=== PATIENT | female | born 1960 | race Caucasian/White ===

== ENCOUNTER 2019-01-13 02:54 | Inpatient (IN) ==
[2019-01-13] MEDS ORDERED: 0.9 % SODIUM CHLORIDE 1,000 ML IV SCH ×2 (03:00→14:23)
[2019-01-13] MEDS ORDERED: METOPROLOL TARTRATE 5 MG/5 ML VIAL IV PRN (03:05)
[2019-01-13] MEDS ORDERED: DEXTROSE 50% 50 ML VIAL IV PRN (03:05)
[2019-01-13] MEDS ORDERED: DEXTROSE 31 GM ORAL.SUSP PO PRN (03:05)
[2019-01-13] MEDS ORDERED: HYDROmorphone 2 MG/ML VIAL ONE ×2 (04:20→04:29)
[2019-01-13] MEDS ORDERED: ONDANSETRON 4 MG/2 ML VIAL ONE (04:21)
[2019-01-13] MEDS ORDERED: INSULIN LISPRO 1 UNIT/0.01 ML UNIT SQ ONE (04:22)
[2019-01-13] MEDS: INSULIN LISPRO 1 UNIT/0.01 ML UNIT SQ SCH ×7 (04:32→21:55)
[2019-01-13] MEDS: PIPERACILLIN SODIUM/TAZOBACTAM 3.375 GM in DEXTROSE 5% IN WATER 50 ML IV SCH ×4 (04:36→17:26)
[2019-01-13 06:26] LABS: Basophils # (Auto) 0 K/mcL (0.0-0.3); Basophils % (Auto) 0.2 % (0.0-2.0); Eosinophils # (Auto) 0 K/mcL (0.0-0.7); Eosinophils % (Auto) 0 % (0.0-7.0); Granulocytes % (Auto) 78.2 % (38.0-78.0); Lymphocytes # (Auto) 2.4 K/mcL (1.5-4.8); Lymphocytes % (Auto) 15.7 % (15.5-49.0); Mean Cell Volume 85.5 fL (80.0-100.0); Mean Corpuscular HGB Conc 32.3 g/dL (31.0-36.0); Monocytes # (Auto) 0.9 K/mcL (0.1-0.9); Monocytes % (Auto) 5.9 % (1.0-12.0); Platelet Count 482 K/mcL (140-440); RBC 4.61 M/mcL (4.00-5.20)
[2019-01-13 06:56] LABS: ALT/SGPT 6 U/l (0-40); Albumin 3.5 gm/dL (3.2-5.2); Albumin/Globulin Ratio 0.9 (1.0-2.3); Alkaline Phosphatase 99 U/L (39-117); Bilirubin,Direct < 0.2 mg/dL (0.0-0.3); Blood Urea Nitrogen 16 mg/dl (6-20); Gamma Glutamyl Transpeptidase 26 U/L (5-36); Uric Acid 4.5 mg/dL (2.5-8.0)
--- NOTE | 2019-01-13 07:01 | Internal Med History&Physical ---
Medical - H&P: [facility] Patient information: Note initiated : 01/13/19 at 6:59 am Service Date, if different from initiated Date: [] Patient: Abbi Sprague a 58 y/o F admitted on 01/13/19 for Acute Cholecystitis, Hyperglycemia. Chief Complaint: [] History of present illness: Ms. Sprague is a 58 year old F presents to [facility] with abdominal pain. Found to have acute cholecystitis and was transferred to [facility] because of lack of beds. Patient reports about 3 days ago she developed a short right upper abdominal pain nonradiating with associated nausea vomiting. Movement made it worse she only has had water for the past 3 days. Nothing is made it feel better. The pain is been waxing and waning but last night was so severe that she went into the ED. Heart rate 170 she was given some Lopressor with good results but her heart rate back down and her blood sugar was noted to be 500 which improved with fluids and insulin. She has had some diarrhea as well. And fevers. Case was discussed with Dr. Powell and patient was transferred to [facility]. Review of Systems: Pertinent positives as above. Denies headache/chills/nausea/vomiting/cough/dyspnea. Remaining 10 point review systems reviewed negative Medical - H&P: H Medical history: Medical History (Last Updated 09/16/18 @ 16:12 by Emma Rouse) Colitis (Chronic) CAD (coronary artery disease) (Chronic) Mixed anxiety and depressive disorder (Chronic) Posttraumatic stress disorder (Chronic) Diabetic peripheral neuropathy (Chronic) Migraine (Chronic) Congestive heart failure (Chronic) Coronary arteriosclerosis (Chronic) Malignant neoplasm of ovary (Chronic) Cerebrovascular accident (Chronic) Vitamin D deficiency (Chronic) Microalbuminuria (Chronic) Osteopenia (Chronic) Type 1 diabetes mellitus (Chronic) Hemoptysis (Chronic) Closed right hip fracture (Chronic) Physical deconditioning (Chronic) Paroxysmal atrial fibrillation (Chronic) Opiate dependence (Chronic) Diabetes mellitus with polyneuropathy (Chronic) Diabetic ketoacidosis (Chronic) Diabetes (Acute) Abdominal pain (Acute) Diverticulitis (Acute) Vaginal candidiasis (Acute) Migraine (Acute) Gingivitis with diabetes mellitus (Acute) Volume depletion (Acute) Headache (Acute) Bronchitis (Acute) Chronic back pain (Acute) Concussion without loss of consciousness (Acute) Mixed bipolar I disorder (Chronic) Chronic pain (Chronic) Toxic shock syndrome (Resolved) Pyelonephritis, chronic (Resolved) Pulmonary embolism (Resolved) Panic attack (Chronic) Neuropathy (Chronic) Myocardial infarction, old (Chronic) Lichen sclerosus (Chronic) Hypertension, essential (Chronic) Gastroparesis (Chronic) Diabetes mellitus, type II (Chronic) COPD (chronic obstructive pulmonary disease) (Chronic) Atrial fibrillation (Chronic) Asthma (Chronic) Acid reflux (Chronic) Malignant neoplasm of ovary (Resolved) Past Surgical History (Last Updated 09/16/18 @ 16:10 by Emma Rouse) History of surgery (Chronic) Status post panniculectomy (Chronic 11/17/01) Hx of colonoscopy (Resolved) Family History Father Acute myocardial infarction Mother Acute myocardial infarction Social History (Last Updated 08/18/17 @ 16:08 by Hayes Dimas PA-C) -Never smoker but was exposed to secondhand smoke Denies alcohol Lives with a walker in her house Lives at home with Medical - H&P: Meds Home Medications Medication Instructions Recorded Confirmed Type glucagon (human recombinant) 1 mg 1 mg IM ONCE #1 each 09/25/15 08/18/17 Rx injection kit omeprazole 20 mg capsule,delayed 20 mg PO BID #60 cap 02/02/16 08/18/17 Rx release apixaban 5 mg tablet 5 mg PO BID #120 tab 11/04/16 08/18/17 Rx clobetasol 0.05 % topical ointment 1 applic TOPICAL QD-BID PRN #30 g 12/31/16 08/18/17 Rx blood-glucose See Dose Instructions .ROUTE 03/25/17 08/18/17 Rx meter,continuous-transmitter .MEDSUPPLY #1 each blood sugar diagnostic strips See Dose Instructions .ROUTE 05/29/17 08/18/17 Rx .MEDSUPPLY #100 each lisinopril 5 mg tablet 5 mg PO QDAY #90 tab 06/25/17 08/18/17 Rx promethazine 25 mg tablet 25 mg PO Q4-6HP PRN #20 tab 06/25/17 08/18/17 Rx albuterol sulfate HFA 90 1 puff INHALATION QDAY #18 g 07/02/17 08/18/17 Rx mcg/actuation aerosol inhaler insulin glargine (U-300) conc. 300 30 unit SUB-Q QDAY #1.5 ml 07/09/17 08/18/17 Rx unit/mL (1.5 mL) subcutaneous pen amitriptyline 75 mg tablet 75 mg PO QDAY #90 tab 07/17/17 08/18/17 Rx exenatide ER 2 mg subcutaneous 2 mg SUB-Q Q7D #4 ml 07/17/17 08/18/17 Rx extended release suspension insulin aspart U- 100 100 unit/mL See Rx Instructions SUB-Q ONCE #3 07/17/17 08/18/17 Rx subcutaneous pen ml insulin detemir (U- 100) 100 See Rx Instructions SUB-Q .COMPLEX 08/28/17 Rx unit/mL subcutaneous solution #10 ml duloxetine 30 mg capsule,delayed 30 mg PO QDAY #90 cap 08/29/17 Rx release gabapentin 300 mg capsule 300 mg PO TID #90 cap 08/29/17 Rx oxycodone 20 mg tablet 20 mg PO Q4H #168 tab 11/06/17 Rx Allergies Allergy/AdvReac Type Severity Reaction Status Date / Time buprenorphine [From Suboxone] Allergy Intermediate Swelling Verified 08/18/17 15:44 duloxetine [From Cymbalta] Allergy Intermediate Swelling Verified 01/13/19 07:34 Iodinated Contrast- Oral and Allergy Intermediate Hives Verified 01/13/19 06:15 IV Dye [Iodinated Contrast Media - IV Dye] ketorolac [From Toradol] Allergy Intermediate Difficulty Verified 01/13/19 06:15 Breathing Naloxone [From Suboxone] Allergy Intermediate Swelling Verified 08/18/17 15:44 Sulfa (Sulfonamide Allergy Intermediate Difficulty Verified 01/13/19 06:15 Antibiotics) Breathing pregabalin [From Lyrica] AdvReac Intermediate Palpitation Verified 01/13/19 07:35 s sulfamethoxazole AdvReac Intermediate Palpitation Verified 01/13/19 07:34 [From Septra] s trimethoprim [From Septra] AdvReac Intermediate Palpitation Verified 01/13/19 07:34 s acetaminophen AdvReac Mild Itching Verified 01/13/19 07:34 fentanyl AdvReac Mild Anxiety Verified 01/13/19 06:15 lorazepam [From Ativan] AdvReac Mild Hives Verified 01/13/19 07:35 Medical - H&P: Exam - Constitutional Vitals: Temp Pulse Resp BP Pulse Ox 100.4 F H 111 H 18 175/97 97 01/13/19 03:55 01/13/19 03:55 01/13/19 03:55 01/13/19 03:55 01/13/19 03:55 Exam: General: Alert, Awake, No acute Distress Eyes/N/T: EOMI, PEERL, DMM Head/Neck: neck supple, normocephalic atraumatic CV: Regular currently, No murmurs, Pulm: Clear b/l, no wheezing/rhonchi/rales Abd: soft, tenderness to palpation throughout especially right upper quadrant, +BS x4 Ext: no clubbing/cyanosis/edema Neuro: Alert, no focal deficits, moves all extremities, CN 2-12 grossly intact, symmetrical strength b/l upper/lower, sensations intact b/l upper/lower Skin: warm/dry Medical - H&P: Reslt - Labs CBC & Chem 7: 01/13/19 04:43 01/13/19 04:43 Labs: Short CBC 01/13/19 Range/Units 04:43 WBC 15.2 H (4.5-11.0) K/mcL Hgb 12.7 (12.0-15.0) g/dL Hct 39.4 (36.0-48.0) % Plt Count 482 H (140-440) K/mcL BMP 01/13/19 04:43 Sodium 133 Potassium 3.6 Chloride 93 L Carbon Dioxide 28 BUN 16 Creatinine 0.7 Glucose 407 H Calcium 8.8 Liver Function 01/13/19 Range/Units 04:43 Total Bilirubin 0.5 (0.0-1.0) mg/dL Direct Bilirubin < 0.2 (0.0-0.3) mg/dL GGT 26 (5-36) U/L AST 9 (0-37) U/l ALT 6 (0-40) U/l Alkaline Phosphatase 99 (39-117) U/L Albumin 3.5 (3.2-5.2) gm/dL - Impressions Imaging per ER physician note showed CT abdomen with acute cholecystitis Medical - H&P: A/P - Narrative A/P Narrative: A: *Acute cholecystitis: *Sepsis: -Leukocytosis improving, febrile, lacate 2.0 *Diabetes with hyperglycemia and polyneuropathy: *Hyponatremia: Improved *PAF (Afib RVR @ [facility], better after lopressor x1): on ccb/bb/eliquis *HTN: on verapamil/coreg/lisinopril *CAD, no stents: *h/o CVA: With residual balance problems *Chronic pain from polyneuropathy from diabetes *Depression/anxiety: *GERD * P: -IVF's -NPO -Zosyn -Dr. Powell Gen Surg -SSI and basal insulin, monitor BG closely -A1c -restart BP meds and prn, prn lopressor - -clarify home meds - -ppx: SCD (Eliquis held for surgery)/pepcid Medical - H&P: Qual - VTE Deep Vein Thrombosis/Pulmonary Embolism Present on Admission: No
[2019-01-13] MEDS ORDERED: MAGNESIUM SULFATE 8.12 MEQ in DEXTROSE 5% IN WATER 50 ML IV ONE (07:30)
[2019-01-13 07:50] LABS: Anisocytosis 1+ (NONE SEEN); Band Neutrophils % 4 % (0-10); Lymphocytes % 16 % (15-49); Monocytes % (Manual) 6 % (1-12); Platelet Estimate INCREASED (NORMAL); RBC Morphology ABNORM (NORMAL); Segmented Neutrophils % 74 % (38-78)
[2019-01-13] MEDS: HYDROmorphone 2 MG/ML VIAL IV PRN ×4 (07:54→16:30)
[2019-01-13] MEDS: 0.9 % SODIUM CHLORIDE 1,000 ML IV SCH ×2 (08:01→13:28)
[2019-01-13] MEDS ORDERED: LABETALOL 5 MG/ML ML IV PRN (08:57)
[2019-01-13] MEDS ORDERED: MAGNESIUM SULFATE 2 GM/50 ML BAG IV PRN (08:59)
[2019-01-13] MEDS ORDERED: POTASSIUM CHLORIDE 20 MEQ TABLET PO PRN ×2 (08:59)
[2019-01-13] MEDS ORDERED: POLYETHYLENE GLYCOL 3350 17 GM PACKET PO PRN (08:59)
[2019-01-13] MEDS ORDERED: IPRATROPIUM/ALBUTEROL 3 ML AMPUL.NEB NEB PRN (08:59)
[2019-01-13] MEDS ORDERED: PROMETHAZINE 12.5 MG SUPP.RECT PR PRN (08:59)
[2019-01-13] MEDS ORDERED: SENNOSIDES 1 TABLET PO PRN (08:59)
[2019-01-13] MEDS ORDERED: POTASSIUM CHLORIDE 40 MEQ in DEXTROSE 5% IN WATER 500 ML IV PRN (08:59)
[2019-01-13] MEDS: 0.9 % SODIUM CHLORIDE 10 ML SYRINGE IV SCH ×2 (09:02→21:55)
[2019-01-13] MEDS: ONDANSETRON 4 MG/2 ML VIAL IV PRN ×2 (09:05→19:43)
[2019-01-13] MEDS: FAMOTIDINE/PF 20 MG/2 ML VIAL IV SCH ×2 (09:13→21:54)
[2019-01-13 10:21] LABS: Hemoglobin A1C 10.4 % HGB (4.0-6.0)
[2019-01-13] MEDS ORDERED: HYDROmorphone 2 MG TABLET PO PRN (13:22)
[2019-01-13] MEDS ORDERED: ALBUTEROL SULFATE 1 PUFF INHALER INH PRN (13:53)
--- NOTE | 2019-01-13 16:34 | General Surgery Consult Note ---
History of Present Illness Patient information: Note initiated : 01/13/19 at 4:24 pm Service Date, if different from initiated Date: [] Patient: Abbi Sprague 58 y/o F admitted on 01/13/19 for Acute Cholecystitis, Hyperglycemia. Chief Complaint: [] Reason for consult: gallstones History of present illness: 58-year-old female with three-day history of general fatigue and lethargy. She has a 2 day history of nausea with vomiting with multiple episodes of vomiting this. She was seen by EMS at home and was noted to be in atrial flutter with fast ventricular response. She was taken to [facility] for evaluation revealed her to have leukocytosis with white count of 18,500. She also had gallstones with thickened gallbladder wall compatible with acute cholecystitis. She was scheduled for admission but was transferred to our facility because of lack of space. She remains symptomatic and has tender epigastrium and right upper quadrant. She also has significant hyperglycemia which is being treated by the hospitalist. Patient has been on eliquis so another days delay will allow her coagulopathy to correct. . Review of Systems - Constitutional fatigue, lethargy, malaise, weakness - EENT Nose, mouth and throat: disequilibrium, dizziness, headache(s) - Cardiovascular palpatations, rapid heart rate, no dyspnea on exertion - Respiratory no cough, no dyspnea on exertion, no wheezing, no chest congestion - Gastrointestinal abdominal pain, bloating, diarrhea, heartburn, nausea, vomiting - Genitourinary Genitourinary: no urinary hesitancy, no urinary incontinence - Musculoskeletal arthralgias, myalgias, neck pain, stiffness - Integumentary dry skin - Neurological disequilibrium, frequent falls, headache(s), restless legs, tingling, tremor(s), weakness, no confusion - Psychiatric anxiety, depression, irritability, panic attacks - Endocrine fatigue, polydipsia, polyphagia, polyuria, no cold intolerance - Hematologic/Lymphatic no easy bleeding, no easy bruising, no lymphadenopathy - Allergic/Immunologic no tongue swelling, no throat swelling, no uticaria, no wheezing, no lip swelling Past History Past medical history: Chronic atrial fibrillation History of pulmonary embolus History of coronary artery disease History of stroke Chronic obstructive lung disease Uncontrolled diabetes with polyneuropathy Gastroparesis Hypertension History of ovarian neoplasm History of bipolar disorder Chronic pain syndrome Posttraumatic stress disorder Past surgical history: Total abdominal hysterectomy and bilateral salpingo-oophorectomy Appendectomy Panniculectomy Partial small bowel resection Partial colon resection by history Past family history: Mother age 73 due to coronary artery disease Father age 76 due to coronary artery disease Sister age 50 due to chronic obstructive lung disease Past social history: Never smoker Denies alcohol use Occasional marijuana use Medications and Allergies Home Medications Medication Instructions Recorded Confirmed Type glucagon (human recombinant) 1 mg 1 mg IM ONCE #1 each 09/25/15 08/18/17 Rx injection kit omeprazole 20 mg capsule,delayed 20 mg PO BID #60 cap 02/02/16 08/18/17 Rx release apixaban 5 mg tablet 5 mg PO BID #120 tab 11/04/16 01/13/19 Rx blood-glucose See Dose Instructions .ROUTE 03/25/17 08/18/17 Rx meter,continuous-transmitter .MEDSUPPLY #1 each blood sugar diagnostic strips See Dose Instructions .ROUTE 05/29/17 08/18/17 Rx .MEDSUPPLY #100 each albuterol sulfate HFA 90 1 puff INHALATION QDAY #18 g 07/02/17 01/13/19 Rx mcg/actuation aerosol inhaler ALPRAZolam [Xanax] 1 mg PO BIDP PRN 01/13/19 01/13/19 History Carvedilol [Coreg] 25 mg PO BIDCC 01/13/19 01/13/19 History HYDROmorphone HCL [Hydromorphone 8 mg PO Q6HP PRN 01/13/19 01/13/19 History HCl] Metoclopramide [Reglan] 10 mg PO ACHS 01/13/19 01/13/19 History RX: Insulin Detemir [Levemir] 30 unit SUBCUT BID 01/13/19 01/13/19 History RX: morphine 30 mg PO BIDAC 01/13/19 01/13/19 History Verapamil HCl [Verapamil ER] 240 mg PO DAILY 01/13/19 01/13/19 History Allergies Allergy/AdvReac Type Severity Reaction Status Date / Time buprenorphine [From Suboxone] Allergy Intermediate Swelling Verified 08/18/17 15:44 duloxetine [From Cymbalta] Allergy Intermediate Swelling Verified 01/13/19 07:34 Iodinated Contrast- Oral and Allergy Intermediate Hives Verified 01/13/19 06:15 IV Dye [Iodinated Contrast Media - IV Dye] ketorolac [From Toradol] Allergy Intermediate Difficulty Verified 01/13/19 06:15 Breathing Naloxone [From Suboxone] Allergy Intermediate Swelling Verified 08/18/17 15:44 Sulfa (Sulfonamide Allergy Intermediate Difficulty Verified 01/13/19 06:15 Antibiotics) Breathing pregabalin [From Lyrica] AdvReac Intermediate Palpitation Verified 01/13/19 07:35 s sulfamethoxazole AdvReac Intermediate Palpitation Verified 01/13/19 07:34 [From Septra] s trimethoprim [From Septra] AdvReac Intermediate Palpitation Verified 01/13/19 07:34 s acetaminophen AdvReac Mild Itching Verified 01/13/19 07:34 fentanyl AdvReac Mild Anxiety Verified 01/13/19 06:15 lorazepam [From Ativan] AdvReac Mild Hives Verified 01/13/19 07:35 Exam Temp Pulse Resp BP Pulse Ox 99.5 F H 106 H 18 158/91 97 01/13/19 12:00 01/13/19 08:00 01/13/19 12:00 01/13/19 12:00 01/13/19 12:00 - General physical appearance well developed, well nourished, moderate distress, moderate pain - Eyes PERRL, normal ocular movement. negative: icteric - ENT normal pinna, normal nares, normal mucosa, no hearing loss, no congestion - Head Head exam IM: Present: atraumatic, normal inspection, normocephalic - Neck no masses, no bruits, trachea midline, no lymphadenopathy, no venous distension - Cardiovascular Cardiovascular exam IM: Present: normal rate and rhythm, irregular rhythm, +S1, +S2. Absent: JVD, tachycardia - Respiratory normal expansion, normal respiratory effort, clear to auscultation - Abdomen Abdomen: Present: soft, tender (tender right subcostal region and epigastrium; no palpable mass; mild distention; chronic scarring from panniculectomy), bowel sounds Hernia: Present: none - Genitourinary Present: normal external genitalia - Integumentary Present: no rash, no growths, no abnormal pigmentation, other (healing abrasion left knee) - Neurologic Present: normal coordination, normal sensation - Musculoskeletal Present: normal gait, normal posture - Psychiatric Present: oriented to time, oriented to person, oriented to place, speech is normal, memory intact Results - Labs 01/13/19 04:43 01/13/19 04:43 Abnormal lab results 01/13/19 01/13/19 01/13/19 Range/Units 04:42 04:43 04:43 WBC 15.2 H (4.5-11.0) K/mcL RDW 16.0 H (11.5-14.5) % Plt Count 482 H (140-440) K/mcL MPV 7.3 L (7.4-10.4) fL Gran % 78.2 H (38.0-78.0) % Gran # 11.9 H (1.8-8.0) K/mcL RBC Morphology (NORMAL) Anisocytosis (NONE SEEN) PT 15.2 H (11.9-14.5) sec INR 1.2 H (0.9-1.1) Chloride 93 L (96-108) mmol/L Glucose 407 H (70-105) mg/dL Hemoglobin A1c (4.0-6.0) % HGB Magnesium 1.5 L (1.6-2.5) mg/dL Globulin 3.8 H (2.2-3.7) gm/dL Albumin/Globulin Ratio 0.9 L (1.0-2.3) 01/13/19 01/13/19 Range/Units 04:43 04:43 WBC (4.5-11.0) K/mcL RDW (11.5-14.5) % Plt Count (140-440) K/mcL MPV (7.4-10.4) fL Gran % (38.0-78.0) % Gran # (1.8-8.0) K/mcL RBC Morphology Abnorm A (NORMAL) Anisocytosis 1+ A (NONE SEEN) PT (11.9-14.5) sec INR (0.9-1.1) Chloride (96-108) mmol/L Glucose (70-105) mg/dL Hemoglobin A1c 10.4 H (4.0-6.0) % HGB Magnesium (1.6-2.5) mg/dL Globulin (2.2-3.7) gm/dL Albumin/Globulin Ratio (1.0-2.3) Diabetes panel 01/13/19 01/13/19 Range/Units 04:43 04:43 Sodium 133 (133-145) mmol/L Potassium 3.6 (3.3-5.1) mmol/L Chloride 93 L (96-108) mmol/L Carbon Dioxide 28 (22-30) mmol/L BUN 16 (6-20) mg/dl Creatinine 0.7 (0.6-1.1) mg/dl Glucose 407 H (70-105) mg/dL Hemoglobin A1c 10.4 H (4.0-6.0) % HGB Calcium 8.8 (8.6-10.4) mg/dl AST 9 (0-37) U/l ALT 6 (0-40) U/l Alkaline Phosphatase 99 (39-117) U/L Total Protein 7.3 (5.9-8.4) gm/dL Albumin 3.5 (3.2-5.2) gm/dL Triglycerides 119 (<150) mg/dl Calcium panel 01/13/19 Range/Units 04:43 Calcium 8.8 (8.6-10.4) mg/dl Phosphorus 3.0 (2.7-4.5) mg/dL Albumin 3.5 (3.2-5.2) gm/dL Pituitary panel 01/13/19 Range/Units 04:43 Sodium 133 (133-145) mmol/L Potassium 3.6 (3.3-5.1) mmol/L Chloride 93 L (96-108) mmol/L Carbon Dioxide 28 (22-30) mmol/L BUN 16 (6-20) mg/dl Creatinine 0.7 (0.6-1.1) mg/dl Glucose 407 H (70-105) mg/dL Calcium 8.8 (8.6-10.4) mg/dl Adrenal panel 01/13/19 Range/Units 04:43 Sodium 133 (133-145) mmol/L Potassium 3.6 (3.3-5.1) mmol/L Chloride 93 L (96-108) mmol/L Carbon Dioxide 28 (22-30) mmol/L BUN 16 (6-20) mg/dl Creatinine 0.7 (0.6-1.1) mg/dl Glucose 407 H (70-105) mg/dL Calcium 8.8 (8.6-10.4) mg/dl Total Bilirubin 0.5 (0.0-1.0) mg/dL AST 9 (0-37) U/l ALT 6 (0-40) U/l Alkaline Phosphatase 99 (39-117) U/L Total Protein 7.3 (5.9-8.4) gm/dL Albumin 3.5 (3.2-5.2) gm/dL All other labs normal. Assessment and Plan (1) Cholecystitis, acute Continue antibiotic treatment Schedule for laparoscopic cholecystectomy tomorrow; may need to do open procedure because of history of multiple operative procedures Status: Acute (2) Mixed anxiety and depressive disorder Continue home medications postoperatively Status: Chronic (3) Diabetic peripheral neuropathy Status: Chronic (4) Paroxysmal atrial fibrillation Status: Chronic (5) Diabetes mellitus with polyneuropathy Status: Chronic Qualifiers: Diabetes mellitus type: type 2 Qualified Code(s): E11.42 - Type 2 diabetes mellitus with diabetic polyneuropathy (6) Mixed bipolar I disorder Status: Chronic (7) Pulmonary embolism Status: Resolved Comment: 1996 (8) Hypertension, essential Status: Chronic (9) Diabetes mellitus, type II Status: Chronic Qualifiers: Diabetes mellitus exterminator insulin use: with exterminator use Diabetes mellitus complication status: with neurologic complications Diabetes mellitus complication detail: with polyneuropathy Qualified Code(s): E11.42 - Type 2 diabetes mellitus with diabetic polyneuropathy; Z79.4 - longterm (current) use of insulin (10) COPD (chronic obstructive pulmonary disease) Status: Chronic Comment: 04/2014 (11) Atrial fibrillation Status: Chronic Comment: 2013 Qualifiers: Atrial fibrillation type: chronic Qualified Code(s): I48.2 - Chronic atrial fibrillation
[2019-01-13] MEDS: morphine 15 MG TABLET PO SCH (17:26)
[2019-01-13] MEDS: CARVEDILOL 12.5 MG TABLET PO SCH (17:26)
--- NOTE | 2019-01-13 18:30 | Ultrasound Report ---
History: Cholecystitis FINDINGS: The posterior wall of the gallbladder is thickened and there is some layering sludge. The anterior wall is normal in thickness. No stones are seen within the lumen and there is no para cholecystic fluid. The posterior gallbladder wall measures up to 5.6 mm. The common bile duct is dilated measures up to 7.5 mm. Liver is normal in size and homogeneous. Doppler shows normal blood flow in the hepatic and portal veins. Pancreas is largely obscured by overlying bowel gas but is grossly normal. Right kidney is normal. IMPRESSION: Thickened gallbladder wall due to cholecystitis. Dilated common bile duct. There may be a nonvisualized stone in the distal duct. Interpreted and Authenticated by: Bill Stone 01/13/19
[2019-01-13] MEDS: ALPRAZolam 0.5 MG TABLET PO PRN (21:54)
[2019-01-13] MEDS: INSULIN GLARGINE, HUMAN 1 UNIT/0.01 ML SQ SCH (21:55)
[2019-01-14] MEDS: PIPERACILLIN SODIUM/TAZOBACTAM 3.375 GM in DEXTROSE 5% IN WATER 50 ML IV SCH ×4 (00:35→21:04)
[2019-01-14] MEDS: INSULIN LISPRO 1 UNIT/0.01 ML UNIT SQ SCH ×8 (00:39→21:25)
[2019-01-14 05:53] LABS: Basophils # (Auto) 0 K/mcL (0.0-0.3); Basophils % (Auto) 0.4 % (0.0-2.0); Eosinophils # (Auto) 0.2 K/mcL (0.0-0.7); Eosinophils % (Auto) 1.9 % (0.0-7.0); Granulocytes % (Auto) 46.9 % (38.0-78.0); Lymphocytes % (Auto) 42.4 % (15.5-49.0); Mean Cell Volume 85.3 fL (80.0-100.0); Mean Corpuscular HGB Conc 32.7 g/dL (31.0-36.0); Monocytes % (Auto) 8.4 % (1.0-12.0); Platelet Count 369 K/mcL (140-440); RBC 3.83 M/mcL (4.00-5.20); Red Cell Distribution Width 15.6 % (11.5-14.5)
[2019-01-14] MEDS: HYDROmorphone 2 MG/ML VIAL IV PRN ×7 (06:02→23:15)
[2019-01-14 06:16] LABS: ALT/SGPT < 5 U/l (0-40); Alkaline Phosphatase 74 U/L (39-117); Bilirubin,Direct < 0.2 mg/dL (0.0-0.3); Blood Urea Nitrogen 18 mg/dl (6-20); Gamma Glutamyl Transpeptidase 20 U/L (5-36); Uric Acid 3.2 mg/dL (2.5-8.0)
[2019-01-14] MEDS ORDERED: POTASSIUM CHLORIDE 40 MEQ in DEXTROSE 5% IN WATER 250 ML IV ONE (06:49)
[2019-01-14] MEDS ORDERED: 0.9 % SODIUM CHLORIDE 1,000 ML IV SCH ×3 (06:49→19:31)
--- NOTE | 2019-01-14 06:50 | Internal Med Progress Note ---
Medical - PN: Subj Patient information: Note initiated : 01/14/19 at 6:46 am Service Date, if different from initiated Date: [] Patient: Abbi Sprague a 58 y/o F admitted on 01/13/19 for Acute Cholecystitis, Hyperglycemia. Chief Complaint: [] Interval history: Ms. Sprague is a 58 year old F presents to [facility] with abdominal pain. Found to have acute cholecystitis and was transferred to [facility] because of lack of beds. Patient reports about 3 days ago she developed a short right upper abdominal pain nonradiating with associated nausea vomiting. Movement made it worse she only has had water for the past 3 days. Nothing is made it feel better. The pain is been waxing and waning but last night was so severe that she went into the ED. Heart rate 170 she was given some Lopressor with good results but her heart rate back down and her blood sugar was noted to be 500 which improved with fluids and insulin. She has had some diarrhea as well. And fevers. Case was discussed with Dr. Powell and patient was transferred to [facility]. 01/14 Patient slept better last night. Pain better controlled with medications. She has some nausea no vomiting. Review of Systems: denies headache/fever/chills/chest pain/cough/dyspnea/diarrhea. Otherwise see above. - Constitutional Vitals: Vital Signs Temp Pulse Resp BP Pulse Ox 98.2 F 83 20 143/93 94 01/14/19 04:00 01/14/19 04:00 01/14/19 04:00 01/14/19 04:00 01/14/19 04:00 Period Temp Pulse Resp BP Sys/Wiggins Pulse Ox Last 24 Hr 97.9 F-99.6 F 83-106 16-20 105-167/65-93 93-100 Intake and Output 01/13/19 01/14/19 01/14/19 21:59 05:59 13:59 Intake Total 530 350 Output Total 450 400 Balance 80 -50 Weight 74.843 kg Intake & Output: Intake & Output 01/13/19 01/14/19 01/14/19 21:59 05:59 13:59 Intake Total 530 350 Output Total 450 400 Balance 80 -50 Weight 74.843 kg Intake: IV 50 50 Zosyn 3.375 gm In Dextrose 5% 50 50 in Water 50 ml @ 100 mls/hr IV Q6H [facility] Rx#:[id number] Oral 480 300 Output: Urine Catheter Amount 450 400 Other: Urine Appearance Uretheral (Fall) Clear Urine Color Dark Yellow Dark Yellow Uretheral (Fall) Dark Yellow Urine Odor Strong Normal Uretheral (Fall) Normal Exam: General: Alert, Awake, No acute Distress Eyes/N/T: EOMI, Head/Neck: neck supple, CV: Regular currently, No murmurs, Pulm: Clear b/l, no wheezing/rhonchi/rales Abd: soft, tenderness to palpation throughout especially right upper quadrant, + BS x4 Ext: no clubbing/cyanosis/edema Neuro: Alert, no focal deficits, moves all extremities, Skin: warm/dry Medical - PN: Obj Da - Labs CBC & Chem 7: 01/14/19 04:08 01/14/19 04:08 Labs: Abnormal Lab Results 01/14/19 01/14/19 01/13/19 04:08 04:08 04:43 WBC 11.8 H RBC 3.83 L Hgb 10.7 L Hct 32.7 L RDW 15.6 H Plt Count MPV 7.1 L Gran % Gran # Lymph # (Auto) 5.0 H Gila # (Auto) 1.0 H RBC Morphology Anisocytosis PT INR Potassium 3.2 L Chloride Carbon Dioxide 31 H Anion Gap 7.0 L Glucose 207 H Hemoglobin A1c 10.4 H Calcium 8.4 L Magnesium Albumin 3.0 L Globulin Albumin/Globulin Ratio 01/13/19 01/13/19 01/13/19 04:43 04:43 04:43 WBC 15.2 H RBC Hgb Hct RDW 16.0 H Plt Count 482 H MPV 7.3 L Gran % 78.2 H Gran # 11.9 H Lymph # (Auto) Gila # (Auto) RBC Morphology Abnorm A Anisocytosis 1+ A PT INR Potassium Chloride 93 L Carbon Dioxide Anion Gap Glucose 407 H Hemoglobin A1c Calcium Magnesium 1.5 L Albumin Globulin 3.8 H Albumin/Globulin Ratio 0.9 L 01/13/19 04:42 WBC RBC Hgb Hct RDW Plt Count MPV Gran % Gran # Lymph # (Auto) Gila # (Auto) RBC Morphology Anisocytosis PT 15.2 H INR 1.2 H Potassium Chloride Carbon Dioxide Anion Gap Glucose Hemoglobin A1c Calcium Magnesium Albumin Globulin Albumin/Globulin Ratio Meds: Medications Albuterol Sulfate (Ventolin) 1 puff INH Q4HP PRN PRN Reason: Shortness Of Breath Albuterol/Ipratropium (Duoneb) 3 ml NEB Q4HP PRN PRN Reason: Shortness Of Breath Alprazolam (Xanax) 1 mg PO BIDP PRN PRN Reason: Anxiety Last Admin: 01/13/19 21:54 Dose: 1 mg Documented by: Carvedilol (Coreg) 25 mg PO BIDCC [facility] Last Admin: 01/13/19 17:26 Dose: 25 mg Documented by: Dextrose (Dextrose 50%) 0 ml IV UD PRN PRN Reason: Hypoglycemia Diagnostic Test (Pha) (Accu-Chek) 1 each FS Q3H [facility] Last Admin: 01/14/19 04:17 Dose: 1 each Documented by: Famotidine (Pepcid) 20 mg IV Q12 [facility] Last Admin: 01/13/19 21:54 Dose: 20 mg Documented by: Glucose (Insta-Glucose) 15 gm PO PRN PRN PRN Reason: Hypoglycemia Heparin Sodium (Porcine) (Heparin Flush) 2 ml IV Q12 [facility] Last Admin: 01/13/19 21:54 Dose: 2 ml Documented by: Hydromorphone HCl (Dilaudid) 1 mg IV Q2HP PRN PRN Reason: PAIN LEVEL > 6 Last Admin: 01/14/19 06:02 Dose: 1 mg Documented by: Hydromorphone HCl (Dilaudid) 8 mg PO Q6HP PRN PRN Reason: Pain Last Admin: 01/13/19 20:00 Dose: 8 mg Documented by: Piperacillin Sod/Tazobactam (Sod 3.375 gm/ Dextrose) 50 mls @ 100 mls/hr IV Q6H [facility] Last Admin: 01/14/19 06:02 Dose: 100 mls/hr Documented by: Potassium Chloride 40 meq/ (Dextrose) 520 mls @ 130 mls/hr IV ONCE PRN PRN Reason: Potassium < 3 Magnesium Sulfate (Magnesium Sulfate) 2 gm in 50 mls @ 50 mls/hr IV ONCE PRN PRN Reason: Magnesium </= 1.6 Sodium Chloride (Sodium Chloride 0.9%) 1,000 mls @ 60 mls/hr IV .[id number] [facility] Last Admin: 01/13/19 15:06 Dose: 60 mls/hr Documented by: Insulin Glargine (Lantus) 30 unit SQ BID [facility] Last Admin: 01/13/19 21:55 Dose: 30 unit Documented by: Insulin Human Lispro (Humalog) 0 unit SQ Q3H [facility]; Protocol Last Admin: 01/14/19 04:18 Dose: Not Given Documented by: Labetalol HCl (Trandate) 10 - 20 mg IV Q2HP PRN PRN Reason: Hypertension Metoprolol Tartrate (Lopressor) 5 mg IV Q2HP PRN PRN Reason: Tachyarrhythmias Morphine Sulfate (Morphine) 30 mg PO BIDAC [facility] Last Admin: 01/13/19 17:26 Dose: 30 mg Documented by: Ondansetron HCl (Zofran) 4 mg IV Q4HP PRN PRN Reason: Nausea And Vomiting Last Admin: 01/13/19 19:43 Dose: 4 mg Documented by: Polyethylene Glycol (Miralax) 17 gm PO DAILYP PRN PRN Reason: Constipation Potassium Chloride (Kdur) 40 meq PO ONCE PRN PRN Reason: Potssium is 3-3.5 Potassium Chloride (Kdur) 40 meq PO ONCE PRN PRN Reason: Potassium < 3 Prochlorperazine (Compazine) 10 mg IV Q6HP PRN PRN Reason: Nausea And Vomiting Promethazine HCl (Phenergan) 12.[address] Q6HP PRN PRN Reason: Pain Senna (Senokot) 2 tab PO HSP PRN PRN Reason: Constipation Sodium Chloride (Saline Flush) 10 ml IV Q12 [facility] Last Admin: 01/13/19 21:55 Dose: Not Given Documented by: Verapamil HCl (Calan Sr) 240 mg PO DAILY [facility] Medical - PN: A/P - Time Spent With Patient Total time spent is greater than 50% in coordination of care (as documented) at patient's floor/unit and/or counseling patient: - Narrative A/P Narrative: A: *Acute cholecystitis: *Sepsis: resolving -Leukocytosis improving, febrile, lacate 2.0 *Diabetes with hyperglycemia and polyneuropathy: *Hyponatremia: Improved *PAF (Afib RVR @ [facility], better after lopressor x1): on ccb/bb/eliquis *HTN: on verapamil/coreg/lisinopril *CAD, no stents: *h/o CVA: With residual balance problems *Chronic pain from polyneuropathy from diabetes *Depression/anxiety: *GERD *hypokalemia/mag: P: -IVF's -NPO for surgery -Alicja -Dr. Powell Gen Surg -SSI and basal insulin, monitor BG closely -A1c -restart BP meds and prn, prn lopressor -replete electrolytes -clarify home meds - -ppx: SCD (Eliquis held for surgery)/pepcid Medical - PN: Qual - VTE Deep Vein Thrombosis/Pulmonary Embolism Present on Admission: No
[2019-01-14] MEDS: CARVEDILOL 12.5 MG TABLET PO SCH (07:22)
[2019-01-14] MEDS: FAMOTIDINE/PF 20 MG/2 ML VIAL IV SCH ×2 (07:22→20:48)
[2019-01-14] MEDS: PROCHLORPERAZINE 10 MG/2 ML VIAL IV PRN ×2 (07:22→14:49)
[2019-01-14] MEDS: morphine 15 MG TABLET PO SCH (07:23)
[2019-01-14] MEDS: 0.9 % SODIUM CHLORIDE 10 ML SYRINGE IV SCH ×2 (07:23→21:06)
[2019-01-14] MEDS: VERAPAMIL 120 MG TAB.XL.24H PO SCH ×2 (07:28→14:48)
[2019-01-14] MEDS: INSULIN GLARGINE, HUMAN 1 UNIT/0.01 ML SQ SCH ×2 (07:38→20:49)
[2019-01-14] MEDS ORDERED: ROCURONIUM 10 MG/ML ML IV ONE (12:15)
[2019-01-14] MEDS ORDERED: LIDOCAINE HCL/PF 100 MG/5 ML SYRINGE IV ONE (12:15)
[2019-01-14] MEDS ORDERED: PROPOFOL 200 MG/20 ML VIAL IV ONE (12:15)
[2019-01-14] MEDS ORDERED: SUGAMMADEX SODIUM 200 MG/2 ML VIAL IV ONE (12:15)
[2019-01-14] MEDS ORDERED: ONDANSETRON 4 MG/2 ML VIAL ONE (12:15)
[2019-01-14] MEDS ORDERED: ESMOLOL 100 MG/10 ML VIAL IV ONE (12:15)
[2019-01-14] MEDS ORDERED: ePHEDrine 50 MG/ML AMPUL IV ONE (12:15)
[2019-01-14] MEDS ORDERED: GLYCOPYRROLATE 0.2 MG/ML VIAL IV ONE (12:15)
[2019-01-14] MEDS ORDERED: MIDAZOLAM 5 MG/5 ML VIAL ONE (12:15)
[2019-01-14] MEDS ORDERED: HYDROmorphone 2 MG/ML VIAL ONE (12:15)
[2019-01-14] MEDS ORDERED: VASOPRESSIN 20 UNIT/ML VIAL ONE (12:15)
[2019-01-14] MEDS ORDERED: IPRATROPIUM/ALBUTEROL 3 ML AMPUL.NEB NEB PRN ×3 (13:16→19:31)
[2019-01-14] MEDS ORDERED: METOPROLOL TARTRATE 5 MG/5 ML VIAL IV PRN ×3 (13:16→19:31)
[2019-01-14] MEDS ORDERED: FLUMAZENIL 0.1 MG/ML ML IV PRN (13:16)
[2019-01-14] MEDS ORDERED: MEPERIDINE 50 MG/ML INJECTION IM PRN (13:16)
[2019-01-14] MEDS ORDERED: PROMETHAZINE 25 MG/ML VIAL IM PRN (13:16)
[2019-01-14] MEDS ORDERED: ONDANSETRON 4 MG/2 ML VIAL IV PRN ×2 (13:16→14:50)
[2019-01-14] MEDS ORDERED: ATROPINE SULFATE 0.4 MG/ML VIAL IV PRN (13:16)
[2019-01-14] MEDS ORDERED: METHOCARBAMOL 1,000 MG/10 ML VIAL IV PRN (13:16)
[2019-01-14] MEDS ORDERED: ePHEDrine 50 MG/ML AMPUL IV PRN (13:16)
[2019-01-14] MEDS ORDERED: diphenhydrAMINE 50 MG/ML VIAL IV PRN (13:16)
[2019-01-14] MEDS ORDERED: LACTATED RINGERS 1,000 ML IV SCH (13:30)
--- NOTE | 2019-01-14 13:37 | Brief Operative Note ---
Date of procedure: 01/14/19 Pre-op diagnosis: acute cholecystitis Post-op diagnosis: other (acute cholecystitis) Procedure: laparoscopic cholecystectomy Grafts/Implants: No Anesthesia: GETA Findings: acutely dilated edematous gallbladder Complications: none Surgeon: Omero Powell Estimated blood loss (cc): 12 Specimens Removed/Pathology: other (gallbladder) Condition: stable Disposition: PACU
[2019-01-14] MEDS: ALPRAZolam 0.5 MG TABLET PO PRN (14:48)
[2019-01-14] MEDS ORDERED: ALPRAZolam 0.5 MG TABLET PO PRN ×2 (14:50→19:31)
[2019-01-14] MEDS ORDERED: HYDROmorphone 2 MG TABLET PO PRN (14:50)
[2019-01-14] MEDS ORDERED: LABETALOL 5 MG/ML ML IV PRN ×2 (14:50→19:31)
[2019-01-14] MEDS ORDERED: POLYETHYLENE GLYCOL 3350 17 GM PACKET PO PRN ×2 (14:50→19:31)
[2019-01-14] MEDS ORDERED: PROCHLORPERAZINE 10 MG/2 ML VIAL IV PRN ×2 (14:50→19:31)
[2019-01-14] MEDS ORDERED: PROMETHAZINE 12.5 MG SUPP.RECT PR PRN ×2 (14:50→19:31)
[2019-01-14] MEDS ORDERED: POTASSIUM CHLORIDE 20 MEQ TABLET PO PRN ×4 (14:50→19:31)
[2019-01-14] MEDS ORDERED: DEXTROSE 50% 50 ML VIAL IV PRN ×2 (14:50→19:31)
[2019-01-14] MEDS ORDERED: POTASSIUM CHLORIDE 40 MEQ in DEXTROSE 5% IN WATER 500 ML IV PRN ×2 (14:50→19:31)
[2019-01-14] MEDS ORDERED: ALBUTEROL SULFATE 1 PUFF INHALER INH PRN ×2 (14:50→19:31)
[2019-01-14] MEDS ORDERED: MAGNESIUM SULFATE 2 GM/50 ML BAG IV PRN ×2 (14:50→19:31)
[2019-01-14] MEDS ORDERED: HYDROmorphone 2 MG/ML VIAL IV PRN (14:50)
[2019-01-14] MEDS ORDERED: DEXTROSE 31 GM ORAL.SUSP PO PRN ×2 (14:50→19:31)
[2019-01-14] MEDS ORDERED: PIPERACILLIN SODIUM/TAZOBACTAM 3.375 GM in DEXTROSE 5% IN WATER 50 ML IV SCH ×2 (15:00→19:00)
[2019-01-14] MEDS ORDERED: morphine 15 MG TABLET PO SCH (17:00)
[2019-01-14] MEDS ORDERED: CARVEDILOL 12.5 MG TABLET PO SCH (17:30)
[2019-01-14] MEDS ORDERED: 0.9 % SODIUM CHLORIDE 10 ML SYRINGE IV SCH (21:00)
[2019-01-14] MEDS ORDERED: SENNOSIDES 1 TABLET PO PRN ×2 (21:00)
[2019-01-14] MEDS ORDERED: INSULIN GLARGINE, HUMAN 1 UNIT/0.01 ML SQ SCH (21:00)
[2019-01-14] MEDS ORDERED: FAMOTIDINE/PF 20 MG/2 ML VIAL IV SCH (21:00)
[2019-01-15] MEDS: ONDANSETRON 4 MG/2 ML VIAL IV PRN ×3 (00:13→08:06)
[2019-01-15] MEDS: INSULIN LISPRO 1 UNIT/0.01 ML UNIT SQ SCH ×8 (01:09→22:22)
[2019-01-15] MEDS: PIPERACILLIN SODIUM/TAZOBACTAM 3.375 GM in DEXTROSE 5% IN WATER 50 ML IV SCH ×4 (01:25→18:00)
[2019-01-15] MEDS: HYDROmorphone 2 MG TABLET PO PRN ×2 (02:39→10:42)
[2019-01-15] MEDS: HYDROmorphone 2 MG/ML VIAL IV PRN ×4 (05:39→14:27)
[2019-01-15 05:46] LABS: Basophils # (Auto) 0 K/mcL (0.0-0.3); Basophils % (Auto) 0.3 % (0.0-2.0); Eosinophils # (Auto) 0.5 K/mcL (0.0-0.7); Eosinophils % (Auto) 4.3 % (0.0-7.0); Granulocytes % (Auto) 50.2 % (38.0-78.0); Lymphocytes # (Auto) 4.1 K/mcL (1.5-4.8); Lymphocytes % (Auto) 38.5 % (15.5-49.0); Mean Corpuscular HGB Conc 32.2 g/dL (31.0-36.0); Monocytes # (Auto) 0.7 K/mcL (0.1-0.9); Monocytes % (Auto) 6.7 % (1.0-12.0); Platelet Count 311 K/mcL (140-440); RBC 3.56 M/mcL (4.00-5.20); Red Cell Distribution Width 15.5 % (11.5-14.5)
[2019-01-15 06:09] LABS: Blood Urea Nitrogen 12 mg/dl (6-20)
--- NOTE | 2019-01-15 07:03 | Internal Med Progress Note ---
Medical - PN: Subj Patient information: Note initiated : 01/15/19 at 6:59 am Service Date, if different from initiated Date: [] Patient: Abbi Sprague a 58 y/o F admitted on 01/13/19 for Acute Cholecystitis, Hyperglycemia. Chief Complaint: [] Interval history: Ms. Sprague is a 58 year old F presents to [facility] with abdominal pain. Found to have acute cholecystitis and was transferred to [facility] because of lack of beds. Patient reports about 3 days ago she developed a short right upper abdominal pain nonradiating with associated nausea vomiting. Movement made it worse she only has had water for the past 3 days. Nothing is made it feel better. The pain is been waxing and waning but last night was so severe that she went into the ED. Heart rate 170 she was given some Lopressor with good results but her heart rate back down and her blood sugar was noted to be 500 which improved with fluids and insulin. She has had some diarrhea as well. And fevers. Case was discussed with Dr. Powell and patient was transferred to [facility]. 01/14 Patient slept better last night. Pain better controlled with medications. She has some nausea no vomiting. 01/15 Had a little nausea with breakfast this morning no vomiting and tolerating most of her breakfast. Occasional cough. No other complaints and uneventful night. Slept well. Review of Systems: denies headache/fever/chills/chest pain/cough/dyspnea/diarrhea. Otherwise see above. - Constitutional Vitals: Vital Signs Temp Pulse Resp BP Pulse Ox 97.8 F 67 16 94/63 94 01/15/19 03:36 01/15/19 03:36 01/15/19 03:36 01/15/19 03:36 01/15/19 03:36 Period Temp Pulse Resp BP Sys/Wiggins Pulse Ox Last 24 Hr 97.0 F-98.9 F 67-91 10-18 94-178/52-102 86-98 Intake and Output 01/14/19 01/15/19 01/15/19 21:59 05:59 13:59 Intake Total 250 100 Output Total 1575 250 Balance -1325 -150 Weight 74.843 kg Intake & Output: Intake & Output 02/28/19 03/01/19 03/01/19 21:59 05:59 13:59 Intake Total 250 100 Output Total 1575 250 Balance -1325 -150 Weight 74.843 kg Intake: IV 50 100 Zosyn 3.375 gm In Dextrose 5% 100 in Water 50 ml @ 100 mls/hr IV Q6H [facility] Rx#:[id number] Oral 200 Output: Urine Catheter Amount 1575 250 Other: Meal Dinner Jello Percent of Meal Consumed 25% 100% Urine Appearance Clear Urine Color Pale Dark Yellow Urine Odor Normal Exam: General: Alert, Awake, No acute Distress Eyes/N/T: EOMI, Head/Neck: neck supple, CV: Regular currently, No murmurs, Pulm: Clear b/l, no wheezing/rhonchi/rales Abd: soft, +BS x4 Ext: no clubbing/cyanosis/edema Neuro: Alert, no focal deficits, moves all extremities, Skin: warm/dry Medical - PN: Obj Da - Labs CBC & Chem 7: 01/15/19 03:46 01/15/19 03:46 Labs: Abnormal Lab Results 01/15/19 01/15/19 01/14/19 03:46 03:46 04:08 WBC RBC 3.56 L Hgb 10.0 L Hct 30.9 L RDW 15.5 H Plt Count MPV 7.1 L Gran % Gran # Lymph # (Auto) Dawes # (Auto) RBC Morphology Anisocytosis PT INR Potassium 3.2 L Chloride Carbon Dioxide 31 H 31 H Anion Gap 5.0 L 7.0 L Glucose 141 H 207 H Hemoglobin A1c Calcium 8.4 L 8.4 L Magnesium Albumin 3.0 L Globulin Albumin/Globulin Ratio 01/14/19 01/13/19 01/13/19 04:08 04:43 04:43 WBC 11.8 H RBC 3.83 L Hgb 10.7 L Hct 32.7 L RDW 15.6 H Plt Count MPV 7.1 L Gran % Gran # Lymph # (Auto) 5.0 H Dawes # (Auto) 1.0 H RBC Morphology Abnorm A Anisocytosis 1+ A PT INR Potassium Chloride Carbon Dioxide Anion Gap Glucose Hemoglobin A1c 10.4 H Calcium Magnesium Albumin Globulin Albumin/Globulin Ratio 01/13/19 01/13/19 01/13/19 04:43 04:43 04:42 WBC 15.2 H RBC Hgb Hct RDW 16.0 H Plt Count 482 H MPV 7.3 L Gran % 78.2 H Gran # 11.9 H Lymph # (Auto) Dawes # (Auto) RBC Morphology Anisocytosis PT 15.2 H INR 1.2 H Potassium Chloride 93 L Carbon Dioxide Anion Gap Glucose 407 H Hemoglobin A1c Calcium Magnesium 1.5 L Albumin Globulin 3.8 H Albumin/Globulin Ratio 0.9 L Meds: Medications Albuterol Sulfate (Ventolin) 1 puff INH Q4HP PRN PRN Reason: Shortness Of Breath Albuterol/Ipratropium (Duoneb) 3 ml NEB Q4HP PRN PRN Reason: Shortness Of Breath Alprazolam (Xanax) 1 mg PO BIDP PRN PRN Reason: Anxiety Carvedilol (Coreg) 25 mg PO BIDCC [facility] Dextrose (Dextrose 50%) 0 ml IV UD PRN PRN Reason: Hypoglycemia Diagnostic Test (Pha) (Accu-Chek) 1 each FS Q3H [facility] Last Admin: 01/15/19 04:10 Dose: 1 each Documented by: Famotidine (Pepcid) 20 mg IV Q12 [facility] Last Admin: 01/14/19 20:48 Dose: 20 mg Documented by: Glucose (Insta-Glucose) 15 gm PO PRN PRN PRN Reason: Hypoglycemia Heparin Sodium (Porcine) (Heparin Flush) 2 ml IV Q12 [facility] Last Admin: 01/14/19 20:47 Dose: 2 ml Documented by: Hydromorphone HCl (Dilaudid) 1 mg IV Q2HP PRN PRN Reason: PAIN LEVEL > 6 Last Admin: 01/15/19 05:39 Dose: 1 mg Documented by: Hydromorphone HCl (Dilaudid) 8 mg PO Q6HP PRN PRN Reason: Pain Last Admin: 01/15/19 02:39 Dose: 8 mg Documented by: Potassium Chloride 40 meq/ (Dextrose) 520 mls @ 130 mls/hr IV ONCE PRN PRN Reason: Potassium < 3 Magnesium Sulfate (Magnesium Sulfate) 2 gm in 50 mls @ 50 mls/hr IV ONCE PRN PRN Reason: Magnesium </= 1.6 Sodium Chloride (Sodium Chloride 0.9%) 1,000 mls @ 70 mls/hr IV .[id number] [facility] Last Admin: 01/14/19 20:48 Dose: Not Given Documented by: Piperacillin Sod/Tazobactam (Sod 3.375 gm/ Dextrose) 50 mls @ 100 mls/hr IV Q6H [facility] Last Infusion: 01/15/19 02:00 Dose: Infused Documented by: Insulin Glargine (Lantus) 30 unit SQ BID [facility] Last Admin: 01/14/19 20:49 Dose: 30 unit Documented by: Insulin Human Lispro (Humalog) 0 unit SQ Q3H [facility]; Protocol Last Admin: 01/15/19 04:10 Dose: Not Given Documented by: Labetalol HCl (Trandate) 10 - 20 mg IV Q2HP PRN PRN Reason: Hypertension Metoprolol Tartrate (Lopressor) 5 mg IV Q2HP PRN PRN Reason: Tachyarrhythmias Morphine Sulfate (Morphine) 30 mg PO BIDAC [facility] Ondansetron HCl (Zofran) 4 mg IV Q4HP PRN PRN Reason: Nausea And Vomiting Last Admin: 01/15/19 02:39 Dose: 4 mg Documented by: Polyethylene Glycol (Miralax) 17 gm PO DAILYP PRN PRN Reason: Constipation Potassium Chloride (Kdur) 40 meq PO ONCE PRN PRN Reason: Potassium is 3-3.5 Potassium Chloride (Kdur) 40 meq PO ONCE PRN PRN Reason: Potassium < 3 Prochlorperazine (Compazine) 10 mg IV Q6HP PRN PRN Reason: Nausea And Vomiting Promethazine HCl (Phenergan) 12.5 mg [place] Q6HP PRN PRN Reason: Pain Senna (Senokot) 2 tab PO HSP PRN PRN Reason: Constipation Sodium Chloride (Saline Flush) 10 ml IV Q12 [facility] Last Admin: 01/14/19 21:06 Dose: Not Given Documented by: Verapamil HCl (Calan Sr) 240 mg PO DAILY [facility] Medical - PN: A/P - Time Spent With Patient Total time spent is greater than 50% in coordination of care (as documented) at patient's floor/unit and/or counseling patient: - Narrative A/P Narrative: A: *Acute cholecystitis: s/p lap atshi (01/14) *Sepsis: resolved *Diabetes with hyperglycemia and polyneuropathy: BG better controlled *Hyponatremia: Improved *PAF (Afib RVR @ [facility], better after lopressor x1): on ccb/bb/eliquis *HTN: on verapamil/coreg *CAD, no stents: *h/o CVA: With residual balance problems *Chronic pain from polyneuropathy from diabetes *Depression/anxiety: *GERD *hypokalemia/mag: improved P: -Diet advance per surgery -Allisonsyfredy -Dr. Powell Gen Surg -SSI and basal insulin, -A1c -restart BP meds and prn, prn lopressor -replete electrolytes -clarify home meds - -ppx: SCD (Eliquis held for surgery, restart if ok with surgery)/pepcid Medical - PN: Qual - VTE Deep Vein Thrombosis/Pulmonary Embolism Present on Admission: No
[2019-01-15] MEDS ORDERED: morphine 15 MG TABLET PO SCH ×2 (07:30→17:00)
[2019-01-15] MEDS ORDERED: CARVEDILOL 12.5 MG TABLET PO SCH (08:00)
[2019-01-15] MEDS: FAMOTIDINE/PF 20 MG/2 ML VIAL IV SCH ×2 (08:10→22:16)
[2019-01-15] MEDS: 0.9 % SODIUM CHLORIDE 10 ML SYRINGE IV SCH ×2 (08:32→22:23)
[2019-01-15] MEDS: INSULIN GLARGINE, HUMAN 1 UNIT/0.01 ML SQ SCH ×2 (08:37→22:21)
[2019-01-15] MEDS ORDERED: VERAPAMIL 120 MG TAB.XL.24H PO SCH ×2 (09:00)
[2019-01-15] MEDS ORDERED: ALPRAZolam 0.5 MG TABLET PO PRN (10:47)
[2019-01-15] MEDS ORDERED: ALBUTEROL SULFATE 1 PUFF INHALER INH PRN (10:47)
[2019-01-15] MEDS ORDERED: METOPROLOL TARTRATE 5 MG/5 ML VIAL IV PRN (10:47)
[2019-01-15] MEDS ORDERED: IPRATROPIUM/ALBUTEROL 3 ML AMPUL.NEB NEB PRN (10:47)
[2019-01-15] MEDS ORDERED: DEXTROSE 31 GM ORAL.SUSP PO PRN (10:47)
[2019-01-15] MEDS ORDERED: MAGNESIUM SULFATE 2 GM/50 ML BAG IV PRN (10:47)
[2019-01-15] MEDS ORDERED: ONDANSETRON 4 MG/2 ML VIAL IV PRN (10:47)
[2019-01-15] MEDS ORDERED: LABETALOL 5 MG/ML ML IV PRN (10:47)
[2019-01-15] MEDS ORDERED: HYDROmorphone 2 MG TABLET PO PRN ×2 (10:47→20:49)
[2019-01-15] MEDS ORDERED: POTASSIUM CHLORIDE 40 MEQ in DEXTROSE 5% IN WATER 500 ML IV PRN (10:47)
[2019-01-15] MEDS ORDERED: POLYETHYLENE GLYCOL 3350 17 GM PACKET PO PRN (10:47)
[2019-01-15] MEDS ORDERED: DEXTROSE 50% 50 ML VIAL IV PRN (10:47)
[2019-01-15] MEDS ORDERED: PROMETHAZINE 12.5 MG SUPP.RECT PR PRN (10:47)
[2019-01-15] MEDS ORDERED: PROCHLORPERAZINE 10 MG/2 ML VIAL IV PRN (10:47)
[2019-01-15] MEDS ORDERED: POTASSIUM CHLORIDE 20 MEQ TABLET PO PRN ×2 (10:47)
--- NOTE | 2019-01-15 14:16 | Surgical Pathology Report ---
HISTOLOGY SPECIMEN MICROSCOPIC DIAGNOSIS GALLBLADDER, CHOLECYSTECTOMY: -- EOSINOPHILIC CHOLECYSTITIS, SEE COMMENT. (EBD:sln) COMMENT: Focally the inflammatory infiltrative is composed primarily of eosinophils with microabscess formation involving the mucosa. The findings may be associated with a reaction to biliary contents. The differential also includes drug effect, atopy, eosinophilic cholangitis, eosinophilic enterocolitis or appendicitis. Less commonly it may be associated with hypereosinophilic syndrome, parasitic infection, or peripheral eosinophilia. Clinical correlation is required. PROCEDURAL IMPRESSION Cholecystitis. GROSS DESCRIPTION Received in formalin labeled with the patient information and designated as gallbladder is an 11.1 x 4.2 x 2.5 cm purple-pink gallbladder. The majority of the serosa is smooth and glistening with approximately 20% roughened brown-marie. Two metal clamps are present, one on the cystic duct. The mucosa is velvety pink-marie. There are multiple raised areas on the mucosa ranging in size from 0.1 to 0.6 cm. The wall is up to 0.3 cm thick. There are no stones found within the specimen or container. Surgical Instruments Inspector sections, including surgical sales representative section of raised area are submitted in one cassette. (KGW:sln) Electronically Signed by: Bailey Moreno M.D.
--- NOTE | 2019-01-15 16:26 | General Surgery Progress Note ---
Subjective Patient reports: still having pain, tolerating liquids well, flatus, nausea, afebrile Narrative: Note initiated : 01/15/19 at 4:24 pm Service Date, if different from initiated Date: [] Patient: Abbi Sprague 58 y/o F admitted on 01/13/19 for Acute Cholecystitis, Hyperglycemia. Chief Complaint: [patient is improved. She has continued nausea and her by mouth intake has been marginal. Her preoperative discomfort in her right upper quadrant has resolved.] Objective Temp Pulse Resp BP Pulse Ox 98.2 F 78 16 128/99 97 01/15/19 16:00 01/15/19 08:00 01/15/19 16:00 01/15/19 16:00 01/15/19 16:00 - Additional Data Intake & Output - Last 24 hours: Intake & Output 01/13/19 01/14/19 01/15/19 01/16/19 05:59 05:59 05:59 05:59 Intake Total 1798 5197 640 Output Total 1175 2450 925 Balance 623 2747 -285 Weight 140 lb 165 lb 165 lb 165 lb - General physical appearance well developed, well nourished, no distress - Eyes PERRL, normal ocular movement - ENT normal pinna, normal nares, normal mucosa, no hearing loss, no congestion - Neck no masses, no bruits, trachea midline, no lymphadenopathy, no venous distension - Respiratory normal expansion, normal respiratory effort, clear to auscultation, other (no complaint of chest discomfort) - Cardiovascular Cardiovascular exam: Present: RRR, +S1, +S2. Absent: JVD, tachycardia - Abdomen tender ( mild incision around port sites otherwise benign abdominal exam), bowel sounds (present), surgical scars (none), masses (none) - Integumentary no rash, no growths, no abnormal pigmentation - Neurologic normal coordination, normal sensation - Musculoskeletal normal gait, normal posture - Psychiatric oriented to time, oriented to person, oriented to place, speech is normal, memory intact - Labs 01/15/19 03:46 01/15/19 03:46 Diabetes panel 01/15/19 Range/Units 03:46 Sodium 135 (133-145) mmol/L Potassium 4.0 (3.3-5.1) mmol/L Chloride 99 (96-108) mmol/L Carbon Dioxide 31 H (22-30) mmol/L BUN 12 (6-20) mg/dl Creatinine 0.6 (0.6-1.1) mg/dl Glucose 141 H (70-105) mg/dL Calcium 8.4 L (8.6-10.4) mg/dl Calcium panel 01/15/19 Range/Units 03:46 Calcium 8.4 L (8.6-10.4) mg/dl Pituitary panel 01/15/19 Range/Units 03:46 Sodium 135 (133-145) mmol/L Potassium 4.0 (3.3-5.1) mmol/L Chloride 99 (96-108) mmol/L Carbon Dioxide 31 H (22-30) mmol/L BUN 12 (6-20) mg/dl Creatinine 0.6 (0.6-1.1) mg/dl Glucose 141 H (70-105) mg/dL Calcium 8.4 L (8.6-10.4) mg/dl Adrenal panel 01/15/19 Range/Units 03:46 Sodium 135 (133-145) mmol/L Potassium 4.0 (3.3-5.1) mmol/L Chloride 99 (96-108) mmol/L Carbon Dioxide 31 H (22-30) mmol/L BUN 12 (6-20) mg/dl Creatinine 0.6 (0.6-1.1) mg/dl Glucose 141 H (70-105) mg/dL Calcium 8.4 L (8.6-10.4) mg/dl Assessment and Plan (1) Cholecystitis, acute Status: Acute Assessment and plan: Continue on present regimen Advanced low-fat diet Current Visit: Yes (2) Mixed anxiety and depressive disorder Status: Chronic Assessment and plan: Start on medications Current Visit: No (3) Diabetic peripheral neuropathy Status: Chronic Current Visit: No (4) Paroxysmal atrial fibrillation Status: Chronic Assessment and plan: Hold eliquis was until tomorrow Current Visit: No (5) Diabetes mellitus with polyneuropathy Status: Chronic Current Visit: No (6) Mixed bipolar I disorder Status: Chronic Current Visit: No (7) Hypertension, essential Status: Chronic Current Visit: No (8) Diabetes mellitus, type II Status: Chronic Current Visit: No (9) COPD (chronic obstructive pulmonary disease) Problem details: 04/2014 Status: Chronic Current Visit: No (10) Atrial fibrillation Problem details: 2013 Status: Chronic Current Visit: No - Time Spent With Patient Total time spent is greater than 50% in coordination of care (as documented) at patient's floor/unit and/or counseling patient:
[2019-01-15] MEDS: CARVEDILOL 12.5 MG TABLET PO SCH (16:50)
[2019-01-15] MEDS: morphine 15 MG TABLET PO SCH (16:50)
[2019-01-15] MEDS ORDERED: 0.9 % SODIUM CHLORIDE 500 ML IV ONE (20:33)
[2019-01-15] MEDS ORDERED: SENNOSIDES 1 TABLET PO PRN (21:00)
[2019-01-15] MEDS ORDERED: HYDROmorphone 2 MG TABLET ONE (22:10)
[2019-01-16] MEDS: INSULIN LISPRO 1 UNIT/0.01 ML UNIT SQ SCH ×3 (00:50→06:06)
[2019-01-16 05:37] LABS: Basophils # (Auto) 0 K/mcL (0.0-0.3); Basophils % (Auto) 0.4 % (0.0-2.0); Eosinophils # (Auto) 0.5 K/mcL (0.0-0.7); Granulocytes % (Auto) 46.2 % (38.0-78.0); Lymphocytes # (Auto) 3.6 K/mcL (1.5-4.8); Lymphocytes % (Auto) 39.5 % (15.5-49.0); Mean Cell Volume 85.3 fL (80.0-100.0); Mean Corpuscular HGB Conc 33.2 g/dL (31.0-36.0); Monocytes # (Auto) 0.8 K/mcL (0.1-0.9); Monocytes % (Auto) 8.9 % (1.0-12.0); Platelet Count 286 K/mcL (140-440); RBC 3.28 M/mcL (4.00-5.20); Red Cell Distribution Width 15.2 % (11.5-14.5)
[2019-01-16] MEDS ORDERED: HYDROmorphone 2 MG TABLET ONE (05:52)
[2019-01-16] MEDS: PIPERACILLIN SODIUM/TAZOBACTAM 3.375 GM in DEXTROSE 5% IN WATER 50 ML IV SCH ×3 (06:02→11:14)
[2019-01-16 06:03] LABS: Blood Urea Nitrogen 10 mg/dl (6-20)
[2019-01-16] MEDS: morphine 15 MG TABLET PO SCH (07:14)
[2019-01-16] MEDS: FAMOTIDINE/PF 20 MG/2 ML VIAL IV SCH (07:15)
[2019-01-16] MEDS: CARVEDILOL 12.5 MG TABLET PO SCH (07:15)
[2019-01-16] MEDS: INSULIN GLARGINE, HUMAN 1 UNIT/0.01 ML SQ SCH (07:19)
[2019-01-16] MEDS: 0.9 % SODIUM CHLORIDE 10 ML SYRINGE IV SCH (07:20)
[2019-01-16] MEDS ORDERED: VERAPAMIL 120 MG TAB.XL.24H PO SCH (09:00)
[2019-01-16] MEDS ORDERED: INSULIN LISPRO 1 UNIT/0.01 ML UNIT SQ SCH (11:30)
[2019-01-16] MEDS ORDERED: morphine 15 MG TABLET PO ONE (12:03)
--- NOTE | 2019-01-16 12:37 | Internal Med Progress Note ---
Medical - PN: Subj Patient information: Note initiated : 01/16/19 at 12:37 pm Service Date, if different from initiated Date: [] Patient: Abbi Sprague a 58 y/o F admitted on 01/13/19 for Acute Cholecystitis, Hyperglycemia. Chief Complaint: [] Interval history: Ms. Sprague is a 58 year old F presents to [facility] with abdominal pain. Found to have acute cholecystitis and was transferred to [facility] because of lack of beds. Patient reports about 3 days ago she developed a short right upper abdominal pain nonradiating with associated nausea vomiting. Movement made it worse she only has had water for the past 3 days. Nothing is made it feel better. The pain is been waxing and waning but last night was so severe that she went into the ED. Heart rate 170 she was given some Lopressor with good results but her heart rate back down and her blood sugar was noted to be 500 which improved with fluids and insulin. She has had some diarrhea as well. And fevers. Case was discussed with Dr. Powell and patient was transferred to [facility]. 01/14 Patient slept better last night. Pain better controlled with medications. She has some nausea no vomiting. 01/15 Had a little nausea with breakfast this morning no vomiting and tolerating most of her breakfast. Occasional cough. No other complaints and uneventful night. Slept well. 01/16- patient complaining of persistent pain despite opioids however appears out of proportion, no abdominal distention, surgery on board. Tolerating diet. Surgery recommendations . No overnight fever or chills. Brief episode of hypotension because of excessive pain medication last night. Much improved this morning. Would recommend lowering doses of opioids - Constitutional Vitals: Vital Signs Temp Pulse Resp BP Pulse Ox 98.6 F 76 16 111/72 94 01/16/19 12:00 01/16/19 04:00 01/16/19 12:00 01/16/19 12:00 01/16/19 12:00 Period Temp Pulse Resp BP Sys/Wiggins Pulse Ox Last 24 Hr 98 F-98.6 F 60-76 12-18 79-128/50-99 93-97 Intake and Output 01/15/19 01/16/19 01/16/19 21:59 05:59 13:59 Intake Total 230 850 50 Output Total 925 550 Balance -695 300 50 Weight 164 lb Intake & Output: Intake & Output 01/15/19 01/16/19 01/16/19 21:59 05:59 13:59 Intake Total 230 850 50 Output Total 925 550 Balance -695 300 50 Weight 164 lb Intake: IV 50 550 50 Sodium Chloride 0.9% 500 ml @ 500 Wide Open IV BOLUS ONE Rx#: [id number] Zosyn 3.375 gm In Dextrose 5% 50 50 50 in Water 50 ml @ 100 mls/hr IV Q6H [facility] Rx#:[id number] Oral 180 300 Output: Urine Catheter Amount 925 Void Amount 550 Other: Meal Breakfast Percent of Meal Consumed Refused Urine Appearance Clear Clear Urine Color Bright Yellow Pale Urine Odor Normal Normal # Voids 1 General appearance: no acute distress Exam: Postop day 2, doing well Nondistended abdomen Minimal anxiety, Nonlabored breathing Medical - PN: Obj Da - Labs CBC & Chem 7: 01/16/19 03:56 01/16/19 03:56 Labs: Abnormal Lab Results 01/16/19 01/16/19 01/15/19 03:56 03:56 03:46 WBC RBC 3.28 L Hgb 9.3 L Hct 28.0 L RDW 15.2 H MPV 7.2 L Lymph # (Auto) Weston # (Auto) Potassium Carbon Dioxide 31 H Anion Gap 6.0 L 5.0 L Glucose 141 H Calcium 8.4 L Albumin 01/15/19 01/14/19 01/14/19 03:46 04:08 04:08 WBC 11.8 H RBC 3.56 L 3.83 L Hgb 10.0 L 10.7 L Hct 30.9 L 32.7 L RDW 15.5 H 15.6 H MPV 7.1 L 7.1 L Lymph # (Auto) 5.0 H Weston # (Auto) 1.0 H Potassium 3.2 L Carbon Dioxide 31 H Anion Gap 7.0 L Glucose 207 H Calcium 8.4 L Albumin 3.0 L Meds: Medications Albuterol Sulfate (Ventolin) 1 puff INH Q4HP PRN PRN Reason: Shortness Of Breath Albuterol/Ipratropium (Duoneb) 3 ml NEB Q4HP PRN PRN Reason: Shortness Of Breath Alprazolam (Xanax) 1 mg PO BIDP PRN PRN Reason: Anxiety Last Admin: 01/15/19 23:59 Dose: 1 mg Documented by: Carvedilol (Coreg) 25 mg PO BIDCC [facility] Last Admin: 01/16/19 07:15 Dose: Not Given Documented by: Dextrose (Dextrose 50%) 0 ml IV UD PRN PRN Reason: Hypoglycemia Diagnostic Test (Pha) (Accu-Chek) 1 each FS [facility] Last Admin: 01/16/19 11:10 Dose: 1 each Documented by: Famotidine (Pepcid) 20 mg IV Q12 [facility] Last Admin: 01/16/19 07:15 Dose: 20 mg Documented by: Glucose (Insta-Glucose) 15 gm PO PRN PRN PRN Reason: Hypoglycemia Heparin Sodium (Porcine) (Heparin Flush) 2 ml IV Q12 [facility] Last Admin: 01/16/19 07:20 Dose: 2 ml Documented by: Hydromorphone HCl (Dilaudid) 1 mg IV Q2HP PRN PRN Reason: PAIN LEVEL > 6 Last Admin: 01/15/19 14:27 Dose: 1 mg Documented by: Hydromorphone HCl (Dilaudid) 2 mg PO Q6HP PRN PRN Reason: PAIN LEVEL 3-6 Last Admin: 01/16/19 09:50 Dose: 2 mg Documented by: Potassium Chloride 40 meq/ (Dextrose) 520 mls @ 130 mls/hr IV ONCE PRN PRN Reason: Potassium < 3 Magnesium Sulfate (Magnesium Sulfate) 2 gm in 50 mls @ 50 mls/hr IV ONCE PRN PRN Reason: Magnesium </= 1.6 Piperacillin Sod/Tazobactam (Sod 3.375 gm/ Dextrose) 50 mls @ 100 mls/hr IV Q6H [facility] Last Admin: 01/16/19 11:14 Dose: 100 mls/hr Documented by: Insulin Glargine (Lantus) 30 unit SQ BID [facility] Last Admin: 01/16/19 07:19 Dose: 30 units Documented by: Insulin Human Lispro (Humalog) 0 unit SQ [facility]; Protocol Last Admin: 01/16/19 11:10 Dose: Not Given Documented by: Labetalol HCl (Trandate) 10 - 20 mg IV Q2HP PRN PRN Reason: Hypertension Metoprolol Tartrate (Lopressor) 5 mg IV Q2HP PRN PRN Reason: Tachyarrhythmias Morphine Sulfate (Morphine) 15 mg PO BIDAC [facility] Last Admin: 01/16/19 07:14 Dose: 15 mg Documented by: Ondansetron HCl (Zofran) 4 mg IV Q4HP PRN PRN Reason: Nausea And Vomiting Last Admin: 01/16/19 07:15 Dose: 4 mg Documented by: Polyethylene Glycol (Miralax) 17 gm PO DAILYP PRN PRN Reason: Constipation Potassium Chloride (Kdur) 40 meq PO ONCE PRN PRN Reason: Potassium is 3-3.5 Potassium Chloride (Kdur) 40 meq PO ONCE PRN PRN Reason: Potassium < 3 Prochlorperazine (Compazine) 10 mg IV Q6HP PRN PRN Reason: Nausea And Vomiting Promethazine HCl (Phenergan) 12.5 mg MI Q6HP PRN PRN Reason: Pain Senna (Senokot) 2 tab PO HSP PRN PRN Reason: Constipation Sodium Chloride (Saline Flush) 10 ml IV Q12 [facility] Last Admin: 01/16/19 07:20 Dose: 10 ml Documented by: Verapamil HCl (Calan Sr) 240 mg PO DAILY [facility] Last Admin: 01/16/19 07:15 Dose: 240 mg Documented by: Medical - PN: A/P - Time Spent With Patient Total time spent is greater than 50% in coordination of care (as documented) at patient's floor/unit and/or counseling patient: 15 - 24 minutes - Narrative A/P Narrative: A: * Acute cholecystitis: s/p lap tashi (01/14) postop day 2. Managed by surgery * Sepsis: resolved. White count normalized * Diabetes with hyperglycemia and polyneuropathy: Stable on basal prandial insulin * Hyponatremia: Resolved * PAF continue ccb/bb/eliquis * HTN: on verapamil/coreg * CAD on Coreg * h/o CVA: Continue PT OT * Chronic pain from polyneuropathy from diabetes, on opioids * Depression/anxiety: Stable * GERD Plan * continue pre-existing medical management as above * Pain management per surgery , I will recommend lowering pain medications due to hypotension and risk of respiratory depression * Electrolyte replacement as indicated * Nutritional support/physical therapy Medical - PN: Qual - VTE Deep Vein Thrombosis/Pulmonary Embolism Present on Admission: No
--- NOTE | 2019-01-16 12:54 | Discharge Summary ---
Providers - Providers Patient information: Note initiated : 01/16/19 at 12:54 pm Service Date, if different from initiated Date: [] Patient: Abbi Sprague 58 y/o F admitted on 01/13/19 for Acute Cholecystitis, Hyperglycemia. Chief Complaint: [] Date of admission: 01/13/19 Discharge date: 01/16/19 Attending physician: [facility] course: 58-year-old female admitted on 13 January with acute cholecystitis with leukocytosis. She underwent laparoscopic cholecystectomy 14 January. Her discharge was delayed because of pain control. She has difficulty with chronic pain syndrome and by history has been on multiple narcotics. Today she is stable and her pain is relatively well controlled. She is afebrile and tolerating diet well. She is discharged home. She is advised to restart her ELIQUIS today. She is to follow-up in the office in 2 weeks. Discharge diagnosis: eosinophilic cholecystitis Secondary discharge diagnosis: Chronic pain syndrome Reason for admission: abdominal pain nausea, vomiting and leukocytosis Procedures: Laparoscopic cholecystectomy Pertinent studies/significant findings: None Complications: None Exam Temp Pulse Resp BP Pulse Ox 98.6 F 76 16 111/72 94 01/16/19 12:00 01/16/19 04:00 01/16/19 12:00 01/16/19 12:00 01/16/19 12:00 - General physical appearance well developed, well nourished, moderate distress, moderate pain - Eyes PERRL, normal ocular movement - ENT normal pinna, normal nares, normal mucosa, no hearing loss, no congestion - Head Head exam IM: Present: atraumatic, normocephalic - Neck no masses, no bruits, trachea midline, no lymphadenopathy, no venous distension - Cardiovascular Cardiovascular exam IM: Present: normal rate and rhythm - Respiratory normal expansion, normal respiratory effort, clear to percussion, clear to auscultation - Abdomen Abdomen: Present: soft, tender (mild incisional tenderness with normal active bowel sounds; no distention noted), bowel sounds Hernia: Present: none - Genitourinary Present: normal external genitalia - Integumentary Present: no rash, no growths, no abnormal pigmentation - Neurologic Present: normal coordination, normal sensation - Musculoskeletal Present: normal gait, normal posture - Psychiatric Present: oriented to time, oriented to person, oriented to place, speech is normal, memory intact Discharge Plan - Patient/Caregiver Discharge Instructions Activity: increase activity as tolerated Diet: Low Fat Prescriptions: morphine 30 mg PO Q8H #42 tab - Follow up Plan Follow up with: Omero Powell MD [Physician] - Disposition: Home, Self-Care Prognosis: Good Rehab Potential: Good I certify that the patient requires SNF services.: No Overall status at discharge: patient is progressing back to baseline Pending Studies Resuscitation Status Full Code Diet Consistent Carbohydrate Diet Start FriJan 15 0851 Alprazolam (Xanax) 1 mg PO BIDP PRN PRN Reason: Anxiety Last Admin: 01/15/19 23:59 Dose: 1 mg Documented by: ADILSON Carvedilol (Coreg) 25 mg PO BIDCC [facility] Last Admin: 01/16/19 07:15 Dose: Not Given Documented by: Admin: 01/15/19 16:50 Dose: 25 mg Documented by: [email or web address] Diagnostic Test (Pha) (Accu-Chek) 1 each FS ACHS [facility] Last Admin: 01/16/19 11:10 Dose: 1 each Documented by: PETER Famotidine (Pepcid) 20 mg IV Q12 [facility] Last Admin: 01/16/19 07:15 Dose: 20 mg Documented by: Admin: 01/15/19 22:16 Dose: 20 mg Documented by: ADILSON Heparin Sodium (Porcine) (Heparin Flush) 2 ml IV Q12 [facility] Last Admin: 01/16/19 07:20 Dose: 2 ml Documented by: Admin: 01/15/19 22:14 Dose: 2 ml Documented by: ADILSON Hydromorphone HCl (Dilaudid) 1 mg IV Q2HP PRN PRN Reason: PAIN LEVEL > 6 Last Admin: 01/15/19 14:27 Dose: 1 mg Documented by: Admin: 01/15/19 12:00 Dose: 1 mg Documented by: [email or web address] Hydromorphone HCl (Dilaudid) 2 mg PO Q6HP PRN PRN Reason: PAIN LEVEL 3-6 Last Admin: 01/16/19 09:50 Dose: 2 mg Documented by: MGARRED Piperacillin Sod/Tazobactam (Sod 3.375 gm/ Dextrose) 50 mls @ 100 mls/hr IV Q6H [facility] Last Admin: 01/16/19 11:14 Dose: 100 mls/hr Documented by: Infusion: 01/16/19 07:01 Dose: 0 mls/hr Documented by: Admin: 01/16/19 06:02 Dose: 100 mls/hr Documented by: Infusion: 01/16/19 00:50 Dose: 0 mls/hr Documented by: Admin: 01/16/19 00:00 Dose: 100 mls/hr Documented by: Infusion: 01/15/19 18:35 Dose: 0 mls/hr Documented by: [email or web address] Admin: 01/15/19 18:00 Dose: 100 mls/hr Documented by: [facility] Infusion: 01/15/19 12:30 Dose: 0 mls/hr Documented by: [email or web address] Admin: 01/15/19 12:00 Dose: 100 mls/hr Documented by: [id number] Insulin Glargine (Lantus) 30 unit SQ BID [facility] Last Admin: 01/16/19 07:19 Dose: 30 units Documented by: Admin: 01/15/19 22:21 Dose: 30 units Documented by: ADILSON Insulin Human Lispro (Humalog) 0 unit SQ ACHS [facility]; Protocol Last Admin: 01/16/19 11:10 Dose: Not Given Documented by: PETER Morphine Sulfate (Morphine) 15 mg PO BIDAC [facility] Last Admin: 01/16/19 07:14 Dose: 15 mg Documented by: Admin: 01/15/19 16:50 Dose: 15 mg Documented by: [facility] Ondansetron HCl (Zofran) 4 mg IV Q4HP PRN PRN Reason: Nausea And Vomiting Last Admin: 01/16/19 07:15 Dose: 4 mg Documented by: MGARRLELIA Sodium Chloride (Saline Flush) 10 ml IV Q12 [facility] Last Admin: 01/16/19 07:20 Dose: 10 ml Documented by: Admin: 01/15/19 22:23 Dose: 10 ml Documented by: ADILSON Verapamil HCl (Calan Sr) 240 mg PO DAILY [facility] Last Admin: 01/16/19 07:15 Dose: 240 mg Documented by: MGARRED Shift Summary 01/16/19 05:06 Shift Summary by Javid Power AA&O x4; at 20:00 last evening, BP 79/50; HR 60; Physician notified and 500 mL NS bolus ordered/administered; post bolus BP 103/60; HR 66; per Dr. Powell, not starting Eliquis yesterday which was the day of cholecystectomy; x5 lap sites with tegaderm dressing, total of 22 pham; CC diet with q 3 hour Accu checks; no sliding scale needed this shift; Lantus given hs and 04:00 BS 87; protein snack given; no anti-emetics given this shift; christianson D/C'd yesterday at 16:00, pt did not void until 03:00 having refused to attempt earlier; voided 550mL, PVR 597mL; pt requesting to attempt to void in morning and see if PVR reduced to avoid straight cath. Pain rated at 10/10 at start of shift; scheduled and prn meds reduced as pt has become accustomed to very high amount of opiods; with reduced medication and frequency available, pt still able to walk approximately 250 feet in hare with SBA with FWW without distress; D/C to home with today if remaining stable. Will update at beside. Initialized on 01/16/19 05:06 - END OF NOTE
--- NOTE | 2019-01-19 15:08 | Operative Note ---
DATE OF OPERATION: 01/14/2019 PREOPERATIVE DIAGNOSIS: Acute cholecystitis. POSTOPERATIVE DIAGNOSIS: Acute cholecystitis. PROCEDURE: Laparoscopic cholecystectomy. SURGEON: Omero Powell M.D. FINDINGS: Acutely edematous, dilated gallbladder. DESCRIPTION OF PROCEDURE: Under general anesthesia, the patient's abdomen was prepped and draped in a sterile field. A midline incision was made and extended down to the fascia. Because of many previous operations, the fascia was opened and each edge of the fascia was sutured with 0 Vicryl. The peritoneum was opened and a Leeann port was placed and was tied in place using the aforementioned suture. The peritoneum was then insufflated. The laparoscope was placed and an acutely inflamed, dilated, edematous gallbladder was noted. Under videoscopic guidance, a 12 mm port and two 5 mm ports were placed. The scope was moved from the supraumbilical port to the right subcostal port, and the lower abdomen was inspected. There were extensive adhesions, but there was no evidence of visceral injury. The scope was then placed back in the supraumbilical port. The gallbladder was grasped and positioned. Cystic duct was dissected and followed back to the gallbladder wall. Cystic artery was dissected and followed onto the wall of the gallbladder. Cystic duct was clipped with five clips close to the gallbladder and divided. Cystic artery was clipped with four clips on the wall of the gallbladder and divided. The gallbladder was then dissected from the infrahepatic bed using electrocautery. It was quite edematous and essentially shelled out mostly with blunt dissection. The gallbladder was placed in an Endopouch and retrieved. Hemostasis was achieved with electrocautery. CO2 was allowed to escape from the abdomen and the ports were removed. The supraumbilical port site was closed with multiple sutures of interrupted 0 Vicryl. Skin incisions were closed with pham. The patient tolerated the procedure well. She was awakened, transferred to a bed, and taken to the postanesthetic care unit in stable, satisfactory condition. LCS:fermin Job ID: [id number] Doc ID: [id number] Omero Powell M.D.
== END 2019-01-16 14:10 | disposition home or self-care (01) | DRG 417 ==
LOC: ICU 03:49 → MEDSUR 01-15 15:22
PROVIDERS: ADMIT Internal Medicine; ATTEND Family Medicine Adult Medicine

== ENCOUNTER 2020-05-29 03:35 | Inpatient (IN) ==
[2020-05-29] MEDS ORDERED: ONDANSETRON 4 MG/2 ML VIAL IV ONE (03:56)
[2020-05-29 04:12] LABS: POC Blood Urea Nitrogen 41 mg/dl (8-23); POC CO2 24 mmol/L (22-30); POC Chloride 95 mmol/L (96-108); POC Creatinine 2.2 mg/dl (0.6-1.1); POC Glucose, Random 291 mg/dL (70-105); POC Potassium 4.7 mmol/L (3.3-5.1); POC Sodium 133 mmol/L (133-145)
[2020-05-29] MEDS ORDERED: 0.9 % SODIUM CHLORIDE 1,000 ML IV ONE (04:19)
[2020-05-29] MEDS ORDERED: INSULIN REGULAR, HUMAN 1 UNIT/0.01 ML UNIT IV ONE (04:22)
--- NOTE | 2020-05-29 04:25 | Emergency Department Note ---
Trauma HPI General Chief Complaint: Trauma Stated Complaint: fall / weakess / head injury / nausea Time Seen by Provider: 05/29/20 03:40 Source: patient Mode of arrival: ambulatory Limitations: no limitations History of Present Illness HPI Narrative: Narrative: 59-year-old female comes in for nausea and vomiting for the last 24 hours or so. She slipped and fell backwards hitting the back of her head and neck on at at home about 4 AM yesterday. she is on Eliquis. she does not have any open wounds or bleeding. She is a type II diabetic on insulin. I tried to do a comprehensive review of systems several times but she has multiple medical problems and so all of her answers were yes. that is to say she has shortness of breath from chronic COPD and heart failure, ,difficulty urinating, chronic pain etc. She has not had a fever though or recent illness besides those listed above and below- in fact she has been quarantined since November and is only going to the grocery store once Related Data Home Medications Medication Instructions Recorded Confirmed alprazolam 1 mg PO BIDP PRN 01/13/19 02/01/19 carvedilol 25 mg PO BIDCC 01/13/19 02/01/19 hydromorphone 8 mg PO Q6HP PRN 01/13/19 02/01/19 insulin detemir U-100 30 unit SUBCUT BID 01/13/19 02/01/19 metoclopramide HCl 10 mg PO ACHS 01/13/19 02/01/19 alprazolam 0.25 mg tablet 0.25 mg PO TID 05/24/20 05/24/20 amiodarone 200 mg tablet 200 mg PO QDAY 05/24/20 05/24/20 apixaban 5 mg tablet 5 mg PO BID 05/24/20 05/24/20 carvedilol 12.5 mg tablet 12.5 mg PO BID 05/24/20 05/24/20 chlorpromazine 25 mg tablet 25 mg PO TID tab 05/24/20 05/24/20 exenatide microspheres 2 mg/0.65 2 mg SUB-Q QWEEK 05/24/20 05/24/20 mL subcutaneous pen injector furosemide 20 mg tablet 20 mg PO QDAY 05/24/20 05/24/20 insulin detemir U-100 100 unit/mL 35 unit SUB-Q BID ml 05/24/20 05/24/20 (3 mL) subcutaneous pen insulin lispro 100 unit/mL See Rx Instructions SUB-Q ONCE ml 05/24/20 05/24/20 subcutaneous pen lisinopril 5 mg tablet 5 mg PO QDAY 05/24/20 05/24/20 metformin 1,000 mg tablet 1,000 mg PO BID 05/24/20 05/24/20 morphine 30 mg tablet,extended 30 mg PO Q12H 05/24/20 05/24/20 release omeprazole 40 mg capsule,delayed 40 mg PO QDAY 05/24/20 05/24/20 release promethazine 25 mg rectal 25 mg [place] Q4H PRN each 05/24/20 05/24/20 suppository promethazine 25 mg tablet 25 mg PO Q4H PRN tab 05/24/20 05/24/20 rosuvastatin 20 mg tablet 20 mg PO QDAY 05/24/20 05/24/20 spironolactone 25 mg tablet 25 mg PO QDAY 05/24/20 05/24/20 Previous Rx's Medication Instructions Recorded omeprazole 20 mg capsule,delayed 20 mg PO BID #60 cap 02/02/16 release apixaban 5 mg tablet 5 mg PO BID #120 tab 11/04/16 albuterol sulfate 90 mcg/actuation 1 puff INHALATION QDAY #18 g 07/02/17 aerosol inhaler morphine 15 mg immediate release 30 mg PO Q8H #60 tab 02/01/19 tablet verapamil 120 mg tablet,extended 240 mg PO DAILY #60 tab MDD 240mg 02/01/19 release Allergies Allergy/AdvReac Type Severity Reaction Status Date / Time Beet Allergy Severe Anaphylaxis Verified 05/24/20 08:38 bacitracin Allergy Intermediate Itching Verified 05/24/20 08:38 buprenorphine [From Suboxone] Allergy Intermediate Swelling, Verified 05/24/20 08:38 rash duloxetine [From Cymbalta] Allergy Intermediate Swelling, Verified 05/24/20 08:38 rash fentanyl Allergy Intermediate Dizziness Verified 05/24/20 08:38 and vomiting hydrocodone [From [place]] Allergy Intermediate Itching Verified 05/29/20 03:42 Iodinated Contrast Media Allergy Intermediate Hives Verified 01/10/20 14:48 [Iodinated Contrast Media - IV Dye] ketorolac [From Toradol] Allergy Intermediate Difficulty Verified 05/24/20 08:38 Breathing, rash Naloxone [From Suboxone] Allergy Intermediate Swelling Verified 01/10/20 14:48 pregabalin [From Lyrica] Allergy Intermediate Palpitations, Verified 05/24/20 08:38 edema propoxyphene Allergy Intermediate Edema Verified 05/24/20 08:38 Sulfa (Sulfonamide Allergy Intermediate Difficulty Verified 01/10/20 14:48 Antibiotics) Breathing tramadol Allergy Intermediate Rash Verified 05/24/20 08:38 gabapentin Allergy Unknown Falls Verified 05/24/20 08:38 asleep rivaroxaban [From Xarelto] Allergy Unknown Dizziness, Verified 05/24/20 08:38 falls lorazepam [From Ativan] AdvReac Intermediate Hives, Verified 05/24/20 08:38 itching sulfamethoxazole AdvReac Intermediate Palpitation Verified 01/10/20 14:48 [From Septra] s trimethoprim [From Septra] AdvReac Intermediate Palpitation Verified 01/10/20 14:48 s acetaminophen AdvReac Mild Itching Verified 01/10/20 14:48 Review of Systems ROS ROS Narrative: Narrative:multiple positives Constitutional: Reports as per HPI and weakness Eyes: Reports vision change ENT ED: Reports hearing loss Cardiovascular: Reports dyspnea on exertion Respiratory: Reports shortness of breath Gastrointestinal: Reports vomiting Genitourinary: Reports dysuria, urgency and frequency Musculoskeletal: Reports back pain and joint pain Integumentary: Reports rash Neurological: Reports headache, weakness, paresthesias and dizziness Psychiatric: Reports depression Endocrine: Reports fatigue, heat or cold intolerance and polyuria Hematological/Lymphatic: Reports easy bleeding PFSH Narrative Patient History Narrative: Narrative: Medical/Surgical/Family History All Active Problems Nausea & vomiting (Acute) Fall (Acute) Chronic anticoagulation (Acute) Concussion (Acute) Acute cervical sprain (Acute) Vertigo (Chronic) Acute on chronic heart failure with normal ejection fraction (Chronic) Diabetic gastroparesis associated with type 2 diabetes mellitus (Chronic) Hyperglycemia (Chronic) Intractable hiccups (Chronic) Compression fracture of T10 vertebra (Chronic) Acute kidney injury (Chronic) History of total abdominal hysterectomy (Chronic) History of surgery (Chronic) History of intestinal surgery (Chronic) History of appendectomy (Chronic) Polyneuropathy (Chronic) History of hepatitis B (Chronic) Sciatica (Chronic) Sleep terror disorder (Chronic) Nausea and vomiting (Chronic) Chest pain (Acute) Cholecystitis, acute (Acute) Colitis (Chronic) CAD (coronary artery disease) (Chronic) Mixed anxiety and depressive disorder (Chronic) Posttraumatic stress disorder (Chronic) Diabetic peripheral neuropathy (Chronic) Migraine (Chronic) Congestive heart failure (Chronic) Coronary arteriosclerosis (Chronic) Malignant neoplasm of ovary (Chronic) Cerebrovascular accident (Chronic) Vitamin D deficiency (Chronic) Microalbuminuria (Chronic) Osteopenia (Chronic) Type 1 diabetes mellitus (Chronic) Hemoptysis (Chronic) Closed right hip fracture (Chronic) Physical deconditioning (Chronic) Paroxysmal atrial fibrillation (Chronic) Opiate dependence (Chronic) Diabetes mellitus with polyneuropathy (Chronic) Diabetic ketoacidosis (Chronic) Diabetes (Acute) Abdominal pain (Acute) Diverticulitis (Acute) Vaginal candidiasis (Acute) Migraine (Acute) Gingivitis with diabetes mellitus (Acute) Volume depletion (Acute) Headache (Acute) Bronchitis (Acute) Chronic back pain (Acute) Concussion without loss of consciousness (Acute) Mixed bipolar I disorder (Chronic) Chronic pain (Chronic) Panic attack (Chronic) Neuropathy (Chronic) Myocardial infarction, old (Chronic) Lichen sclerosus (Chronic) Hypertension, essential (Chronic) Gastroparesis (Chronic) Diabetes mellitus, type II (Chronic) COPD (chronic obstructive pulmonary disease) (Chronic) Atrial fibrillation (Chronic) Asthma (Chronic) Acid reflux (Chronic) Medical History Abdominal pain (Acute) Acid reflux (Chronic) Acute kidney injury (Chronic) Acute on chronic heart failure with normal ejection fraction (Chronic) Asthma (Chronic) Childhood Atrial fibrillation (Chronic) 2013 Bronchitis (Acute) CAD (coronary artery disease) (Chronic) Cerebrovascular accident (Chronic) Chronic back pain (Acute) Chronic pain (Chronic) Closed right hip fracture (Chronic) Colitis (Chronic) Compression fracture of T10 vertebra (Chronic) Concussion without loss of consciousness (Acute) Congestive heart failure (Chronic) COPD (chronic obstructive pulmonary disease) (Chronic) 04/2014 Coronary arteriosclerosis (Chronic) Diabetes (Acute) Diabetes mellitus with polyneuropathy (Chronic) Diabetes mellitus, type II (Chronic) Diabetic gastroparesis associated with type 2 diabetes mellitus (Chronic) Diabetic ketoacidosis (Chronic) Diabetic peripheral neuropathy (Chronic) Diverticulitis (Acute) Gastroparesis (Chronic) 2009 Gingivitis with diabetes mellitus (Acute) Headache (Acute) Hemoptysis (Chronic) History of hepatitis B (Chronic) Hyperglycemia (Chronic) Hypertension, essential (Chronic) Intractable hiccups (Chronic) Lichen sclerosus (Chronic) 2010 Malignant neoplasm of ovary (Resolved) 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 surgeries, 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 Malignant neoplasm of ovary (Chronic) Microalbuminuria (Chronic) Migraine (Acute) Migraine (Chronic) Mixed anxiety and depressive disorder (Chronic) Mixed bipolar I disorder (Chronic) Myocardial infarction, old (Chronic) 2010, Two Nausea and vomiting (Chronic) Neuropathy (Chronic) 1993 Opiate dependence (Chronic) Osteopenia (Chronic) Panic attack (Chronic) 2009 Paroxysmal atrial fibrillation (Chronic) Physical deconditioning (Chronic) Polyneuropathy (Chronic) Posttraumatic stress disorder (Chronic) Pulmonary embolism (Resolved) 1996 Pyelonephritis, chronic (Resolved) 1995 Sciatica (Chronic) 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) 2 comas Type 1 diabetes mellitus (Chronic) Vaginal candidiasis (Acute) Vertigo (Chronic) Vitamin D deficiency (Chronic) Volume depletion (Acute) Surgical History History of appendectomy (Chronic) History of intestinal surgery (Chronic) partial excision of small intestine History of laparoscopic cholecystectomy (Acute) 01/14/2019 History of surgery (Chronic) Multiple Ovarian Cancer Surgeries, Including LSO and AMANDA-RSO from [id number] History of total abdominal hysterectomy (Chronic) Hx of colonoscopy (Resolved) 2009 Status post panniculectomy (Chronic 11/17/01) Family History Father Acute myocardial infarction Mother , age 67 Acute myocardial infarction Coronary arteriosclerosis Sister COPD (chronic obstructive pulmonary disease) Social History Smoking Status: Never smoker Alcohol Intake Frequency: does not drink Substance Use: marijuana Exam Narrative Narrative: thin female. Normocephalic atraumatic- I do not see any wounds. Conjunctiva clear sclerae white nonicteric. No nasal discharge or congestion. Oropharynx pink and moist. Tympanic membranes are normal with moderate amount of cerumen bilateral ears. Posterior neck is tender as is anterior neck- was able to clear her spine with CT scan however. I do not see any step-offs lacerations abrasions erythema edema or other concerning feature here, just tenderness. She is able to move her arms and hands normally. Heart is regular rate and rhythm no murmur appreciated. Lungs are clear to auscultation bilaterally without wheezes rales rhonchi or respiratory distress. Abdomen soft and diffusely tender. No pedal edema. Alert oriented able to answer questions appropriately. General Limitations: no limitations Course Vital Signs Vital signs: Vital Signs Temperature 98.0 F 05/29/20 03:36 Pulse Rate 72 05/29/20 03:36 Respiratory Rate 21 05/29/20 03:36 Blood Pressure 105/68 05/29/20 03:36 Pulse Oximetry (%) 95 05/29/20 03:36 Temperature 98.0 F 05/29/20 03:36 Pulse Rate 106 H 05/29/20 03:46 Respiratory Rate 11 L 05/29/20 03:46 Blood Pressure 97/52 05/29/20 03:46 Pulse Oximetry (%) 81 L 05/29/20 03:46 MDM MDM Narrative Medical decision making narrative: Narrative: she was placed in a c-collar on coming into the emergency department. We are subsequently able to clear her C- spine. CT scan of head and neck did not show acute findings although incidental findings noted on soft tissues of the neck. Because she was on eliquis for Atrial Fibrillation I ordered a Chem-8 to check on her hematocrit, and electrolytes because she's been vomiting. Her creatinine went from 1.0-2.2- so she has a concussion which is causing nausea and vomiting and subsequent acute kidney injury. I ordered IV fluid as well as Zofran I discussed findings with the patient. She is come in the hospital for rehydration and treatment of her acute kidney injury and nausea. I ordered 5 units of insulin for hyperglycemia of almost 300. I discussed the case with the hospitalist, Dr. Tavares. He agreed to accept the patient for further care and evaluation the hospital. I will write holding orders Lab Data Lab results reviewed: Yes I reviewed the patient's lab results. Labs: Lab Results 05/29/20 Range/Units 04:05 POC Hct 42.0 (36.0-48.0) % POC Sodium 133 (133-145) mmol/L POC Potassium 4.7 (3.3-5.1) mmol/L POC Chloride 95 L (96-108) mmol/L POC Total CO2 24 (22-30) mmol/L POC BUN 41 H (8-23) mg/dl POC Creatinine 2.2 H (0.6-1.1) mg/dl POC Glucose 291 H (70-105) mg/dL POC WB Ioniz Calcium 1.20 (1.16-1.32) mmol/L Radiology Data Radiology results reviewed: Yes I reviewed the patient's radiology results. Radiology results narrative: CT scan of the head shows no acute abnormality. CT scan of the cervical spine shows degenerative changes but no acute findings. Incidentally noted carotid plaque and left-sided goiter likely EKG Data EKG #1: EKG attestation: Yes I reviewed and interpreted this EKG. EKG results narrative: sinus rhythm without ACS Discharge Plan Patient/Caregiver Discharge Instructions Pt seen by DEBONER/PA only: No Clinical Impression: Acute kidney injury, Hyperglycemia, Chronic anticoagulation Nausea & vomiting Qualifiers: Vomiting type: unspecified Vomiting Intractability: non-intractable Qualified Code(s): R11.2 - Nausea with vomiting, unspecified Fall Qualifiers: Encounter type: initial encounter Qualified Code(s): W19.XXXA - Unspecified fall, initial encounter Concussion Qualifiers: Encounter type: initial encounter Loss of consciousness presence/duration: wi thout LOC Qualified Code(s): S06.0X0A - Concussion without loss of consciousness, initial encounter Acute cervical sprain Qualifiers: Encounter type: initial encounter Qualified Code(s): S13.9XXA - Sprain of joints and ligaments of unspecified parts of neck, initial encounter Patient Disposition: Xfer As Inpt ([facility]) Condition: Fair Follow up with: No,PCP [Primary Care Provider] - Prescriptions: No Action omeprazole 20 mg capsule,delayed release(DR/EC) 20 mg PO BID Qty: 60 RF: 1 apixaban 5 MG tablet 5 mg PO BID Qty: 120 RF: 3 albuterol sulfate 90 mcg/actuation HFA aerosol inhaler 1 puff INHALATION QDAY Qty: 18 RF: 1 alprazolam 0.25 mg tablet 0.25 mg PO TID RF: 0 amiodarone 200 mg tablet 200 mg PO QDAY RF: 0 Bydureon 2 mg/0.65 mL pen injector 2 mg SUB-Q QWEEK RF: 0 carvedilol 12.5 mg tablet 12.5 mg PO BID RF: 0 Eliquis 5 mg tablet 5 mg PO BID RF: 0 furosemide 20 mg tablet 20 mg PO QDAY RF: 0 insulin lispro [Humalog KwikPen Insulin] 100 unit/mL insulin pen See Rx Instructions SUB-Q ONCE RF: 0 Levemir FlexTouch U-100 Insuln 100 unit/mL (3 mL) insulin pen 35 unit SUB-Q BID RF: 0 lisinopril 5 mg tablet 5 mg PO QDAY RF: 0 metformin 1,000 mg tablet 1,000 mg PO BID RF: 0 morphine 30 mg tablet extended release 30 mg PO Q12H RF: 0 omeprazole 40 mg capsule,delayed release(DR/EC) 40 mg PO QDAY RF: 0 promethazine 25 mg suppository 25 mg [place] Q4H PRNRF: 0 promethazine 25 mg tablet 25 mg PO Q4H PRNRF: 0 rosuvastatin 20 mg tablet 20 mg PO QDAY RF: 0 spironolactone 25 mg tablet 25 mg PO QDAY RF: 0 chlorpromazine 25 mg tablet 25 mg PO TID RF: 0 morphine 15 mg tablet 30 mg PO Q8H Qty: 60 RF: 0 verapamil 120 mg tablet extended release 240 mg PO DAILY MDD 240mg Qty: 60 RF: 1 carvedilol 25 MG tablet 25 mg PO BIDCC RF: 0 hydromorphone 4 MG tablet 8 mg PO Q6HP PRN (Reason: Pain) RF: 0 metoclopramide HCl 10 MG tablet 10 mg PO ACHS RF: 0 insulin detemir U-100 100 UNIT/ML solution 30 unit subcut BID RF: 0 alprazolam 1 MG tablet 1 mg PO BIDP PRN (Reason: Anxiety) RF: 0
[2020-05-29] MEDS ORDERED: NALOXONE HCL 0.4 MG/ML VIAL IV PRN (04:46)
--- NOTE | 2020-05-29 05:50 | Cat Scan Report ---
INDICATION: fall, on eliquis COMPARISON: None. TECHNIQUE: Axial thin section images through the cervical spine. Sagittally and coronally reformatted images. The exam was performed using radiation dose optimization techniques including, but not limited to, automated exposure control, adjustment of the mA and/or kV according to patient size and use of iterative reconstruction technique. FINDINGS: Examination was initially interpreted by [facility] Vertebral bodies, spinous processes:No vertebral body or spinous process fracture. No acute abnormality. Alignment is anatomic without anterolisthesis Normal odontoid process. No fracture. Occipital condyles and C1 are negative. No atlantoaxial subluxation. Facets:No perched or locked facet. No facet complex fracture. Disc spaces:Mild degenerative disc disease at C4-5. Moderate degenerative disc disease at C5-6 and C6-7. Temporal bones:Incompletely imaged. No abnormality Cervical soft tissues:Severe calcified atherosclerotic plaque in the proximal left internal carotid artery. Carotid ultrasound may be of benefit. Lung apices:No pneumothorax. No pulmonary contusion. IMPRESSION: 1. Degenerative disc disease 2. Dense calcification the proximal left internal carotid artery 3. No cervical spine fracture. No acute abnormality Interpreted and Authenticated by: Troy Melara 05/29/20
--- NOTE | 2020-05-29 05:51 | Cat Scan Report ---
INDICATION: fall. on eliquis COMPARISON: Previous examination dated 08-02 TECHNIQUE: Axial noncontrast-enhanced images through the brain. Sagittally and coronally reformatted images. FINDINGS: The examination was initially interpreted by [facility] Cerebral hemispheres:Negative. No intra-axial abnormality. No intra-axial hematoma. No localized mass effect. Brain volume is within normal limits. No hydrocephalus Brainstem and cerebellum:No intra-axial abnormality Extra-axial:No acute hemorrhage. No subdural or epidural hematoma. No subarachnoid hemorrhage. Basilar cisterns are normal Calvarial:No calvarial fracture. No lytic lesion Temporal bones are negative. No destructive lesions Soft tissue:Orbits and visualized facial soft tissues are grossly normal. IMPRESSION: Negative post trauma brain CT scan The exam was performed using radiation dose optimization techniques including, but not limited to, automated exposure control, adjustment of the mA and/or kV according to patient size and use of iterative reconstruction technique. Interpreted and Authenticated by: Troy Melara 05/29/20
[2020-05-29] MEDS ORDERED: PROMETHAZINE 25 MG TABLET PO PRN (07:26)
[2020-05-29] MEDS ORDERED: MELATONIN 3 MG TABLET PO PRN (07:27)
[2020-05-29] MEDS ORDERED: POTASSIUM CHLORIDE 40 MEQ in DEXTROSE 5% IN WATER 500 ML IV PRN (07:27)
[2020-05-29] MEDS ORDERED: POLYETHYLENE GLYCOL 3350 17 GM PACKET PO PRN (07:27)
[2020-05-29] MEDS ORDERED: guaiFENesin/CODEINE 10 ML UDC PO PRN (07:27)
[2020-05-29] MEDS ORDERED: ONDANSETRON 4 MG ODT TABLET SL PRN (07:27)
[2020-05-29] MEDS ORDERED: ACETAMINOPHEN 325 MG TABLET PO PRN (07:27)
[2020-05-29] MEDS ORDERED: MAGNESIUM SULFATE 2 GM/50 ML BAG IV PRN (07:27)
[2020-05-29] MEDS ORDERED: ACETAMINOPHEN 650 MG/65 ML BOTTLE IV PRN (07:27)
[2020-05-29] MEDS ORDERED: ONDANSETRON 4 MG/2 ML VIAL IV PRN (07:27)
[2020-05-29] MEDS ORDERED: BISACODYL 10 MG SUPP.RECT PR PRN (07:27)
[2020-05-29] MEDS ORDERED: PROMETHAZINE 25 MG SUPP.RECT PR PRN (07:34)
--- NOTE | 2020-05-29 07:38 | Internal Med History&Physical ---
HPI History of Present Illness Patient information: Note initiated : 05/29/20 at 7:26 am Service Date, if different from initiated Date: [] Patient: Abbi Sprague a 59 y/o F admitted on 05/29/20 for Fall/Weakess/Head Injury/Nausea. Chief Complaint: Nausea/weakness History of present illness: Ms. Sprague is a 59 year old F with a history of diabetes/HTN/COPD//CAD/vertigo and history of CVA on anticoagulation presented to the ER early this morning with progressive and relentless nausea and vomiting over the last 24 hours following a fall. She apparently hit her head and came to the ER for evaluation of possible bleed being on blood thinners. Patient work-up in the ER was unremarkable neuroimaging however significant volume depletion with acute kidney injury creatinine over 2.2 and symptoms consistent with a concussion. Subsequently hospitalist service was consulted for admission in light of above At the time of evaluation patient is alert and oriented. She denies active distress. No fever chills but endorses to nausea and significant occipital headache/neck pain. She endorses to recurrent vertigo and recurrent falls in the past mostly positional lasting for 30 seconds with intense spinning sensation. She denies unilateral weakness/difficulty speaking or swallowing or double vision. She further denies hearing loss. She endorses to abdominal discomfort around periumbilical area associated with recurrent vomiting and retching. review of systems A 10 point review system was performed and is negative except for ones discussed above [facility] Medical History Abdominal pain (Acute) Acid reflux (Chronic) Acute kidney injury (Chronic) Acute on chronic heart failure with normal ejection fraction (Chronic) Asthma (Chronic) Childhood Atrial fibrillation (Chronic) 2013 Bronchitis (Acute) CAD (coronary artery disease) (Chronic) Cerebrovascular accident (Chronic) Chronic back pain (Acute) Chronic pain (Chronic) Closed right hip fracture (Chronic) Colitis (Chronic) Compression fracture of T10 vertebra (Chronic) Concussion without loss of consciousness (Acute) Congestive heart failure (Chronic) COPD (chronic obstructive pulmonary disease) (Chronic) 04/2014 Coronary arteriosclerosis (Chronic) Diabetes (Acute) Diabetes mellitus with polyneuropathy (Chronic) Diabetes mellitus, type II (Chronic) Diabetic gastroparesis associated with type 2 diabetes mellitus (Chronic) Diabetic ketoacidosis (Chronic) Diabetic peripheral neuropathy (Chronic) Diverticulitis (Acute) Gastroparesis (Chronic) 2009 Gingivitis with diabetes mellitus (Acute) Headache (Acute) Hemoptysis (Chronic) History of hepatitis B (Chronic) Hyperglycemia (Chronic) Hypertension, essential (Chronic) Intractable hiccups (Chronic) Lichen sclerosus (Chronic) 2009 Malignant neoplasm of ovary (Resolved) 1978 -- 15 surgeries, 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 Malignant neoplasm of ovary (Chronic) Microalbuminuria (Chronic) Migraine (Acute) Migraine (Chronic) Mixed anxiety and depressive disorder (Chronic) Mixed bipolar I disorder (Chronic) Myocardial infarction, old (Chronic) 2010, Two Nausea and vomiting (Chronic) Neuropathy (Chronic) 1993 Opiate dependence (Chronic) Osteopenia (Chronic) Panic attack (Chronic) 2009 Paroxysmal atrial fibrillation (Chronic) Physical deconditioning (Chronic) Polyneuropathy (Chronic) Posttraumatic stress disorder (Chronic) Pulmonary embolism (Resolved) 1996 Pyelonephritis, chronic (Resolved) 1995 Sciatica (Chronic) 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) 2 comas Type 1 diabetes mellitus (Chronic) Vaginal candidiasis (Acute) Vertigo (Chronic) Vitamin D deficiency (Chronic) Volume depletion (Acute) Surgical History History of appendectomy (Chronic) History of intestinal surgery (Chronic) partial excision of small intestine History of laparoscopic cholecystectomy (Acute) 01/14/2019 History of surgery (Chronic) Multiple Ovarian Cancer Surgeries, Including LSO and AMANDA-RSO from [id number] History of total abdominal hysterectomy (Chronic) Hx of colonoscopy (Resolved) 2009 Status post panniculectomy (Chronic 11/17/01) Family History Father Acute myocardial infarction Mother , age 67 Acute myocardial infarction Coronary arteriosclerosis Sister COPD (chronic obstructive pulmonary disease) Social History (Updated 05/24/20 @ 09:12 by Emma Lang) household members: spouse marital status: education level: elementary school occupational status: unemployed and retired smoking status: Never smoker alcohol intake frequency: does not drink substance use type: marijuana seatbelt use: always working smoke detector in home: Yes firearms in home: No MEDS/ALLERGIES Home Medications and Allergies Home Medications Medication Instructions Recorded Confirmed Type apixaban 5 mg tablet 5 mg PO BID #120 tab 11/04/16 05/29/20 Rx albuterol sulfate 90 mcg/actuation 1 puff INHALATION QDAY #18 g 07/02/17 05/29/20 Rx aerosol inhaler insulin detemir U-100 30 unit SUBCUT BID 01/13/19 05/29/20 History alprazolam 0.25 mg tablet 0.25 mg PO TID 05/24/20 05/29/20 History amiodarone 200 mg tablet 200 mg PO QDAY 05/24/20 05/29/20 History carvedilol 12.5 mg tablet 12.5 mg PO BID 05/24/20 05/29/20 History exenatide microspheres 2 mg/0.65 2 mg SUB-Q QWEEK 05/24/20 05/29/20 History mL subcutaneous pen injector furosemide 20 mg tablet 20 mg PO QDAY 05/24/20 05/29/20 History insulin detemir U-100 100 unit/mL 35 unit SUB-Q BID ml 05/24/20 05/29/20 History (3 mL) subcutaneous pen insulin lispro 100 unit/mL See Rx Instructions SUB-Q ONCE ml 05/24/20 05/29/20 History subcutaneous pen lisinopril 5 mg tablet 5 mg PO QDAY 05/24/20 05/29/20 History metformin 1,000 mg tablet 1,000 mg PO BID 05/24/20 05/29/20 History morphine 30 mg tablet,extended 60 mg PO TID 05/24/20 05/29/20 History release omeprazole 40 mg capsule,delayed 40 mg PO QDAY 05/24/20 05/29/20 History release promethazine 25 mg rectal 25 mg PA Q4H PRN each 05/24/20 05/29/20 History suppository promethazine 25 mg tablet 25 mg PO Q4H PRN tab 05/24/20 05/29/20 History rosuvastatin 20 mg tablet 20 mg PO QDAY 05/24/20 05/29/20 History spironolactone 25 mg tablet 25 mg PO QDAY 05/24/20 05/29/20 History Allergies Allergy/AdvReac Type Severity Reaction Status Date / Time Beet Allergy Severe Anaphylaxis Verified 05/24/20 08:38 bacitracin Allergy Intermediate Itching Verified 05/24/20 08:38 buprenorphine [From Suboxone] Allergy Intermediate Swelling, Verified 05/24/20 08:38 rash duloxetine [From Cymbalta] Allergy Intermediate Swelling, Verified 05/24/20 08:38 rash fentanyl Allergy Intermediate Dizziness Verified 05/24/20 08:38 and vomiting hydrocodone [From [place]] Allergy Intermediate Itching Verified 05/29/20 03:42 Iodinated Contrast Media Allergy Intermediate Hives Verified 01/10/20 14:48 [Iodinated Contrast Media - IV Dye] ketorolac [From Toradol] Allergy Intermediate Difficulty Verified 05/24/20 08:38 Breathing, rash Naloxone [From Suboxone] Allergy Intermediate Swelling Verified 01/10/20 14:48 pregabalin [From Lyrica] Allergy Intermediate Palpitations, Verified 05/24/20 08:38 edema propoxyphene Allergy Intermediate Edema Verified 05/24/20 08:38 Sulfa (Sulfonamide Allergy Intermediate Difficulty Verified 01/10/20 14:48 Antibiotics) Breathing tramadol Allergy Intermediate Rash Verified 05/24/20 08:38 gabapentin Allergy Unknown Falls Verified 05/24/20 08:38 asleep rivaroxaban [From Xarelto] Allergy Unknown Dizziness, Verified 05/24/20 08:38 falls lorazepam [From Ativan] AdvReac Intermediate Hives, Verified 05/24/20 08:38 itching sulfamethoxazole AdvReac Intermediate Palpitation Verified 01/10/20 14:48 [From Septra] s trimethoprim [From Septra] AdvReac Intermediate Palpitation Verified 01/10/20 14:48 s acetaminophen AdvReac Mild Itching Verified 01/10/20 14:48 EXAM Constitutional Vitals: Temp Pulse Resp BP Pulse Ox 98.0 F 66 8 L 113/61 98 05/29/20 06:59 05/29/20 06:59 05/29/20 06:59 05/29/20 06:59 05/29/20 06:59 Head no evidence of bruise or abrasion Oral cavity moist No ear nose discharge Eye movement symmetrical Neck significant pain on movement around the posterior aspect. S1-S2 occasionally irregular Nonlabored breathing Nondistended nontender abdomen Lower extremity no cyanosis clubbing or joint swelling Skin no suspicious lesion Psych anxious but alert cooperative Neuro normal higher function DATA Data Completed and Pending Labs on day of discharge: Labs from last 24 hours 05/29/20 04:05 POC Hct 42.0 POC Sodium 133 POC Potassium 4.7 POC Chloride 95 L POC Total CO2 24 POC BUN 41 H POC Creatinine 2.2 H POC Glucose 291 H POC WB Ioniz Calcium 1.20 A/P Narrative A/P Narrative: * Acute renal failure secondary to volume depletion from recurrent emesis. Continue crystalloids. Monitor renal function. Renal ultrasound. Hold KATHLEEN inhibitor's/metformin. Repeat BMP, nephrology consult if worsening renal function * Severe nausea vomiting secondary to head concussion-continue antiemetics/supportive management * Diabetes with hyperglycemia and polyneuropathy: Continue basal panel insulin/Lyrica/gabapentin * History of PAF continue Coreg/apixaban/amiodarone * HTN: on coreg/spironolactone, held KATHLEEN inhibitor * History of vertigo-recommend outpatient vestibular rehab * h/o CVA: On anticoagulation for CVA prophylaxis. Continue PT OT/statin * Chronic pain from polyneuropathy from diabetes, on home dose morphine * GERD continue PPI Plan * observation admission * Crystalloids * Renal function monitoring/renal ultrasound * Pre-existing medical condition management on home meds as above * Hold KATHLEEN inhibitor's * PT OT/nutrition support * Vestibular rehab Time Spent With Patient Time: Total time spent is greater than 50% in coordination of care (as docu mented) at patient's floor/unit and/or counseling patient: Total time spent with greater than 50% in coordination of care (as documented) at patient's floor/unit and/or counseling patient:: Greater than 35 minutes
[2020-05-29] MEDS: 0.9 % SODIUM CHLORIDE 1,000 ML IV SCH ×3 (08:52→17:46)
[2020-05-29] MEDS: ONDANSETRON 4 MG/2 ML VIAL IV PRN ×3 (08:53→18:56)
--- NOTE | 2020-05-29 10:02 | Ultrasound Report ---
INDICATION: Acute renal failure TECHNIQUE: Grayscale and color flow Doppler spectral imaging. COMPARISON: None. FINDINGS: Right kidney: Right kidney .1 x 6.7 x 6.4 cm. There is no hydronephrosis. No solid right renal mass. Renal cortex is normal. No detectable calculi. Left kidney: Left kidney [id number] x 4.9 x 4.5 cm. There is no hydronephrosis. No solid left renal mass. Renal cortex is normal. No detectable calculi. Bladder: Prevoid bladder volume 82 mL. Patient was unable to void. Ureteral jets are not identified. No detectable bladder stone IMPRESSION: Negative kidneys Interpreted and Authenticated by: Troy Melara 05/29/20
[2020-05-29] MEDS: OMEPRAZOLE 20 MG CAPSULE PO SCH (11:18)
[2020-05-29] MEDS: SPIRONOLACTONE 25 MG TABLET PO SCH (11:18)
[2020-05-29] MEDS: DOCUSATE SODIUM 100 MG CAPSULE PO SCH ×2 (11:18→21:08)
[2020-05-29] MEDS: CARVEDILOL 12.5 MG TABLET PO SCH ×2 (11:18→17:45)
[2020-05-29] MEDS: morphine 30 MG TAB.SR.12H PO SCH ×3 (11:19→21:08)
[2020-05-29] MEDS: FUROSEMIDE 20 MG TABLET PO SCH (11:19)
[2020-05-29] MEDS: AMIODARONE HCL 200 MG TABLET PO SCH (11:19)
[2020-05-29] MEDS: APIXABAN 5 MG TABLET PO SCH ×2 (11:19→21:08)
[2020-05-29] MEDS: ALBUTEROL SULFATE 200 PUFF INHALER INH SCH (11:20)
[2020-05-29] MEDS: ALPRAZolam 0.25 MG TABLET PO SCH ×3 (11:20→21:08)
[2020-05-29] MEDS: MULTIVIT,THER IRON,CA,FA & MIN 1 TABLET PO SCH (11:20)
[2020-05-29 11:29] LABS: Appearance,Urine CLOUDY; Bacteria,Urine MANY /hpf (0); Bilirubin,Urine NEG (NEG); Color,Urine YELLOW; Culture Indicated,Urine YES; Glucose,Urine (UA) 50 mg/dL (NEG); Ketones,Urine NEG (NEG); Leukocyte Esterase,Urine 500 /uL (NEG); Mucus,Urine MOD /hpf (0); Nitrate,Urine NEG (NEG); Protein,Urine 100 mg/dL (NEG); Specific Gravity,Urine 1.024 (1.000-1.035); Urine Blood 0.03 mg/dL (<0.03); Urine Hyaline Cast 99 /lpf (0-2); Urine RBC 19 /hpf (0-1); Urine Squamous Epithelial Cell 3 /hpf (0-4); Urine Transitional Epi Cells 1 /hpf (0-2); Urine WBC > 182 /hpf (0-4); Urobilinogen,Urine NEG (NEG)
--- NOTE | 2020-05-29 12:26 | Magnetic Resonance Report ---
INDICATION: Dizziness. Falls. COMPARISON: CT scans dated 05/29/2020 and 08-02 TECHNIQUE: Sagittal T1 FLAIR images. Axial DWI, T1 FLAIR, T2 FLAIR, T2, GRE. Coronal T2 FSE. FINDINGS: Cerebral hemispheres:No restricted diffusion. No acute infarction. No susceptibility. No hemorrhagic abnormality. There is white matter abnormality. This is both subcortical and periventricular. Findings are nonspecific. This may be secondary to small vessel ischemic change. This is advanced for age. Clinical correlation for history of hypertension and/or diabetes recommended. Demyelinating disease, vasculitis, ADEM, Lyme disease are in the differential diagnosis. No well-defined focal intra-axial signal abnormality. No localized mass effect. No midline shift. Brain stem and cerebellum:Asymmetric signal abnormality within the white matter of the selene. This is left-sided. This is also consistent with small vessel ischemic change Extra-axial:Normal flow void within vessels at the base of the brain. No subdural or epidural hematoma. No detectable subarachnoid hemorrhage Cavernous sinuses and basilar cisterns are normal. Skull:No calvarial lesions. No lytic lesion. No detectable fracture. Temporal bones:Mastoid sinuses are normal. No fluid or soft tissue intensity within either middle ear. Inner ear structures are normal Orbits, facial soft tissues:Globes are normal. No intraorbital abnormality. Facial soft tissues are negative Paranasal sinuses:Maxillary, frontal, ethmoid sinuses are negative. Sphenoid sinuses are negative. No mucosal thickening. No air-fluid levels. No discrete soft tissue mass IMPRESSION: 1. No restricted diffusion. No acute infarction 2. White matter abnormality in both cerebral hemispheres and selene. Findings are most consistent with small vessel ischemic change. This is abnormal and advanced for age 3. No focal abnormality Interpreted and Authenticated by: Troy Melara 05/29/20
[2020-05-29] MEDS: INSULIN GLARGINE, HUMAN 1 UNIT/0.01 ML SQ SCH ×2 (12:55→21:08)
[2020-05-29] MEDS ORDERED: EXENATIDE MICROSPHERES 2 MG SUB-Q SCH (14:00)
[2020-05-29] MEDS: 0.9 % SODIUM CHLORIDE 10 ML SYRINGE IV SCH ×2 (14:27→21:09)
[2020-05-29] MEDS ORDERED: DEXTROSE 50% 50 ML VIAL IV PRN (15:21)
[2020-05-29] MEDS ORDERED: DEXTROSE 31 GM ORAL.SUSP PO PRN (15:21)
[2020-05-29] MEDS: INSULIN LISPRO 1 UNIT/0.01 ML UNIT SQ SCH ×2 (17:43→21:08)
[2020-05-29] MEDS: ATORVASTATIN 40 MG TABLET PO SCH (21:08)
[2020-05-29] MEDS: SENNOSIDES/DOCUSATE SODIUM 1 TAB TABLET PO SCH (21:08)
[2020-05-30] MEDS: 0.9 % SODIUM CHLORIDE 1,000 ML IV SCH ×4 (00:34→21:25)
[2020-05-30] MEDS: ONDANSETRON 4 MG/2 ML VIAL IV PRN ×2 (02:41→20:26)
[2020-05-30] MEDS: 0.9 % SODIUM CHLORIDE 10 ML SYRINGE IV SCH ×3 (04:53→21:57)
[2020-05-30 07:08] LABS: Hematocrit 35.4 % (34.1-44.9); Hemoglobin 11.3 g/dL (11.2-15.7); Mean Cell Volume 92.7 fL (80.0-100.0); Mean Corpuscular HGB Conc 31.9 g/dL (31.0-36.0); Mean Platelet Volume 9.8 fL (7.4-10.4); Platelet Count 258 K/mcL (140-440); RBC 3.82 M/mcL (3.59-5.38); Red Cell Distribution Width 12.1 % (11.5-14.5); WBC 8.6 K/mcL (4.50-11.00)
[2020-05-30] MEDS: PROMETHAZINE 25 MG/ML VIAL IV PRN ×3 (07:24→17:43)
[2020-05-30 07:36] LABS: ALT/SGPT 8 U/l (0-40); AST/SGOT 14 U/l (0-37); Albumin 3.3 gm/dL (3.2-5.2); Albumin/Globulin Ratio 1.1 (1.0-2.3); Alkaline Phosphatase 88 U/L (39-117); Bilirubin,Direct < 0.2 mg/dL (0.0-0.3); Bilirubin,Total 0.2 mg/dL (0.0-1.0); Blood Urea Nitrogen 34 mg/dl (8-23); Calcium 8.5 mg/dl (8.6-10.4); Carbon Dioxide 20 mmol/L (22-30); Chloride 100 mmol/L (96-108); Glomerular Filtration Rate 40; Glucose 205 mg/dL (70-105); Lactate Dehydrogenase 209 U/L (94-250); Phosphorous 4.3 mg/dL (2.7-4.5); Triglycerides 163 mg/dl (<150); Uric Acid 8.5 mg/dL (2.5-8.0)
[2020-05-30] MEDS: INSULIN LISPRO 1 UNIT/0.01 ML UNIT SQ SCH ×4 (08:26→20:35)
[2020-05-30 08:43] LABS: Eosinophils % (Manual) 3 % (0-7); Lymphocytes % 45 % (15-49); Monocytes % (Manual) 6 % (1-12); Platelet Estimate NORMAL (NORMAL); RBC Morphology NORMAL (NORMAL); Segmented Neutrophils % 46 % (38-78)
[2020-05-30] MEDS: OMEPRAZOLE 20 MG CAPSULE PO SCH (09:19)
[2020-05-30] MEDS: MULTIVIT,THER IRON,CA,FA & MIN 1 TABLET PO SCH (09:20)
[2020-05-30] MEDS: CARVEDILOL 12.5 MG TABLET PO SCH ×2 (09:29→17:43)
[2020-05-30] MEDS: ALPRAZolam 0.25 MG TABLET PO SCH ×3 (09:29→21:57)
[2020-05-30] MEDS: morphine 30 MG TAB.SR.12H PO SCH ×3 (09:29→21:57)
[2020-05-30] MEDS: APIXABAN 5 MG TABLET PO SCH ×2 (09:29→21:57)
[2020-05-30] MEDS: INSULIN GLARGINE, HUMAN 1 UNIT/0.01 ML SQ SCH ×2 (09:29→20:35)
[2020-05-30] MEDS: FUROSEMIDE 20 MG TABLET PO SCH (09:29)
[2020-05-30] MEDS: SPIRONOLACTONE 25 MG TABLET PO SCH (09:29)
[2020-05-30] MEDS: AMIODARONE HCL 200 MG TABLET PO SCH (09:29)
[2020-05-30] MEDS: DOCUSATE SODIUM 100 MG CAPSULE PO SCH ×2 (09:29→21:57)
[2020-05-30] MEDS: ALBUTEROL SULFATE 200 PUFF INHALER INH SCH (09:30)
[2020-05-30] MEDS ORDERED: PNEUMOCOCCAL 23-VAL P-SAC VAC 0.5 ML SYRINGE IM ONE (10:00)
--- NOTE | 2020-05-30 10:01 | Internal Med Progress Note ---
SUBJECTIVE Subjective Patient information: Note initiated : 05/30/20 at 9:57 am Service Date, if different from initiated Date: [] Patient: Abbi Sprague a 59 y/o F admitted on 05/29/20 for Fall/Weakess/Head Injury/Nausea. Chief Complaint: [] History of present illness: Ms. Sprague is a 59 year old F with a history of diabetes/HTN/COPD//CAD/vertigo and history of CVA on anticoagulation presented to the ER early this morning with progressive and relentless nausea and vomiting over the last 24 hours following a fall. She apparently hit her head and came to the ER for evaluation of possible bleed being on blood thinners. Patient work-up in the ER was unremarkable neuroimaging however significant volume depletion with acute kidney injury creatinine over 2.2 and symptoms consistent with a concussion. Subsequently hospitalist service was consulted for admission in light of above At the time of evaluation patient is alert and oriented. She denies active distress. No fever chills but endorses to nausea and significant occipital headache/neck pain. She endorses to recurrent vertigo and recurrent falls in the past mostly positional lasting for 30 seconds with intense spinning sensation. She denies unilateral weakness/difficulty speaking or swallowing or double vision. She further denies hearing loss. She endorses to abdominal discomfort around periumbilical area associated with recurrent vomiting and retching. 05/30-patient doing well. No overnight events except for occasional emesis/nausea. Currently well controlled. Tolerating diet. Ambulating. Vertigo improved. Ongoing physical therapy. Recommend outpatient vestibular rehab on discharge for benign positional vertigo. Neuroimaging unremarkable. Creatinine down from 2.2-1.4. On crystalloids. Restart home medications. Interval history: Narrative: Constitutional Vitals: Vital Signs Temp Pulse Resp BP Pulse Ox 98.4 F 79 18 150/63 98 05/30/20 07:24 05/30/20 07:24 05/30/20 07:24 05/30/20 07:24 05/30/20 07:24 Period Temp Pulse Resp BP Sys/Wiggins Pulse Ox Last 24 Hr 97.9 F-98.9 F 66-79 12-18 98-150/55-65 97-100 Intake and Output 05/29/20 05/30/20 05/30/20 21:59 05:59 13:59 Intake Total 2580 1175 1480 Output Total 1045 550 500 Balance 1535 625 980 Weight 80.921 kg alert oriented No anxiety Nonlabored breathing Intake & Output: Intake & Output 05/29/20 05/30/20 05/30/20 21:59 05:59 13:59 Intake Total 2580 1175 1480 Output Total 1045 550 500 Balance 1535 625 980 Weight 80.921 kg Intake: IV 1000 1000 1000 Sodium Chloride 0.9% 1,000 ml @ 1000 1000 1000 150 mls/hr IV .Q6H40M [facility] Rx#: [id number] Oral 1580 175 480 Output: Void Amount 75 550 500 Emesis 970 Other: Meal Dinner Breakfast Percent of Meal Consumed 100% 100% Feeding Ability Independent Independent Urine Appearance Clear Clear Cloudy Urine Color Light [place] Bright Yellow Urine Odor Strong # Voids 1 OBJ DATA Labs CBC & Chem 7: 05/30/20 04:54 05/30/20 04:54 Labs: Abnormal Lab Results 05/30/20 05/29/20 05/29/20 04:54 10:10 04:05 POC Chloride 95 L Carbon Dioxide 20 L POC BUN 41 H BUN 34 H Creatinine 1.4 H POC Creatinine 2.2 H Glucose 205 H POC Glucose 291 H Uric Acid 8.5 H Calcium 8.5 L Triglycerides 163 H Urine Protein 100 A Urine Glucose (UA) 50 A Urine Occult Blood 0.03 A Ur Leukocyte Esterase 500 A Urine RBC 19 H Urine WBC > 182 H Urine Bacteria Many A Hyaline Casts 99 H Meds: Medications Acetaminophen (Tylenol) 650 mg PO Q4-6HP PRN; Protocol PRN Reason: Per Pain Protocol/Fever > 101 Albuterol Sulfate (Ventolin) 1 puff INH QDAY [facility] Last Admin: 05/30/20 09:30 Dose: 1 puff Documented by: Alprazolam (Xanax) 0.25 mg PO TID [facility] Last Admin: 05/30/20 09:29 Dose: 0.25 mg Documented by: Amiodarone HCl (Cordarone) 200 mg PO QDAY [facility] Last Admin: 05/30/20 09:29 Dose: 200 mg Documented by: Apixaban (Eliquis) 5 mg PO BID [facility] Last Admin: 05/30/20 09:29 Dose: 5 mg Documented by: Atorvastatin Calcium (Lipitor) 40 mg PO [facility] Last Admin: 05/29/20 21:08 Dose: 40 mg Documented by: Bisacodyl (Dulcolax) 10 mg NE Q2-3DAYS PRN PRN Reason: Constipation [facility] Last Admin: 05/30/20 09:29 Dose: 12.5 mg Documented by: Dextrose (Dextrose 50%) 0 ml IV UD PRN PRN Reason: Hypoglycemia Diagnostic Test (Pha) (Accu-Chek) 1 each FS [facility] Last Admin: 05/30/20 07:24 Dose: 1 each Documented by: Docusate Sodium (Colace) 100 mg PO BID [facility] Last Admin: 05/30/20 09:29 Dose: 100 mg Documented by: Furosemide (Lasix) 20 mg PO QDAY [facility] Last Admin: 05/30/20 09:29 Dose: 20 mg Documented by: Glucose (Insta-Glucose) 15 gm PO PRN PRN PRN Reason: Hypoglycemia Guaifenesin/Codeine Phosphate (Robitussin Ac) 10 ml PO Q4HP PRN PRN Reason: Cough Sodium Chloride (Sodium Chloride 0.9%) 1,000 mls @ 150 mls/hr IV .Q6H40M [facility] Last Admin: 05/30/20 07:23 Dose: 150 mls/hr Documented by: Acetaminophen (Ofirmev) 650 mg in 65 mls @ 130 mls/hr IV Q6HP PRN; Protocol PRN Reason: Per Pain Protocol/Fever > 101 Magnesium Sulfate (Magnesium Sulfate) 2 gm in 50 mls @ 50 mls/hr IV UD PRN PRN Reason: MG = or < 1.7 Potassium Chloride 40 meq/ (Dextrose) 520 mls @ 130 mls/hr IV UD PRN PRN Reason: K+ = or < 3.5 Insulin Glargine (Lantus) 35 unit SQ BID [facility] Last Admin: 05/30/20 09:29 Dose: 35 unit Documented by: Insulin Human Lispro (Humalog) 0 unit SQ [facility]; Protocol Last Admin: 05/30/20 08:26 Dose: 4 unit Documented by: Iron Carb/Multivit/[place]/Folic Acid (Multivitamin W/Minerals) 1 tab PO DAILY [facility] Last Admin: 05/30/20 09:20 Dose: Not Given Documented by: Melatonin (Melatonin 3mg Tablet) 3 mg PO HSP PRN PRN Reason: Insomnia Morphine Sulfate (Ms Contin) 60 mg PO TID [facility]; Protocol Last Admin: 05/30/20 09:29 Dose: 60 mg Documented by: Morphine Sulfate (Morphine) 2 mg IV Q2HP PRN; Protocol PRN Reason: Pain Last Admin: 05/30/20 07:27 Dose: 2 mg Documented by: Naloxone HCl (Narcan) 0.1 mg IV Q2MIN PRN PRN Reason: Opiate Reversal Omeprazole (Prilosec) 40 mg PO ACB [facility] Last Admin: 05/30/20 09:19 Dose: Not Given Documented by: Ondansetron HCl (Zofran) 4 mg IV Q4HP PRN PRN Reason: Nausea And Vomiting Last Admin: 05/30/20 02:41 Dose: 4 mg Documented by: Ondansetron HCl (Zofran Odt) 4 mg SL Q4-6HP PRN; Protocol PRN Reason: Nausea And Vomiting Ondansetron HCl (Zofran) 4 mg IV Q4-6HP PRN; Protocol PRN Reason: Nausea And Vomiting Exenatide Microspheres [ Bydureon] 2 Mg Syringe 1 dose SUB-Q Mo@1400 [facility] Last Admin: 05/29/20 14:35 Dose: 1 dose Documented by: Pneumococcal Polyvalent Vaccine (Pneumovax 23) 0.5 ml IM .ONCE ONE Stop: 05/30/20 10:01 Polyethylene Glycol (Miralax) 17 gm PO DAILYP PRN PRN Reason: Constipation Promethazine HCl (Phenergan) 25 mg NE Q4HP PRN PRN Reason: Nausea And Vomiting Promethazine HCl (Phenergan) 25 mg PO Q4HP PRN PRN Reason: Nausea And Vomiting Promethazine HCl (Phenergan) 6.25 mg IV Q4-6HP PRN; Protocol PRN Reason: Nausea And Vomiting Last Admin: 05/30/20 07:24 Dose: 6.25 mg Documented by: Senna/Docusate Sodium (Senna Plus Tablet) 1 tab PO HS [facility] Last Admin: 05/29/20 21:08 Dose: 1 tab Documented by: Sodium Chloride (Saline Flush) 10 ml IV Q8 [facility] Last Admin: 05/30/20 04:53 Dose: Not Given Documented by: Spironolactone (Aldactone) 25 mg PO QDAY [facility] Last Admin: 05/30/20 09:29 Dose: 25 mg Documented by: A/P Narrative A/P Narrative: * Acute renal failure secondary to volume depletion from recurrent emesis. Improved with crystalloids with creatinine down from 2.2-1.4. Renal ultrasound unremarkable. Held KATHLEEN inhibitor's/metformin. * Severe nausea vomiting secondary to head concussion-clinically improving. On as needed antiemetics/crystalloids and bowel rest * Diabetes with hyperglycemia and polyneuropathy: Continue basal prandial insulin/Lyrica/gabapentin * History of PAF rate controlled on Coreg/apixaban/amiodarone * HTN: on coreg/spironolactone, held KATHLEEN inhibitor until renal function improves * History of positional vertigo-recommend outpatient vestibular rehab. * h/o CVA: On anticoagulation for CVA prophylaxis. Continue PT OT/statin * Chronic pain from polyneuropathy from diabetes, on home dose morphine * GERD continue PPI Plan * Continue crystalloid/supportive management * Monitor renal function * Pre-existing medical condition management on home meds as above * Continue holding metformin/KATHLEEN inhibitor's * PT OT/nutrition support * Vestibular rehab as outpatient * Discharge planning Time Spent With Patient Time: Total time spent is greater than 50% in coordination of care (as documented) at patient's floor/unit and/or counseling patient: QUALITY VTE Deep Vein Thrombosis/Pulmonary Embolism Present on Admission: No
[2020-05-30] MEDS: SENNOSIDES/DOCUSATE SODIUM 1 TAB TABLET PO SCH (21:57)
[2020-05-30] MEDS: ATORVASTATIN 40 MG TABLET PO SCH (21:57)
[2020-05-31] MEDS: 0.9 % SODIUM CHLORIDE 1,000 ML IV SCH ×6 (03:35→23:36)
[2020-05-31] MEDS: 0.9 % SODIUM CHLORIDE 10 ML SYRINGE IV SCH ×3 (05:21→20:17)
[2020-05-31 07:14] LABS: Hematocrit 34.2 % (34.1-44.9); Hemoglobin 10.9 g/dL (11.2-15.7); Mean Corpuscular HGB Conc 31.9 g/dL (31.0-36.0); Mean Platelet Volume 9.6 fL (7.4-10.4); Platelet Count 274 K/mcL (140-440); RBC 3.64 M/mcL (3.59-5.38); Red Cell Distribution Width 12.1 % (11.5-14.5); WBC 14.5 K/mcL (4.50-11.00)
[2020-05-31] MEDS: DOCUSATE SODIUM 100 MG CAPSULE PO SCH ×2 (07:29→20:16)
[2020-05-31] MEDS: OMEPRAZOLE 20 MG CAPSULE PO SCH (07:57)
[2020-05-31 08:09] LABS: Bilirubin,Direct < 0.2 mg/dL (0.0-0.3); Chloride 100 mmol/L (96-108)
[2020-05-31 08:13] LABS: ALT/SGPT 8 U/l (0-40); AST/SGOT 15 U/l (0-37); Albumin 3.1 gm/dL (3.2-5.2); Alkaline Phosphatase 74 U/L (39-117); Bilirubin,Total 0.2 mg/dL (0.0-1.0); Blood Urea Nitrogen 17 mg/dl (8-23); Calcium 8.6 mg/dl (8.6-10.4); Carbon Dioxide 18 mmol/L (22-30); Glomerular Filtration Rate 61; Glucose 79 mg/dL (70-105); Lactate Dehydrogenase 275 U/L (94-250); Phosphorous 2.6 mg/dL (2.7-4.5); Triglycerides 79 mg/dl (<150); Uric Acid 6.3 mg/dL (2.5-8.0)
[2020-05-31] MEDS: ALPRAZolam 0.25 MG TABLET PO SCH ×3 (08:25→20:16)
[2020-05-31] MEDS: CARVEDILOL 12.5 MG TABLET PO SCH ×2 (08:25→17:03)
[2020-05-31] MEDS: SPIRONOLACTONE 25 MG TABLET PO SCH (08:26)
[2020-05-31] MEDS: MULTIVIT,THER IRON,CA,FA & MIN 1 TABLET PO SCH (08:26)
[2020-05-31] MEDS: morphine 30 MG TAB.SR.12H PO SCH ×3 (08:26→20:16)
[2020-05-31] MEDS: AMIODARONE HCL 200 MG TABLET PO SCH (08:27)
[2020-05-31] MEDS: APIXABAN 5 MG TABLET PO SCH ×2 (08:27→20:16)
[2020-05-31] MEDS: FUROSEMIDE 20 MG TABLET PO SCH (08:27)
[2020-05-31] MEDS: INSULIN LISPRO 1 UNIT/0.01 ML UNIT SQ SCH ×4 (08:28→21:13)
[2020-05-31] MEDS: INSULIN GLARGINE, HUMAN 1 UNIT/0.01 ML SQ SCH ×2 (08:28→21:13)
[2020-05-31] MEDS ORDERED: CIPROFLOXACIN 500 MG TABLET PO SCH (09:00)
[2020-05-31] MEDS: ALBUTEROL SULFATE 200 PUFF INHALER INH SCH (09:18)
--- NOTE | 2020-05-31 09:28 | Internal Med Progress Note ---
SUBJECTIVE Subjective Patient information: Note initiated : 05/31/20 at 9:26 am Service Date, if different from initiated Date: [] Patient: Abbi Sprague a 59 y/o F admitted on 05/29/20 for Fall/Weakess/Head Injury/Nausea. Chief Complaint: [] History of present illness: Ms. Sprague is a 59 year old F with a history of diabetes/HTN/COPD//CAD/vertigo and history of CVA on anticoagulation presented to the ER early this morning with progressive and relentless nausea and vomiting over the last 24 hours following a fall. She apparently hit her head and came to the ER for evaluation of possible bleed being on blood thinners. Patient work-up in the ER was unremarkable neuroimaging however significant volume depletion with acute kidney injury creatinine over 2.2 and symptoms consistent with a concussion. Subsequently hospitalist service was consulted for admission in light of above At the time of evaluation patient is alert and oriented. She denies active distress. No fever chills but endorses to nausea and significant occipital headache/neck pain. She endorses to recurrent vertigo and recurrent falls in the past mostly positional lasting for 30 seconds with intense spinning sensation. She denies unilateral weakness/difficulty speaking or swallowing or double vision. She further denies hearing loss. She endorses to abdominal discomfort around periumbilical area associated with recurrent vomiting and retching. 05/30-patient doing well. No overnight events except for occasional emesis/nausea. Currently well controlled. Tolerating diet. Ambulating. Vertigo improved. Ongoing physical therapy. Recommend outpatient vestibular rehab on discharge for benign positional vertigo. Neuroimaging unremarkable. Creatinine down from 2.2-1.4. On crystalloids. Restart home medications. 05/31-creatinine down to 1. Doing a lot better. Ongoing physical therapy. Ambulating. Blood sugars at goal. Sodium 130. Headache much improved. Vertigo persistent. Will likely discharge in 24 hours. White count elevated at 14.5. Complicated UTI with pyuria. Gram-negative bacilli on culture. Start Rocephin. Continue nutrition support Interval history: Narrative: Constitutional Vitals: Vital Signs Temp Pulse Resp BP Pulse Ox 97.9 F 67 16 121/63 98 05/31/20 06:50 05/31/20 06:50 05/31/20 06:50 05/31/20 06:50 05/31/20 06:50 Period Temp Pulse Resp BP Sys/Wiggins Pulse Ox Last 24 Hr 97.7 F-99.2 F 67-81 16-18 117-169/47-74 92-98 Intake and Output 05/30/20 05/31/20 05/31/20 21:59 05:59 13:59 Intake Total 3560 1140 120 Output Total 1 Balance 3560 1139 120 Weight 80.921 kg 80.91 kg Ambulating Nonlabored breathing No anxiety Nondistended abdomen Intake & Output: Intake & Output 05/30/20 05/31/20 05/31/20 21:59 05:59 13:59 Intake Total 3560 1140 120 Output Total 1 Balance 3560 1139 120 Weight 80.921 kg 80.91 kg Intake: IV 1999 990 Sodium Chloride 0.9% 1,000 ml @ 2000 925 150 mls/hr IV .Q6H40M [facility] Rx#: [id number] Oral 1560 150 120 Output: Void Amount 1 Other: Meal Dinner Breakfast Percent of Meal Consumed 100% 100% Feeding Ability Independent # Voids 1 1 1 OBJ DATA Labs CBC & Chem 7: 05/31/20 05:17 05/31/20 05:17 Labs: Abnormal Lab Results 05/31/20 05/31/20 05/30/20 05:17 05:17 04:54 WBC 14.5 H Hgb 10.9 L Sodium 130 L POC Chloride Carbon Dioxide 18 L 20 L POC BUN BUN 34 H Creatinine 1.4 H POC Creatinine Glucose 205 H POC Glucose Uric Acid 8.5 H Calcium 8.5 L Phosphorus 2.6 L Lactate Dehydrogenase 275 H Albumin 3.1 L Triglycerides 163 H Urine Protein Urine Glucose (UA) Urine Occult Blood Ur Leukocyte Esterase Urine RBC Urine WBC Urine Bacteria Hyaline Casts 05/29/20 05/29/20 10:10 04:05 WBC Hgb Sodium POC Chloride 95 L Carbon Dioxide POC BUN 41 H BUN Creatinine POC Creatinine 2.2 H Glucose POC Glucose 291 H Uric Acid Calcium Phosphorus Lactate Dehydrogenase Albumin Triglycerides Urine Protein 100 A Urine Glucose (UA) 50 A Urine Occult Blood 0.03 A Ur Leukocyte Esterase 500 A Urine RBC 19 H Urine WBC > 182 H Urine Bacteria Many A Hyaline Casts 99 H Meds: Medications Acetaminophen (Tylenol) 650 mg PO Q4-6HP PRN; Protocol PRN Reason: Per Pain Protocol/Fever > 101 Albuterol Sulfate (Ventolin) 1 puff INH QDAY [facility] Last Admin: 05/31/20 09:18 Dose: 1 puff Documented by: Alprazolam (Xanax) 0.25 mg PO TID [facility] Last Admin: 05/31/20 08:25 Dose: 0.25 mg Documented by: Amiodarone HCl (Cordarone) 200 mg PO QDAY [facility] Last Admin: 05/31/20 08:27 Dose: 200 mg Documented by: Apixaban (Eliquis) 5 mg PO BID [facility] Last Admin: 05/31/20 08:27 Dose: 5 mg Documented by: Atorvastatin Calcium (Lipitor) 40 mg PO HS [facility] Last Admin: 05/30/20 21:57 Dose: Not Given Documented by: Bisacodyl (Dulcolax) 10 mg WI Q2-3DAYS PRN PRN Reason: Constipation [facility] Last Admin: 05/31/20 08:25 Dose: 12.5 mg Documented by: Ciprofloxacin (Cipro) 500 mg PO BID [facility]; Protocol Last Admin: 05/31/20 09:21 Dose: 500 mg Documented by: Dextrose (Dextrose 50%) 0 ml IV UD PRN PRN Reason: Hypoglycemia Diagnostic Test (Pha) (Accu-Chek) 1 each FS ACHS [facility] Last Admin: 05/31/20 07:46 Dose: 1 each Documented by: Docusate Sodium (Colace) 100 mg PO BID [facility] Last Admin: 05/31/20 07:29 Dose: Not Given Documented by: Furosemide (Lasix) 20 mg PO QDAY [facility] Last Admin: 05/31/20 08:27 Dose: 20 mg Documented by: Glucose (Insta-Glucose) 15 gm PO PRN PRN PRN Reason: Hypoglycemia Guaifenesin/Codeine Phosphate (Robitussin Ac) 10 ml PO Q4HP PRN PRN Reason: Cough Sodium Chloride (Sodium Chloride 0.9%) 1,000 mls @ 150 mls/hr IV .Q6H40M [facility] Last Admin: 05/31/20 09:24 Dose: Not Given Documented by: Acetaminophen (Ofirmev) 650 mg in 65 mls @ 130 mls/hr IV Q6HP PRN; Protocol PRN Reason: Per Pain Protocol/Fever > 101 Last Infusion: 05/31/20 04:05 Dose: Infused Documented by: Magnesium Sulfate (Magnesium Sulfate) 2 gm in 50 mls @ 50 mls/hr IV UD PRN PRN Reason: MG = or < 1.7 Potassium Chloride 40 meq/ (Dextrose) 520 mls @ 130 mls/hr IV UD PRN PRN Reason: K+ = or < 3.5 Insulin Glargine (Lantus) 35 unit SQ BID [facility] Last Admin: 05/31/20 08:28 Dose: 35 unit Documented by: Insulin Human Lispro (Humalog) 0 unit SQ ACHS [facility]; Protocol Last Admin: 05/31/20 08:28 Dose: 1 unit Documented by: Iron Carb/Multivit/Children'S Book Author/Folic Acid (Multivitamin W/Minerals) 1 tab PO DAILY [facility] Last Admin: 05/31/20 08:26 Dose: 1 tab Documented by: Melatonin (Melatonin 3mg Tablet) 3 mg PO HSP PRN PRN Reason: Insomnia Morphine Sulfate (Ms Contin) 60 mg PO TID [facility]; Protocol Last Admin: 05/31/20 08:26 Dose: 60 mg Documented by: Morphine Sulfate (Morphine) 2 mg IV Q2HP PRN; Protocol PRN Reason: Pain Last Admin: 05/30/20 20:26 Dose: 2 mg Documented by: Naloxone HCl (Narcan) 0.1 mg IV Q2MIN PRN PRN Reason: Opiate Reversal Omeprazole (Prilosec) 40 mg PO ACB [facility] Last Admin: 05/31/20 07:57 Dose: Not Given Documented by: Ondansetron HCl (Zofran) 4 mg IV Q4HP PRN PRN Reason: Nausea And Vomiting Last Admin: 05/30/20 20:26 Dose: 4 mg Documented by: Ondansetron HCl (Zofran Odt) 4 mg SL Q4-6HP PRN; Protocol PRN Reason: Nausea And Vomiting Last Admin: 05/31/20 05:34 Dose: 4 mg Documented by: Ondansetron HCl (Zofran) 4 mg IV Q4-6HP PRN; Protocol PRN Reason: Nausea And Vomiting Exenatide Microspheres [ Bydureon] 2 Mg Syringe 1 dose SUB-Q Mo@1400 [facility] Last Admin: 05/29/20 14:35 Dose: 1 dose Documented by: Polyethylene Glycol (Miralax) 17 gm PO DAILYP PRN PRN Reason: Constipation Promethazine HCl (Phenergan) 25 mg WI Q4HP PRN PRN Reason: Nausea And Vomiting Promethazine HCl (Phenergan) 25 mg PO Q4HP PRN PRN Reason: Nausea And Vomiting Last Admin: 05/31/20 08:25 Dose: 25 mg Documented by: Promethazine HCl (Phenergan) 6.25 mg IV Q4-6HP PRN; Protocol PRN Reason: Nausea And Vomiting Last Admin: 05/30/20 17:43 Dose: 6.25 mg Documented by: Senna/Docusate Sodium (Senna Plus Tablet) 1 tab PO HS [facility] Last Admin: 05/30/20 21:57 Dose: Not Given Documented by: Sodium Chloride (Saline Flush) 10 ml IV Q8 [facility] Last Admin: 05/31/20 05:21 Dose: Not Given Documented by: Spironolactone (Aldactone) 25 mg PO QDAY [facility] Last Admin: 05/31/20 08:26 Dose: 25 mg Documented by: A/P Narrative A/P Narrative: * Acute renal failure secondary to volume depletion from recurrent emesis. Improved with crystalloids with creatinine down from 2.2-1.4-> 1 Renal ultrasound unremarkable. Restart KATHLEEN inhibitor/metformin * Severe nausea vomiting secondary to head concussion-clinically resolved. On as needed antiemetics/crystalloids and bowel rest * Complicated UTI with pyuria. Cultures gram-negative natasha. On Rocephin. * Diabetes with hyperglycemia and polyneuropathy: Much improved on CC diet/basal prandial insulin/Lyrica/gabapentin * History of PAF rate controlled on Coreg/apixaban/amiodarone * HTN: on coreg/spironolactone, held KATHLEEN inhibitor until renal function improves * History of positional vertigo-recommend outpatient vestibular rehab. * h/o CVA: On anticoagulation for CVA prophylaxis. Continue PT OT/statin * Chronic pain from polyneuropathy from diabetes, on home dose morphine * GERD continue PPI Plan * Start Rocephin * Pre-existing medical condition management on home meds as above * Restart metformin/KATHLEEN inhibitor's * PT OT/nutrition support * Scheduled vestibular rehab as outpatient * Discharge planning likely in 24 hours Time Spent With Patient Time: Total time spent is greater than 50% in coordination of care (as documented) at patient's floor/unit and/or counseling patient: Total time spent with greater than 50% in coordination of care (as documented) at patient's floor/unit and/or counseling patient:: Greater than 35 minutes QUALITY VTE Deep Vein Thrombosis/Pulmonary Embolism Present on Admission: No
[2020-05-31 09:29] LABS: Band Neutrophils % 2 % (0-10); Eosinophils % (Manual) 4 % (0-7); Lymphocytes % 25 % (15-49); Monocytes % (Manual) 8 % (1-12); Platelet Estimate NORMAL (NORMAL); RBC Morphology NORMAL (NORMAL); Segmented Neutrophils % 61 % (38-78)
[2020-05-31] MEDS: metFORMIN 500 MG TABLET PO SCH ×2 (09:50→16:17)
[2020-05-31] MEDS: LISINOPRIL 5 MG TABLET PO SCH (09:51)
[2020-05-31] MEDS: cefTRIAXone 2 GM in DEXTROSE 5% IN WATER 50 ML IV SCH (09:52)
[2020-05-31] MEDS: PROMETHAZINE 25 MG/ML VIAL IV PRN (14:38)
[2020-05-31] MEDS: SENNOSIDES/DOCUSATE SODIUM 1 TAB TABLET PO SCH (20:16)
[2020-05-31] MEDS: ATORVASTATIN 40 MG TABLET PO SCH (20:16)
[2020-06-01] MEDS: 0.9 % SODIUM CHLORIDE 1,000 ML IV SCH ×2 (02:10→06:35)
[2020-06-01] MEDS: 0.9 % SODIUM CHLORIDE 10 ML SYRINGE IV SCH (06:35)
[2020-06-01 06:37] LABS: Hematocrit 27.5 % (34.1-44.9); Hemoglobin 9.1 g/dL (11.2-15.7); Mean Cell Volume 91.4 fL (80.0-100.0); Mean Corpuscular HGB Conc 33.1 g/dL (31.0-36.0); Mean Platelet Volume 9.9 fL (7.4-10.4); Platelet Count 205 K/mcL (140-440); RBC 3.01 M/mcL (3.59-5.38); Red Cell Distribution Width 12.4 % (11.5-14.5); WBC 8.2 K/mcL (4.50-11.00)
[2020-06-01 06:57] LABS: Bilirubin,Direct < 0.2 mg/dL (0.0-0.3); Bilirubin,Total < 0.2 mg/dL (0.0-1.0); Chloride 105 mmol/L (96-108)
[2020-06-01] MEDS: INSULIN LISPRO 1 UNIT/0.01 ML UNIT SQ SCH (07:03)
[2020-06-01 07:26] LABS: ALT/SGPT < 5 U/l (0-40); AST/SGOT 13 U/l (0-37); Albumin 2.5 gm/dL (3.2-5.2); Alkaline Phosphatase 59 U/L (39-117); Blood Urea Nitrogen 13 mg/dl (8-23); Calcium 7.5 mg/dl (8.6-10.4); Carbon Dioxide 17 mmol/L (22-30); Globulin 2.5 gm/dL (2.2-3.7); Glomerular Filtration Rate 80; Glucose 171 mg/dL (70-105); Lactate Dehydrogenase 246 U/L (94-250); Phosphorous 3.2 mg/dL (2.7-4.5); Triglycerides 117 mg/dl (<150); Uric Acid 5.3 mg/dL (2.5-8.0)
[2020-06-01] MEDS: OMEPRAZOLE 20 MG CAPSULE PO SCH (07:51)
[2020-06-01 07:58] LABS: Band Neutrophils % 2 % (0-10); Eosinophils % (Manual) 3 % (0-7); Lymphocytes % 33 % (15-49); Monocytes % (Manual) 2 % (1-12); Platelet Estimate NORMAL (NORMAL); RBC Morphology NORMAL (NORMAL); Segmented Neutrophils % 60 % (38-78)
[2020-06-01] MEDS: INSULIN GLARGINE, HUMAN 1 UNIT/0.01 ML SQ SCH (08:08)
[2020-06-01] MEDS: cefTRIAXone 2 GM in DEXTROSE 5% IN WATER 50 ML IV SCH (08:10)
[2020-06-01] MEDS: AMIODARONE HCL 200 MG TABLET PO SCH (08:13)
[2020-06-01] MEDS: metFORMIN 500 MG TABLET PO SCH (08:13)
[2020-06-01] MEDS: APIXABAN 5 MG TABLET PO SCH (08:14)
[2020-06-01] MEDS: MULTIVIT,THER IRON,CA,FA & MIN 1 TABLET PO SCH (08:15)
[2020-06-01] MEDS: ALPRAZolam 0.25 MG TABLET PO SCH (08:15)
[2020-06-01] MEDS: CARVEDILOL 12.5 MG TABLET PO SCH (08:16)
[2020-06-01] MEDS: SPIRONOLACTONE 25 MG TABLET PO SCH (08:16)
[2020-06-01] MEDS: FUROSEMIDE 20 MG TABLET PO SCH (08:16)
[2020-06-01] MEDS: LISINOPRIL 5 MG TABLET PO SCH (08:16)
[2020-06-01] MEDS: morphine 30 MG TAB.SR.12H PO SCH (08:17)
[2020-06-01] MEDS: ALBUTEROL SULFATE 200 PUFF INHALER INH SCH (08:18)
[2020-06-01] MEDS: DOCUSATE SODIUM 100 MG CAPSULE PO SCH (08:24)
--- NOTE | 2020-06-01 10:59 | Discharge Summary ---
Discharge Provider Provider Patient information: Note initiated : 06/01/20 at 10:55 am Service Date, if different from initiated Date: [] Patient: Abbi Sprague 59 y/o F admitted on 05/29/20 for Fall/Weakess/Head Injury/Nausea. Chief Complaint: [] Date of admission: 05/29/20 07:05 Discharge date: 06/01/20 Consults: 05/30/20 08:11 Consult to Physician [CONS] Routine Comment: Consulting Provider: Augustine Barker Reason For Exam: Physician to Consult Discharge Meds Discharge Medications Home Medications apixaban 5 mg tablet 5 mg PO BID #120 tab 11/04/16 [Rx Confirmed 05/29/20 Last Taken Unknown] albuterol sulfate 90 mcg/actuation aerosol inhaler 1 puff INHALATION QDAY #18 g 07/02/17 [Rx Confirmed 05/29/20 Last Taken Unknown] insulin detemir U-100 30 unit SUBCUT BID 01/13/19 [History Confirmed 05/29/20 Last Taken Unknown] alprazolam 0.25 mg tablet 0.25 mg PO TID 05/24/20 [History Confirmed 05/29/20 Last Taken Unknown] amiodarone 200 mg tablet 200 mg PO QDAY 05/24/20 [History Confirmed 05/29/20 Last Taken Unknown] carvedilol 12.5 mg tablet 12.5 mg PO BID 05/24/20 [History Confirmed 05/29/20 Last Taken Unknown] exenatide microspheres 2 mg/0.65 mL subcutaneous pen injector 2 mg SUB-Q QWEEK 05/24/20 [History Confirmed 05/29/20 Last Taken Unknown] furosemide 20 mg tablet 20 mg PO QDAY 05/24/20 [History Confirmed 05/29/20 Last Taken Unknown] insulin detemir U-100 100 unit/mL (3 mL) subcutaneous pen 35 unit SUB-Q BID ml 05/24/20 [History Confirmed 05/29/20 Last Taken Unknown] insulin lispro 100 unit/mL subcutaneous pen See Rx Instructions SUB-Q ONCE ml 05/24/20 [History Confirmed 05/29/20 Last Taken Unknown] lisinopril 5 mg tablet 5 mg PO QDAY 05/24/20 [History Confirmed 05/29/20 Last Taken Unknown] metformin 1,000 mg tablet 1,000 mg PO BID 05/24/20 [History Confirmed 05/29/20 Last Taken Unknown] morphine 30 mg tablet,extended release 60 mg PO TID 05/24/20 [History Confirmed 05/29/20 Last Taken Unknown] omeprazole 40 mg capsule,delayed release 40 mg PO QDAY 05/24/20 [History Confirmed 05/29/20 Last Taken Unknown] promethazine 25 mg rectal suppository 25 mg MD Q4H PRN each 05/24/20 [History Confirmed 05/29/20 Last Taken Unknown] promethazine 25 mg tablet 25 mg PO Q4H PRN tab 05/24/20 [History Confirmed 05/29/20 Last Taken Unknown] rosuvastatin 20 mg tablet 20 mg PO QDAY 05/24/20 [History Confirmed 05/29/20 Last Taken Unknown] spironolactone 25 mg tablet 25 mg PO QDAY 05/24/20 [History Confirmed 05/29/20 Last Taken Unknown] ciprofloxacin HCl 500 mg PO Q12H #10 tab 06/01/20 [Rx Last Taken Unknown] COURSE Hospital Course Hospital Course: Discharge diagnosis * Acute renal failure secondary to volume depletion from recurrent emesis. Clinically resolved with crystalloids with creatinine down from 2.2-1.4-> 1 Renal ultrasound unremarkable. * Severe nausea vomiting secondary to head concussion-clinically resolved. * Complicated Klebsiella UTI with pyuria. Pansensitive Klebsiella. Discharge on additional 5 days oral ciprofloxacin. * Diabetes with hyperglycemia and polyneuropathy: Managed on CC diet/basal prandial insulin/Lyrica/gabapentin * History of PAF rate controlled on Coreg/apixaban/amiodarone * HTN: on coreg/spironolactone KATHLEEN inhibitor * History of positional vertigo-recommend outpatient vestibular rehab. * h/o CVA: On anticoagulation for CVA prophylaxis. Continue PT OT/statin * Chronic pain from polyneuropathy from diabetes, on home dose morphine * GERD continue PPI Brief hospital course History of present illness: Ms. Sprauge is a 59 year old F with a history of diabetes/HTN/COPD//CAD/vertigo and history of CVA on anticoagulation presented to the ER early this morning with progressive and relentless nausea and vomiting over the last 24 hours following a fall. She apparently hit her head and came to the ER for evaluation of possible bleed being on blood thinners. Patient work-up in the ER was unremarkable neuroimaging however significant volume depletion with acute kidney injury creatinine over 2.2 and symptoms consistent with a concussion. Subsequently hospitalist service was consulted for admission in light of above At the time of evaluation patient is alert and oriented. She denies active distress. No fever chills but endorses to nausea and significant occipital headache/neck pain. She endorses to recurrent vertigo and recurrent falls in the past mostly positional lasting for 30 seconds with intense spinning sensation. She denies unilateral weakness/difficulty speaking or swallowing or double vision. She further denies hearing loss. She endorses to abdominal discomfort around periumbilical area associated with recurrent vomiting and retching. 05/30-patient doing well. No overnight events except for occasional emesis/nausea. Currently well controlled. Tolerating diet. Ambulating. Vertigo improved. Ongoing physical therapy. Recommend outpatient vestibular rehab on discharge for benign positional vertigo. Neuroimaging unremarkable. Creatinine down from 2.2-1.4. On crystalloids. Restart home medications. 05/31-creatinine down to 1. Doing a lot better. Ongoing physical therapy. Ambulating. Blood sugars at goal. Sodium 130. Headache much improved. Vertigo persistent. Will likely discharge in 24 hours. White count elevated at 14.5. Complicated UTI with pyuria. Gram-negative bacilli on culture. Start Rocephin. Continue nutrition support 06/01-patient doing well. Renal function back at baseline. Vertigo resolved. Dysuria resolved. White count normalized. Discharging home with advised to follow-up with vestibular rehabilitation psychologist/PCP. Continue antibiotics additional 5 days. Discharge diagnosis: . Time Spent with Patient Time attestation: Total time spent providing and/or coordinating discharge services: EXAM Constitutional Vitals: Temp Pulse Resp BP Pulse Ox 97.1 F 66 16 118/54 99 06/01/20 07:49 06/01/20 07:49 06/01/20 07:49 06/01/20 07:49 06/01/20 07:49 Discharge Data Data Completed and Pending Labs on day of discharge: Labs from last 24 hours 06/01/20 06/01/20 05:27 05:27 WBC 8.2 RBC 3.01 L Hgb 9.1 L Hct 27.5 L MCV 91.4 MCH 30.2 MCHC 33.1 RDW 12.4 Plt Count 205 MPV 9.9 Total Counted 100 Seg Neutrophils % 60 Band Neutrophils % 2 Lymphocytes % 33 Monocytes % (Manual) 2 Eosinophils % (Manual) 3 Platelet Estimate Normal RBC Morphology Normal Sodium 133 Potassium 4.5 Chloride 105 Carbon Dioxide 17 L Anion Gap 11.0 BUN 13 Creatinine 0.8 GFR Calculation 80 Glucose 171 H Uric Acid 5.3 Calcium 7.5 L Phosphorus 3.2 Magnesium 1.8 Total Bilirubin < 0.2 Direct Bilirubin < 0.2 GGT 12 AST 13 ALT < 5 Alkaline Phosphatase 59 Lactate Dehydrogenase 246 Total Protein 5.0 L Albumin 2.5 L Globulin 2.5 Albumin/Globulin Ratio 1.0 Triglycerides 117 Discharge Plan Patient/Caregiver Discharge Instructions Diet: Regular Diet Instructions: Acute Kidney Injury (DC), Urinary Tract Infection in Women (DC), Vertigo (DC), Concussion (DC) Activity Restrictions/Additional Instructions: Follow-up primary care physician 5 to 7 days Continue antibiotic patient 5 days Recommend outpatient vascular rehab. To be coordinated by primary care physician Return to ER if worsening lightheadedness chest pain, dizziness or fall Prescriptions: New ciprofloxacin HCl 500 mg tablet 500 mg PO Q12H Qty: 10 RF: 0 Continued apixaban 5 MG tablet 5 mg PO BID Qty: 120 RF: 3 albuterol sulfate 90 mcg/actuation HFA aerosol inhaler 1 puff INHALATION QDAY Qty: 18 RF: 1 alprazolam 0.25 mg tablet 0.25 mg PO TID RF: 0 amiodarone 200 mg tablet 200 mg PO QDAY RF: 0 Bydureon 2 mg/0.65 mL pen injector 2 mg SUB-Q QWEEK RF: 0 carvedilol 12.5 mg tablet 12.5 mg PO BID RF: 0 furosemide 20 mg tablet 20 mg PO QDAY RF: 0 insulin lispro [Humalog KwikPen Insulin] 100 unit/mL insulin pen See Rx Instructions SUB-Q ONCE RF: 0 Levemir FlexTouch U-100 Insuln 100 unit/mL (3 mL) insulin pen 35 unit SUB-Q BID RF: 0 lisinopril 5 mg tablet 5 mg PO QDAY RF: 0 metformin 1,000 mg tablet 1,000 mg PO BID RF: 0 morphine 30 mg tablet extended release 60 mg PO TID RF: 0 omeprazole 40 mg capsule,delayed release(DR/EC) 40 mg PO QDAY RF: 0 promethazine 25 mg suppository 25 mg MD Q4H PRN (Reason: Nausea) RF: 0 promethazine 25 mg tablet 25 mg PO Q4H PRN (Reason: Pain) RF: 0 rosuvastatin 20 mg tablet 20 mg PO QDAY RF: 0 spironolactone 25 mg tablet 25 mg PO QDAY RF: 0 insulin detemir U-100 100 UNIT/ML solution 30 unit subcut BID RF: 0 Follow Up Plan Follow up with: No,PCP [Referring] - Patient Disposition: Home, Self-Care Hospital Course: Discharge diagnosis * Acute renal failure secondary to volume depletion from recurrent emesis. Clinically resolved with crystalloids with creatinine down from 2.2-1.4-> 1 Renal ultrasound unremarkable. * Severe nausea vomiting secondary to head concussion-clinically resolved. * Complicated Klebsiella UTI with pyuria. Pansensitive Klebsiella. Discharge on additional 5 days oral ciprofloxacin. * Diabetes with hyperglycemia and polyneuropathy: Managed on CC diet/basal prandial insulin/Lyrica/gabapentin * History of PAF rate controlled on Coreg/apixaban/amiodarone * HTN: on coreg/spironolactone KATHLEEN inhibitor * History of positional vertigo-recommend outpatient vestibular rehab. * h/o CVA: On anticoagulation for CVA prophylaxis. Continue PT OT/statin * Chronic pain from polyneuropathy from diabetes, on home dose morphine * GERD continue PPI Brief hospital course History of present illness: Ms. Sprague is a 59 year old F with a history of diabetes/HTN/COPD//CAD/vertigo and history of CVA on anticoagulation presented to the ER early this morning with progressive and relentless nausea and vomiting over the last 24 hours following a fall. She apparently hit her head and came to the ER for evaluation of possible bleed being on blood thinners. Patient work-up in the ER was unremarkable neuroimaging however significant volume depletion with acute kidney injury creatinine over 2.2 and symptoms consistent with a concussion. Subsequently hospitalist service was consulted for admission in light of above At the time of evaluation patient is alert and oriented. She denies active distress. No fever chills but endorses to nausea and significant occipital headache/neck pain. She endorses to recurrent vertigo and recurrent falls in the past mostly positional lasting for 30 seconds with intense spinning sensation. She denies unilateral weakness/difficulty speaking or swallowing or double vision. She further denies hearing loss. She endorses to abdominal discomfort around periumbilical area associated with recurrent vomiting and retching. 05/30-patient doing well. No overnight events except for occasional emesis/nausea. Currently well controlled. Tolerating diet. Ambulating. Vertigo improved. Ongoing physical therapy. Recommend outpatient vestibular rehab on discharge for benign positional vertigo. Neuroimaging unremarkable. Creatinine down from 2.2-1.4. On crystalloids. Restart home medications. 05/31-creatinine down to 1. Doing a lot better. Ongoing physical therapy. Ambulating. Blood sugars at goal. Sodium 130. Headache much improved. Verti go persistent. Will likely discharge in 24 hours. White count elevated at 14.5. Complicated UTI with pyuria. Gram-negative bacilli on culture. Start Rocephin. Continue nutrition support 06/01-patient doing well. Renal function back at baseline. Vertigo resolved. Dysuria resolved. White count normalized. Discharging home with advised to follow-up with vestibular rehabilitation psychologist/PCP. Continue antibiotics additional 5 days. Prognosis: Fair Overall status at discharge: patient is progressing back to baseline Discharge Orders: Discharge Order (Routine); Ordered 06/01/20 Ordered By: Augustine HANCOCK VTE Deep Vein Thrombosis/Pulmonary Embolism Present on Admission: No
== END 2020-06-01 12:50 | disposition home or self-care (01) | DRG 683 ==
LOC: MEDSUR 03:35 → ED 03:35 → MEDSUR 07:00 → OBSVTOIN 07:05 → MEDSUR 05-30 12:00
PROVIDERS: ADMIT Internal Medicine; ATTEND Internal Medicine

== ENCOUNTER 2020-07-31 20:41 | Inpatient (IN) ==
[2020-07-31] MEDS ORDERED: 0.9 % SODIUM CHLORIDE 1,000 ML IV ONE (21:12)
[2020-07-31 22:18] LABS: Basophils # (Auto) 0.02 K/mcL (0.00-0.30); Basophils % (Auto) 0.2 % (0.0-2.0); Eosinophils # (Auto) 0.29 K/mcL (0.00-0.70); Eosinophils % (Auto) 2.8 % (0.0-7.0); Granulocytes % (Auto) 70.6 % (38.0-78.0); Hematocrit 32.5 % (34.1-44.9); Hemoglobin 10.8 g/dL (11.2-15.7); Mean Cell Volume 87.6 fL (80.0-100.0); Mean Corpuscular HGB Conc 33.2 g/dL (31.0-36.0); Mean Platelet Volume 9.3 fL (7.4-10.4); Monocytes # (Auto) 0.88 K/mcL (0.10-0.90); Monocytes % (Auto) 8.4 % (1.0-12.0); Platelet Count 257 K/mcL (140-440); RBC 3.71 M/mcL (3.59-5.38); Red Cell Distribution Width 12.5 % (11.5-14.5); WBC 10.5 K/mcL (4.50-11.00)
[2020-07-31] MEDS ORDERED: ONDANSETRON 4 MG/2 ML VIAL IV ONE (22:27)
[2020-07-31] MEDS ORDERED: ONDANSETRON 4 MG ODT TABLET SL ONE (22:28)
[2020-07-31] MEDS ORDERED: ACETAMINOPHEN 325 MG TABLET PO ONE (22:28)
[2020-07-31 22:36] LABS: ALT/SGPT 12 U/l (0-40); AST/SGOT 19 U/l (0-37); Albumin 2.8 gm/dL (3.2-5.2); Albumin/Globulin Ratio 0.8 (1.0-2.3); Alkaline Phosphatase 86 U/L (39-117); Bilirubin,Total 0.2 mg/dL (0.0-1.0); Blood Urea Nitrogen 66 mg/dl (8-23); Calcium 8.1 mg/dl (8.6-10.4); Carbon Dioxide 23 mmol/L (22-30); Chloride 88 mmol/L (96-108); Globulin 3.3 gm/dL (2.2-3.7); Glomerular Filtration Rate 12; Glucose 225 mg/dL (70-105)
[2020-07-31] MEDS ORDERED: PROMETHAZINE 25 MG/ML VIAL IV ONE (22:39)
--- NOTE | 2020-07-31 22:46 | Emergency Department Note ---
HPI General Chief complaint: Trauma Stated complaint: fall from standing position Time Seen by Provider: 07/31/20 21:11 Source: patient and EMS Mode of arrival: wheelchair History of Present Illness HPI Narrative: Narrative: 1-year-old female presents emergency department chief complaint of fall secondary to getting very dizzy when she changes position. Patient recently diagnosed with urinary tract infection on 7-day course of Cipro most recently patient feels that was insufficient for her issue. Patient reports being diagnosed with vertigo and being treated for that. Patient without active bleeding or acute evidence of trauma. Related Data Home Medications Medication Instructions Recorded Confirmed insulin detemir U-100 30 unit SUBCUT BID 01/13/19 07/31/20 alprazolam 0.25 mg tablet 0.25 mg PO TID 05/24/20 07/31/20 amiodarone 200 mg tablet 200 mg PO QDAY 05/24/20 07/31/20 carvedilol 12.5 mg tablet 12.5 mg PO BID 05/24/20 07/31/20 exenatide microspheres 2 mg/0.65 2 mg SUB-Q QWEEK 05/24/20 07/31/20 mL subcutaneous pen injector furosemide 20 mg tablet 20 mg PO QDAY 05/24/20 07/31/20 insulin detemir U-100 100 unit/mL 35 unit SUB-Q BID ml 05/24/20 07/31/20 (3 mL) subcutaneous pen insulin lispro 100 unit/mL See Rx Instructions SUB-Q ONCE ml 05/24/20 07/31/20 subcutaneous pen lisinopril 5 mg tablet 5 mg PO QDAY 05/24/20 07/31/20 metformin 1,000 mg tablet 1,000 mg PO BID 05/24/20 07/31/20 morphine 30 mg tablet,extended 60 mg PO BID 05/24/20 07/31/20 release omeprazole 40 mg capsule,delayed 40 mg PO QDAY 05/24/20 07/31/20 release promethazine 25 mg rectal 25 mg [place] Q4H PRN each 05/24/20 07/31/20 suppository promethazine 25 mg tablet 25 mg PO Q4H PRN tab 05/24/20 07/31/20 rosuvastatin 20 mg tablet 20 mg PO QDAY 05/24/20 07/31/20 spironolactone 25 mg tablet 25 mg PO QDAY 05/24/20 07/31/20 Previous Rx's Medication Instructions Recorded apixaban 5 mg tablet 5 mg PO BID #120 tab 11/04/16 albuterol sulfate 90 mcg/actuation 1 puff INHALATION QDAY #18 g 07/02/17 aerosol inhaler ciprofloxacin HCl 500 mg PO Q12H #10 tab 06/01/20 cephalexin [Keflex] 500 mg PO QID #20 cap 07/03/20 Allergies Allergy/AdvReac Type Severity Reaction Status Date / Time Beet Allergy Severe Anaphylaxis Verified 07/31/20 20:51 bacitracin Allergy Intermediate Itching Verified 07/31/20 20:51 buprenorphine [From Suboxone] Allergy Intermediate Swelling, Verified 07/31/20 20:51 rash duloxetine [From Cymbalta] Allergy Intermediate Swelling, Verified 07/31/20 20:51 rash fentanyl Allergy Intermediate Dizziness Verified 07/31/20 20:51 and vomiting hydrocodone [From [place]] Allergy Intermediate Itching Verified 07/31/20 20:51 Iodinated Contrast Media Allergy Intermediate Hives Verified 07/31/20 20:51 [Iodinated Contrast Media - IV Dye] ketorolac [From Toradol] Allergy Intermediate Difficulty Verified 07/31/20 20:51 Breathing, rash Naloxone [From Suboxone] Allergy Intermediate Swelling Verified 07/31/20 20:51 pregabalin [From Lyrica] Allergy Intermediate Palpitations, Verified 07/31/20 20:51 edema propoxyphene Allergy Intermediate Edema Verified 07/31/20 20:51 Sulfa (Sulfonamide Allergy Intermediate Difficulty Verified 07/31/20 20:51 Antibiotics) Breathing tramadol Allergy Intermediate Rash Verified 07/31/20 20:51 gabapentin Allergy Unknown Falls Verified 07/31/20 20:51 asleep rivaroxaban [From Xarelto] Allergy Unknown Dizziness, Verified 07/31/20 20:51 falls lorazepam [From Ativan] AdvReac Intermediate Hives, Verified 07/31/20 20:51 itching sulfamethoxazole AdvReac Intermediate Palpitation Verified 07/31/20 20:51 [From Septra] s trimethoprim [From Septra] AdvReac Intermediate Palpitation Verified 07/31/20 20:51 s acetaminophen AdvReac Mild Itching Verified 07/31/20 20:51 Review of Systems ROS ROS Narrative: Narrative: All systems ED: reviewed and negative except as stated. [facility] Narrative Patient History Narrative: Narrative: Medical/Surgical/Family History All Active Problems (Updated 07/31/20 @ 22:58 by Mac Lance MD) Acute hyponatremia (Acute) Acute kidney failure (Acute) Orthostatic hypotension (Acute) Urinary tract infection (Acute) Nausea & vomiting (Acute) Fall (Acute) Chronic anticoagulation (Acute) Concussion (Acute) Acute cervical sprain (Acute) Abdominal pain (Acute) Vertigo (Chronic) Acute on chronic heart failure with normal ejection fraction (Chronic) Diabetic gastroparesis associated with type 2 diabetes mellitus (Chronic) Hyperglycemia (Chronic) Intractable hiccups (Chronic) Compression fracture of T10 vertebra (Chronic) Acute kidney injury (Chronic) History of total abdominal hysterectomy (Chronic) History of surgery (Chronic) History of intestinal surgery (Chronic) History of appendectomy (Chronic) Polyneuropathy (Chronic) History of hepatitis B (Chronic) Sciatica (Chronic) Sleep terror disorder (Chronic) Nausea and vomiting (Chronic) Chest pain (Acute) Cholecystitis, acute (Acute) Colitis (Chronic) CAD (coronary artery disease) (Chronic) Mixed anxiety and depressive disorder (Chronic) Posttraumatic stress disorder (Chronic) Diabetic peripheral neuropathy (Chronic) Migraine (Chronic) Congestive heart failure (Chronic) Coronary arteriosclerosis (Chronic) Malignant neoplasm of ovary (Chronic) Cerebrovascular accident (Chronic) Vitamin D deficiency (Chronic) Microalbuminuria (Chronic) Osteopenia (Chronic) Type 1 diabetes mellitus (Chronic) Hemoptysis (Chronic) Closed right hip fracture (Chronic) Physical deconditioning (Chronic) Paroxysmal atrial fibrillation (Chronic) Opiate dependence (Chronic) Diabetes mellitus with polyneuropathy (Chronic) Diabetic ketoacidosis (Chronic) Diabetes (Acute) Abdominal pain (Acute) Diverticulitis (Acute) Vaginal candidiasis (Acute) Migraine (Acute) Gingivitis with diabetes mellitus (Acute) Volume depletion (Acute) Headache (Acute) Bronchitis (Acute) Chronic back pain (Acute) Concussion without loss of consciousness (Acute) Mixed bipolar I disorder (Chronic) Chronic pain (Chronic) Panic attack (Chronic) Neuropathy (Chronic) Myocardial infarction, old (Chronic) Lichen sclerosus (Chronic) Hypertension, essential (Chronic) Gastroparesis (Chronic) Diabetes mellitus, type II (Chronic) COPD (chronic obstructive pulmonary disease) (Chronic) Atrial fibrillation (Chronic) Asthma (Chronic) Acid reflux (Chronic) Medical History (Updated 07/31/20 @ 22:58 by Mac Lance MD) Abdominal pain (Acute) Acid reflux (Chronic) Acute kidney injury (Chronic) Acute on chronic heart failure with normal ejection fraction (Chronic) Asthma (Chronic) Childhood Atrial fibrillation (Chronic) 2013 Bronchitis (Acute) CAD (coronary artery disease) (Chronic) Cerebrovascular accident (Chronic) Chronic back pain (Acute) Chronic pain (Chronic) Closed right hip fracture (Chronic) Colitis (Chronic) Compression fracture of T10 vertebra (Chronic) Concussion without loss of consciousness (Acute) Congestive heart failure (Chronic) COPD (chronic obstructive pulmonary disease) (Chronic) 04/2014 Coronary arteriosclerosis (Chronic) Diabetes (Acute) Diabetes mellitus with polyneuropathy (Chronic) Diabetes mellitus, type II (Chronic) Diabetic gastroparesis associated with type 2 diabetes mellitus (Chronic) Diabetic ketoacidosis (Chronic) Diabetic peripheral neuropathy (Chronic) Diverticulitis (Acute) Gastroparesis (Chronic) 2008 Gingivitis with diabetes mellitus (Acute) Headache (Acute) Hemoptysis (Chronic) History of hepatitis B (Chronic) Hyperglycemia (Chronic) Hypertension, essential (Chronic) Intractable hiccups (Chronic) Lichen sclerosus (Chronic) 2010 Malignant neoplasm of ovary (Resolved) 1978 -- 15 surgeries, 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 Malignant neoplasm of ovary (Chronic) Microalbuminuria (Chronic) Migraine (Acute) Migraine (Chronic) Mixed anxiety and depressive disorder (Chronic) Mixed bipolar I disorder (Chronic) Myocardial infarction, old (Chronic) 2010, Two Nausea and vomiting (Chronic) Neuropathy (Chronic) 1993 Opiate dependence (Chronic) Osteopenia (Chronic) Panic attack (Chronic) 2009 Paroxysmal atrial fibrillation (Chronic) Physical deconditioning (Chronic) Polyneuropathy (Chronic) Posttraumatic stress disorder (Chronic) Pulmonary embolism (Resolved) 1996 Pyelonephritis, chronic (Resolved) 1995 Sciatica (Chronic) 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) 2 comas Type 1 diabetes mellitus (Chronic) Urinary tract infection (Acute) Vaginal candidiasis (Acute) Vertigo (Chronic) Vitamin D deficiency (Chronic) Volume depletion (Acute) Surgical History History of appendectomy (Chronic) History of intestinal surgery (Chronic) partial excision of small intestine History of laparoscopic cholecystectomy (Acute) 01/14/2019 History of surgery (Chronic) Multiple Ovarian Cancer Surgeries, Including LSO and AMANDA-RSO from [id number] History of total abdominal hysterectomy (Chronic) Hx of colonoscopy (Resolved) 2009 Status post panniculectomy (Chronic 11/17/01) Family History Father Acute myocardial infarction Mother , age 67 Acute myocardial infarction Coronary arteriosclerosis Sister COPD (chronic obstructive pulmonary disease) Social History Smoking Status: Never smoker Alcohol Intake Frequency: does not drink Substance Use: marijuana Exam Narrative Narrative: Primary survey: Airway: Patient without visible external evidence of airway compromise no acute trauma to the oral maxillofacial area is appreciated Breathing: pt with spontaneous respirations, with excellent oxygenation on initial evaluation Circulation: Patient without obvious external hemorrhage in need of acute control, patient is perfusing extremities well without evidence of shock Disability: Basic neurological examination reveals moving all extremities, mentating appropriately; GCS 15 Secondary survey: General: Alert, interactive, appropriate Head: Atraumatic, normocephalic Eyes: Extraocular movements intact, sclera anicteric, no conjunctival injection Ears: Pinnae normal, no discharge Mouth: Oral mucosa moist, no acute swelling or evidence of infection Nares: No nasal discharge, patent bilaterally Neck: Trachea midline, full range of motion Chest: Symmetrical chest wall rise, clear to auscultation bilateral without wheezes rales crackles or rubs Cardiovascular: Patient with excellent perfusion to the extremities, patient without tachycardia/bradycardia patient has had some soft blood pressures in the emergency department and treated with IV fluids Abdomen: Nontender nondistended normoactive bowel sounds no masses no hepatosplenomegaly no rebound no guarding Skin: Patient without area of erythema, patient is without rash, no ascending lymphangitis or lymphadenopathy Extremities: Full range of motion joints, no obvious deformities Neuro: Alert, oriented x3, cranial nerves II through XII grossly intact, patient without lateralizing findings such as weakness, or abnormal reflexes Psychiatric: Normal affect, normal mood Course Vital Signs Vital signs: Vital Signs Temperature 97.9 F 07/31/20 20:43 Pulse Rate 66 07/31/20 20:43 Respiratory Rate 20 07/31/20 20:43 Blood Pressure 90/52 07/31/20 20:43 Pulse Oximetry (%) 95 07/31/20 20:43 Temperature 97.9 F 07/31/20 20:43 Pulse Rate 70 07/31/20 22:22 Respiratory Rate 13 07/31/20 22:22 Blood Pressure 112/52 07/31/20 22:22 Pulse Oximetry (%) 95 07/31/20 22:22 MDM MDM Narrative Medical decision making narrative: Narrative: 59-year-old female reporting fall secondary to profound dizziness. Patient states significant amounts of vomiting over the past several days also recent urinary tract infection and treatment with Cipro. Laboratory evaluation at this time demonstrates hyponatremia with a sodium of 124 complaining that with profound dizziness and weakness patient recently should be admitted additional findings include acute kidney injury with BUN/creatinine of 66 and 3.7. Patient does have history of orthostatic symptoms here in the emergency department which when combined with her allergy list limits her available pain medication for treatment of pain from fall. Discussed the case with Dr. Negrete and consensus opinion is hydrate and stop lisinopril. He is available to consult on the case with the hospitalist. Discussed case the hospitalist and consensus medical opinion is to admit the patient for ongoing care will stop lisinopril and hydrate at this point time. Lab Data Result diagrams: 07/31/20 21:50 07/31/20 21:50 Labs: Lab Results 07/31/20 07/31/20 Range/Units 21:50 21:50 WBC 10.5 (4.50-11.00) K/mcL RBC 3.71 (3.59-5.38) M/mcL Hgb 10.8 L (11.2-15.7) g/dL Hct 32.5 L (34.1-44.9) % MCV 87.6 (80.0-100.0) fL MCH 29.1 (26.0-34.0) pg MCHC 33.2 (31.0-36.0) g/dL RDW 12.5 (11.5-14.5) % Plt Count 257 (140-440) K/mcL MPV 9.3 (7.4-10.4) fL Gran % 70.6 (38.0-78.0) % Lymph % (Auto) 18.0 (15.5-49.0) % [place] % (Auto) 8.4 (1.0-12.0) % Eos % (Auto) 2.8 (0.0-7.0) % Baso % (Auto) 0.2 (0.0-2.0) % Gran # 7.44 (1.80-8.00) K/mcL Lymph # (Auto) 1.90 (1.50-4.80) K/mcL [place] # (Auto) 0.88 (0.10-0.90) K/mcL Eos # (Auto) 0.29 (0.00-0.70) K/mcL Baso # (Auto) 0.02 (0.00-0.30) K/mcL Sodium 124 L (133-145) mmol/L Potassium 3.2 L (3.3-5.1) mmol/L Chloride 88 L (96-108) mmol/L Carbon Dioxide 23 (22-30) mmol/L Anion Gap 13.0 (8-16) BUN 66 H (8-23) mg/dl Creatinine 3.7 H (0.6-1.1) mg/dl GFR Calculation 12 Glucose 225 H (70-105) mg/dL Calcium 8.1 L (8.6-10.4) mg/dl Total Bilirubin 0.2 (0.0-1.0) mg/dL AST 19 (0-37) U/l ALT 12 (0-40) U/l Alkaline Phosphatase 86 (39-117) U/L Total Protein 6.1 (5.9-8.4) gm/dL Albumin 2.8 L (3.2-5.2) gm/dL Globulin 3.3 (2.2-3.7) gm/dL Albumin/Globulin Ratio 0.8 L (1.0-2.3) CC TIME Critical Care Time Critical Care Time: Yes Total Critical Care Time: 40 Attestation: This critical care time was direct patient care exclusive of other procedures. Patient with critically low sodium at 124, acute kidney injury with BUN and creatinine of 66 and 3.4 Discharge Plan Patient/Caregiver Discharge Instructions Pt seen by E LEARNING SPECIALIST/PA only: Yes Clinical Impression: Acute hyponatremia, Orthostatic hypotension Acute kidney failure Qualifiers: Acute renal failure type: unspecified Qualified Code(s): N17.9 - Acute kidney failure, unspecified Patient Disposition: Xfer As Inpt ([facility]) Condition: Serious Follow up with: Fartun Yoder MD [Primary Care Provider] - Prescriptions: No Action apixaban 5 MG tablet 5 mg PO BID Qty: 120 RF: 3 albuterol sulfate 90 mcg/actuation HFA aerosol inhaler 1 puff INHALATION QDAY Qty: 18 RF: 1 alprazolam 0.25 mg tablet 0.25 mg PO TID RF: 0 amiodarone 200 mg tablet 200 mg PO QDAY RF: 0 Bydureon 2 mg/0.65 mL pen injector 2 mg SUB-Q QWEEK RF: 0 carvedilol 12.5 mg tablet 12.5 mg PO BID RF: 0 furosemide 20 mg tablet 20 mg PO QDAY RF: 0 insulin lispro [Humalog KwikPen Insulin] 100 unit/mL insulin pen See Rx Instructions SUB-Q ONCE RF: 0 Levemir FlexTouch U-100 Insuln 100 unit/mL (3 mL) insulin pen 35 unit SUB-Q BID RF: 0 lisinopril 5 mg tablet 5 mg PO QDAY RF: 0 metformin 1,000 mg tablet 1,000 mg PO BID RF: 0 morphine 30 mg tablet extended release 60 mg PO BID RF: 0 omeprazole 40 mg capsule,delayed release(DR/EC) 40 mg PO QDAY RF: 0 promethazine 25 mg suppository 25 mg [place] Q4H PRN (Reason: Nausea) RF: 0 promethazine 25 mg tablet 25 mg PO Q4H PRN (Reason: Pain) RF: 0 rosuvastatin 20 mg tablet 20 mg PO QDAY RF: 0 spironolactone 25 mg tablet 25 mg PO QDAY RF: 0 insulin detemir U-100 100 UNIT/ML solution 30 unit subcut BID RF: 0 ciprofloxacin HCl 500 mg tablet 500 mg PO Q12H Qty: 10 RF: 0 cephalexin [Keflex] 500 mg capsule 500 mg PO QID Qty: 20 RF: 0
--- NOTE | 2020-07-31 23:15 | Internal Med History&Physical ---
HPI History of Present Illness Patient information: Note initiated : 07/31/20 at 11:15 pm Service Date, if different from initiated Date: [] Patient: Abbi Sprague a 59 y/o F admitted on for fall from standing position. Chief Complaint: [] History of present illness: Ms. Sprague is a 59-year-old female with a history of DM type II/HTN/CAD/COPD/CVA/positional vertigo who presents to the ER this evening with symptoms of weakness dizziness lightheadedness and fall. She was on her way to the restroom when she got lightheaded and tripped and fell. discovered her on the floor. Subsequently EMS was called. She denies losing consciousness or seizure-like episode or incontinence Initial work-up in the ER was consistent with acute renal failure with a creatinine of 3.7 compared to baseline 0.8, BUN 66, sodium 124, potassium 3.2. Patient has been on diuretics including spironolactone/Lasix. Nephrology was consulted and recommended hospitalization. Subsequently hospitalist service was consulted At the time of my evaluation patient is anxious distressed but able to talk in full sentences. She endorses history as above. She denies recent NSAID intake/sick contacts/fever, bloody stool but endorses to diarrhea and multiple episodes of vomiting and persistent nausea. She has gotten progressively weak and has been unable to perform regular ADLs She was recently admitted at [facility] for acute renal failure secondary to volum e depletion from recurrent emesis and uncomplicated urinary tract infection. Review of systems 10 point review system was performed and is negative except for ones discussed above [facility] All Active Problems (Updated 07/31/20 @ 22:58 by Mac Lance MD) Acute hyponatremia (Acute) Acute kidney failure (Acute) Orthostatic hypotension (Acute) Urinary tract infection (Acute) Nausea & vomiting (Acute) Fall (Acute) Chronic anticoagulation (Acute) Concussion (Acute) Acute cervical sprain (Acute) Abdominal pain (Acute) Vertigo (Chronic) Acute on chronic heart failure with normal ejection fraction (Chronic) Diabetic gastroparesis associated with type 2 diabetes mellitus (Chronic) Hyperglycemia (Chronic) Intractable hiccups (Chronic) Compression fracture of T10 vertebra (Chronic) Acute kidney injury (Chronic) History of total abdominal hysterectomy (Chronic) History of surgery (Chronic) History of intestinal surgery (Chronic) History of appendectomy (Chronic) Polyneuropathy (Chronic) History of hepatitis B (Chronic) Sciatica (Chronic) Sleep terror disorder (Chronic) Nausea and vomiting (Chronic) Chest pain (Acute) Cholecystitis, acute (Acute) Colitis (Chronic) CAD (coronary artery disease) (Chronic) Mixed anxiety and depressive disorder (Chronic) Posttraumatic stress disorder (Chronic) Diabetic peripheral neuropathy (Chronic) Migraine (Chronic) Congestive heart failure (Chronic) Coronary arteriosclerosis (Chronic) Malignant neoplasm of ovary (Chronic) Cerebrovascular accident (Chronic) Vitamin D deficiency (Chronic) Microalbuminuria (Chronic) Osteopenia (Chronic) Type 1 diabetes mellitus (Chronic) Hemoptysis (Chronic) Closed right hip fracture (Chronic) Physical deconditioning (Chronic) Paroxysmal atrial fibrillation (Chronic) Opiate dependence (Chronic) Diabetes mellitus with polyneuropathy (Chronic) Diabetic ketoacidosis (Chronic) Diabetes (Acute) Abdominal pain (Acute) Diverticulitis (Acute) Vaginal candidiasis (Acute) Migraine (Acute) Gingivitis with diabetes mellitus (Acute) Volume depletion (Acute) Headache (Acute) Bronchitis (Acute) Chronic back pain (Acute) Concussion without loss of consciousness (Acute) Mixed bipolar I disorder (Chronic) Chronic pain (Chronic) Panic attack (Chronic) Neuropathy (Chronic) Myocardial infarction, old (Chronic) Lichen sclerosus (Chronic) Hypertension, essential (Chronic) Gastroparesis (Chronic) Diabetes mellitus, type II (Chronic) COPD (chronic obstructive pulmonary disease) (Chronic) Atrial fibrillation (Chronic) Asthma (Chronic) Acid reflux (Chronic) Medical History (Updated 07/31/20 @ 22:58 by Mac Lance MD) Abdominal pain (Acute) Acid reflux (Chronic) Acute kidney injury (Chronic) Acute on chronic heart failure with normal ejection fraction (Chronic) Asthma (Chronic) Childhood Atrial fibrillation (Chronic) 2013 Bronchitis (Acute) CAD (coronary artery disease) (Chronic) Cerebrovascular accident (Chronic) Chronic back pain (Acute) Chronic pain (Chronic) Closed right hip fracture (Chronic) Colitis (Chronic) Compression fracture of T10 vertebra (Chronic) Concussion without loss of consciousness (Acute) Congestive heart failure (Chronic) COPD (chronic obstructive pulmonary disease) (Chronic) 04/2014 Coronary arteriosclerosis (Chronic) Diabetes (Acute) Diabetes mellitus with polyneuropathy (Chronic) Diabetes mellitus, type II (Chronic) Diabetic gastroparesis associated with type 2 diabetes mellitus (Chronic) Diabetic ketoacidosis (Chronic) Diabetic peripheral neuropathy (Chronic) Diverticulitis (Acute) Gastroparesis (Chronic) 2009 Gingivitis with diabetes mellitus (Acute) Headache (Acute) Hemoptysis (Chronic) History of hepatitis B (Chronic) Hyperglycemia (Chronic) Hypertension, essential (Chronic) Intractable hiccups (Chronic) Lichen sclerosus (Chronic) 2009 Malignant neoplasm of ovary (Resolved) 1978 -- 15 surgeries, 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 Malignant neoplasm of ovary (Chronic) Microalbuminuria (Chronic) Migraine (Acute) Migraine (Chronic) Mixed anxiety and depressive disorder (Chronic) Mixed bipolar I disorder (Chronic) Myocardial infarction, old (Chronic) 2010, Two Nausea and vomiting (Chronic) Neuropathy (Chronic) 1993 Opiate dependence (Chronic) Osteopenia (Chronic) Panic attack (Chronic) 2009 Paroxysmal atrial fibrillation (Chronic) Physical deconditioning (Chronic) Polyneuropathy (Chronic) Posttraumatic stress disorder (Chronic) Pulmonary embolism (Resolved) 1996 Pyelonephritis, chronic (Resolved) 1995 Sciatica (Chronic) 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) 2 comas Type 1 diabetes mellitus (Chronic) Urinary tract infection (Acute) Vaginal candidiasis (Acute) Vertigo (Chronic) Vitamin D deficiency (Chronic) Volume depletion (Acute) Surgical History History of appendectomy (Chronic) History of intestinal surgery (Chronic) partial excision of small intestine History of laparoscopic cholecystectomy (Acute) 01/14/2019 History of surgery (Chronic) Multiple Ovarian Cancer Surgeries, Including LSO and AMANDA-RSO from [id number] History of total abdominal hysterectomy (Chronic) Hx of colonoscopy (Resolved) 2009 Status post panniculectomy (Chronic 11/17/01) Family History Father Acute myocardial infarction Mother , age 67 Acute myocardial infarction Coronary arteriosclerosis Sister COPD (chronic obstructive pulmonary disease) Social History (Updated 05/24/20 @ 09:12 by Emma Lang) household members: spouse marital status: education level: elementary school occupational status: unemployed and retired smoking status: Never smoker alcohol intake frequency: does not drink substance use type: marijuana seatbelt use: always working smoke detector in home: Yes firearms in home: No MEDS/ALLERGIES Home Medications and Allergies Home Medications Medication Instructions Recorded Confirmed Type insulin detemir U-100 30 unit SUBCUT BID 01/13/19 08/01/20 History alprazolam 0.25 mg tablet 0.25 mg PO TID 05/24/20 08/01/20 History amiodarone 200 mg tablet 200 mg PO QDAY 05/24/20 08/01/20 History carvedilol 12.5 mg tablet 12.5 mg PO BID 05/24/20 08/01/20 History exenatide microspheres 2 mg/0.65 2 mg SUB-Q QWEEK 05/24/20 08/01/20 History mL subcutaneous pen injector furosemide 20 mg tablet 20 mg PO QDAY 05/24/20 08/01/20 History insulin lispro 100 unit/mL See Rx Instructions .ROUTE 05/24/20 08/01/20 History subcutaneous pen .COMPLEX ml lisinopril 5 mg tablet 5 mg PO QDAY 05/24/20 08/01/20 History metformin 1,000 mg tablet 1,000 mg PO BID 05/24/20 07/31/20 History morphine 30 mg tablet,extended 60 mg PO BID 05/24/20 08/01/20 History release omeprazole 40 mg capsule,delayed 40 mg PO BID 05/24/20 08/01/20 History release promethazine 25 mg rectal 25 mg [place] Q4H PRN each 05/24/20 08/01/20 History suppository promethazine 25 mg tablet 25 mg PO Q4H PRN tab 05/24/20 08/01/20 History rosuvastatin 20 mg tablet 20 mg PO BID 05/24/20 08/01/20 History spironolactone 25 mg tablet 25 mg PO QDAY 05/24/20 08/01/20 History albuterol sulfate 2 puff INHALATION Q6H PRN 08/01/20 08/01/20 History apixaban 2.5 mg PO BID 08/01/20 08/01/20 History Allergies Allergy/AdvReac Type Severity Reaction Status Date / Time Beet Allergy Severe Anaphylaxis Verified 07/31/20 20:51 buprenorphine [From Suboxone] Allergy Intermediate Swelling, Verified 07/31/20 20:51 rash duloxetine [From Cymbalta] Allergy Intermediate Swelling, Verified 07/31/20 20:51 rash Iodinated Contrast Media Allergy Intermediate Hives Verified 07/31/20 20:51 [Iodinated Contrast Media - IV Dye] ketorolac [From Toradol] Allergy Intermediate Difficulty Verified 07/31/20 20:51 Breathing, rash Naloxone [From Suboxone] Allergy Intermediate Swelling Verified 07/31/20 20:51 pregabalin [From Lyrica] Allergy Intermediate Palpitations, Verified 07/31/20 20:51 edema propoxyphene Allergy Intermediate Edema Verified 07/31/20 20:51 Sulfa (Sulfonamide Allergy Intermediate Difficulty Verified 07/31/20 20:51 Antibiotics) Breathing tramadol Allergy Intermediate Rash Verified 07/31/20 20:51 lorazepam [From Ativan] AdvReac Intermediate Hives, Verified 07/31/20 20:51 itching sulfamethoxazole AdvReac Intermediate Palpitation Verified 07/31/20 20:51 [From Septra] s trimethoprim [From Septra] AdvReac Intermediate Palpitation Verified 07/31/20 20:51 s acetaminophen AdvReac Mild Itching Verified 07/31/20 20:51 bacitracin AdvReac Mild Itching Verified 08/01/20 06:50 fentanyl AdvReac Mild Dizziness Verified 08/01/20 06:50 and vomiting gabapentin AdvReac Mild Falls Verified 08/01/20 06:50 asleep hydrocodone [From [place]] AdvReac Mild Itching Verified 08/01/20 06:50 rivaroxaban [From Xarelto] AdvReac Mild Dizziness, Verified 08/01/20 06:50 falls EXAM Constitutional Vitals: Temp Pulse Resp BP Pulse Ox 97.9 F 72 18 97/65 99 07/31/20 20:43 07/31/20 23:03 07/31/20 23:03 07/31/20 23:03 07/31/20 23:03 Head no evidence of bruise or abrasion Oral cavity dry mucous membranes No ear nose discharge Eye movement symmetrical Neck significant pain on movement around the posterior aspect. S1-S2 occasionally irregular Nonlabored breathing Nondistended nontender abdomen Lower extremity no cyanosis clubbing or joint swelling Skin no suspicious lesion Psych anxious but alert cooperative Neuro normal higher function DATA Data Completed and Pending Labs: Labs from last 24 hours 07/31/20 07/31/20 21:50 21:50 WBC 10.5 RBC 3.71 Hgb 10.8 L Hct 32.5 L MCV 87.6 MCH 29.1 MCHC 33.2 RDW 12.5 Plt Count 257 MPV 9.3 Gran % 70.6 Lymph % (Auto) 18.0 [place] % (Auto) 8.4 Eos % (Auto) 2.8 Baso % (Auto) 0.2 Gran # 7.44 Lymph # (Auto) 1.90 [place] # (Auto) 0.88 Eos # (Auto) 0.29 Baso # (Auto) 0.02 Sodium 124 L Potassium 3.2 L Chloride 88 L Carbon Dioxide 23 Anion Gap 13.0 BUN 66 H Creatinine 3.7 H GFR Calculation 12 Glucose 225 H Calcium 8.1 L Total Bilirubin 0.2 AST 19 ALT 12 Alkaline Phosphatase 86 Total Protein 6.1 Albumin 2.8 L Globulin 3.3 Albumin/Globulin Ratio 0.8 L A/P Narrative A/P Narrative: * Acute kidney injury with a creatinine over 3.5. Baseline 0.8. secondary to volume depletion from recurrent emesis and underlying diuretic use. Hold KATHLEEN inhibitor. Continue crystalloids, nephrology consult. Renal ultrasound/UA * Hypovolemic hyponatremia likely secondary to solute loss from emesis and poor p.o. intake. Continue gentle crystalloids, 4 hourly sodium checks. Urine and serum osmolality to rule out SIADH * Episodic nausea vomiting. Continue as needed antiemetics * Syncope/fall likely secondary to volume depletion and orthostasis. PT OT gait and safety eval, cardiac monitoring to rule out arrhythmias * Diabetes with hyperglycemia and polyneuropathy: Much improved on CC diet/basal prandial insulin/Lyrica/gabapentin * History of PAF rate controlled on Coreg/apixaban/amiodarone * HTN: on coreg/hold spironolactone, KATHLEEN inhibitor until renal function improves * History of positional vertigo-stable, will benefit from outpatient vestibular rehab * h/o CVA: On anticoagulation for CVA prophylaxis. Continue PT OT/statin * Chronic pain from polyneuropathy from diabetes, on home dose morphine * GERD continue PPI Plan * Inpatient telemetry admit * Crystalloids * Nephrology consult * Renal ultrasound * Pre-existing medical condition management on home meds except for antihypertensives should be held * CC diet/basal insulin * PT OT/nutrition support Time Spent With Patient Time: Total time spent is greater than 50% in coordination of care (as documented) at patient's floor/unit and/or counseling patient: Total time spent with greater than 50% in coordination of care (as documented) at patient's floor/unit and/or counseling patient:: Greater than 35 minutes
[2020-08-01] MEDS ORDERED: DEXTROSE 31 GM ORAL.SUSP PO PRN (00:01)
[2020-08-01] MEDS ORDERED: INSULIN LISPRO SUB-Q SCH (00:01)
[2020-08-01] MEDS ORDERED: ONDANSETRON 4 MG ODT TABLET SL PRN (00:01)
[2020-08-01] MEDS ORDERED: DEXTROSE 50% 50 ML VIAL IV PRN (00:01)
[2020-08-01] MEDS ORDERED: POLYETHYLENE GLYCOL 3350 17 GM PACKET PO PRN (00:01)
[2020-08-01] MEDS ORDERED: BISACODYL 10 MG SUPP.RECT PR PRN (00:01)
[2020-08-01] MEDS ORDERED: METOPROLOL TARTRATE 5 MG/5 ML VIAL IV PRN (00:01)
[2020-08-01] MEDS ORDERED: cefTRIAXone 2 GM in DEXTROSE 5% IN WATER 50 ML IV SCH (00:01)
[2020-08-01] MEDS ORDERED: 0.9 % SODIUM CHLORIDE 1,000 ML IV SCH ×2 (00:01→20:15)
[2020-08-01] MEDS ORDERED: ACETAMINOPHEN 325 MG TABLET PO PRN (00:01)
[2020-08-01] MEDS ORDERED: cefTRIAXone 1 GM VIAL ONE (01:08)
[2020-08-01] MEDS ORDERED: MELATONIN 3 MG TABLET PO ONE (01:59)
[2020-08-01] MEDS: MELATONIN 3 MG TABLET PO PRN (02:00)
[2020-08-01] MEDS: PROMETHAZINE 25 MG TABLET PO PRN (02:02)
[2020-08-01] MEDS: 0.9 % SODIUM CHLORIDE 10 ML SYRINGE IV SCH ×3 (05:29→22:24)
[2020-08-01] MEDS: ONDANSETRON 4 MG/2 ML VIAL IV PRN ×2 (05:29→21:40)
[2020-08-01] MEDS ORDERED: PROMETHAZINE 25 MG SUPP.RECT PR PRN (06:23)
[2020-08-01] MEDS ORDERED: ALBUTEROL SULFATE 200 PUFF INHALER INH PRN (07:27)
[2020-08-01] MEDS: OMEPRAZOLE 20 MG CAPSULE PO SCH (07:47)
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
[2020-08-01] MEDS ORDERED: HEPARIN 5,000 UNIT/ML VIAL SQ SCH (09:00)
[2020-08-01] MEDS: INSULIN GLARGINE, HUMAN 1 UNIT/0.01 ML SQ SCH ×2 (09:20→22:22)
[2020-08-01] MEDS: DOCUSATE SODIUM 100 MG CAPSULE PO SCH ×2 (09:21→22:23)
[2020-08-01] MEDS: AMIODARONE HCL 200 MG TABLET PO SCH (09:21)
[2020-08-01] MEDS: ATORVASTATIN 40 MG TABLET PO SCH (09:21)
[2020-08-01] MEDS: INSULIN LISPRO 1 UNIT/0.01 ML UNIT SQ SCH ×4 (09:21→22:22)
[2020-08-01] MEDS: CARVEDILOL 12.5 MG TABLET PO SCH ×2 (09:21→17:16)
[2020-08-01] MEDS: morphine 30 MG TAB.SR.12H PO SCH ×2 (09:26→23:02)
[2020-08-01] MEDS: APIXABAN 5 MG TABLET PO SCH ×2 (09:26→22:24)
[2020-08-01] MEDS: ALPRAZolam 0.25 MG TABLET PO SCH ×3 (09:27→23:02)
--- NOTE | 2020-08-01 09:28 | Ultrasound Report ---
History: Acute kidney injury FINDINGS: The right kidney measures 5.8 x 6.8 x 12.4 cm and the left measures 5.2 x 5.8 x 12.7 cm. Cortex is normal in thickness and echogenicity bilaterally. There is no hydronephrosis, cyst, mass, calculus or hydronephrosis in either kidney. Doppler shows flow of urine through both ureters into the bladder. The patient had voided immediately prior to the examination. Therefore the bladder did not contain much urine during the study. There is 50 cc of urine in the bladder. No abnormality is detected in the bladder. IMPRESSION: Normal exam Interpreted and Authenticated by: Bill Stone 08/01/20
[2020-08-01] MEDS: 0.9 % SODIUM CHLORIDE 1,000 ML IV SCH ×3 (09:31→23:03)
--- NOTE | 2020-08-01 09:38 | Internal Med Progress Note ---
SUBJECTIVE Subjective Patient information: Note initiated : 08/01/20 at 9:37 am Service Date, if different from initiated Date: [] Patient: Abbi Sprague 59 y/o F admitted on 07/31/20 for fall from standing position. Chief Complaint: Ms. Sprague is a 59-year-old female with a history of DM type I I/HTN/CAD/COPD/CVA/positional vertigo who presents to the ER this evening with symptoms of weakness dizziness lightheadedness and fall. She was on her way to the restroom when she got lightheaded and tripped and fell. discovered her on the floor. Subsequently EMS was called. She denies losing consciousness or seizure-like episode or incontinence Initial work-up in the ER was consistent with acute renal failure with a creatinine of 3.7 compared to baseline 0.8, BUN 66, sodium 124, potassium 3.2. Patient has been on diuretics including spironolactone/Lasix. Nephrology was consulted and recommended hospitalization. Subsequently hospitalist service was consulted At the time of my evaluation patient is anxious distressed but able to talk in full sentences. She endorses history as above. She denies recent NSAID intake/sick contacts/fever, bloody stool but endorses to diarrhea and multiple episodes of vomiting and persistent nausea. She has gotten progressively weak and has been unable to perform regular ADLs She was recently admitted at [facility] for acute renal failure secondary to volume depletion from recurrent emesis and uncomplicated urinary tract infection. 08/01-patient remains borderline hypotensive. Anuric. Systolics around 100. On crystalloids as per nephrology. Sodium 125, creatinine 4.5. Nephrology on board. Constitutional Vitals: Vital Signs Temp Pulse Resp BP Pulse Ox 97.1 F 79 11 L 102/61 99 08/01/20 08:00 08/01/20 08:00 08/01/20 08:00 08/01/20 08:00 08/01/20 08:00 Period Temp Pulse Resp BP Sys/Wiggins Pulse Ox Last 24 Hr 97.1 F-98 F 66-79 9-22 78-125/47-68 94-100 Intake and Output 07/31/20 08/01/20 08/01/20 21:59 05:59 13:59 Intake Total 1050 456 Output Total 150 Balance 900 456 Weight 81.647 kg 80.059 kg appears anxious Nonlabored breathing Dry mucous membranes No telemetry events Intake & Output: Intake & Output 07/31/20 08/01/20 08/01/20 21:59 05:59 13:59 Intake Total 1050 456 Output Total 150 Balance 900 456 Weight 81.647 kg 80.059 kg Intake: IV 1050 456 Sodium Chloride 0.9% 1,000 ml @ 1000 456 50 mls/hr IV .Q20H [facility] Rx#: [id number] Rocephin 2 gm In Dextrose 5% in 50 Water 50 ml @ 100 mls/hr IV Q24H [facility] Rx#:[id number] Output: Emesis 150 Other: Meal snack Percent of Meal Consumed 50% Feeding Ability Assist with Tray Set Up Stool Size Small Stool Color Brown Stool Consistency Liquid # Bowel Movements 1 OBJ DATA Labs CBC & Chem 7: 08/02/20 04:30 08/02/20 04:30 Labs: Abnormal Lab Results 07/31/20 07/31/20 21:50 21:50 Hgb 10.8 L Hct 32.5 L Sodium 124 L Potassium 3.2 L Chloride 88 L BUN 66 H Creatinine 3.7 H Glucose 225 H Calcium 8.1 L Albumin 2.8 L Albumin/Globulin Ratio 0.8 L Meds: Medications Acetaminophen (Tylenol) 650 mg PO Q4-6HP PRN; Protocol PRN Reason: Per Pain Protocol/Fever > 101 Albuterol Sulfate (Ventolin) 1 puff INH Q6HP PRN PRN Reason: Shortness Of Breath Alprazolam (Xanax) 0.25 mg PO TID [facility] Last Admin: 08/01/20 09:27 Dose: 0.25 mg Documented by: Amiodarone HCl (Cordarone) 200 mg PO [facility] Last Admin: 08/01/20 09:21 Dose: 200 mg Documented by: Apixaban (Eliquis) 5 mg PO BID [facility] Last Admin: 08/01/20 09:26 Dose: 5 mg Documented by: Atorvastatin Calcium (Lipitor) 40 mg PO QDAY [facility] Last Admin: 08/01/20 09:21 Dose: 40 mg Documented by: Bisacodyl (Dulcolax) 10 mg AL Q2-3DAYS PRN PRN Reason: Constipation [facility] Last Admin: 08/01/20 09:21 Dose: 12.5 mg Documented by: Dextrose (Dextrose 50%) 0 ml IV UD PRN PRN Reason: Hypoglycemia Diagnostic Test (Pha) (Accu-Chek) 1 each FS [facility] Last Admin: 08/01/20 07:52 Dose: 1 each Documented by: Docusate Sodium (Colace) 100 mg PO BID [facility] Last Admin: 08/01/20 09:21 Dose: 100 mg Documented by: Glucose (Insta-Glucose) 15 gm PO PRN PRN PRN Reason: Hypoglycemia Acetaminophen (Ofirmev) 650 mg in 65 mls @ 130 mls/hr IV Q6HP PRN; Protocol PRN Reason: Per Pain Protocol/Fever > 101 Ceftriaxone Sodium 2 gm/ (Dextrose) 50 mls @ 100 mls/hr IV Q24H [facility]; Protocol Last Infusion: 08/01/20 01:51 Dose: Infused Documented by: Sodium Chloride (Sodium Chloride 0.9%) 1,000 mls @ 150 mls/hr IV .Q6H40M [facility] Stop: 08/02/20 05:18 Last Admin: 08/01/20 09:31 Dose: Not Given Documented by: Insulin Glargine (Lantus) 35 unit SQ BID [facility] Last Admin: 08/01/20 09:20 Dose: 35 units Documented by: Insulin Human Lispro (Humalog) 0 unit SQ [facility]; Protocol Last Admin: 08/01/20 09:21 Dose: 6 units Documented by: Melatonin (Melatonin 3mg Tablet) 3 mg PO HSP PRN PRN Reason: Insomnia Last Admin: 08/01/20 02:00 Dose: 3 mg Documented by: Metoprolol Tartrate (Lopressor) 5 mg IV Q5M PRN PRN Reason: Heart Rate > 140 bpm Morphine Sulfate (Ms Contin) 60 mg PO BID [facility]; Protocol Last Admin: 08/01/20 09:26 Dose: 60 mg Documented by: Non-Formulary Medication (Exenatide Microspheres [Bydureon]) 2 mg SUB-Q QWEEK [facility] Omeprazole (Prilosec) 40 mg PO ACB [facility] Last Admin: 08/01/20 07:47 Dose: 40 mg Documented by: Ondansetron HCl (Zofran Odt) 4 mg SL Q4-6HP PRN; Protocol PRN Reason: Nausea And Vomiting Ondansetron HCl (Zofran) 4 mg IV Q4-6HP PRN; Protocol PRN Reason: Nausea And Vomiting Last Admin: 08/01/20 05:29 Dose: 4 mg Documented by: Polyethylene Glycol (Miralax) 17 gm PO DAILYP PRN PRN Reason: Constipation Promethazine HCl (Phenergan) 25 mg AL Q4HP PRN PRN Reason: Nausea Promethazine HCl (Phenergan) 25 mg PO Q4H PRN PRN Reason: Pain Last Admin: 08/01/20 02:02 Dose: 25 mg Documented by: Senna/Docusate Sodium (Senna Plus Tablet) 1 tab PO HS ANTOINE Sodium Chloride (Saline Flush) 10 ml IV Q8 ANTOINE Last Admin: 08/01/20 05:29 Dose: 10 ml Documented by: A/P Narrative A/P Narrative: * Acute kidney injury with a creatinine over 3.5. Baseline 0.8. secondary to volume depletion from recurrent emesis and underlying diuretic use. Hold KATHLEEN inhibitor. Continue crystalloids, nephrology consult. Renal ultrasound/UA * Hypovolemic hyponatremia likely secondary to solute loss from emesis and poor p.o. intake. Continue gentle crystalloids, sodium at 125 * Episodic nausea vomiting. Continue as needed antiemetics * Syncope/fall likely secondary to volume depletion and orthostasis. PT OT gait and safety eval, cardiac monitoring to rule out arrhythmias * Diabetes with hyperglycemia and polyneuropathy: Much improved on CC diet/basal prandial insulin/Lyrica/gabapentin * History of PAF rate controlled on Coreg/apixaban/amiodarone * HTN: on coreg/held spironolactone, KATHLEEN inhibitor until renal function improves * History of positional vertigo-stable, currently stable * h/o CVA: On anticoagulation for CVA prophylaxis. Continue PT OT/statin * Chronic pain from polyneuropathy from diabetes, on home dose morphine * GERD continue PPI Plan * Renal failure management per nephrology * Continue crystalloids * Pre-existing medical condition management on home meds except for antihypertensives should be held * CC diet/basal insulin * Anticoagulation on apixaban * PT OT/nutrition support Time Spent With Patient Time: Total time spent is greater than 50% in coordination of care (as documented) at patient's floor/unit and/or counseling patient:
[2020-08-01 11:03] LABS: Hematocrit 33.4 % (34.1-44.9); Hemoglobin 11.8 g/dL (11.2-15.7); Mean Cell Volume 83.5 fL (80.0-100.0); Mean Corpuscular HGB Conc 35.3 g/dL (31.0-36.0); Mean Platelet Volume 9.9 fL (7.4-10.4); Platelet Count 240 K/mcL (140-440); Red Cell Distribution Width 12.4 % (11.5-14.5); WBC 13.8 K/mcL (4.50-11.00)
[2020-08-01 11:33] LABS: Eosinophils % (Manual) 1 % (0-7); Lymphocytes % 12 % (15-49); Monocytes % (Manual) 4 % (1-12); Platelet Estimate NORMAL (NORMAL); RBC Morphology NORMAL (NORMAL); Segmented Neutrophils % 83 % (38-78)
[2020-08-01 11:37] LABS: Bilirubin,Direct < 0.2 mg/dL (0.0-0.3)
[2020-08-01 11:38] LABS: ALT/SGPT 12 U/l (0-40); AST/SGOT 21 U/l (0-37); Alkaline Phosphatase 92 U/L (39-117); Bilirubin,Total 0.2 mg/dL (0.0-1.0); Blood Urea Nitrogen 71 mg/dl (8-23); Calcium 8.2 mg/dl (8.6-10.4); Carbon Dioxide 17 mmol/L (22-30); Chloride 89 mmol/L (96-108); Globulin 3.1 gm/dL (2.2-3.7); Glomerular Filtration Rate 10; Glucose 354 mg/dL (70-105); Lactate Dehydrogenase 339 U/L (94-250); Phosphorous 4.7 mg/dL (2.7-4.5); Triglycerides 294 mg/dl (<150); Uric Acid 11.6 mg/dL (2.5-8.0)
[2020-08-01 15:12] LABS: Appearance,Urine TURBID; Bacteria,Urine 0 /hpf (0); Bilirubin,Urine NEG (NEG); Color,Urine YELLOW; Culture Indicated,Urine NO; Glucose,Urine (UA) NEGATIVE (NEG); Ketones,Urine NEG (NEG); Leukocyte Esterase,Urine 250 /uL (NEG); Nitrate,Urine NEG (NEG); Protein,Urine 100 mg/dL (NEG); Specific Gravity,Urine 1.014 (1.000-1.035); Urine Blood 0.03 mg/dL (<0.03); Urine RBC 29 /hpf (0-1); Urine Squamous Epithelial Cell 0 /hpf (0-4); Urine WBC > 182 /hpf (0-4); Urobilinogen,Urine NEG (NEG)
[2020-08-01] MEDS: ACETAMINOPHEN 650 MG/65 ML BOTTLE IV PRN (15:25)
[2020-08-01] MEDS: HYDROcodone/APAP 5/325MG TABLET PO PRN (17:16)
--- NOTE | 2020-08-01 17:34 | Nephrology Consult Note ---
HPI Data of Consult Primary Care Provider: Fartun Yoder Consult Narrative cc:: CC: Augustine Barker Patient is a 59-year-old woman who was in her usual state of chronically poor health. 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 She has a history of paroxysmal atrial fibrillation and systolic congestive heart failure with reduced EF currently on NOAC therapy. She carries a history of orthostatic hypotension as well as increased fall risk with osteoporosis and prior thoracic compression fractures. Is a history of stage III ovarian cancer treated with chemotherapy and subsequent AMANDA/BSO. Complicated by resection of "6 feet of bowel" and numerous surgeries thereafter for what sounds like lysis of adhesions. The patient also has a history of what sounds like nephrolithiasis with obstruction and a sending pyelonephritis resulting in acute renal failure. Pertinent history started several weeks ago when she developed a urinary tract infection and was treated with Ancef and can continue to complain of symptoms so she was then treated with ciprofloxacin (per patient history). Since the ciprofloxacin she is developed nausea vomiting and diarrhea with weight loss. She was lightheaded and eventually was brought to the emergency department where she was noted to have acute renal failure, subacute hyponatremia, hypotension and dehydration and was admitted for further evaluation and management. When I saw her this morning she had received a liter of saline and was still hypotensive and edema free. He had no alteration in mentation despite serum sodium of 126 in keeping with chronic hyponatremia. Renal ultrasound was being performed at the time I visited the patient. Pertinent lab work are as follows: Org 1 = Klebsiella pneumoniae Collected: 06/30/20 18:15 Source: Urine Description: Clean Void Mid-Stream ANTIBIOTIC ORG 1 Ampicillin R Ampicillin/Sulbactam R Cefazolin S Cefepime S Cefotaxime S Cefoxitin S Cefuroxime S Ciprofloxacin S Levofloxacin S Nitrofurantoin S Piperacillin/Tazobactam S Trimethoprim/Sulfamethoxazole S Laboratory Tests 08/01/20 08/01/20 08/01/20 09:55 09:55 16:07 WBC 13.8 H Hgb 11.8 Hct 33.4 L Plt Count 240 Sodium 124 L Pending Potassium 4.1 Chloride 89 L Carbon Dioxide 17 L Anion Gap 18.0 H BUN 71 H Creatinine 4.5 H GFR Calculation 10 Glucose 354 H Uric Acid 11.6 H Calcium 8.2 L Phosphorus 4.7 H Magnesium 2.0 Albumin 3.0 L Serum Sodium Serum Creatinine I suspect GI fluid losses from diarrhea and vomiting, plus urinary fluid losses from spironolactone and loop diuretic, plus lisinopril and spironolactone is leading to acute renal hypoperfusion and acute pre-renal azotemia. Additionally, salt and water losses from above plus free water intake would lead to a slow decline in the serum sodium. Diagnostic studies and treatment plan has been set forth already. If I am correct, the patient will improve in 72 hours. Review of Systems All systems: reviewed and no additional remarkable complaints except as stated Constitutional Constitutional: Present as per HPI, frequent falls, lethargy, weakness and weight loss EENT Eyes: Present as per HPI Cardiovascular Cardiovascular: Present as per HPI, dyspnea and lightheadedness Respiratory Respiratory: Present as per HPI and dyspnea on exertion Gastrointestinal Gastrointestinal: Present as per HPI, abdominal pain (LLQ), change in bowel habits, diarrhea, nausea and vomiting Genitourinary Genitourinary: Present as per HPI, difficulty urinating, dysuria and urinary frequency Musculoskeletal Musculoskeletal: Present as per HPI Integumentary Integumentary: Present as per HPI Neurological Neurological: Present burning sensations, frequent falls, numbness and weakness Psychiatric Psychiatric: Present as per HPI, anxiety, mood swings and panic attacks Endocrine Endocrine: Present polydipsia Hematologic/Lymphatic Hematologic/Lymphatic: Present easy bruising Allergic/Immunologic Allergic/Immunologic: Present as per HPI PFSH PFSH All Active Problems (Updated 08/01/20 @ 18:07 by Rosendo Negrete MD) Chronic hyponatremia (Chronic) Acute hyponatremia (Acute) Acute kidney failure (Acute) Orthostatic hypotension (Acute) Urinary tract infection (Acute) Nausea & vomiting (Acute) Fall (Acute) Chronic anticoagulation (Acute) Concussion (Acute) Acute cervical sprain (Acute) Abdominal pain (Acute) Vertigo (Chronic) Acute on chronic heart failure with normal ejection fraction (Chronic) Diabetic gastroparesis associated with type 2 diabetes mellitus (Chronic) Hyperglycemia (Chronic) Intractable hiccups (Chronic) Compression fracture of T10 vertebra (Chronic) Acute kidney injury (Chronic) History of total abdominal hysterectomy (Chronic) History of surgery (Chronic) History of intestinal surgery (Chronic) History of appendectomy (Chronic) Polyneuropathy (Chronic) History of hepatitis B (Chronic) Sciatica (Chronic) Sleep terror disorder (Chronic) Nausea and vomiting (Chronic) Chest pain (Acute) Cholecystitis, acute (Acute) Colitis (Chronic) CAD (coronary artery disease) (Chronic) Mixed anxiety and depressive disorder (Chronic) Posttraumatic stress disorder (Chronic) Diabetic peripheral neuropathy (Chronic) Migraine (Chronic) Congestive heart failure (Chronic) Coronary arteriosclerosis (Chronic) Malignant neoplasm of ovary (Chronic) Cerebrovascular accident (Chronic) Vitamin D deficiency (Chronic) Microalbuminuria (Chronic) Osteopenia (Chronic) Type 1 diabetes mellitus (Chronic) Hemoptysis (Chronic) Closed right hip fracture (Chronic) Physical deconditioning (Chronic) Paroxysmal atrial fibrillation (Chronic) Opiate dependence (Chronic) Diabetes mellitus with polyneuropathy (Chronic) Diabetic ketoacidosis (Chronic) Diabetes (Acute) Abdominal pain (Acute) Diverticulitis (Acute) Vaginal candidiasis (Acute) Migraine (Acute) Gingivitis with diabetes mellitus (Acute) Volume depletion (Acute) Headache (Acute) Bronchitis (Acute) Chronic back pain (Acute) Concussion without loss of consciousness (Acute) Mixed bipolar I disorder (Chronic) Chronic pain (Chronic) Panic attack (Chronic) Neuropathy (Chronic) Myocardial infarction, old (Chronic) Lichen sclerosus (Chronic) Hypertension, essential (Chronic) Gastroparesis (Chronic) Diabetes mellitus, type II (Chronic) COPD (chronic obstructive pulmonary disease) (Chronic) Atrial fibrillation (Chronic) Asthma (Chronic) Acid reflux (Chronic) Medical History (Updated 08/01/20 @ 18:07 by Rosendo Negrete MD) Abdominal pain (Acute) Acid reflux (Chronic) Acute kidney injury (Chronic) Acute on chronic heart failure with normal ejection fraction (Chronic) Asthma (Chronic) Childhood Atrial fibrillation (Chronic) 2013 Bronchitis (Acute) CAD (coronary artery disease) (Chronic) Cerebrovascular accident (Chronic) Chronic back pain (Acute) Chronic pain (Chronic) Closed right hip fracture (Chronic) Colitis (Chronic) Compression fracture of T10 vertebra (Chronic) Concussion without loss of consciousness (Acute) Congestive heart failure (Chronic) COPD (chronic obstructive pulmonary disease) (Chronic) 04/2014 Coronary arteriosclerosis (Chronic) Diabetes (Acute) Diabetes mellitus with polyneuropathy (Chronic) Diabetes mellitus, type II (Chronic) Diabetic gastroparesis associated with type 2 diabetes mellitus (Chronic) Diabetic ketoacidosis (Chronic) Diabetic peripheral neuropathy (Chronic) Diverticulitis (Acute) Gastroparesis (Chronic) 2009 Gingivitis with diabetes mellitus (Acute) Headache (Acute) Hemoptysis (Chronic) History of hepatitis B (Chronic) Hyperglycemia (Chronic) Hypertension, essential (Chronic) Intractable hiccups (Chronic) Lichen sclerosus (Chronic) 2009 Malignant neoplasm of ovary (Resolved) 1978 -- 15 surgeries, 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 Malignant neoplasm of ovary (Chronic) Microalbuminuria (Chronic) Migraine (Acute) Migraine (Chronic) Mixed anxiety and depressive disorder (Chronic) Mixed bipolar I disorder (Chronic) Myocardial infarction, old (Chronic) 2010, Two Nausea and vomiting (Chronic) Neuropathy (Chronic) 1993 Opiate dependence (Chronic) Osteopenia (Chronic) Panic attack (Chronic) 2009 Paroxysmal atrial fibrillation (Chronic) Physical deconditioning (Chronic) Polyneuropathy (Chronic) Posttraumatic stress disorder (Chronic) Pulmonary embolism (Resolved) 1996 Pyelonephritis, chronic (Resolved) 1995 Sciatica (Chronic) 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) 2 comas Type 1 diabetes mellitus (Chronic) Urinary tract infection (Acute) Vaginal candidiasis (Acute) Vertigo (Chronic) Vitamin D deficiency (Chronic) Volume depletion (Acute) Surgical History History of appendectomy (Chronic) History of intestinal surgery (Chronic) partial excision of small intestine History of laparoscopic cholecystectomy (Acute) 01/14/2019 History of surgery (Chronic) Multiple Ovarian Cancer Surgeries, Including LSO and AMANDA-RSO from [id number] History of total abdominal hysterectomy (Chronic) Hx of colonoscopy (Resolved) 2009 Status post panniculectomy (Chronic 11/17/01) Family History Father Acute myocardial infarction Mother , age 67 Acute myocardial infarction Coronary arteriosclerosis Sister COPD (chronic obstructive pulmonary disease) Social History (Updated 05/24/20 @ 09:12 by Emma Lang) household members: spouse marital status: education level: elementary school occupational status: unemployed and retired smoking status: Never smoker alcohol intake frequency: does not drink substance use type: marijuana seatbelt use: always working smoke detector in home: Yes firearms in home: No MEDS/ALLERGIES Home Medications and Allergies Home Medications Medication Instructions Recorded Confirmed Type insulin detemir U-100 30 unit SUBCUT BID 01/13/19 08/01/20 History alprazolam 0.25 mg tablet 0.25 mg PO TID 05/24/20 08/01/20 History amiodarone 200 mg tablet 200 mg PO QDAY 05/24/20 08/01/20 History carvedilol 12.5 mg tablet 12.5 mg PO BID 05/24/20 08/01/20 History exenatide microspheres 2 mg/0.65 2 mg SUB-Q QWEEK 05/24/20 08/01/20 History mL subcutaneous pen injector furosemide 20 mg tablet 20 mg PO QDAY 05/24/20 08/01/20 History insulin lispro 100 unit/mL See Rx Instructions .ROUTE 05/24/20 08/01/20 History subcutaneous pen .COMPLEX ml lisinopril 5 mg tablet 5 mg PO QDAY 05/24/20 08/01/20 History metformin 1,000 mg tablet 1,000 mg PO BID 05/24/20 07/31/20 History morphine 30 mg tablet,extended 60 mg PO BID 05/24/20 08/01/20 History release omeprazole 40 mg capsule,delayed 40 mg PO BID 05/24/20 08/01/20 History release promethazine 25 mg rectal 25 mg ID Q4H PRN each 05/24/20 08/01/20 History suppository promethazine 25 mg tablet 25 mg PO Q4H PRN tab 05/24/20 08/01/20 History rosuvastatin 20 mg tablet 20 mg PO BID 05/24/20 08/01/20 History spironolactone 25 mg tablet 25 mg PO QDAY 05/24/20 08/01/20 History albuterol sulfate 2 puff INHALATION Q6H PRN 08/01/20 08/01/20 History apixaban 2.5 mg PO BID 08/01/20 08/01/20 History Allergies Allergy/AdvReac Type Severity Reaction Status Date / Time Beet Allergy Severe Anaphylaxis Verified 07/31/20 20:51 buprenorphine [From Suboxone] Allergy Intermediate Swelling, Verified 07/31/20 20:51 rash duloxetine [From Cymbalta] Allergy Intermediate Swelling, Verified 07/31/20 20:51 rash Iodinated Contrast Media Allergy Intermediate Hives Verified 07/31/20 20:51 [Iodinated Contrast Media - IV Dye] ketorolac [From Toradol] Allergy Intermediate Difficulty Verified 07/31/20 20:51 Breathing, rash Naloxone [From Suboxone] Allergy Intermediate Swelling Verified 07/31/20 20:51 pregabalin [From Lyrica] Allergy Intermediate Palpitations, Verified 07/31/20 20:51 edema propoxyphene Allergy Intermediate Edema Verified 07/31/20 20:51 Sulfa (Sulfonamide Allergy Intermediate Difficulty Verified 07/31/20 20:51 Antibiotics) Breathing tramadol Allergy Intermediate Rash Verified 07/31/20 20:51 lorazepam [From Ativan] AdvReac Intermediate Hives, Verified 07/31/20 20:51 itching sulfamethoxazole AdvReac Intermediate Palpitation Verified 07/31/20 20:51 [From Septra] s trimethoprim [From Septra] AdvReac Intermediate Palpitation Verified 07/31/20 20:51 s acetaminophen AdvReac Mild Itching Verified 07/31/20 20:51 bacitracin AdvReac Mild Itching Verified 08/01/20 06:50 fentanyl AdvReac Mild Dizziness Verified 08/01/20 06:50 and vomiting gabapentin AdvReac Mild Falls Verified 08/01/20 06:50 asleep hydrocodone [From [place]] AdvReac Mild Itching Verified 08/01/20 06:50 rivaroxaban [From Xarelto] AdvReac Mild Dizziness, Verified 08/01/20 06:50 falls Physical Examination Vital Signs Vital signs: Temp Pulse Resp BP Pulse Ox 36.9 C 74 13 130/45 100 08/01/20 16:04 08/01/20 12:01 08/01/20 16:04 08/01/20 16:04 08/01/20 16:04 General Appearance General appearance: cachectic, chronically ill, fatigue, frail and anxious EENT EENT: ATNC, PERRL, mucous membranes dry and vision intact Neck Neck: no JVD, no carotid bruit and supple Respiratory Respiratory: kyphosis and course breath sounds Cardiovascular Cardiology: no murmurs, no rub, no edema, regular rate, regular rhythm, normal S1 and normal S2 Gastrointestinal Gastrointestinal: hypoactive bowel sounds, no tenderness and no guarding Integumentary Integumentary: no rash and cool/clammy Neurologic Neurologic: no focal deficit, no asterixis, CN 3-12 intact and upper extremity weakness Musculoskeletal Musculoskeletal: no deformities and decreased ROM Psychiatric Psychiatric: pressured speech Results Lab Results Result Diagrams: 08/01/20 09:55 08/01/20 09:55 Lab results: Laboratory Results - last 48 hr 07/31/20 07/31/20 08/01/20 21:50 21:50 09:55 WBC 10.5 13.8 H RBC 3.71 4.00 Hgb 10.8 L 11.8 Hct 32.5 L 33.4 L MCV 87.6 83.5 MCH 29.1 29.5 MCHC 33.2 35.3 RDW 12.5 12.4 Plt Count 257 240 MPV 9.3 9.9 Gran % 70.6 Lymph % (Auto) 18.0 [place] % (Auto) 8.4 Eos % (Auto) 2.8 Baso % (Auto) 0.2 Gran # 7.44 Lymph # (Auto) 1.90 [place] # (Auto) 0.88 Eos # (Auto) 0.29 Baso # (Auto) 0.02 Total Counted 100 Seg Neutrophils % 83 H Band Neutrophils % Not Reportable Lymphocytes % 12 L Monocytes % (Manual) 4 Eosinophils % (Manual) 1 Platelet Estimate Normal RBC Morphology Normal Sodium 124 L Potassium 3.2 L Chloride 88 L Carbon Dioxide 23 Anion Gap 13.0 BUN 66 H Creatinine 3.7 H GFR Calculation 12 Glucose 225 H Osmolality Uric Acid Calcium 8.1 L Phosphorus Magnesium Total Bilirubin 0.2 Direct Bilirubin GGT AST 19 ALT 12 Alkaline Phosphatase 86 Lactate Dehydrogenase Total Protein 6.1 Albumin 2.8 L Globulin 3.3 Albumin/Globulin Ratio 0.8 L Triglycerides Urine Color Urine Appearance Urine pH Ur Specific [place] Urine Protein Urine Glucose (UA) Urine Ketones Urine Occult Blood Urine Nitrate Urine Bilirubin Urine Urobilinogen Ur Leukocyte Esterase Urine RBC Urine WBC Ur Squamous Epith Cells Urine Bacteria Ur Culture Indicated? Urine Osmolality 08/01/20 08/01/20 08/01/20 09:55 12:45 12:45 WBC RBC Hgb Hct MCV MCH MCHC RDW Plt Count MPV Gran % Lymph % (Auto) [place] % (Auto) Eos % (Auto) Baso % (Auto) Gran # Lymph # (Auto) [place] # (Auto) Eos # (Auto) Baso # (Auto) Total Counted Seg Neutrophils % Band Neutrophils % Lymphocytes % Monocytes % (Manual) Eosinophils % (Manual) Platelet Estimate RBC Morphology Sodium 124 L Potassium 4.1 Chloride 89 L Carbon Dioxide 17 L Anion Gap 18.0 H BUN 71 H Creatinine 4.5 H GFR Calculation 10 Glucose 354 H Osmolality 290 Uric Acid 11.6 H Calcium 8.2 L Phosphorus 4.7 H Magnesium 2.0 Total Bilirubin 0.2 Direct Bilirubin < 0.2 GGT 18 AST 21 ALT 12 Alkaline Phosphatase 92 Lactate Dehydrogenase 339 H Total Protein 6.1 Albumin 3.0 L Globulin 3.1 Albumin/Globulin Ratio 1.0 Triglycerides 294 H Urine Color Yellow Urine Appearance Turbid Urine pH 5.0 Ur Specific [place] 1.014 Urine Protein 100 A Urine Glucose (UA) Negative Urine Ketones Neg Urine Occult Blood 0.03 A Urine Nitrate Neg Urine Bilirubin Neg Urine Urobilinogen Neg Ur Leukocyte Esterase 250 A Urine RBC 29 H Urine WBC > 182 H Ur Squamous Epith Cells 0 Urine Bacteria 0 Ur Culture Indicated? No Urine Osmolality 288 Renal U/S: FINDINGS: The right kidney measures 5.8 x 6.8 x 12.4 cm and the left measures 5.2 x 5.8 x 12.7 cm. Cortex is normal in thickness and echogenicity bilaterally. There is no hydronephrosis, cyst, mass, calculus or hydronephrosis in either kidney. Doppler shows flow of urine through both ureters into the bladder. The patient had voided immediately prior to the examination. Therefore the bladder did not contain much urine during the study. There is 50 cc of urine in the bladder. No abnormality is detected in the bladder. IMPRESSION: Normal exam A/P Assessment and plan (1) Acute kidney failure: Status: Acute Comment: Suspect Acute prerenal azotemia but could progress to ATN Awaiting FeNa AIN from ABx is a remote possibility Qualifiers: Acute renal failure type: unspecified Qualified Code(s): N17.9 - Acute kidney failure, unspecified (2) Chronic hyponatremia: Assessment and plan: Most likely multifactorial: Excess salt and water losses from Diarrhea, N/V and diuretics with hypotonic fluid replacement Increased ADH release and decreased free water clearance due to hypotension +/- CHF Several psychiatric Rx associated with SIADH Hypothyroidism and adrenal insufficiency seem less likely TIN from AIN could occur but doubt as no rash or eosinophilia. Status: Chronic Comment: > 2 weeks in duration and minimal MS changes (3) Acute on chronic heart failure with normal ejection fraction: Assessment and plan: Hold ACEi and Aldactone Hold lasix Needs volume Echo to assess LVEF Status: Chronic Narrative A/P Narrative: 1. Volume resuscitation for 24 hours with NS a 150 cc/hr 2. Free H2O restriction and use Hyperosmolar enteral feeding ([place]) to swallow Rx 3. Check TSH and am cortisol 4. Hold RAASI and hydrate 5. Trend labs. 6. Anticipate improvement in GFR and electrolytes in 24-72 hours. Time Spent With Patient Time: Total time spent is greater than 50% in coordination of care (as documented) at patient's floor/unit and/or counseling patient: Total time spent with greater than 50% in coordination of care (as documented) at patient's floor/unit and/or counseling patient:: Greater than 35 minutes
[2020-08-01] MEDS ORDERED: 0.9 % SODIUM CHLORIDE 500 ML IV ONE (18:31)
[2020-08-01] MEDS ORDERED: 0.9 % SODIUM CHLORIDE 1,000 ML IV ONE (21:41)
[2020-08-01] MEDS: SENNOSIDES/DOCUSATE SODIUM 1 TAB TABLET PO SCH (22:23)
[2020-08-02] MEDS: HYDROcodone/APAP 5/325MG TABLET PO PRN (01:29)
[2020-08-02] MEDS: ACETAMINOPHEN 650 MG/65 ML BOTTLE IV PRN (04:11)
[2020-08-02] MEDS: 0.9 % SODIUM CHLORIDE 1,000 ML IV SCH ×2 (04:12→09:12)
[2020-08-02] MEDS: 0.9 % SODIUM CHLORIDE 10 ML SYRINGE IV SCH ×3 (05:59→22:28)
[2020-08-02 06:34] LABS: Hemoglobin 8.7 g/dL (11.2-15.7); Mean Cell Volume 88.1 fL (80.0-100.0); Mean Corpuscular HGB Conc 33.5 g/dL (31.0-36.0); Mean Platelet Volume 9.6 fL (7.4-10.4); Platelet Count 217 K/mcL (140-440); RBC 2.95 M/mcL (3.59-5.38); Red Cell Distribution Width 12.5 % (11.5-14.5); WBC 14.2 K/mcL (4.50-11.00)
[2020-08-02 07:00] LABS: ALT/SGPT 9 U/l (0-40); AST/SGOT 11 U/l (0-37); Albumin 2.2 gm/dL (3.2-5.2); Albumin/Globulin Ratio 0.8 (1.0-2.3); Alkaline Phosphatase 84 U/L (39-117); Bilirubin,Direct < 0.2 mg/dL (0.0-0.3); Bilirubin,Total < 0.2 mg/dL (0.0-1.0); Blood Urea Nitrogen 66 mg/dl (8-23); Calcium 7.1 mg/dl (8.6-10.4); Carbon Dioxide 16 mmol/L (22-30); Globulin 2.9 gm/dL (2.2-3.7); Glomerular Filtration Rate 9; Glucose 238 mg/dL (70-105); Lactate Dehydrogenase 158 U/L (94-250); Phosphorous 4.3 mg/dL (2.7-4.5); Triglycerides 234 mg/dl (<150); Uric Acid 9.7 mg/dL (2.5-8.0)
[2020-08-02 07:16] LABS: Chloride 94 mmol/L (96-108)
[2020-08-02] MEDS: INSULIN LISPRO 1 UNIT/0.01 ML UNIT SQ SCH ×4 (07:41→22:27)
[2020-08-02] MEDS: OMEPRAZOLE 20 MG CAPSULE PO SCH (07:42)
[2020-08-02] MEDS: AMIODARONE HCL 200 MG TABLET PO SCH (07:42)
[2020-08-02] MEDS: CARVEDILOL 12.5 MG TABLET PO SCH ×2 (07:42→18:01)
[2020-08-02 08:24] LABS: Eosinophils % (Manual) 2 % (0-7); Hypochromasia FEW (NONE SEEN); Lymphocytes % 12 % (15-49); Monocytes % (Manual) 8 % (1-12); Platelet Estimate NORMAL (NORMAL); RBC Morphology ABNORM (NORMAL); Segmented Neutrophils % 78 % (38-78)
[2020-08-02] MEDS: morphine 30 MG TAB.SR.12H PO SCH ×2 (09:08→22:25)
[2020-08-02] MEDS: APIXABAN 5 MG TABLET PO SCH ×2 (09:08→22:26)
[2020-08-02] MEDS: DOCUSATE SODIUM 100 MG CAPSULE PO SCH ×3 (09:08→22:27)
[2020-08-02] MEDS: ATORVASTATIN 40 MG TABLET PO SCH (09:08)
[2020-08-02] MEDS: INSULIN GLARGINE, HUMAN 1 UNIT/0.01 ML SQ SCH ×2 (09:08→22:27)
[2020-08-02] MEDS: EXENATIDE MICROSPHERES 2 MG SUB-Q SCH ×2 (09:10→17:45)
[2020-08-02] MEDS: ALPRAZolam 0.25 MG TABLET PO SCH ×3 (09:10→22:26)
[2020-08-02] MEDS: ONDANSETRON 4 MG/2 ML VIAL IV PRN ×2 (09:10→22:25)
--- NOTE | 2020-08-02 14:49 | Internal Med Progress Note ---
SUBJECTIVE Subjective Patient information: Note initiated : 08/02/20 at 2:45 pm Service Date, if different from initiated Date: [] Patient: Abbi Sprague 59 y/o F admitted on 07/31/20 for fall from standing position. Chief Complaint: Ms. Sprague is a 59-year-old female with a history of DM type I I/HTN/CAD/COPD/CVA/positional vertigo who presents to the ER this evening with symptoms of weakness dizziness lightheadedness and fall. She was on her way to the restroom when she got lightheaded and tripped and fell. discovered her on the floor. Subsequently EMS was called. She denies losing consciousness or seizure-like episode or incontinence Initial work-up in the ER was consistent with acute renal failure with a creatinine of 3.7 compared to baseline 0.8, BUN 66, sodium 124, potassium 3.2. Patient has been on diuretics including spironolactone/Lasix. Nephrology was consulted and recommended hospitalization. Subsequently hospitalist service was consulted At the time of my evaluation patient is anxious distressed but able to talk in full sentences. She endorses history as above. She denies recent NSAID intake/sick contacts/fever, bloody stool but endorses to diarrhea and multiple episodes of vomiting and persistent nausea. She has gotten progressively weak and has been unable to perform regular ADLs She was recently admitted at [facility] for acute renal failure secondary to volume depletion from recurrent emesis and uncomplicated urinary tract infection. 08/01-patient remains borderline hypotensive. Anuric. Systolics around 100. On crystalloids as per nephrology. Sodium 125, creatinine 4.5. Nephrology on board. 08/02-remains anuric with no urine output since 24 hours. On crystalloid/close renal function monitoring as per nephrology. Difficult IV access. Sodium 125. Creatinine 4.7. Electrolytes stable. Systolic steady around 110. Constitutional Vitals: Vital Signs Temp Pulse Resp BP Pulse Ox 99.3 F H 72 20 107/67 94 08/02/20 12:01 08/02/20 12:01 08/02/20 12:01 08/02/20 12:01 08/02/20 12:01 Period Temp Pulse Resp BP Sys/Wiggins Pulse Ox Last 24 Hr 97.6 F-99.3 F 66-82 10 64-147/39-112 86-100 Intake and Output 08/02/20 08/02/20 08/02/20 05:59 13:59 21:59 Intake Total 2325 1167 Output Total 40 Balance 2285 1167 Alert and oriented No anxiety No lymphedema Nonlabored breathing Intake & Output: Intake & Output 08/02/20 08/02/20 08/02/20 05:59 13:59 21:59 Intake Total 2325 1167 Output Total 40 Balance 2285 1167 Intake: IV 1605 747 Sodium Chloride 0.9% 1,000 ml @ 1540 747 150 mls/hr IV .Q6H40M [facility] Rx#: [id number] Oral 720 420 Output: Urine Catheter Amount 40 Uretheral (Fall) 40 Other: Meal snack Breakfast Percent of Meal Consumed 0% Feeding Ability Independent Urine Appearance Uretheral (Fall) Cloudy Mucous Threads Purulent Urine Color Uretheral (Fall) Dark [place] Tea Colored # Emeses 0 OBJ DATA Labs CBC & Chem 7: 08/02/20 04:30 08/02/20 04:30 Labs: Abnormal Lab Results 08/02/20 08/02/20 08/02/20 04:30 04:30 00:10 WBC 14.2 H RBC 2.95 L Hgb 8.7 L Hct 26.0 L Seg Neutrophils % Lymphocytes % 12 L RBC Morphology Abnorm A Hypochromasia Few A Sodium 125 L 125 L Potassium Chloride 94 L Carbon Dioxide 16 L Anion Gap BUN 66 H Creatinine 4.7 H Glucose 238 H Uric Acid 9.7 H Calcium 7.1 L Phosphorus Lactate Dehydrogenase Total Protein 5.1 L Albumin 2.2 L Albumin/Globulin Ratio 0.8 L Triglycerides 234 H Urine Protein Urine Occult Blood Ur Leukocyte Esterase Urine RBC Urine WBC 08/01/20 08/01/20 08/01/20 22:00 16:07 12:45 WBC RBC Hgb Hct Seg Neutrophils % Lymphocytes % RBC Morphology Hypochromasia Sodium 125 L 125 L Potassium Chloride Carbon Dioxide Anion Gap BUN Creatinine Glucose Uric Acid Calcium Phosphorus Lactate Dehydrogenase Total Protein Albumin Albumin/Globulin Ratio Triglycerides Urine Protein 100 A Urine Occult Blood 0.03 A Ur Leukocyte Esterase 250 A Urine RBC 29 H Urine WBC > 182 H 08/01/20 08/01/20 07/31/20 09:55 09:55 21:50 WBC 13.8 H RBC Hgb Hct 33.4 L Seg Neutrophils % 83 H Lymphocytes % 12 L RBC Morphology Hypochromasia Sodium 124 L 124 L Potassium 3.2 L Chloride 89 L 88 L Carbon Dioxide 17 L Anion Gap 18.0 H BUN 71 H 66 H Creatinine 4.5 H 3.7 H Glucose 354 H 225 H Uric Acid 11.6 H Calcium 8.2 L 8.1 L Phosphorus 4.7 H Lactate Dehydrogenase 339 H Total Protein Albumin 3.0 L 2.8 L Albumin/Globulin Ratio 0.8 L Triglycerides 294 H Urine Protein Urine Occult Blood Ur Leukocyte Esterase Urine RBC Urine WBC 07/31/20 21:50 WBC RBC Hgb 10.8 L Hct 32.5 L Seg Neutrophils % Lymphocytes % RBC Morphology Hypochromasia Sodium Potassium Chloride Carbon Dioxide Anion Gap BUN Creatinine Glucose Uric Acid Calcium Phosphorus Lactate Dehydrogenase Total Protein Albumin Albumin/Globulin Ratio Triglycerides Urine Protein Urine Occult Blood Ur Leukocyte Esterase Urine RBC Urine WBC Meds: Medications Acetaminophen (Tylenol) 650 mg PO Q4-6HP PRN; Protocol PRN Reason: Per Pain Protocol/Fever > 101 Hydrocodone Bitart/Acetaminophen (Lane 5/325mg) 1 tab PO Q4-6HP PRN; Protocol PRN Reason: Per Pain Protocol Last Admin: 08/02/20 01:29 Dose: 1 tab Documented by: Albuterol Sulfate (Ventolin) 1 puff INH Q6HP PRN PRN Reason: Shortness Of Breath Alprazolam (Xanax) 0.25 mg PO TID [facility] Last Admin: 08/02/20 09:10 Dose: 0.25 mg Documented by: Amiodarone HCl (Cordarone) 200 mg PO [facility] Last Admin: 08/02/20 07:42 Dose: 200 mg Documented by: Apixaban (Eliquis) 5 mg PO BID [facility] Last Admin: 08/02/20 09:08 Dose: 5 mg Documented by: Atorvastatin Calcium (Lipitor) 40 mg PO QDAY [facility] Last Admin: 08/02/20 09:08 Dose: 40 mg Documented by: Bisacodyl (Dulcolax) 10 mg [place] Q2-3DAYS PRN PRN Reason: Constipation [facility] Last Admin: 08/02/20 07:42 Dose: 12.5 mg Documented by: Dextrose (Dextrose 50%) 0 ml IV UD PRN PRN Reason: Hypoglycemia Diagnostic Test (Pha) (Accu-Chek) 1 each FS ACHS [facility] Last Admin: 08/02/20 11:56 Dose: 1 each Documented by: Docusate Sodium (Colace) 100 mg PO BID [facility] Last Admin: 08/02/20 09:17 Dose: Not Given Documented by: Glucose (Insta-Glucose) 15 gm PO PRN PRN PRN Reason: Hypoglycemia Acetaminophen (Ofirmev) 650 mg in 65 mls @ 130 mls/hr IV Q6HP PRN; Protocol PRN Reason: Per Pain Protocol/Fever > 101 Last Infusion: 08/02/20 05:58 Dose: Infused Documented by: Sodium Chloride (Sodium Chloride 0.9%) 1,000 mls @ 84 mls/hr IV .[id number] [facility] Stop: 08/03/20 09:00 Last Admin: 08/02/20 09:12 Dose: 84 mls/hr Documented by: Insulin Glargine (Lantus) 35 unit SQ BID [facility] Last Admin: 08/02/20 09:08 Dose: 35 units Documented by: Insulin Human Lispro (Humalog) [address] [facility]; Protocol Last Admin: 08/02/20 11:56 Dose: 3 units Documented by: Melatonin (Melatonin 3mg Tablet) 3 mg PO HSP PRN PRN Reason: Insomnia Last Admin: 08/01/20 02:00 Dose: 3 mg Documented by: Metoprolol Tartrate (Lopressor) 5 mg IV Q5M PRN PRN Reason: Heart Rate > 140 bpm Morphine Sulfate (Ms Contin) 60 mg PO BID [facility]; Protocol Last Admin: 08/02/20 09:08 Dose: 60 mg Documented by: Omeprazole (Prilosec) 40 mg PO ACB [facility] Last Admin: 08/02/20 07:42 Dose: 40 mg Documented by: Ondansetron HCl (Zofran Odt) 4 mg SL Q4-6HP PRN; Protocol PRN Reason: Nausea And Vomiting Ondansetron HCl (Zofran) 4 mg IV Q4-6HP PRN; Protocol PRN Reason: Nausea And Vomiting Last Admin: 08/02/20 09:10 Dose: 4 mg Documented by: Exenatide Microspheres [ Bydureon] 2 Mg Syringe 1 dose SUB-Q We@0900 [facility] Last Admin: 08/02/20 09:10 Dose: Not Given Documented by: Polyethylene Glycol (Miralax) 17 gm PO DAILYP PRN PRN Reason: Constipation Promethazine HCl (Phenergan) 25 mg [place] Q4HP PRN PRN Reason: Nausea Promethazine HCl (Phenergan) 25 mg PO Q4H PRN PRN Reason: Pain Last Admin: 08/01/20 02:02 Dose: 25 mg Documented by: Senna/Docusate Sodium (Senna Plus Tablet) 1 tab PO HS [facility] Last Admin: 08/01/20 22:23 Dose: Not Given Documented by: Sodium Chloride (Saline Flush) 10 ml IV Q8 [facility] Last Admin: 08/02/20 05:59 Dose: 10 ml Documented by: A/P Narrative A/P Narrative: * Acute kidney injury likely secondary ischemic ATN , now anuric with creatinine 4.7. Baseline 0.8. secondary to volume depletion from recurrent emesis and underlying diuretic use. Ongoing management per nephrology. Renal ultrasound unremarkable * Hypovolemic hyponatremia likely secondary to solute loss from emesis and poor p.o. intake. Management per nephrology * Episodic nausea vomiting. Clinically improved. Use as needed antiemetics * Syncope/fall likely secondary to volume depletion and orthostasis. PT OT gait and safety eval, no arrhythmias noted * Diabetes with hyperglycemia and polyneuropathy: Much improved on CC diet/basal prandial insulin/Lyrica/gabapentin * History of PAF rate controlled on Coreg/apixaban/amiodarone * HTN: on coreg/held spironolactone, KATHLEEN inhibitor until renal function improves * History of positional vertigo-stable, currently stable * h/o CVA: On anticoagulation for CVA prophylaxis. Continue PT OT/statin * Chronic pain from polyneuropathy from diabetes, on home dose morphine * GERD continue PPI Plan * Renal failure management per nephrology * Continue crystalloids * Pre-existing medical condition management on home meds except for antihypertensives should be held * Continue CC diet/basal insulin * Anticoagulation on apixaban * PT OT/nutrition support Time Spent With Patient Time: Total time spent is greater than 50% in coordination of care (as documented) at patient's floor/unit and/or counseling patient:
[2020-08-02 15:25] LABS: Creatine Kinase MB 1.8 ng/ml (0-2.9)
[2020-08-02 15:26] LABS: ALT/SGPT 10 U/l (0-40); AST/SGOT 11 U/l (0-37); Albumin 2.3 gm/dL (3.2-5.2); Albumin/Globulin Ratio 0.8 (1.0-2.3); Alkaline Phosphatase 82 U/L (39-117); Bilirubin,Total < 0.2 mg/dL (0.0-1.0); Blood Urea Nitrogen 68 mg/dl (8-23); Calcium 7.3 mg/dl (8.6-10.4); Carbon Dioxide 13 mmol/L (22-30); Creatine Kinase 64 IU/L (24-170); Globulin 2.9 gm/dL (2.2-3.7); Glomerular Filtration Rate 9; Glucose 244 mg/dL (70-105)
[2020-08-02 15:29] LABS: Chloride 95 mmol/L (96-108)
[2020-08-02 16:15] LABS: Basophils # (Auto) 0.03 K/mcL (0.00-0.30); Basophils % (Auto) 0.2 % (0.0-2.0); Eosinophils % (Auto) 1.9 % (0.0-7.0); Granulocytes % (Auto) 80.8 % (38.0-78.0); Hematocrit 26.2 % (34.1-44.9); Hemoglobin 9.2 g/dL (11.2-15.7); Lymphocytes # (Auto) 1.79 K/mcL (1.50-4.80); Lymphocytes % (Auto) 11.4 % (15.5-49.0); Mean Cell Volume 85.1 fL (80.0-100.0); Mean Corpuscular HGB Conc 35.1 g/dL (31.0-36.0); Mean Platelet Volume 9.8 fL (7.4-10.4); Monocytes # (Auto) 0.89 K/mcL (0.10-0.90); Monocytes % (Auto) 5.7 % (1.0-12.0); Platelet Count 273 K/mcL (140-440); RBC 3.08 M/mcL (3.59-5.38); Red Cell Distribution Width 12.7 % (11.5-14.5); WBC 15.8 K/mcL (4.50-11.00)
--- NOTE | 2020-08-02 16:59 | Nephrology Progress Note ---
SUBJECTIVE Subjective Patient information: Note initiated : 08/02/20 at 4:51 pm Service Date, if different from initiated Date: [] Patient: Abbi Sprague 59 y/o F admitted on 07/31/20 for fall from standing position. Chief Complaint: [N/V/D] This patient presented with acute renal failure hyponatremia and low blood pressure in the setting of continued KATHLEEN inhibitor administration, Lasix and spi ronolactone and the development of diarrhea with fluid loss after antibiotic therapy with first Ancef and then ciprofloxacin. For the first 24 hours she had significant hypotension and is only now starting to improve as she is received 4 or 5 L of normal saline. Unfortunately she remains oligo and uric with a normal-appearing renal ultrasound suggesting that she had profound dehydration made worse by the lisinopril therapy. In these situations, one can expect 72 hours before improvement GFR is seen. This morning she was about the breakfast and did appear better than on admission. Laboratory Tests 08/02/20 08/02/20 14:30 15:25 WBC 15.8 H Hgb 9.2 L Hct 26.2 L MCV 85.1 Plt Count 273 Sodium 126 L Potassium 3.3 Chloride 95 L Carbon Dioxide 13 L Anion Gap 18.0 H BUN 68 H Creatinine 4.9 H GFR Calculation 9 Glucose 244 H Calcium 7.3 L Albumin 2.3 L Laboratory Tests 08/01/20 08/01/20 08/01/20 12:45 12:45 12:45 Total Creatine Kinase Ur Random Creatinine 55.3 U Random Total Protein 372 Ur Random Sodium 90 08/02/20 14:30 Total Creatine Kinase 64 Ur Random Creatinine U Random Total Protein Ur Random Sodium FeNa is > 5% c/w acute tubular necrosis, in this case dialysis may be needed in the next 24-72 hours. Still think this started as a prolonged hypoperfusion event but by the time see showed up, ATN was in place. No rhabdo as CK not elevated. Lots of WBCs do suggest at best UTI. No radiographic hint of pyelonephritis. Constitutional Vitals: Vital Signs Temp Pulse Resp BP Pulse Ox 36.8 C 74 18 119/58 90 08/02/20 16:11 08/02/20 16:11 08/02/20 14:00 08/02/20 16:11 08/02/20 16:11 Period Temp Pulse Resp BP Sys/Wiggins Pulse Ox Last 24 Hr 36.4 C-37.4 C 66-82 10-26 64-147/43-112 86-100 Intake and Output 08/02/20 08/02/20 08/02/20 05:59 13:59 21:59 Intake Total 2325 1167 360 Output Total 40 Balance 2285 1167 360 Weight 80.513 kg Patient Weight 08/03/20 05:59 Weight 80.513 kg Intake & Output: Intake & Output 08/02/20 08/02/20 08/02/20 05:59 13:59 21:59 Intake Total 2325 1167 360 Output Total 40 Balance 2285 1167 360 Weight 80.513 kg Intake: IV 1605 747 Sodium Chloride 0.9% 1,000 ml @ 1540 747 150 mls/hr IV .Q6H40M [facility] Rx#: [id number] Oral 720 420 360 Output: Urine Catheter Amount 40 Uretheral (Fall) 40 Other: Meal snack Breakfast Percent of Meal Consumed 0% Feeding Ability Independent Urine Appearance Purulent Uretheral (Fall) Cloudy Mucous Threads Purulent Urine Color Pale Uretheral (Fall) Dark [place] Tea Colored Urine Odor Normal # Emeses 0 0 General: Nontoxic HEENT: AC/AT PERRL, EOMI, anicteric sclerae No elevated JVD Chest: Rhonchi Cor: S1S2 w/o S3 or rub ABD: BS (+), no rebound. Ext: No edema Neuro: Alert and oriented x 3 A/P Assessment and plan (1) Acute kidney failure: Status: Acute Comment: Suspect Acute prerenal azotemia but could progress to ATN Awaiting FeNa AIN from ABx is a remote possibility Qualifiers: Acute renal failure type: with acute tubular necrosis Qualified Code(s): N17.0 - Acute kidney failure with tubular necrosis (2) Chronic hyponatremia: Assessment and plan: Most likely multifactorial: Excess salt and water losses from Diarrhea, N/V and diuretics with hypotonic fluid replacement Increased ADH release and decreased free water clearance due to hypotension +/- CHF Several psychiatric Rx associated with SIADH Hypothyroidism and adrenal insufficiency seem less likely TIN from AIN could occur but doubt as no rash or eosinophilia. Status: Chronic Comment: > 2 weeks in duration and minimal MS changes (3) Acute on chronic heart failure with normal ejection fraction: Assessment and plan: Hold ACEi and Aldactone Hold lasix Needs volume Echo to assess LVEF Status: Chronic Narrative A/P Narrative: 1. Oliguria is unusual in ATN, Need to r/o acute uric acid nephropathy, no hx of toxin intake such as ethylene glycol, Urine eos not resulted but needs to be looked for due to the hx of abx use 2 weeks ago. 2. Hyponatremia is stable and not life threatening...continue fluid restrict ion. 3. Will need some sort of IV access tomorrow if no improvement in GFR, Acidosis and Hyponatremia Time Spent With Patient Time: Total time spent is greater than 50% in coordination of care (as documented) at patient's floor/unit and/or counseling patient:
[2020-08-02] MEDS: SODIUM BICARBONATE 650 MG TABLET PO SCH (22:26)
[2020-08-02] MEDS: SENNOSIDES/DOCUSATE SODIUM 1 TAB TABLET PO SCH (22:28)
[2020-08-02] MEDS: MELATONIN 3 MG TABLET PO PRN (22:36)
[2020-08-03] MEDS: 0.9 % SODIUM CHLORIDE 1,000 ML IV SCH (00:55)
[2020-08-03] MEDS: HYDROcodone/APAP 5/325MG TABLET PO PRN ×2 (02:34→08:11)
[2020-08-03] MEDS: ONDANSETRON 4 MG/2 ML VIAL IV PRN ×3 (03:18→12:42)
[2020-08-03] MEDS: 0.9 % SODIUM CHLORIDE 10 ML SYRINGE IV SCH ×3 (06:10→21:32)
[2020-08-03] MEDS: CARVEDILOL 12.5 MG TABLET PO SCH ×2 (08:12→17:34)
[2020-08-03] MEDS: OMEPRAZOLE 20 MG CAPSULE PO SCH (08:12)
[2020-08-03] MEDS: AMIODARONE HCL 200 MG TABLET PO SCH (08:12)
[2020-08-03] MEDS: INSULIN LISPRO 1 UNIT/0.01 ML UNIT SQ SCH ×4 (08:13→21:29)
--- NOTE | 2020-08-03 08:27 | XRay Report ---
HISTORY: Chest pain FINDINGS: There are moderately severe infiltrates throughout both lungs affecting the right side greater than left. The greatest consolidation is in the right lower lobe. These are new since 01/10/20. Lung volumes are normal. No pleural effusion is seen. The heart is mildly enlarged and has increased in size. IMPRESSION: Mild cardiomegaly with widespread alveolar infiltrates. This may be pulmonary edema or pneumonia. Interpreted and Authenticated by: Bill Stone 08/03/20
[2020-08-03 08:39] LABS: Basophils # (Auto) 0.02 K/mcL (0.00-0.30); Basophils % (Auto) 0.2 % (0.0-2.0); Eosinophils # (Auto) 0.34 K/mcL (0.00-0.70); Eosinophils % (Auto) 2.8 % (0.0-7.0); Granulocytes % (Auto) 69.6 % (38.0-78.0); Hematocrit 23.3 % (34.1-44.9); Hemoglobin 8.2 g/dL (11.2-15.7); Lymphocytes # (Auto) 2.15 K/mcL (1.50-4.80); Lymphocytes % (Auto) 17.9 % (15.5-49.0); Mean Cell Volume 84.7 fL (80.0-100.0); Mean Corpuscular HGB Conc 35.2 g/dL (31.0-36.0); Mean Platelet Volume 9.4 fL (7.4-10.4); Monocytes # (Auto) 1.14 K/mcL (0.10-0.90); Monocytes % (Auto) 9.5 % (1.0-12.0); Platelet Count 260 K/mcL (140-440); RBC 2.75 M/mcL (3.59-5.38); Red Cell Distribution Width 12.7 % (11.5-14.5)
[2020-08-03 09:07] LABS: ALT/SGPT 8 U/l (0-40); AST/SGOT 9 U/l (0-37); Albumin 2.5 gm/dL (3.2-5.2); Albumin/Globulin Ratio 0.8 (1.0-2.3); Alkaline Phosphatase 91 U/L (39-117); Bilirubin,Direct < 0.2 mg/dL (0.0-0.3); Bilirubin,Total 0.2 mg/dL (0.0-1.0); Blood Urea Nitrogen 60 mg/dl (8-23); Calcium 7.7 mg/dl (8.6-10.4); Carbon Dioxide 15 mmol/L (22-30); Chloride 99 mmol/L (96-108); Glomerular Filtration Rate 8; Glucose 115 mg/dL (70-105); Lactate Dehydrogenase 177 U/L (94-250); Phosphorous 4.7 mg/dL (2.7-4.5); Triglycerides 132 mg/dl (<150); Uric Acid 9.1 mg/dL (2.5-8.0)
[2020-08-03 09:15] LABS: Creatine Kinase 88 IU/L (24-170); Creatine Kinase MB 2.3 ng/ml (0-2.9)
[2020-08-03] MEDS ORDERED: FUROSEMIDE 100 MG/10 ML VIAL IV ONE (09:27)
[2020-08-03] MEDS: PIPERACILLIN SODIUM/TAZOBACTAM 2.25 GM in DEXTROSE 5% IN WATER 50 ML IV SCH ×3 (09:50→21:42)
[2020-08-03] MEDS: DOCUSATE SODIUM 100 MG CAPSULE PO SCH ×2 (10:10→21:32)
[2020-08-03] MEDS: INSULIN GLARGINE, HUMAN 1 UNIT/0.01 ML SQ SCH ×2 (10:25→21:31)
[2020-08-03] MEDS: morphine 30 MG TAB.SR.12H PO SCH ×2 (10:26→21:31)
[2020-08-03] MEDS: ATORVASTATIN 40 MG TABLET PO SCH (10:26)
[2020-08-03] MEDS: APIXABAN 5 MG TABLET PO SCH ×2 (10:26→21:31)
[2020-08-03] MEDS: ALPRAZolam 0.25 MG TABLET PO SCH ×3 (10:27→21:31)
[2020-08-03] MEDS: SODIUM BICARBONATE 650 MG TABLET PO SCH ×2 (10:27→21:31)
[2020-08-03 11:36] LABS: Appearance,Urine CLEAR; Bacteria,Urine FEW /hpf (0); Bilirubin,Urine NEG (NEG); Color,Urine STRAW; Culture Indicated,Urine YES; Glucose,Urine (UA) NEGATIVE (NEG); Ketones,Urine NEG (NEG); Leukocyte Esterase,Urine 25 /uL (NEG); Mucus,Urine FEW /hpf (0); Nitrate,Urine NEG (NEG); Protein,Urine 30 mg/dL (NEG); Specific Gravity,Urine 1.005 (1.000-1.035); Urine Blood 0.2 mg/dL (<0.03); Urine Hyaline Cast 10 /lpf (0-2); Urine RBC 1 /hpf (0-1); Urine Squamous Epithelial Cell 1 /hpf (0-4); Urine WBC 6 /hpf (0-4); Urobilinogen,Urine NEG (NEG)
--- NOTE | 2020-08-03 12:22 | Internal Med Progress Note ---
SUBJECTIVE Subjective Patient information: Note initiated : 08/03/20 at 12:09 pm Service Date, if different from initiated Date: [] Patient: Abbi Sprague a 59 y/o F admitted on 07/31/20 for fall from standing position. Chief Complaint: Ms. Sprague is a 59-year-old female with a history of DM type II/HTN/CAD/COPD/CVA/positional vertigo who presents to the ER this evening with symptoms of weakness dizziness lightheadedness and fall. She was on her way to the restroom when she got lightheaded and tripped and fell. discovered her on the floor. Subsequently EMS was called. She denies losing consciousness or seizure-like episode or incontinence Initial work-up in the ER was consistent with acute renal failure with a creatinine of 3.7 compared to baseline 0.8, BUN 66, sodium 124, potassium 3.2. Patient has been on diuretics including spironolactone/Lasix. Nephrology was consulted and recommended hospitalization. Subsequently hospitalist service was consulted At the time of my evaluation patient is anxious distressed but able to talk in full sentences. She endorses history as above. She denies recent NSAID intake/sick contacts/fever, bloody stool but endorses to diarrhea and multiple episodes of vomiting and persistent nausea. She has gotten progressively weak and has been unable to perform regular ADLs She was recently admitted at [facility] for acute renal failure secondary to volume depletion from recurrent emesis and uncomplicated urinary tract infection. 08/01-patient remains borderline hypotensive. Anuric. Systolics around 100. On crystalloids as per nephrology. Sodium 125, creatinine 4.5. Nephrology on board. 08/02-remains anuric with no urine output since 24 hours. On crystalloid/close renal function monitoring as per nephrology. Difficult IV access. Sodium 125. Creatinine 4.7. Electrolytes stable. Systolic steady around 110. 08/03-Abbi appears quite anxious and tearful today. She endorses that she she is very anxious and in pain. She could not tolerate Evans due to itching. Would want IV morphine to help relieve generalized pain. She endorses that she has underlying anxiety and posttraumatic stress disorders and had not been able to really established with a physician outside of hospital for a sustained outpatient management. Also she has not been able to follow-up with outpatient vestibular rehabilitation program manager as recommended during previous hospitalization. I advised that we would try to set up an appointment with GI for evaluation of her recurrent nausea/underlying gastroparesis and also behavioral health specialist for management of her stress and psych issues along with pain clinic referrals. Foleys draining clear urine. White count down to 12. Creatinine up 5.1. Chest x-ray bilateral infiltrate/volume overload/pneumonia. COVID 19 test ordered. Also started on morphine 1 to 2 mg as needed for generalized pain. Continuing home dose alprazolam for anxiety. Constitutional Vitals: Vital Signs Temp Pulse Resp BP Pulse Ox 97.0 F 80 16 158/69 97 08/03/20 08:01 08/03/20 08:01 08/03/20 04:01 08/03/20 08:01 08/03/20 08:01 Period Temp Pulse Resp BP Sys/Wiggins Pulse Ox Last 24 Hr 97.0 F-98.2 F 73-85 14-20 62-159/50-111 83-98 Intake and Output 08/02/20 08/03/20 08/03/20 21:59 05:59 13:59 Intake Total 1600 240 831 Output Total 100 Balance 1600 140 831 Weight 87.226 kg Intake & Output: Intake & Output 08/02/20 08/03/20 08/03/20 21:59 05:59 13:59 Intake Total 1600 240 831 Output Total 100 Balance 1600 140 831 Weight 87.226 kg Intake: IV 1000 831 Sodium Chloride 0.9% 1,000 ml @ 1000 781 84 mls/hr IV .[id number] ANTOINE Rx#: [id number] Zosyn 2.25 gm In Dextrose 5% in 50 Water 50 ml @ 100 mls/hr IV Q8H ANTOINE Rx#:[id number] Oral 600 240 Output: Emesis 100 Other: Meal Dinner Percent of Meal Consumed 75% Urine Appearance Purulent Cloudy Mucous Threads Urine Color Pale Dark Od[place] Tea Colored Urine Odor Normal # Emeses 0 OBJ DATA Labs CBC & Chem 7: 08/03/20 07:45 08/03/20 07:45 Labs: Abnormal Lab Results 08/03/20 08/03/20 08/03/20 09:35 07:45 07:45 WBC 12.0 H RBC 2.75 L Hgb 8.2 L Hct 23.3 L Gran % Lymph % (Auto) Gran # 8.39 H Hughes # (Auto) 1.14 H Seg Neutrophils % Lymphocytes % RBC Morphology Hypochromasia Sodium Potassium Chloride Carbon Dioxide Anion Gap BUN Creatinine Glucose Uric Acid Calcium Phosphorus Lactate Dehydrogenase NT-Pro-B Natriuret Pep 89830.0 H Total Protein Albumin Albumin/Globulin Ratio Triglycerides Urine Protein 30 A Urine Occult Blood 0.2 A Ur Leukocyte Esterase 25 A Urine RBC Urine WBC 6 H Urine Bacteria Few A Hyaline Casts 10 H 08/03/20 08/02/20 08/02/20 07:45 15:25 14:30 WBC 15.8 H RBC 3.08 L Hgb 9.2 L Hct 26.2 L Gran % 80.8 H Lymph % (Auto) 11.4 L Gran # 12.74 H Hughes # (Auto) Seg Neutrophils % Lymphocytes % RBC Morphology Hypochromasia Sodium 129 L 126 L Potassium Chloride 95 L Carbon Dioxide 15 L 13 L Anion Gap 18.0 H BUN 60 H 68 H Creatinine 5.1 H* 4.9 H Glucose 115 H 244 H Uric Acid 9.1 H Calcium 7.7 L 7.3 L Phosphorus 4.7 H Lactate Dehydrogenase NT-Pro-B Natriuret Pep Total Protein 5.5 L 5.2 L Albumin 2.5 L 2.3 L Albumin/Globulin Ratio 0.8 L 0.8 L Triglycerides Urine Protein Urine Occult Blood Ur Leukocyte Esterase Urine RBC Urine WBC Urine Bacteria Hyaline Casts 08/02/20 08/02/20 08/02/20 04:30 04:30 00:10 WBC 14.2 H RBC 2.95 L Hgb 8.7 L Hct 26.0 L Gran % Lymph % (Auto) Gran # Hughes # (Auto) Seg Neutrophils % Lymphocytes % 12 L RBC Morphology Abnorm A Hypochromasia Few A Sodium 125 L 125 L Potassium Chloride 94 L Carbon Dioxide 16 L Anion Gap BUN 66 H Creatinine 4.7 H Glucose 238 H Uric Acid 9.7 H Calcium 7.1 L Phosphorus Lactate Dehydrogenase NT-Pro-B Natriuret Pep Total Protein 5.1 L Albumin 2.2 L Albumin/Globulin Ratio 0.8 L Triglycerides 234 H Urine Protein Urine Occult Blood Ur Leukocyte Esterase Urine RBC Urine WBC Urine Bacteria Hyaline Casts 08/01/20 08/01/20 08/01/20 22:00 16:07 12:45 WBC RBC Hgb Hct Gran % Lymph % (Auto) Gran # Hughes # (Auto) Seg Neutrophils % Lymphocytes % RBC Morphology Hypochromasia Sodium 125 L 125 L Potassium Chloride Carbon Dioxide Anion Gap BUN Creatinine Glucose Uric Acid Calcium Phosphorus Lactate Dehydrogenase NT-Pro-B Natriuret Pep Total Protein Albumin Albumin/Globulin Ratio Triglycerides Urine Protein 100 A Urine Occult Blood 0.03 A Ur Leukocyte Esterase 250 A Urine RBC 29 H Urine WBC > 182 H Urine Bacteria Hyaline Casts 08/01/20 08/01/20 07/31/20 09:55 09:55 21:50 WBC 13.8 H RBC Hgb Hct 33.4 L Gran % Lymph % (Auto) Gran # Hughes # (Auto) Seg Neutrophils % 83 H Lymphocytes % 12 L RBC Morphology Hypochromasia Sodium 124 L 124 L Potassium 3.2 L Chloride 89 L 88 L Carbon Dioxide 17 L Anion Gap 18.0 H BUN 71 H 66 H Creatinine 4.5 H 3.7 H Glucose 354 H 225 H Uric Acid 11.6 H Calcium 8.2 L 8.1 L Phosphorus 4.7 H Lactate Dehydrogenase 339 H NT-Pro-B Natriuret Pep Total Protein Albumin 3.0 L 2.8 L Albumin/Globulin Ratio 0.8 L Triglycerides 294 H Urine Protein Urine Occult Blood Ur Leukocyte Esterase Urine RBC Urine WBC Urine Bacteria Hyaline Casts 07/31/20 21:50 WBC RBC Hgb 10.8 L Hct 32.5 L Gran % Lymph % (Auto) Gran # Hughes # (Auto) Seg Neutrophils % Lymphocytes % RBC Morphology Hypochromasia Sodium Potassium Chloride Carbon Dioxide Anion Gap BUN Creatinine Glucose Uric Acid Calcium Phosphorus Lactate Dehydrogenase NT-Pro-B Natriuret Pep Total Protein Albumin Albumin/Globulin Ratio Triglycerides Urine Protein Urine Occult Blood Ur Leukocyte Esterase Urine RBC Urine WBC Urine Bacteria Hyaline Casts Meds: Medications Acetaminophen (Tylenol) 650 mg PO Q4-6HP PRN; Protocol PRN Reason: Per Pain Protocol/Fever > 101 Hydrocodone Bitart/Acetaminophen (Evans 5/325mg) 1 tab PO Q4-6HP PRN; Protocol PRN Reason: Per Pain Protocol Last Admin: 08/03/20 08:11 Dose: 1 tab Documented by: Albuterol Sulfate (Ventolin) 1 puff INH Q6HP PRN PRN Reason: Shortness Of Breath Alprazolam (Xanax) 0.25 mg PO TID [facility] Last Admin: 08/03/20 10:27 Dose: 0.25 mg Documented by: Amiodarone HCl (Cordarone) 200 mg PO QAC [facility] Last Admin: 08/03/20 08:12 Dose: 200 mg Documented by: Apixaban (Eliquis) 5 mg PO BID [facility] Last Admin: 08/03/20 10:26 Dose: 5 mg Documented by: Atorvastatin Calcium (Lipitor) 40 mg PO QDAY [facility] Last Admin: 08/03/20 10:26 Dose: 40 mg Documented by: Bisacodyl (Dulcolax) 10 mg WA Q2-3DAYS PRN PRN Reason: Constipation [facility] Admin: 08/03/20 08:12 Dose: 12.5 mg Documented by: Dextrose (Dextrose 50%) 0 ml IV UD PRN PRN Reason: Hypoglycemia Diagnostic Test (Pha) (Accu-Chek) 1 each FS [facility] Last Admin: 08/03/20 08:12 Dose: 1 each Documented by: Docusate Sodium (Colace) 100 mg PO BID [facility] Last Admin: 08/03/20 10:10 Dose: Not Given Documented by: Glucose (Insta-Glucose) 15 gm PO PRN PRN PRN Reason: Hypoglycemia Acetaminophen (Ofirmev) 650 mg in 65 mls @ 130 mls/hr IV Q6HP PRN; Protocol PRN Reason: Per Pain Protocol/Fever > 101 Last Infusion: 08/02/20 05:58 Dose: Infused Documented by: Piperacillin Sod/Tazobactam (Sod 2.25 gm/ Dextrose) 50 mls @ 100 mls/hr IV Q8H [facility]; Protocol Last Infusion: 08/03/20 10:27 Dose: Infused Documented by: Insulin Glargine (Lantus) 35 unit SQ BID [facility] Last Admin: 08/03/20 10:25 Dose: 35 units Documented by: Insulin Human Lispro (Humalog) 0 unit SQ [facility]; Protocol Last Admin: 08/03/20 08:13 Dose: Not Given Documented by: Melatonin (Melatonin 3mg Tablet) 3 mg PO HSP PRN PRN Reason: Insomnia Last Admin: 08/02/20 22:36 Dose: 3 mg Documented by: Metoprolol Tartrate (Lopressor) 5 mg IV Q5M PRN PRN Reason: Heart Rate > 140 bpm Morphine Sulfate (Ms Contin) 60 mg PO BID [facility]; Protocol Last Admin: 08/03/20 10:26 Dose: 60 mg Documented by: Omeprazole (Prilosec) 40 mg PO ACB [facility] Last Admin: 08/03/20 08:12 Dose: 40 mg Documented by: Ondansetron HCl (Zofran Odt) 4 mg SL Q4-6HP PRN; Protocol PRN Reason: Nausea And Vomiting Ondansetron HCl (Zofran) 4 mg IV Q4-6HP PRN; Protocol PRN Reason: Nausea And Vomiting Last Admin: 08/03/20 08:11 Dose: 4 mg Documented by: Exenatide Microspheres [ Bydureon] 2 Mg Syringe 1 dose SUB-Q We@0900 [facility] Last Admin: 08/02/20 17:45 Dose: 1 dose Documented by: Polyethylene Glycol (Miralax) 17 gm PO DAILYP PRN PRN Reason: Constipation Promethazine HCl (Phenergan) 25 mg WA Q4HP PRN PRN Reason: Nausea Promethazine HCl (Phenergan) 25 mg PO Q4H PRN PRN Reason: Pain Last Admin: 08/01/20 02:02 Dose: 25 mg Documented by: Senna/Docusate Sodium (Senna Plus Tablet) 1 tab PO HS [facility] Last Admin: 08/02/20 22:28 Dose: Not Given Documented by: Sodium Bicarbonate (Sodium Bicarbonate) 1,300 mg PO BID [facility] Stop: 08/04/20 09:01 Last Admin: 08/03/20 10:27 Dose: 1,300 mg Documented by: Sodium Chloride (Saline Flush) 10 ml IV Q8 [facility] Last Admin: 08/03/20 06:10 Dose: 10 ml Documented by: A/P Narrative A/P Narrative: * Multifocal chest infiltrates-possibly volume overload versus bilateral pneumonia. Start antibiotic coverage. COVID-19 testing. DC IV fluids. BiPAP if indicated. * Leukocytosis-improving white count down at 12,000. Likely cause pneumonia * Acute kidney injury likely secondary ischemic ATN , creatinine 5.1 today. Baseline 0.8. Ongoing management per nephrology. * Hypervolemic hyponatremia. Managed per nephrology * Episodic nausea vomiting. Clinically improved. Likely underlying gastroparesis. Use as needed antiemetics. Recommend outpatient GI follow-up for further evaluation * Syncope/fall likely secondary to volume depletion and orthostasis. PT OT gait and safety eval, no arrhythmias noted * Diabetes with hyperglycemia and polyneuropathy: Much improved on CC diet/basal prandial insulin/exenatide/Lyrica/gabapentin * History of PAF rate controlled on Coreg/apixaban/amiodarone * HTN: on coreg/held spironolactone, KATHLEEN inhibitor until renal function improves * History of chronic anxiety disorder on alprazolam * History of chronic pain on morphine 60 twice daily p.o./IV breakthrough * History of positional vertigo-stable, currently stable. Patient has not followed up with outpatient vestibular rehab as recommended during previous hospitalization on discharge * h/o CVA: On apixaban for CVA prophylaxis. Continue PT OT/statin * GERD continue PPI Plan * Renal failure management per nephrology * DC crystalloids * Antibiotics/COVID-19 testing/blood cultures * Interval chest imaging * Morphine 1 to 2 mg every 4 * Continue CC diet/basal insulin * Anticoagulation on apixaban * PT OT/nutrition support * Outpatient behavioral health/pain clinic/GI referrals on discharge Time Spent With Patient Time: Total time spent is greater than 50% in coordination of care (as documented) at patient's floor/unit and/or counseling patient:
--- NOTE | 2020-08-03 13:57 | Nephrology Progress Note ---
SUBJECTIVE Subjective Patient information: Note initiated : 08/03/20 at 1:53 pm Service Date, if different from initiated Date: [] Patient: Abbi Sprague 59 y/o F admitted on 07/31/20 for fall from standing position. Chief Complaint: [Chronic hyponatremia, weakness, and acute renal failure] As outlined in previous notes I initially believe this patient had acute prerenal azotemia with albuminuria secondary to excess GI fluid losses (nausea vomiting and diarrhea) fluid losses (spironolactone and Lasix) and concomitant KATHLEEN inhibitor therapy. Initially reduced she was hypotensive and for 2 days volume expanded with normal saline but still remained anuric. At that point her fractional excretion of sodium was about 5%, she had no evidence of rhabdomyolysis, and while rare I guess she could have ATN with marked oligo anuria. Just this she began to produce some urine yesterday she is developed pulmonary infiltrates and an elevation in her proBNP level so she was given 1 dose of furosemide 100 mg today with gratifying results in terms of urine output. I am hoping her serum creatinine stabilizes and begins to improve prior to having to institute hemodialysis. Presently she has no uremic symptoms and is producing large amounts of urine as of the past 12 hours. Laboratory Tests 08/03/20 08/03/20 08/03/20 07:45 07:45 07:45 Eos % (Auto) 2.8 Sodium 129 L Potassium 3.4 Creatinine 5.1 H* GFR Calculation 8 Glucose 115 H Uric Acid 9.1 H Phosphorus 4.7 H Magnesium 1.8 Total Creatine Kinase 88 NT-Pro-B Natriuret Pep 73445 Procalcitonin 0.47 Serum Creatinine Constitutional Vitals: Vital Signs Temp Pulse Resp BP Pulse Ox 36.1 C 80 16 158/69 97 08/03/20 08:01 08/03/20 08:01 08/03/20 04:01 08/03/20 08:01 08/03/20 08:01 Period Temp Pulse Resp BP Sys/Wiggins Pulse Ox Last 24 Hr 36.1 C-36.8 C 73-85 14-20 62-159/50-111 83-98 Intake and Output 08/02/20 08/03/20 08/03/20 21:59 05:59 13:59 Intake Total 1600 240 831 Output Total 100 Balance 1600 140 831 Weight 87.226 kg Intake & Output: Intake & Output 08/02/20 08/03/20 08/03/20 21:59 05:59 13:59 Intake Total 1600 240 831 Output Total 100 Balance 1600 140 831 Weight 87.226 kg Intake: IV 1000 831 Sodium Chloride 0.9% 1,000 ml @ 1000 781 84 mls/hr IV .[id number] ANTOINE Rx#: [id number] Zosyn 2.25 gm In Dextrose 5% in 50 Water 50 ml @ 100 mls/hr IV Q8H ANTOINE Rx#:[id number] Oral 600 240 Output: Emesis 100 Other: Meal Dinner Percent of Meal Consumed 75% Urine Appearance Purulent Cloudy Mucous Threads Urine Color Pale Dark [place] Tea Colored Urine Odor Normal # Emeses 0 General appearance: average body habitus and moderate distress Head Head exam: Present atraumatic, normal inspection and normocephalic Eye Eye exam: Present EOMI and PERRL; Absent nystagmus, periorbital swelling and scleral icterus Pupils: Present PERRL Neck Neck exam: Present full ROM and normal inspection Respiratory Respiratory exam: Present normal respiratory exam, decreased breath sounds, prolonged expiratory phase, respiratory distress and rhonchi Cardiovascular Cardiovascular exam: Present normal rate and rhythm, RRR, +S1 and +S2; Absent gallop, rubs, +S3 and systolic murmur GI/Abdominal GI/Abdominal exam: Present normal bowel sounds and soft; Absent bruit and gua rding Extremities Exam Extremities exam: Present neurovascular intact; Absent pedal edema and tendernes s Neurological Exam Neurological exam: Present alert, CN II-XII intact and oriented X3 Psychiatric Psychiatric exam: Present anxious A/P Assessment and plan (1) Chronic hyponatremia: Status: Chronic Comment: > 2 weeks in duration and minimal MS changes (2) Acute kidney failure: Status: Acute Comment: Suspect Acute prerenal azotemia but could progress to ATN Awaiting FeNa AIN from ABx is a remote possibility Qualifiers: Acute renal failure type: with acute tubular necrosis Qualified Code(s): N17.0 - Acute kidney failure with tubular necrosis (3) Acute on chronic heart failure with normal ejection fraction: Status: Chronic Narrative A/P Narrative: 1. Trial of high-dose furosemide as she is no longer oliguric, a hamper recovery but improved for chest x-ray and oxygenation 2. No uremic symptoms at present, hoping she will avoid hemodialysis. 3. Furosemide on a day-to-day basis today received 100 mg IV this AM. 4. Trend SCr and electrolytes, replace K on PRN basis 5. Avoiding RAASI therapy at this juncture. May not be a good idea with pLVEF, will check random protein/creatinine ratio. 6. Avoid NSAIDs Time Spent With Patient Time: Total time spent is greater than 50% in coordination of care (as docu mented) at patient's floor/unit and/or counseling patient: Total time spent with greater than 50% in coordination of care (as documented) at patient's floor/unit and/or counseling patient:: Greater than 35 minutes
[2020-08-03 17:05] LABS: Creatinine, Spot Urine 29.7 mg/dl; Pro:Crea Ratio 1.11 mg:mg
[2020-08-03] MEDS: MELATONIN 3 MG TABLET PO PRN (21:31)
[2020-08-03] MEDS: SENNOSIDES/DOCUSATE SODIUM 1 TAB TABLET PO SCH (21:32)
[2020-08-04] MEDS: PIPERACILLIN SODIUM/TAZOBACTAM 2.25 GM in DEXTROSE 5% IN WATER 50 ML IV SCH ×3 (05:17→21:38)
[2020-08-04] MEDS: 0.9 % SODIUM CHLORIDE 10 ML SYRINGE IV SCH ×4 (05:17→21:08)
[2020-08-04 06:20] LABS: Hematocrit 22.1 % (34.1-44.9); Hemoglobin 7.7 g/dL (11.2-15.7); Mean Corpuscular HGB Conc 34.8 g/dL (31.0-36.0); Mean Platelet Volume 9.5 fL (7.4-10.4); Platelet Count 251 K/mcL (140-440); RBC 2.63 M/mcL (3.59-5.38); Red Cell Distribution Width 12.9 % (11.5-14.5); WBC 8.9 K/mcL (4.50-11.00)
[2020-08-04 06:46] LABS: ALT/SGPT 6 U/l (0-40); AST/SGOT 8 U/l (0-37); Albumin 2.1 gm/dL (3.2-5.2); Albumin/Globulin Ratio 0.7 (1.0-2.3); Alkaline Phosphatase 87 U/L (39-117); Bilirubin,Direct < 0.2 mg/dL (0.0-0.3); Bilirubin,Total 0.2 mg/dL (0.0-1.0); Blood Urea Nitrogen 53 mg/dl (8-23); Calcium 7.8 mg/dl (8.6-10.4); Chloride 100 mmol/L (96-108); Globulin 2.9 gm/dL (2.2-3.7); Glucose 138 mg/dL (70-105); Lactate Dehydrogenase 153 U/L (94-250); Phosphorous 3.9 mg/dL (2.7-4.5); Triglycerides 96 mg/dl (<150); Uric Acid 8.7 mg/dL (2.5-8.0)
[2020-08-04 06:50] LABS: Carbon Dioxide 20 mmol/L (22-30); Glomerular Filtration Rate 11
[2020-08-04] MEDS: ONDANSETRON 4 MG/2 ML VIAL IV PRN ×2 (07:33→20:51)
[2020-08-04] MEDS: OMEPRAZOLE 20 MG CAPSULE PO SCH (07:34)
[2020-08-04 08:21] LABS: Eosinophils % (Manual) 4 % (0-7); Lymphocytes % 23 % (15-49); Metamyelocytes % 1 % (0-0); Monocytes % (Manual) 15 % (1-12); Platelet Estimate NORMAL (NORMAL); RBC Morphology NORMAL (NORMAL); Segmented Neutrophils % 57 % (38-78)
[2020-08-04] MEDS: INSULIN LISPRO 1 UNIT/0.01 ML UNIT SQ SCH ×4 (09:46→21:06)
[2020-08-04] MEDS: INSULIN GLARGINE, HUMAN 1 UNIT/0.01 ML SQ SCH ×2 (09:47→21:06)
[2020-08-04] MEDS: APIXABAN 5 MG TABLET PO SCH ×2 (09:58→20:51)
[2020-08-04] MEDS: ALPRAZolam 0.25 MG TABLET PO SCH ×3 (09:58→20:51)
[2020-08-04] MEDS: PROMETHAZINE 25 MG TABLET PO PRN (09:58)
[2020-08-04] MEDS: morphine 30 MG TAB.SR.12H PO SCH ×2 (09:58→20:48)
[2020-08-04] MEDS: DOCUSATE SODIUM 100 MG CAPSULE PO SCH ×2 (09:59→20:51)
[2020-08-04] MEDS: ATORVASTATIN 40 MG TABLET PO SCH (09:59)
[2020-08-04] MEDS: CARVEDILOL 12.5 MG TABLET PO SCH ×2 (09:59→18:01)
[2020-08-04] MEDS: AMIODARONE HCL 200 MG TABLET PO SCH (09:59)
[2020-08-04] MEDS: SODIUM BICARBONATE 650 MG TABLET PO SCH (09:59)
[2020-08-04] MEDS ORDERED: FLU VACC QS2020-21(6MOS UP)/PF 60 MCG/0.5 ML SYRINGE IM ONE (10:00)
--- NOTE | 2020-08-04 10:00 | Internal Med Progress Note ---
SUBJECTIVE Subjective Patient information: Note initiated : 08/04/20 at 9:56 am Service Date, if different from initiated Date: [] Patient: Abbi Sprague a 59 y/o F admitted on 07/31/20 for fall from standing position. Chief Complaint: Ms. Sprague is a 59-year-old female with a history of DM type I I/HTN/CAD/COPD/CVA/positional vertigo who presents to the ER this evening with symptoms of weakness dizziness lightheadedness and fall. She was on her way to the restroom when she got lightheaded and tripped and fell. discovered her on the floor. Subsequently EMS was called. She denies losing consciousness or seizure-like episode or incontinence Initial work-up in the ER was consistent with acute renal failure with a creatinine of 3.7 compared to baseline 0.8, BUN 66, sodium 124, potassium 3.2. Patient has been on diuretics including spironolactone/Lasix. Nephrology was consulted and recommended hospitalization. Subsequently hospitalist service was consulted At the time of my evaluation patient is anxious distressed but able to talk in full sentences. She endorses history as above. She denies recent NSAID intake/sick contacts/fever, bloody stool but endorses to diarrhea and multiple episodes of vomiting and persistent nausea. She has gotten progressively weak and has been unable to perform regular ADLs She was recently admitted at [facility] for acute renal failure secondary to volume depletion from recurrent emesis and uncomplicated urinary tract infection. 08/01-patient remains borderline hypotensive. Anuric. Systolics around 100. On crystalloids as per nephrology. Sodium 125, creatinine 4.5. Nephrology on board. 08/02-remains anuric with no urine output since 24 hours. On crystalloid/close renal function monitoring as per nephrology. Difficult IV access. Sodium 125. Creatinine 4.7. Electrolytes stable. Systolic steady around 110. 08/03-Abbi appears quite anxious and tearful today. She endorses that she she is very anxious and in pain. She could not tolerate [place] due to itching. Would want IV morphine to help relieve generalized pain. She endorses that she has underlying anxiety and posttraumatic stress disorders and had not been able to really established with a physician outside of hospital for a sustained outpatient management. Also she has not been able to follow-up with outpatient vestibular vision rehabilitation therapist as recommended during previous hospitalization. I advised that we would try to set up an appointment with GI for evaluation of her recurrent nausea/underlying gastroparesis and also behavioral health specialist for management of her stress and psych issues along with pain clinic referrals. Foleys draining clear urine. White count down to 12. Creatinine up 5.1. Chest x-ray bilateral infiltrate/volume overload/pneumonia. COVID 19 test ordered. Also started on morphine 1 to 2 mg as needed for generalized pain. Continuing home dose alprazolam for anxiety. 08/04-patient clinically improving. In polyuric phase of ATN. On 2 to 4 L oxygen. Improved anxiety. Pain better controlled. Nausea improved. Tolerating diet. Creatinine downtrending from 5.1->4. Nephrology on board. Stable hemodynamics. COVID-19 negative. Constitutional Vitals: Vital Signs Temp Pulse Resp BP Pulse Ox 97.8 F 70 24 H 129/70 94 08/04/20 08:00 08/04/20 02:16 08/04/20 08:00 08/04/20 08:00 08/04/20 08:00 Period Temp Pulse Resp BP Sys/Wiggins Pulse Ox Last 24 Hr 97.2 F-98.2 F 70-81 18-24 86-135/52-84 82-100 Intake and Output 08/03/20 08/04/20 08/04/20 21:59 05:59 13:59 Intake Total 530 290 50 Output Total 2200 1650 Balance -1670 -1360 50 Alert oriented Improved anxiety Fall is draining clear urine Nonlabored breathing on 2 L oxygen Intake & Output: Intake & Output 08/03/20 08/04/20 08/04/20 21:59 05:59 13:59 Intake Total 530 290 50 Output Total 2200 1650 Balance -1670 -1360 50 Intake: IV 50 50 50 Zosyn 2.25 gm In Dextrose 5% in 50 50 50 Water 50 ml @ 100 mls/hr IV Q8H [facility] Rx#:[id number] Oral 480 240 Output: Urine Catheter Amount 2200 1650 Other: Meal Dinner snack Percent of Meal Consumed 50% 100% Feeding Ability Assist with Tray Set Up Assist with Tray Set Up Nourishment/Supplement name milk milk Urine Appearance Clear Clear Reinserted Fall Clear Clear Urine Color Straw Pale Reinserted Fall Dark Yellow Straw # Bowel Movements 0 OBJ DATA Labs CBC & Chem 7: 08/04/20 05:00 08/04/20 05:00 Labs: Abnormal Lab Results 08/04/20 08/04/20 08/03/20 05:00 05:00 09:35 WBC RBC 2.63 L Hgb 7.7 L Hct 22.1 L Gran % Lymph % (Auto) Gran # [place] # (Auto) Seg Neutrophils % Lymphocytes % Monocytes % (Manual) 15 H Metamyelocytes % 1 H RBC Morphology Hypochromasia Sodium Chloride Carbon Dioxide 20 L Anion Gap BUN 53 H Creatinine 4.0 H Glucose 138 H Uric Acid 8.7 H Calcium 7.8 L Phosphorus Lactate Dehydrogenase NT-Pro-B Natriuret Pep Total Protein 5.0 L Albumin 2.1 L Albumin/Globulin Ratio 0.7 L Triglycerides Urine Protein Urine Occult Blood Ur Leukocyte Esterase Urine RBC Urine WBC Urine Bacteria Hyaline Casts U [place] Prot/Creat Ratio 1.11 H 08/03/20 08/03/20 08/03/20 09:35 07:45 07:45 WBC 12.0 H RBC 2.75 L Hgb 8.2 L Hct 23.3 L Gran % Lymph % (Auto) Gran # 8.39 H [place] # (Auto) 1.14 H Seg Neutrophils % Lymphocytes % Monocytes % (Manual) Metamyelocytes % RBC Morphology Hypochromasia Sodium Chloride Carbon Dioxide Anion Gap BUN Creatinine Glucose Uric Acid Calcium Phosphorus Lactate Dehydrogenase NT-Pro-B Natriuret Pep 97807.0 H Total Protein Albumin Albumin/Globulin Ratio Triglycerides Urine Protein 30 A Urine Occult Blood 0.2 A Ur Leukocyte Esterase 25 A Urine RBC Urine WBC 6 H Urine Bacteria Few A Hyaline Casts 10 H U [place] Prot/Creat Ratio 08/03/20 08/02/20 08/02/20 07:45 15:25 14:30 WBC 15.8 H RBC 3.08 L Hgb 9.2 L Hct 26.2 L Gran % 80.8 H Lymph % (Auto) 11.4 L Gran # 12.74 H [place] # (Auto) Seg Neutrophils % Lymphocytes % Monocytes % (Manual) Metamyelocytes % RBC Morphology Hypochromasia Sodium 129 L 126 L Chloride 95 L Carbon Dioxide 15 L 13 L Anion Gap 18.0 H BUN 60 H 68 H Creatinine 5.1 H* 4.9 H Glucose 115 H 244 H Uric Acid 9.1 H Calcium 7.7 L 7.3 L Phosphorus 4.7 H Lactate Dehydrogenase NT-Pro-B Natriuret Pep Total Protein 5.5 L 5.2 L Albumin 2.5 L 2.3 L Albumin/Globulin Ratio 0.8 L 0.8 L Triglycerides Urine Protein Urine Occult Blood Ur Leukocyte Esterase Urine RBC Urine WBC Urine Bacteria Hyaline Casts U [place] Prot/Creat Ratio 08/02/20 08/02/20 08/02/20 04:30 04:30 00:10 WBC 14.2 H RBC 2.95 L Hgb 8.7 L Hct 26.0 L Gran % Lymph % (Auto) Gran # [place] # (Auto) Seg Neutrophils % Lymphocytes % 12 L Monocytes % (Manual) Metamyelocytes % RBC Morphology Abnorm A Hypochromasia Few A Sodium 125 L 125 L Chloride 94 L Carbon Dioxide 16 L Anion Gap BUN 66 H Creatinine 4.7 H Glucose 238 H Uric Acid 9.7 H Calcium 7.1 L Phosphorus Lactate Dehydrogenase NT-Pro-B Natriuret Pep Total Protein 5.1 L Albumin 2.2 L Albumin/Globulin Ratio 0.8 L Triglycerides 234 H Urine Protein Urine Occult Blood Ur Leukocyte Esterase Urine RBC Urine WBC Urine Bacteria Hyaline Casts U [place] Prot/Creat Ratio 08/01/20 08/01/20 08/01/20 22:00 16:07 12:45 WBC RBC Hgb Hct Gran % Lymph % (Auto) Gran # [place] # (Auto) Seg Neutrophils % Lymphocytes % Monocytes % (Manual) Metamyelocytes % RBC Morphology Hypochromasia Sodium 125 L 125 L Chloride Carbon Dioxide Anion Gap BUN Creatinine Glucose Uric Acid Calcium Phosphorus Lactate Dehydrogenase NT-Pro-B Natriuret Pep Total Protein Albumin Albumin/Globulin Ratio Triglycerides Urine Protein 100 A Urine Occult Blood 0.03 A Ur Leukocyte Esterase 250 A Urine RBC 29 H Urine WBC > 182 H Urine Bacteria Hyaline Casts U [place] Prot/Creat Ratio 08/01/20 08/01/20 09:55 09:55 WBC 13.8 H RBC Hgb Hct 33.4 L Gran % Lymph % (Auto) Gran # [place] # (Auto) Seg Neutrophils % 83 H Lymphocytes % 12 L Monocytes % (Manual) Metamyelocytes % RBC Morphology Hypochromasia Sodium 124 L Chloride 89 L Carbon Dioxide 17 L Anion Gap 18.0 H BUN 71 H Creatinine 4.5 H Glucose 354 H Uric Acid 11.6 H Calcium 8.2 L Phosphorus 4.7 H Lactate Dehydrogenase 339 H NT-Pro-B Natriuret Pep Total Protein Albumin 3.0 L Albumin/Globulin Ratio Triglycerides 294 H Urine Protein Urine Occult Blood Ur Leukocyte Esterase Urine RBC Urine WBC Urine Bacteria Hyaline Casts U [place] Prot/Creat Ratio Meds: Medications Albuterol Sulfate (Ventolin) 1 puff INH Q6HP PRN PRN Reason: Shortness Of Breath Alprazolam (Xanax) 0.25 mg PO TID [facility] Last Admin: 08/03/20 21:31 Dose: 0.25 mg Documented by: [facility] Last Admin: 08/03/20 08:12 Dose: 200 mg Documented by: Apixaban (Eliquis) 5 mg PO BID [facility] Last Admin: 08/03/20 21:31 Dose: 5 mg Documented by: Atorvastatin Calcium (Lipitor) 40 mg PO QDAY [facility] Last Admin: 08/03/20 10:26 Dose: 40 mg Documented by: Bisacodyl (Dulcolax) 10 mg WI Q2-3DAYS PRN PRN Reason: Constipation [facility] Last Admin: 08/03/20 17:34 Dose: 12.5 mg Documented by: Dextrose (Dextrose 50%) 0 ml IV UD PRN PRN Reason: Hypoglycemia Diagnostic Test (Pha) (Accu-Chek) 1 each FS [facility] Last Admin: 08/04/20 07:58 Dose: 1 each Documented by: Docusate Sodium (Colace) 100 mg PO BID [facility] Last Admin: 08/03/20 21:32 Dose: Not Given Documented by: Glucose (Insta-Glucose) 15 gm PO PRN PRN PRN Reason: Hypoglycemia Piperacillin Sod/Tazobactam (Sod 2.25 gm/ Dextrose) 50 mls @ 100 mls/hr IV Q8H [facility]; Protocol Last Infusion: 08/04/20 06:00 Dose: Infused Documented by: Insulin Glargine (Lantus) 35 unit SQ BID [facility] Last Admin: 08/04/20 09:47 Dose: 35 units Documented by: Insulin Human Lispro (Humalog) 0 unit SQ [facility]; Protocol Last Admin: 08/04/20 09:46 Dose: 1 units Documented by: Melatonin (Melatonin 3mg Tablet) 3 mg PO HSP PRN PRN Reason: Insomnia Last Admin: 08/03/20 21:31 Dose: 3 mg Documented by: Metoprolol Tartrate (Lopressor) 5 mg IV Q5M PRN PRN Reason: Heart Rate > 140 bpm Morphine Sulfate (Ms Contin) 60 mg PO BID [facility]; Protocol Last Admin: 08/03/20 21:31 Dose: 60 mg Documented by: Morphine Sulfate (Morphine) 1 - 2 mg IV Q4HP PRN; Protocol PRN Reason: Per Pain Protocol Last Admin: 08/04/20 07:33 Dose: 2 mg Documented by: Omeprazole (Prilosec) 40 mg PO ACB [facility] Last Admin: 08/04/20 07:34 Dose: 40 mg Documented by: Ondansetron HCl (Zofran Odt) 4 mg SL Q4-6HP PRN; Protocol PRN Reason: Nausea And Vomiting Ondansetron HCl (Zofran) 4 mg IV Q4-6HP PRN; Protocol PRN Reason: Nausea And Vomiting Last Admin: 08/04/20 07:33 Dose: 4 mg Documented by: Exenatide Microspheres [ Bydureon] 2 Mg Syringe 1 dose SUB-Q We@0900 [facility] Last Admin: 08/02/20 17:45 Dose: 1 dose Documented by: Polyethylene Glycol (Miralax) 17 gm PO DAILYP PRN PRN Reason: Constipation Promethazine HCl (Phenergan) 25 mg WI Q4HP PRN PRN Reason: Nausea Promethazine HCl (Phenergan) 25 mg PO Q4H PRN PRN Reason: Pain Last Admin: 08/01/20 02:02 Dose: 25 mg Documented by: Senna/Docusate Sodium (Senna Plus Tablet) 1 tab PO HS [facility] Last Admin: 08/03/20 21:32 Dose: Not Given Documented by: Sodium Chloride (Saline Flush) 10 ml IV Q8 [facility] Last Admin: 08/04/20 05:17 Dose: 10 ml Documented by: Spironolactone (Aldactone) 25 mg PO DAILY [facility] A/P Narrative A/P Narrative: * Multifocal chest infiltrates-likely volume overload clinically improving. Now in polyuric phase with adequate spontaneous diuresis. Consider discontinuing antibiotics in 24 hours. COVID-19 negative. * Leukocytosis-improving white count down at 8.9 from 16. * Acute kidney injury likely secondary ischemic ATN , creatinine 5.1-> 4 today. Baseline 0.8. Now in polyuric phase. Ongoing management per nephrology. * Hypervolemic hyponatremia. Sodium now at 134. Secondary to volume overload. Now resolving * Episodic nausea vomiting. Clinically improved. Likely underlying gastroparesis. Use as needed antiemetics. Recommend outpatient GI follow-up for further evaluation * Syncope/fall likely secondary to volume depletion and orthostasis. PT OT gait and safety eval, no arrhythmias noted * Diabetes with hyperglycemia and polyneuropathy: Much improved on CC diet/basal prandial insulin/exenatide/Lyrica/gabapentin * History of PAF rate controlled on Coreg/apixaban/amiodarone * HTN: on coreg/held spironolactone, KATHLEEN inhibitor until renal function improves * History of chronic anxiety disorder on alprazolam * History of chronic pain on morphine 60 twice daily p.o./IV breakthrough * History of positional vertigo-stable, currently stable. Patient has not followed up with outpatient vestibular rehab as recommended during previous hospitalization on discharge * h/o CVA: On apixaban for CVA prophylaxis. Continue PT OT/statin * GERD continue PPI Plan * Renal failure management per nephrology * May discontinue antibiotics in 24 hours * Interval chest imaging in 24 hours * Morphine 1 to 2 mg every 4 * Continue CC diet/basal insulin * Anticoagulation on apixaban * PT OT/nutrition support * Outpatient referrals for behavioral health for stress and anxiety disorder/pain clinic for chronic pain management/GI referrals for gastroparesis on discharge Time Spent With Patient Time: Total time spent is greater than 50% in coordination of care (as documented) at patient's floor/unit and/or counseling patient:
--- NOTE | 2020-08-04 12:48 | Nephrology Progress Note ---
SUBJECTIVE Subjective Patient information: Note initiated : 08/04/20 at 12:45 pm Service Date, if different from initiated Date: [] Patient: Abbi Sprague a 59 y/o F admitted on 07/31/20 for fall from standing position. Chief Complaint: [weakness, N?V?D] Patient is a 67-year-old woman with diastolic dysfunction who developed acute renal failure in the setting of fluid loss from diarrhea as well as furosemide and spironolactone therapy with concomitant hypotension from beta-blockade and KATHLEEN inhibitor therapy. Initially she was oligo anuric for 72 hours and received aggressive IV fluid hydration better creatinine still progressed to 5 mg/dL. 6 hours ago she began to make increased amounts of urine and was given 100 mg of IV furosemide and responded with 5 L of urine output over the last 24 hours. In addition serum creatinine is beginning to improve from the peak of 5 mg/dL. Believe she had acute renal failure starting as acute prerenal azotemia and then making the transition to acute tubular necrosis from prolonged hypotension. Today I restarted spironolactone at 25 mg a day and anticipate from a renal point of view she can go home in the next 24 to 48 hours with renal follow-up in 2 weeks. As she has diastolic dysfunction with preserved LV function I would use just spironolactone and beta-blockers but would admit the KATHLEEN inhibitor at discharge. Serum sodium was 125 on admission is now back into the 130s but I would keep her on a modest fluid restriction on the order of 1.2 to 1.5 L/day until she is seen in follow-up. Constitutional Vitals: Vital Signs Temp Pulse Resp BP Pulse Ox 36.8 C 74 24 H 118/61 91 08/04/20 12:01 08/04/20 12:11 08/04/20 08:00 08/04/20 12:01 08/04/20 12:11 Period Temp Pulse Resp BP Sys/Wiggins Pulse Ox Last 24 Hr 36.2 C-36.8 C 69-81 18-24 101-135/52-84 82-100 Intake and Output 08/03/20 08/04/20 08/04/20 21:59 05:59 13:59 Intake Total 530 290 50 Output Total 2200 1650 Balance -1670 -1360 50 Intake & Output: Intake & Output 09/08/04/20 08/04/20 21:59 05:59 13:59 Intake Total 530 290 50 Output Total 2200 1650 Balance -1670 -1360 50 Intake: IV 50 50 50 Zosyn 2.25 gm In Dextrose 5% in 50 50 50 Water 50 ml @ 100 mls/hr IV Q8H [facility] Rx#:[id number] Oral 480 240 Output: Urine Catheter Amount 2200 1650 Other: Meal Dinner snack Percent of Meal Consumed 50% 100% Feeding Ability Assist with Tray Set Up Assist with Tray Set Up Nourishment/Supplement name milk milk Urine Appearance Clear Clear Reinserted Fall Clear Clear Urine Color Straw Pale Reinserted Fall Dark Yellow Straw # Bowel Movements 0 Exam: Alert and oriented x3. Appears chronically ill Head Additional comments: Atraumatic normocephalic Eye Additional comments: Equal round reactive pupils extraocular muscles are intact anicteric sclera ENT Additional comments: Moist mucous membranes Neck Additional comments: Neck is supple without elevated JVD or thyromegaly Respiratory Additional comments: Breath sounds are a bit distant. Few crackles on the right fairly clear on the left Cardiovascular Additional comments: Normal S1 and S2 without an S3 or S4 GI/Abdominal Additional comments: Soft abdomen bowel sounds are present benign exam no CVA tenderness Extremities Exam Additional comments: No significant edema. Dry skin Neurological Exam Neurological exam: Present alert, CN II-XII intact, motor sensory deficit and oriented X3 Additional comments: Gait not tested Skin Skin exam: Present abrasion and dry A/P Assessment and plan (1) Chronic hyponatremia: Assessment and plan: Most likely multifactorial: Excess salt and water losses from Diarrhea, N/V and diuretics with hypotonic fluid replacement Increased ADH release and decreased free water clearance due to hypotension +/- CHF Several psychiatric Rx associated with SIADH Hypothyroidism and adrenal insufficiency seem less likely TIN from AIN could occur but doubt as no rash or eosinophilia. Status: Chronic Comment: > 2 weeks in duration and minimal MS changes (2) Acute kidney failure: Status: Acute Comment: Suspect Acute prerenal azotemia but could progress to ATN Awaiting FeNa AIN from ABx is a remote possibility Qualifiers: Acute renal failure type: with acute tubular necrosis Qualified Code(s): N17.0 - Acute kidney failure with tubular necrosis (3) Acute on chronic heart failure with normal ejection fraction: Assessment and plan: Hold ACEi and Aldactone Hold lasix Needs volume Echo to assess LVEF Status: Chronic Narrative A/P Narrative: Assessment: * Multifocal chest infiltrates-likely volume overload clinically improving. Now in polyuric phase with adequate spontaneous diuresis. Consider discontinuing antibiotics in 24 hours. COVID-19 negative. * Leukocytosis-improving white count down at 8.9 from 16. * Acute kidney injury likely secondary ischemic ATN , creatinine 5.1-> 4 today. Baseline 0.8. Now in polyuric phase. Ongoing management per nephrology. * Hypervolemic hyponatremia. Sodium now at 134. Secondary to volume overload. Now resolving Plan: Home soon Restart spironolactone but not ACEi Fall out Re-image CXR in 24 hr before D/c Follow up with Me in 2 weeks after D/C Stay on 1200 cc po fulid restriction till I see her in F/U OK for B-hoa but hold ACEi Time Spent With Patient Time: 45 min total time spent is greater than 50% in coordination of care (as documented) at patient's floor/unit and/or counseling patient:
[2020-08-04] MEDS: MELATONIN 3 MG TABLET PO PRN (20:51)
[2020-08-04] MEDS: SENNOSIDES/DOCUSATE SODIUM 1 TAB TABLET PO SCH (20:52)
[2020-08-05] MEDS: PROMETHAZINE 25 MG TABLET PO PRN (00:22)
[2020-08-05] MEDS: 0.9 % SODIUM CHLORIDE 10 ML SYRINGE IV SCH ×3 (02:56→15:12)
[2020-08-05] MEDS: PIPERACILLIN SODIUM/TAZOBACTAM 2.25 GM in DEXTROSE 5% IN WATER 50 ML IV SCH (05:59)
[2020-08-05] MEDS: OMEPRAZOLE 20 MG CAPSULE PO SCH (07:03)
[2020-08-05] MEDS: INSULIN GLARGINE, HUMAN 1 UNIT/0.01 ML SQ SCH ×2 (08:14→21:39)
[2020-08-05] MEDS: morphine 30 MG TAB.SR.12H PO SCH ×2 (08:14→21:37)
[2020-08-05] MEDS: INSULIN LISPRO 1 UNIT/0.01 ML UNIT SQ SCH ×4 (08:14→21:39)
[2020-08-05] MEDS: CARVEDILOL 12.5 MG TABLET PO SCH ×2 (08:15→17:41)
[2020-08-05] MEDS: ALPRAZolam 0.25 MG TABLET PO SCH ×3 (08:15→21:39)
[2020-08-05] MEDS: AMIODARONE HCL 200 MG TABLET PO SCH (08:16)
[2020-08-05] MEDS: ATORVASTATIN 40 MG TABLET PO SCH (08:16)
[2020-08-05] MEDS: APIXABAN 5 MG TABLET PO SCH ×2 (08:28→21:37)
[2020-08-05] MEDS: DOCUSATE SODIUM 100 MG CAPSULE PO SCH ×2 (08:29→21:35)
[2020-08-05 08:57] LABS: Hematocrit 26.7 % (34.1-44.9); Hemoglobin 8.9 g/dL (11.2-15.7); Mean Cell Volume 88.4 fL (80.0-100.0); Mean Corpuscular HGB Conc 33.3 g/dL (31.0-36.0); Mean Platelet Volume 9.3 fL (7.4-10.4); Platelet Count 315 K/mcL (140-440); RBC 3.02 M/mcL (3.59-5.38); Red Cell Distribution Width 13.6 % (11.5-14.5)
[2020-08-05] MEDS ORDERED: SPIRONOLACTONE 25 MG TABLET PO SCH (09:00)
[2020-08-05 09:18] LABS: ALT/SGPT 8 U/l (0-40); AST/SGOT 10 U/l (0-37); Albumin 2.7 gm/dL (3.2-5.2); Albumin/Globulin Ratio 0.8 (1.0-2.3); Alkaline Phosphatase 115 U/L (39-117); Bilirubin,Direct < 0.2 mg/dL (0.0-0.3); Bilirubin,Total < 0.2 mg/dL (0.0-1.0); Calcium 8.5 mg/dl (8.6-10.4); Carbon Dioxide 24 mmol/L (22-30); Chloride 101 mmol/L (96-108); Globulin 3.2 gm/dL (2.2-3.7); Glucose 169 mg/dL (70-105); Lactate Dehydrogenase 200 U/L (94-250); Triglycerides 120 mg/dl (<150)
[2020-08-05 09:57] LABS: Blood Urea Nitrogen 41 mg/dl (8-23); Glomerular Filtration Rate 25; Uric Acid 6.2 mg/dL (2.5-8.0)
--- NOTE | 2020-08-05 10:10 | Nephrology Progress Note ---
SUBJECTIVE Subjective Patient information: Note initiated : 08/05/20 at 10:08 am Patient: Abbi Sprague 59 y/o F admitted on 07/31/20 for fall from standing position. Chief Complaint: Weakness Pertinent ROS: Weakness No shortness of breath Appetite improved Constitutional Vitals: Vital Signs Temp Pulse Resp BP Pulse Ox 97.6 F 75 16 139/77 96 08/05/20 08:34 08/04/20 14:00 08/05/20 00:01 08/05/20 08:34 08/05/20 08:56 Period Temp Pulse Resp BP Sys/Wiggins Pulse Ox Last 24 Hr 96.4 F-98.4 F 74-75 16-20 100-148/50-84 91-99 Intake and Output 08/04/20 08/05/20 08/05/20 21:59 05:59 13:59 Intake Total 290 50 240 Output Total 1250 800 650 Balance -960 -750 -410 Weight 186 lb 8 oz Intake & Output: Intake & Output 08/04/20 08/05/20 08/05/20 21:59 05:59 13:59 Intake Total 290 50 240 Output Total 1250 800 650 Balance -960 -750 -410 Weight 186 lb 8 oz Intake: IV 50 50 Zosyn 2.25 gm In Dextrose 5% in 50 50 Water 50 ml @ 100 mls/hr IV Q8H [facility] Rx#:[id number] Oral 240 0 240 Output: Void Amount 1250 800 650 Other: Meal Dinner Nourishment/Supplement Percent of Meal Consumed 100% Urine Appearance Clear Clear Clear Urine Color Pale Pale Bright Yellow Urine Odor Normal Normal Normal General appearance: cooperative and no acute distress Head Head exam: Present normal inspection Eye Eye exam: Present normal appearance ENT ENT exam: Present mucous membranes moist Respiratory Respiratory exam: Absent respiratory distress Cardiovascular Cardiovascular exam: Present normal rate and rhythm GI/Abdominal GI/Abdominal exam: Present soft; Absent tenderness Extremities Exam Extremities exam: Absent joint swelling and pedal edema Neurological Exam Neurological exam: Present alert and oriented X3 Psychiatric Psychiatric exam: Present normal affect and normal mood Skin Skin exam: Present warm; Absent rash A/P Assessment and plan (1) Acute kidney failure: Assessment and plan: Acute kidney injury with initial hypokalemia and hyponatremia, associated with fluid loss from diarrhea as well as furosemide and spironolactone therapy with concomitant hypotension from beta-blockade and KATHLEEN inhibitor therapy, present on arrival. There is no recent history of IV contrast administration or NSAID use. Work up: Urine culture on 08/04/20: Klebsiella pneumoniae and another gram negative bacillus. Renal US on 08/01/20: Normal. Progress: Serum creatinine decreased from 4.0 to 2.1 in the past 24 hours. Baseline serum creatinine 0.6 to 1.1. Urine output: 3,250 ml reported in the past 24 hours. No fluid overload. No uremic symptoms. Recommendations/Plan: Nephrology follow-up with Dr. Negrete in 2 weeks. Status: Acute Qualifiers: Acute renal failure type: with acute tubular necrosis Qualified Code(s): N17.0 - Acute kidney failure with tubular necrosis Time Spent With Patient Time: Total time spent is greater than 50% in coordination of care (as documented) at patient's floor/unit and/or counseling patient:
[2020-08-05 12:29] LABS: Anisocytosis 1+ (NONE SEEN); Eosinophils % (Manual) 4 % (0-7); Hypochromasia 1+ (NONE SEEN); Lymphocytes % 23 % (15-49); Monocytes % (Manual) 14 % (1-12); Platelet Estimate NORMAL (NORMAL); Polychromasia 1+ (NONE SEEN); RBC Morphology ABNORM (NORMAL); Segmented Neutrophils % 59 % (38-78)
[2020-08-05] MEDS: ONDANSETRON 4 MG/2 ML VIAL IV PRN (12:31)
[2020-08-05] MEDS ORDERED: PIPERACILLIN SODIUM/TAZOBACTAM 2.25 GM in DEXTROSE 5% IN WATER 50 ML IV SCH (13:00)
[2020-08-05] MEDS ORDERED: LORazepam (PP) 1 MG TABLET (#4) PO PRN (13:27)
--- NOTE | 2020-08-05 13:45 | Internal Med Progress Note ---
SUBJECTIVE Subjective Patient information: Note initiated : 08/05/20 at 1:36 pm Service Date, if different from initiated Date: [] Patient: Abbi Sprague a 59 y/o F admitted on 07/31/20 for fall from standing position. Chief Complaint: [] Ms. Sprague is a 59-year-old female with a history of DM type II/HTN/CAD/COPD/CVA/positional vertigo who presents to the ER this evening with symptoms of weakness dizziness lightheadedness and fall. She was on her way to the restroom when she got lightheaded and tripped and fell. discovered her on the floor. Subsequently EMS was called. She denies losing consciousness or seizure-like episode or incontinence Initial work-up in the ER was consistent with acute renal failure with a creatinine of 3.7 compared to baseline 0.8, BUN 66, sodium 124, potassium 3.2. Patient has been on diuretics including spironolactone/Lasix. Nephrology was consulted and recommended hospitalization. Subsequently hospitalist service was consulted At the time of my evaluation patient is anxious distressed but able to talk in full sentences. She endorses history as above. She denies recent NSAID intake/sick contacts/fever, bloody stool but endorses to diarrhea and multiple episodes of vomiting and persistent nausea. She has gotten progressively weak and has been unable to perform regular ADLs She was recently admitted at [facility] for acute renal failure secondary to volume depletion from recurrent emesis and uncomplicated urinary tract infection. 08/01-patient remains borderline hypotensive. Anuric. Systolics around 100. On crystalloids as per nephrology. Sodium 125, creatinine 4.5. Nephrology on board. 08/02-remains anuric with no urine output since 24 hours. On crystalloid/close renal function monitoring as per nephrology. Difficult IV access. Sodium 125. Creatinine 4.7. Electrolytes stable. Systolic steady around 110. 08/03-Abbi appears quite anxious and tearful today. She endorses that she she is very anxious and in pain. She could not tolerate [place] due to itching. Would want IV morphine to help relieve generalized pain. She endorses that she has underlying anxiety and posttraumatic stress disorders and had not been able to really established with a physician outside of hospital for a sustained outpatient management. Also she has not been able to follow-up with outpatient vestibular rehab nursing tech as recommended during previous hospitalization. I advised that we would try to set up an appointment with GI for evaluation of her recurrent nausea/underlying gastroparesis and also behavioral health specialist for management of her stress and psych issues along with pain clinic referrals. Foleys draining clear urine. White count down to 12. Creatinine up 5.1. Chest x-ray bilateral infiltrate/volume overload/pneumonia. COVID 19 test ordered. Also started on morphine 1 to 2 mg as needed for generalized pain. Continuing home dose alprazolam for anxiety. 08/04-patient clinically improving. In polyuric phase of ATN. On 2 to 4 L oxygen. Improved anxiety. Pain better controlled. Nausea improved. Tolerating diet. Creatinine downtrending from 5.1->4. Nephrology on board. Stable hemodynamics. COVID-19 negative. 08/05 Clinically patient is improving. Sodium 136 and creatinine 2.1 today Chest x-ray showed interval improvement. Discussed that with the emergency operator Dr. sanders who agreed to discharge her to home today. Based on the positive UA, Dr. Sanders would like to discharge her on cipro 250mg BID x 3 days. Discussed this plan with the patient who does not feel she is ready to go home because she still feels nauseated. She will be discharged home tomorrow possibly. Patient pulled IV access out by herself. Discontinued Zosyn and started Cipro oral. ROS: Positive for nausea. All other systems were reviewed and are negative. Constitutional Vitals: Vital Signs Temp Pulse Resp BP Pulse Ox 97.7 F 75 18 112/57 92 08/05/20 12:01 08/04/20 14:00 08/05/20 12:01 08/05/20 12:01 08/05/20 12:01 Period Temp Pulse Resp BP Sys/Wiggins Pulse Ox Last 24 Hr 96.4 F-98.4 F 75 16-20 100-148/50-84 92-99 Intake and Output 08/04/20 08/05/20 08/05/20 21:59 05:59 13:59 Intake Total 290 50 590 Output Total 1250 800 650 Balance -960 -750 -60 Weight 84.595 kg 84.595 kg Patient Weight 08/06/20 05:59 Weight 84.595 kg Intake & Output: Intake & Output 08/04/20 08/05/2020 21:59 05:59 13:59 Intake Total 290 50 590 Output Total 1250 800 650 Balance -960 750 -60 Weight 84.595 kg 84.595 kg Intake: IV 50 50 Zosyn 2.25 gm In Dextrose 5% in 50 50 Water 50 ml @ 100 mls/hr IV Q8H [facility] Rx#:[id number] Oral 240 0 590 Output: Void Amount 1250 800 650 Other: Meal Dinner Nourishment/Supplement Breakfast Percent of Meal Consumed 100% 100% Feeding Ability Independent Urine Appearance Clear Clear Clear Urine Color Pale Pale Bright Yellow Urine Odor Normal Normal Normal Additional findings Additional findings: General -no acute distress Eyes - PERRLA, EOM intact ENT no rhinorrhea, no noticeable or palpable swelling, no redness or rash around throat or on face Neck supple, no JVD, no thyromegaly Respiratory: Lungs - diminshed BS, no wheezing and crackles. Cardiovascular - RRR no m/r/g, GI - Normal bowel sounds, no distended, soft. Extremeties - No edema, cyanosis or clubbing Hemo/lymphatic/immune no lymphadenopathy Neurological Alert and oriented x 3, CN 2-12 grossly intact. Psychiatry flat affect OBJ DATA Labs CBC & Chem 7: 08/05/20 07:05 08/05/20 07:05 Labs: Abnormal Lab Results 08/05/20 08/05/20 08/04/20 07:05 07:05 05:00 WBC RBC 3.02 L Hgb 8.9 L Hct 26.7 L Gran % Lymph % (Auto) Gran # [place] # (Auto) Monocytes % (Manual) 14 H Metamyelocytes % RBC Morphology Abnorm A Polychromasia 1+ A Hypochromasia 1+ A Anisocytosis 1+ A Sodium Chloride Carbon Dioxide 20 L Anion Gap BUN 41 H 53 H Creatinine 2.1 H 4.0 H Glucose 169 H 138 H Uric Acid 8.7 H Calcium 8.5 L 7.8 L Phosphorus NT-Pro-B Natriuret Pep Total Protein 5.0 L Albumin 2.7 L 2.1 L Albumin/Globulin Ratio 0.8 L 0.7 L Urine Protein Urine Occult Blood Ur Leukocyte Esterase Urine WBC Urine Bacteria Hyaline Casts U [place] Prot/Creat Ratio 08/04/20 08/03/20 08/03/20 05:00 09:35 09:35 WBC RBC 2.63 L Hgb 7.7 L Hct 22.1 L Gran % Lymph % (Auto) Gran # [place] # (Auto) Monocytes % (Manual) 15 H Metamyelocytes % 1 H RBC Morphology Polychromasia Hypochromasia Anisocytosis Sodium Chloride Carbon Dioxide Anion Gap BUN Creatinine Glucose Uric Acid Calcium Phosphorus NT-Pro-B Natriuret Pep Total Protein Albumin Albumin/Globulin Ratio Urine Protein 30 A Urine Occult Blood 0.2 A Ur Leukocyte Esterase 25 A Urine WBC 6 H Urine Bacteria Few A Hyaline Casts 10 H U [place] Prot/Creat Ratio 1.11 H 08/03/20 08/03/20 08/03/20 07:45 07:45 07:45 WBC 12.0 H RBC 2.75 L Hgb 8.2 L Hct 23.3 L Gran % Lymph % (Auto) Gran # 8.39 H [place] # (Auto) 1.14 H Monocytes % (Manual) Metamyelocytes % RBC Morphology Polychromasia Hypochromasia Anisocytosis Sodium 129 L Chloride Carbon Dioxide 15 L Anion Gap BUN 60 H Creatinine 5.1 H* Glucose 115 H Uric Acid 9.1 H Calcium 7.7 L Phosphorus 4.7 H NT-Pro-B Natriuret Pep 05774.0 H Total Protein 5.5 L Albumin 2.5 L Albumin/Globulin Ratio 0.8 L Urine Protein Urine Occult Blood Ur Leukocyte Esterase Urine WBC Urine Bacteria Hyaline Casts U [place] Prot/Creat Ratio 08/02/20 08/02/20 15:25 14:30 WBC 15.8 H RBC 3.08 L Hgb 9.2 L Hct 26.2 L Gran % 80.8 H Lymph % (Auto) 11.4 L Gran # 12.74 H [place] # (Auto) Monocytes % (Manual) Metamyelocytes % RBC Morphology Polychromasia Hypochromasia Anisocytosis Sodium 126 L Chloride 95 L Carbon Dioxide 13 L Anion Gap 18.0 H BUN 68 H Creatinine 4.9 H Glucose 244 H Uric Acid Calcium 7.3 L Phosphorus NT-Pro-B Natriuret Pep Total Protein 5.2 L Albumin 2.3 L Albumin/Globulin Ratio 0.8 L Urine Protein Urine Occult Blood Ur Leukocyte Esterase Urine WBC Urine Bacteria Hyaline Casts U [place] Prot/Creat Ratio Meds: Medications Albuterol Sulfate (Ventolin) 1 puff INH Q6HP PRN PRN Reason: Shortness Of Breath Alprazolam (Xanax) 0.25 mg PO TID [facility] Last Admin: 08/05/20 08:15 Dose: 0.25 mg Documented by: Amiodarone HCl (Cordarone) 200 mg PO QAMCC [facility] Last Admin: 08/05/20 08:16 Dose: 200 mg Documented by: Apixaban (Eliquis) 2.5 mg PO BID [facility] Atorvastatin Calcium (Lipitor) 40 mg PO QDAY [facility] Last Admin: 08/05/20 08:16 Dose: 40 mg Documented by: Bisacodyl (Dulcolax) 10 mg MN Q2-3DAYS PRN PRN Reason: Constipation [facility] Last Admin: 08/05/20 08:15 Dose: 12.5 mg Documented by: Dextrose (Dextrose 50%) 0 ml IV UD PRN PRN Reason: Hypoglycemia Diagnostic Test (Pha) (Accu-Chek) 1 each FS [facility] Last Admin: 08/05/20 12:30 Dose: 1 each Documented by: Docusate Sodium (Colace) 100 mg PO BID [facility] Last Admin: 08/05/20 08:29 Dose: 100 mg Documented by: Glucose (Insta-Glucose) 15 gm PO PRN PRN PRN Reason: Hypoglycemia Piperacillin Sod/Tazobactam (Sod 2.25 gm/ Dextrose) 50 mls @ 100 mls/hr IV Q6H [facility]; Protocol Last Admin: 08/05/20 12:39 Dose: 100 mls/hr Documented by: Insulin Glargine (Lantus) 35 unit SQ BID [facility] Last Admin: 08/05/20 08:14 Dose: 35 units Documented by: Insulin Human Lispro (Humalog) 0 unit SQ [facility]; Protocol Last Admin: 08/05/20 12:38 Dose: 4 units Documented by: Melatonin (Melatonin 3mg Tablet) 3 mg PO HSP PRN PRN Reason: Insomnia Last Admin: 08/04/20 20:51 Dose: 3 mg Documented by: Metoprolol Tartrate (Lopressor) 5 mg IV Q5M PRN PRN Reason: Heart Rate > 140 bpm Morphine Sulfate (Ms Contin) 60 mg PO BID [facility]; Protocol Last Admin: 08/05/20 08:14 Dose: 60 mg Documented by: Omeprazole (Prilosec) 40 mg PO ACB [facility] Last Admin: 08/05/20 07:03 Dose: 40 mg Documented by: Ondansetron HCl (Zofran Odt) 4 mg SL Q4-6HP PRN; Protocol PRN Reason: Nausea And Vomiting Ondansetron HCl (Zofran) 4 mg IV Q4-6HP PRN; Protocol PRN Reason: Nausea And Vomiting Last Admin: 08/05/20 12:31 Dose: 4 mg Documented by: Exenatide Microspheres [ Bydureon] 2 Mg Syringe 1 dose SUB-Q We@0900 [facility] Last Admin: 08/02/20 17:45 Dose: 1 dose Documented by: Polyethylene Glycol (Miralax) 17 gm PO DAILYP PRN PRN Reason: Constipation Last Admin: 08/05/20 08:16 Dose: 17 gm Documented by: Promethazine HCl (Phenergan) 25 mg MN Q4HP PRN PRN Reason: Nausea Promethazine HCl (Phenergan) 25 mg PO Q4H PRN PRN Reason: Pain Last Admin: 08/05/20 00:22 Dose: 25 mg Documented by: Quetiapine Fumarate (Seroquel) 12.5 mg PO BID [facility] Senna/Docusate Sodium (Senna Plus Tablet) 1 tab PO HS [facility] Last Admin: 08/04/20 20:52 Dose: Not Given Documented by: Sodium Chloride (Saline Flush) 10 ml IV Q8 [facility] Last Admin: 08/05/20 05:59 Dose: 10 ml Documented by: Spironolactone (Aldactone) 25 mg PO DAILY [facility] Last Admin: 08/05/20 08:15 Dose: 25 mg Documented by: A/P Narrative A/P Narrative: A/P Narrative: Acute hypoxic respiratory failure: pulse ox. oxygen. trying to wean off. Multifocal chest infiltrates-likely volume overload clinically improving. discontinuned antibiotics in 24 hours. COVID-19 negative. Leukocytosis-resolved. Acute kidney injury likely secondary ischemic ATN , creatinine 5.1-> 4 > 2.1 today. Baseline 0.8. Now in polyuric phase. Ongoing management per nephrology. Cleared to be discharged to home today by emergency operator. Follow up with nephrology Dr Negrete in 2 weeks after D/C Hypervolemic hyponatremia. Sodium now at 136. Secondary to volume overload. Now resolved. Stay on 1200 cc po fulid restriction till Dr. Negrete sees her in F/U Episodic nausea vomiting. Clinically improved. Likely underlying gastroparesis. Use as needed antiemetics. Recommend outpatient GI follow-up for further evaluation Syncope/fall likely secondary to volume depletion and orthostasis. PT OT gait and safety eval, no arrhythmias noted Diabetes with hyperglycemia and polyneuropathy: Much improved on CC diet/basal prandial insulin/exenatide/Lyrica/gabapentin History of PAF rate controlled on Coreg/apixaban/amiodarone HTN: resumed spironolactone, OK for B-hoa but hold ACEi History of chronic anxiety disorder on alprazolam. added seroquel History of chronic pain on morphine 60 twice daily p.o. History of positional vertigo-stable, currently stable. Patient has not followed up with outpatient vestibular rehab as recommended during previous hospitalization on discharge h/o CVA: On apixaban for CVA prophylaxis. Continue PT OT/statin GERD continue PPI UTI - culture positive for Kleb. As per nephrology Dr. sanders, Cipro 250 mg twice daily for 3 days Plan Renal failure management per nephrology May discontinued zosyn and started cipro today. Interval chest imaging in 24 hours Morphine 1 to 2 mg every 4 Continue CC diet/basal insulin Anticoagulation on apixaban PT OT/nutrition support Outpatient referrals for behavioral health for stress and anxiety disorder/pain clinic for chronic pain management/GI referrals for gastroparesis on discharge Time Spent With Patient Time: Total time spent is greater than 50% in coordination of care (as documented) at patient's floor/unit and/or counseling patient:
[2020-08-05] MEDS ORDERED: PROMETHAZINE 25 MG TABLET PO PRN (16:42)
[2020-08-05] MEDS ORDERED: MELATONIN 3 MG TABLET PO PRN (16:42)
[2020-08-05] MEDS ORDERED: ONDANSETRON 4 MG ODT TABLET SL PRN (16:42)
[2020-08-05] MEDS ORDERED: DEXTROSE 50% 50 ML VIAL IV PRN (16:42)
[2020-08-05] MEDS ORDERED: ONDANSETRON 4 MG/2 ML VIAL IV PRN (16:42)
[2020-08-05] MEDS ORDERED: BISACODYL 10 MG SUPP.RECT PR PRN (16:42)
[2020-08-05] MEDS ORDERED: PROMETHAZINE 25 MG SUPP.RECT PR PRN (16:42)
[2020-08-05] MEDS ORDERED: METOPROLOL TARTRATE 5 MG/5 ML VIAL IV PRN (16:42)
[2020-08-05] MEDS ORDERED: ALBUTEROL SULFATE 200 PUFF INHALER INH PRN (16:42)
[2020-08-05] MEDS ORDERED: DEXTROSE 31 GM ORAL.SUSP PO PRN (16:42)
[2020-08-05] MEDS ORDERED: POLYETHYLENE GLYCOL 3350 17 GM PACKET PO PRN (16:42)
--- NOTE | 2020-08-05 17:33 | XRay Report ---
HISTORY: Follow-up pulmonary infiltrates and cardiomegaly FINDINGS: Prominent increased interstitial lung markings are present bilaterally. The greatest involvement is in the right lower lobe. There has been moderate improvement bilaterally since 08/03/20. The heart size is now normal. There may be a tiny right-sided pleural effusion. IMPRESSION: Moderate improvement of the congestive heart failure or widespread bilateral pneumonia Interpreted and Authenticated by: Bill Stone 08/05/20
[2020-08-05] MEDS ORDERED: QUEtiapine 25 MG TABLET PO SCH (21:00)
[2020-08-05] MEDS ORDERED: SENNOSIDES/DOCUSATE SODIUM 1 TAB TABLET PO SCH (21:00)
[2020-08-05] MEDS ORDERED: APIXABAN 5 MG TABLET PO SCH (21:00)
[2020-08-05] MEDS ORDERED: CIPROFLOXACIN 250 MG TABLET PO SCH (21:00)
[2020-08-05] MEDS: QUEtiapine 25 MG TABLET PO SCH (21:35)
[2020-08-05] MEDS: CIPROFLOXACIN 250 MG TABLET PO SCH (21:38)
[2020-08-06] MEDS ORDERED: OMEPRAZOLE 20 MG CAPSULE PO SCH (07:30)
[2020-08-06] MEDS: INSULIN LISPRO 1 UNIT/0.01 ML UNIT SQ SCH ×2 (07:54→11:52)
[2020-08-06] MEDS: INSULIN GLARGINE, HUMAN 1 UNIT/0.01 ML SQ SCH (07:55)
[2020-08-06] MEDS: QUEtiapine 25 MG TABLET PO SCH (07:56)
[2020-08-06] MEDS: CARVEDILOL 12.5 MG TABLET PO SCH (07:57)
[2020-08-06] MEDS: ALPRAZolam 0.25 MG TABLET PO SCH (07:58)
[2020-08-06] MEDS: CIPROFLOXACIN 250 MG TABLET PO SCH (07:59)
[2020-08-06] MEDS: APIXABAN 5 MG TABLET PO SCH (07:59)
[2020-08-06] MEDS: morphine 30 MG TAB.SR.12H PO SCH (08:00)
[2020-08-06] MEDS ORDERED: AMIODARONE HCL 200 MG TABLET PO SCH (08:00)
[2020-08-06] MEDS: DOCUSATE SODIUM 100 MG CAPSULE PO SCH (08:01)
[2020-08-06] MEDS ORDERED: SPIRONOLACTONE 25 MG TABLET PO SCH (09:00)
[2020-08-06] MEDS ORDERED: ATORVASTATIN 40 MG TABLET PO SCH (09:00)
--- NOTE | 2020-08-06 09:19 | Nephrology Progress Note ---
SUBJECTIVE Subjective Patient information: Note initiated : 08/06/20 at 9:18 am Service Date, if different from initiated Date: [] Patient: Abbi Sprague 59 y/o F admitted on 07/31/20 for fall from standing position. Chief Complaint: Weakness Pertinent ROS: Weakness Feels congested Edema Constitutional Vitals: Vital Signs Temp Pulse Resp BP Pulse Ox 97.9 F 76 18 121/60 94 08/06/20 08:00 08/06/20 08:00 08/06/20 08:00 08/06/20 08:00 08/06/20 08:00 Period Temp Pulse Resp BP Sys/Wiggins Pulse Ox Last 24 Hr 97.7 F-98.8 F 73-80 16-18 102-158/49-98 92-99 Intake and Output 08/05/20 08/06/20 08/06/20 21:59 05:59 13:59 Intake Total 250 700 Output Total 900 Balance -650 700 Weight 193 lb 8 oz Intake & Output: Intake & Output 08/05/20 08/06/20 08/06/20 21:59 05:59 13:59 Intake Total 250 700 Output Total 900 Balance -650 700 Weight 193 lb 8 oz Intake: Nourishment/Supplement quantity 460 (ml) Oral 250 240 Output: Void Amount 900 Other: Meal Dinner Percent of Meal Consumed 100% Feeding Ability Independent Nourishment/Supplement name Jello Urine Appearance Clear Urine Color Bright Yellow Urine Odor Normal Stool Size Small Stool Color Brown Stool Consistency Liquid # Voids 1 1 # [place] 0 General appearance: cooperative and no acute distress Head Head exam: Present normal inspection Eye Eye exam: Present normal appearance ENT ENT exam: Present mucous membranes moist Respiratory Respiratory exam: Absent respiratory distress Cardiovascular Cardiovascular exam: Present normal rate and rhythm GI/Abdominal GI/Abdominal exam: Present soft; Absent tenderness Extremities Exam Extremities exam: Present pedal edema; Absent joint swelling Neurological Exam Neurological exam: Present alert and oriented X3 Psychiatric Psychiatric exam: Present normal affect and normal mood Skin Skin exam: Present warm; Absent rash A/P Assessment and plan (1) Acute kidney failure: Assessment and plan: Acute kidney injury with initial hypokalemia and hyponatremia, associated with fluid loss from diarrhea as well as furosemide and spironolactone therapy with concomitant hypotension from beta-blockade and KATHLEEN inhibitor therapy, present on arrival, resolving. Suspected acute cystitis with Klebsiella pneumoniae and another gram negative bacillus. Work up: Urine culture on 08/04/20: Klebsiella pneumoniae and another gram negative bacillus. Renal US on 08/01/20: Normal. Progress: Serum creatinine decreased from 2.1 to 1.2 in the past 24 hours. Baseline serum creatinine 0.6 to 1.1. Urine output: 1,550 ml reported in the past 24 hours. Fluid overload with edema and shortness of breath. I/Os + 1,844 ml. No uremic symptoms. Recommendations/Plan: Furosemide 40 mg by mouth x 1. Ciprofloxacin 250 mg twice daily for 3 days. Nephrology follow-up with Dr. Negrete in 2 weeks. Status: Acute Qualifiers: Acute renal failure type: with acute tubular necrosis Qualified Code(s): N17.0 - Acute kidney failure with tubular necrosis Time Spent With Patient Time: Total time spent is greater than 50% in coordination of care (as documented) at patient's floor/unit and/or counseling patient:
[2020-08-06] MEDS ORDERED: FUROSEMIDE 40 MG TABLET PO ONE (09:31)
[2020-08-06 10:23] LABS: Basophils # (Auto) 0.02 K/mcL (0.00-0.30); Basophils % (Auto) 0.2 % (0.0-2.0); Eosinophils # (Auto) 0.17 K/mcL (0.00-0.70); Eosinophils % (Auto) 1.9 % (0.0-7.0); Granulocytes % (Auto) 55.4 % (38.0-78.0); Hematocrit 25.8 % (34.1-44.9); Hemoglobin 8.4 g/dL (11.2-15.7); Lymphocytes # (Auto) 2.38 K/mcL (1.50-4.80); Mean Cell Volume 91.2 fL (80.0-100.0); Mean Corpuscular HGB Conc 32.6 g/dL (31.0-36.0); Mean Platelet Volume 8.9 fL (7.4-10.4); Monocytes # (Auto) 1.51 K/mcL (0.10-0.90); Monocytes % (Auto) 16.5 % (1.0-12.0); Platelet Count 298 K/mcL (140-440); RBC 2.83 M/mcL (3.59-5.38); Red Cell Distribution Width 13.6 % (11.5-14.5); WBC 9.2 K/mcL (4.50-11.00)
[2020-08-06 10:55] LABS: Calcium 8.7 mg/dl (8.6-10.4); Carbon Dioxide 25 mmol/L (22-30); Chloride 102 mmol/L (96-108); Glucose 102 mg/dL (70-105)
[2020-08-06 11:00] LABS: Blood Urea Nitrogen 27 mg/dl (8-23); Glomerular Filtration Rate 49
--- NOTE | 2020-08-06 12:19 | Discharge Summary ---
Discharge Provider Provider Patient information: Note initiated : 08/06/20 at 12:03 pm Service Date, if different from initiated Date: [] Patient: Abbi Sprague 59 y/o F admitted on 07/31/20 for fall from standing position. Chief Complaint: [] Date of admission: 07/31/20 23:56 Discharge date: 08/06/20 Primary care physician: Fartun Yoder Consults: 08/01/20 00:01 Consult to Physician [CONS] Routine Comment: Consulting Provider: Rosendo Negrete Reason For Exam: Physician to Consult 08/01/20 08:17 Consult to Physician [CONS] Routine Comment: Consulting Provider: Augustine Barker Reason For Exam: Physician to Consult Discharge Meds Discharge Medications Home Medications alprazolam 0.25 mg tablet 0.25 mg PO TID 05/24/20 [History Confirmed 08/01/20 Last Taken 07/31/20] amiodarone 200 mg tablet 200 mg PO QDAY 05/24/20 [History Confirmed 08/01/20 Last Taken 07/31/20] carvedilol 12.5 mg tablet 12.5 mg PO BID 05/24/20 [History Confirmed 08/01/20 Last Taken 07/31/20] exenatide microspheres 2 mg/0.65 mL subcutaneous pen injector 2 mg SUB-Q QWEEK 05/24/20 [History Confirmed 08/01/20 Last Taken 07/26/20] insulin lispro 100 unit/mL subcutaneous pen See Rx Instructions .ROUTE .COMPLEX ml 05/24/20 [History Confirmed 08/01/20 Last Taken 07/31/20] morphine 30 mg tablet,extended release 60 mg PO BID 05/24/20 [History Confirmed 08/01/20 Last Taken 07/31/20] omeprazole 40 mg capsule,delayed release 40 mg PO BID 05/24/20 [History Confirmed 08/01/20 Last Taken 07/31/20] rosuvastatin 20 mg tablet 20 mg PO BID 05/24/20 [History Confirmed 08/01/20 Last Taken 07/31/20] spironolactone 25 mg tablet 25 mg PO QDAY 05/24/20 [History Confirmed 08/01/20 Last Taken 07/31/20] albuterol sulfate 2 puff INHALATION Q6H PRN 09/15/20 [History Confirmed 08/01/20 Last Taken 07/30/20] apixaban [Eliquis] 5 mg PO BID #30 tab 08/06/20 [Rx Last Taken Unknown] ciprofloxacin HCl 250 mg PO BID #6 tab 08/06/20 [Rx Last Taken Unknown] insulin glargine [Lantus U-100 Insulin] 35 unit SQ BID #10 ml 08/06/20 [Rx Last Taken Unknown] COURSE Hospital Course Hospital course: Acute hypoxic respiratory failure: pulse ox. oxygen. She is now off oxygen with good oxygen saturation. Multifocal chest infiltrates-likely volume overload clinically improving. discontinuned antibiotics. COVID-[address] Sanders, lasix 40mg po x 1 was given today. Leukocytosis-resolved. Acute kidney injury likely secondary ischemic ATN , creatinine 5.1-> 4 > 2.1>1.2 today. Baseline 0.8. Cleared to be discharged to home today by backup operator. Follow up with nephrology Dr Negrete in 2 weeks after D/C Hypervolemic hyponatremia. Sodium now at 137. Secondary to volume overload. Now resolved. Stay on 1200 cc po fulid restriction till Dr. Negrete sees her in F/U Episodic nausea vomiting. Clinically improved. Likely underlying gastroparesis. Use as needed antiemetics. Recommend outpatient GI follow-up for further evaluation Syncope/fall likely secondary to volume depletion and orthostasis. PT OT gait and safety eval, no arrhythmias noted Diabetes with hyperglycemia and polyneuropathy: Much improved on CC diet/basal prandial insulin/exenatide/Lyrica/gabapentin History of PAF rate controlled on Coreg/apixaban (adjust dose based on renal function)/amiodarone HTN: resumed spironolactone, OK for B-hoa but hold ACEi History of chronic anxiety disorder on alprazolam. added seroquel History of chronic pain on morphine 60 twice daily p.o. History of positional vertigo-stable, currently stable. Patient has not followed up with outpatient vestibular rehab as recommended during previous hospitalization on discharge h/o CVA: On apixaban for CVA prophylaxis. Continue PT OT/statin GERD continue PPI UTI - culture positive for Kleb. As per nephrology Dr. sanders, Cipro 250 mg twice daily for 3 days PT OT/nutrition support Outpatient referrals for behavioral health for stress and anxiety disorder/pain clinic for chronic pain management/GI referrals for gastroparesis on discharge Eliquis is adjusted to 5 mg twice daily. Repeat renal function in 3 days and see PCP in 3 days. The dose of Eliquis needs to be adjusted based on renal function. Lisinopril and Lasix on hold. Insulin is adjusted. Metformin is on hold. We will check blood sugar before each meal and at bedtime. Adjust insulin based on blood sugar level. Interval history: Ms. Sprague is a 59-year-old female with a history of DM type II/HTN/CAD/COPD/CVA/positional vertigo who presents to the ER this evening with symptoms of weakness dizziness lightheadedness and fall. She was on her way to the restroom when she got lightheaded and tripped and fell. discovered her on the floor. Subsequently EMS was called. She denies losing consciousness or seizure-like episode or incontinence Initial work-up in the ER was consistent with acute renal failure with a creatinine of 3.7 compared to baseline 0.8, BUN 66, sodium 124, potassium 3.2. Patient has been on diuretics including spironolactone/Lasix. Nephrology was consulted and recommended hospitalization. Subsequently hospitalist service was consulted At the time of my evaluation patient is anxious distressed but able to talk in full sentences. She endorses history as above. She denies recent NSAID intake/sick contacts/fever, bloody stool but endorses to diarrhea and multiple episodes of vomiting and persistent nausea. She has gotten progressively weak and has been unable to perform regular ADLs She was recently admitted at [facility] for acute renal failure secondary to volume depletion from recurrent emesis and uncomplicated urinary tract infection. 08/01-patient remains borderline hypotensive. Anuric. Systolics around 100. On crystalloids as per nephrology. Sodium 125, creatinine 4.5. Nephrology on board. 08/02-remains anuric with no urine output since 24 hours. On crystalloid/close renal function monitoring as per nephrology. Difficult IV access. Sodium 125. Creatinine 4.7. Electrolytes stable. Systolic steady around 110. 08/03-Abbi appears quite anxious and tearful today. She endorses that she she is very anxious and in pain. She could not tolerate Mcdaniel due to itching. Would want IV morphine to help relieve generalized pain. She endorses that she has underlying anxiety and posttraumatic stress disorders and had not been able to really established with a physician outside of hospital for a sustained outpatient management. Also she has not been able to follow-up with outpatient vestibular rehab rn as recommended during previous hospitalization. I advised that we would try to set up an appointment with GI for evaluation of her recurrent nausea/underlying gastroparesis and also behavioral health specialist for management of her stress and psych issues along with pain clinic referrals. Foleys draining clear urine. White count down to 12. Creatinine up 5.1. Chest x-ray bilateral infiltrate/volume overload/pneumonia. COVID 19 test ordered. Also started on morphine 1 to 2 mg as needed for generalized pain. Continuing home dose alprazolam for anxiety. 08/04-patient clinically improving. In polyuric phase of ATN. On 2 to 4 L oxygen. Improved anxiety. Pain better controlled. Nausea improved. Tolerating diet. Creatinine downtrending from 5.1->4. Nephrology on board. Stable hemodynamics. COVID-19 negative. 08/05 Clinically patient is improving. Sodium 136 and creatinine 2.1 today Chest x-ray showed interval improvement. Discussed that with the backup operator Dr. sanders who agreed to discharge her to home today. Based on the positive UA, Dr. Sanders would like to discharge her on cipro 250mg BID x 3 days. Discussed this plan with the patient who does not feel she is ready to go home because she still feels nauseated. She will be discharged home tomorrow possibly. Patient pulled IV access out by herself. Discontinued Zosyn and started Cipro oral. 08/06 Patient feels fine today and mother signs are stable. regional business development manager concluded patient can go home with . Patient is cleared to be discharged to home by backup operator. She see PCP, nephrology Dr. Negrete, GI and behavioral health. 1200 cc/day. Fluid restriction until seeing Dr. Negrete. Repeat CBC and CMP in 3 days. Call PCP for medical issues. Discharge diagnosis: Acute hypoxic respiratory failure, Acute kidney injury Time Spent with Patient Time attestation: Total time spent providing and/or coordinating discharge services: EXAM Constitutional Vitals: Temp Pulse Resp BP Pulse Ox 97.9 F 76 18 121/60 94 08/06/20 08:00 08/06/20 08:00 08/06/20 08:00 08/06/20 08:00 08/06/20 08:00 Additional findings Additional findings: General -no acute distress Eyes - PERRLA, EOM intact ENT no rhinorrhea, no noticeable or palpable swelling, no redness or rash around throat or on face Neck supple, no JVD, no thyromegaly Respiratory: Lungs - diminshed BS, no wheezing and crackles. Cardiovascular - RRR no m/r/g, GI - Normal bowel sounds, no distended, soft. Extremeties - No edema, cyanosis or clubbing Hemo/lymphatic/immune no lymphadenopathy Neurological Alert and oriented x 3, CN 2-12 grossly intact. Psychiatry flat affect Discharge Data Data Completed and Pending Labs on day of discharge: Labs from last 24 hours 08/06/20 08/06/20 08/05/20 09:27 09:27 07:05 WBC 9.2 RBC 2.83 L Hgb 8.4 L Hct 25.8 L MCV 91.2 MCH 29.7 MCHC 32.6 RDW 13.6 Plt Count 298 MPV 8.9 Gran % 55.4 Lymph % (Auto) 26.0 Steele % (Auto) 16.5 H Eos % (Auto) 1.9 Baso % (Auto) 0.2 Gran # 5.09 Lymph # (Auto) 2.38 Steele # (Auto) 1.51 H Eos # (Auto) 0.17 Baso # (Auto) 0.02 Total Counted 100 Seg Neutrophils % 59 Lymphocytes % 23 Monocytes % (Manual) 14 H Eosinophils % (Manual) 4 Platelet Estimate Normal RBC Morphology Abnorm A Polychromasia 1+ A Hypochromasia 1+ A Anisocytosis 1+ A Sodium 137 Potassium 4.3 Chloride 102 Carbon Dioxide 25 Anion Gap 10.0 BUN 27 H Creatinine 1.2 H GFR Calculation 49 Glucose 102 Calcium 8.7 Discharge Plan Patient/Caregiver Discharge Instructions Activity: increase activity as tolerated Diet: Consistent Carbohydrate Activity Restrictions/Additional Instructions: 1200 cc/day po fulid restriction till seeing Dr. Negrete Repeat CBC and CMP in [address] Negrete in 2 weeks GI for gastroparesis Behavioral health for stress and anxiety disorder outpatient vestibular rehab Prescriptions: New Lantus U-100 Insulin 100 unit/mL Solution 35 unit SQ BID Qty: 10 RF: 0 ciprofloxacin HCl 250 mg Tablet 250 mg PO BID Qty: 6 RF: 0 Eliquis 5 mg Tablet 5 mg PO BID Qty: 30 RF: 0 Continued alprazolam 0.25 mg tablet 0.25 mg PO TID RF: 0 amiodarone 200 mg tablet 200 mg PO QDAY RF: 0 Bydureon 2 mg/0.65 mL pen injector 2 mg SUB-Q QWEEK RF: 0 carvedilol 12.5 mg tablet 12.5 mg PO BID RF: 0 insulin lispro [Humalog KwikPen Insulin] 100 unit/mL insulin pen See Rx Instructions .ROUTE .COMPLEX RF: 0 morphine 30 mg tablet extended release 60 mg PO BID RF: 0 omeprazole 40 mg capsule,delayed release(DR/EC) 40 mg PO BID RF: 0 rosuvastatin 20 mg tablet 20 mg PO BID RF: 0 spironolactone 25 mg tablet 25 mg PO QDAY RF: 0 albuterol sulfate 90 mcg/actuation Hfa Aerosol Inhaler 2 puff INHALATION Q6H PRN (Reason: Shortness Of Breath Or Wheezing) RF: 0 Discontinued furosemide 20 mg tablet 20 mg PO QDAY RF: 0 lisinopril 5 mg tablet 5 mg PO QDAY RF: 0 metformin 1,000 mg tablet 1,000 mg PO BID RF: 0 promethazine 25 mg suppository 25 mg SC Q4H PRN (Reason: Nausea) RF: 0 promethazine 25 mg tablet 25 mg PO Q4H PRN (Reason: Nausea) RF: 0 insulin detemir U-100 100 UNIT/ML solution 30 unit subcut BID RF: 0 apixaban 2.5 mg Tablet 2.5 mg PO BID RF: 0 Other Ambulatory Orders: Complete Blood Count (Routine) Timeframe: 3 Days Facility: [facility] - Location: Laboratory Ordered By: Aisha Vazquez Comprehensive Metabolic Panel (Routine) Timeframe: 3 Days Facility: [facility] - Location: Laboratory Ordered By: Aisha Vazquez Follow Up Plan Follow up with: Unknown [Outside] (PCP in [address] Negrete in 2 weeks GI in one week for gastroparesis Behavioral health in one week or sooner for stress and anxiety disorder outpatient vestibular rehab within one week. ) Rosendo Negrete MD [Physician] - Fartun Yoder MD [Primary Care Provider] - Patient Disposition: Home, Self-Care Prognosis: Serious Discharge Orders: Discharge Order (Routine); Ordered 08/06/20 Ordered By: Aisha Vazquez Interventions Interventions: Discharge Vaccines Last Done: 08/04/20 14:15
[2020-08-09] MEDS ORDERED: EXENATIDE MICROSPHERES 2 MG SUB-Q SCH (09:00)
== END 2020-08-06 13:49 | disposition home or self-care (01) | DRG 189 ==
LOC: ED 20:41 → ICU 23:56 → MEDSUR 08-05 19:05
PROVIDERS: ADMIT Internal Medicine; ATTEND Internal Medicine

== ENCOUNTER 2021-01-27 01:09 | Inpatient (IN) ==
--- NOTE | 2021-01-27 01:32 | Emergency Department Note ---
SOB HPI General Chief Complaint: Shortness of Breath/Dyspnea Stated Complaint: sob Time Seen by Provider: 01/27/21 01:16 Mode of arrival: ambulatory History of Present Illness HPI Narrative: Narrative: Patient is a 60-year-old female who presents complaint of shortness of breath. She was telling the paramedics that she had more of a an asthma attack that was not responsive to her inhalers. She is further able to tell me that she has worsening with lying flat better when she is sitting up and for the last week and a half or more she has had to pile large amount of pillows in her bed just so that she can sleep without feeling like she is suffocating. She has not noticed any lower extremity swelling but has noted persistent drop-off in her amount of urination. She had previously been placed on Lasix and states that she has taken it. She notes that her blood sugars are in the 4-500 range which is actually good for her. She was unable to tell me her last hemoglobin A1c. She has not had any chest pain or palpitations. She states that her kidneys h ave been worsening and she was scheduled for a nephrology consultation in the next couple of weeks. She has not had any vomiting or diarrhea. She denies any fever or productive cough. She denies ever having been a smoker. Related Data Home Medications Medication Instructions Recorded Confirmed alprazolam 0.25 mg tablet 0.25 mg PO TID 05/24/20 01/27/21 amiodarone 200 mg tablet 200 mg PO QDAY 05/24/20 01/27/21 carvedilol 12.5 mg tablet 12.5 mg PO BID 05/24/20 01/27/21 insulin lispro 100 unit/mL See Rx Instructions .ROUTE 05/24/20 01/27/21 subcutaneous pen .COMPLEX ml morphine 30 mg tablet,extended 30 mg PO BID 05/24/20 01/27/21 release omeprazole 40 mg capsule,delayed 40 mg PO BID 05/24/20 01/27/21 release rosuvastatin 20 mg tablet 20 mg PO QAM 05/24/20 01/27/21 spironolactone 25 mg tablet 25 mg PO QDAY 05/24/20 01/27/21 albuterol sulfate 2 puff INHALATION Q6H PRN 08/01/20 01/27/21 Lantus U-100 Insulin 35 units BID 01/27/21 01/27/21 benzocaine-menthol [Cepacol Sore 1 ailyn PO BID PRN 01/27/21 01/27/21 Throat (aviva-men)] cetirizine [Allergy Relief 10 mg PO QDAY 01/27/21 01/27/21 (cetirizine)] furosemide 20 mg PO QAM 01/27/21 01/27/21 gabapentin 100 mg PO QHS 01/27/21 01/27/21 lisinopril 5 mg PO QAM 01/27/21 01/27/21 promethazine 25 mg LA Q4H PRN 01/27/21 01/27/21 Previous Rx's Medication Instructions Recorded apixaban [Eliquis] 5 mg PO BID #30 tab 08/06/20 meclizine 25 mg PO TID PRN #21 tab 08/31/20 ondansetron HCl [Zofran] 4 mg PO Q6H PRN #20 tab 11/30/20 Allergies Allergy/AdvReac Type Severity Reaction Status Date / Time Beet Allergy Severe Anaphylaxis Verified 01/27/21 01:19 buprenorphine [From Suboxone] Allergy Intermediate Swelling, Verified 01/27/21 01:19 rash duloxetine [From Cymbalta] Allergy Intermediate Swelling, Verified 01/27/21 01:19 rash ketorolac [From Toradol] Allergy Intermediate Difficulty Verified 01/27/21 01:19 Breathing, rash Naloxone [From Suboxone] Allergy Intermediate Swelling Verified 01/27/21 01:19 Sulfa (Sulfonamide Allergy Intermediate Difficulty Verified 01/27/21 01:19 Antibiotics) Breathing tramadol Allergy Intermediate Rash Verified 01/27/21 01:19 Iodinated Contrast Media Allergy Mild Hives Verified 01/27/21 08:37 [Iodinated Contrast Media - IV Dye] lorazepam [From Ativan] AdvReac Intermediate Hives, Verified 01/27/21 01:19 itching pregabalin [From Lyrica] AdvReac Intermediate Palpitations, Verified 01/27/21 08:37 edema sulfamethoxazole AdvReac Intermediate Palpitation Verified 01/27/21 01:19 [From Septra] s trimethoprim [From Septra] AdvReac Intermediate Palpitation Verified 01/27/21 01:19 s acetaminophen AdvReac Mild Itching Verified 01/27/21 01:19 bacitracin AdvReac Mild Itching Verified 01/27/21 01:19 fentanyl AdvReac Mild Dizziness Verified 01/27/21 01:19 and vomiting gabapentin AdvReac Mild Falls Verified 01/27/21 01:19 asleep hydrocodone [From [place]] AdvReac Mild Itching Verified 01/27/21 01:19 propoxyphene AdvReac Mild Edema Verified 01/27/21 08:37 rivaroxaban [From Xarelto] AdvReac Mild Dizziness, Verified 01/27/21 01:19 falls Review of Systems ROS ROS Narrative: Narrative: A 10 system review of systems was performed and found to be negative except as outlined above. [facility] Narrative Patient History Narrative: Narrative: Medical/Surgical/Family History All Active Problems (Updated 01/28/21 @ 03:18 by Todd King MD) Submental adenopathy (Acute) Body mass index (BMI) of 20 to 24 (Chronic) Bladder infection, acute (Chronic) Weakness generalized (Chronic) Nausea and vomiting (Chronic) Shortness of breath (Chronic) Abdominal pain (Chronic) UTI (urinary tract infection) (Chronic) Hyperglycemia due to type 2 diabetes mellitus (Chronic) Anemia (Chronic) Uncontrolled diabetes mellitus (Chronic) Falls frequently (Chronic) Shortness of breath (Chronic) Chronic anticoagulation (Chronic) UTI (urinary tract infection) (Chronic) Anemia in chronic illness (Chronic) Chronic progressive renal failure, stage 3 (moderate) (Chronic) Hypoproteinemia (Chronic) Acute hyperglycemia (Chronic) Chondrodermatitis nodularis chronica helicis (Chronic) Chronic hyponatremia (Chronic) Chronic anticoagulation (Chronic) Abdominal pain (Chronic) Vertigo (Chronic) Diabetic gastroparesis associated with type 2 diabetes mellitus (Chronic) Hyperglycemia (Chronic) Compression fracture of T10 vertebra (Chronic) Polyneuropathy (Chronic) History of hepatitis B (Chronic) Sciatica (Chronic) Sleep terror disorder (Chronic) Colitis (Chronic) CAD (coronary artery disease) (Chronic) Mixed anxiety and depressive disorder (Chronic) Posttraumatic stress disorder (Chronic) Diabetic peripheral neuropathy (Chronic) Congestive heart failure (Chronic) Coronary arteriosclerosis (Chronic) Malignant neoplasm of ovary (Chronic) Cerebrovascular accident (Chronic) Vitamin D deficiency (Chronic) Microalbuminuria (Chronic) Osteopenia (Chronic) Type 1 diabetes mellitus (Chronic) Physical deconditioning (Chronic) Paroxysmal atrial fibrillation (Chronic) Opiate dependence (Chronic) Diabetes mellitus with polyneuropathy (Chronic) Diabetes (Chronic) Abdominal pain (Chronic) Chronic back pain (Chronic) Mixed bipolar I disorder (Chronic) Chronic pain (Chronic) Pyelonephritis, chronic (Chronic) Panic attack (Chronic) Neuropathy (Chronic) Myocardial infarction, old (Chronic) Lichen sclerosus (Chronic) Hypertension, essential (Chronic) Gastroparesis (Chronic) Diabetes mellitus, type II (Chronic) COPD (chronic obstructive pulmonary disease) (Chronic) Atrial fibrillation (Chronic) Asthma (Chronic) Acid reflux (Chronic) Medical History Abdominal pain Acid reflux Acute hyperglycemia Acute hyponatremia Acute kidney failure Acute kidney injury Acute on chronic heart failure with normal ejection fraction Acute pain of right hip Acute pain of right thigh Asthma Childhood Atrial fibrillation 2013 Body mass index (BMI) of 20 to 24 Bronchitis CAD (coronary artery disease) Cerebrovascular accident Cervical pain Chest pain Chronic back pain Chronic pain Closed right hip fracture Colitis Compression fracture of T10 vertebra Concussion without loss of consciousness Congestive heart failure COPD (chronic obstructive pulmonary disease) 04/2014 Coronary arteriosclerosis Diabetes mellitus with polyneuropathy Diabetic gastroparesis associated with type 2 diabetes mellitus Diabetic ketoacidosis Diabetic peripheral neuropathy Diverticulitis Dizziness Fall Gastroparesis 2009 Gingivitis with diabetes mellitus Headache Hemoptysis History of hepatitis B Hyperglycemia Hypertension, essential Intractable hiccups Lichen sclerosus 2010 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, 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 Microalbuminuria Migraine Mixed anxiety and depressive disorder Mixed bipolar I disorder Myocardial infarction, old 2009, Two Nausea & vomiting Neuropathy 1993 Opiate dependence Orthostatic hypotension Osteopenia Panic attack 2009 Paroxysmal atrial fibrillation Physical deconditioning Polyneuropathy Posttraumatic stress disorder Pulmonary embolism 1997 Pyelonephritis, chronic 1995 Sciatica Sleep terror disorder Toxic shock syndrome 2 comas Type 1 diabetes mellitus Urinary tract infection Vertigo Vitamin D deficiency Volume depletion Surgical History History of appendectomy History of intestinal surgery partial excision of small intestine History of laparoscopic cholecystectomy 01/14/2019 History of surgery Multiple Ovarian Cancer Surgeries, Including LSO and AMANDA-RSO from [id number] History of surgery Partial resection of colon History of total abdominal hysterectomy Hx of colonoscopy 2009 Status post panniculectomy (11/17/01) Family History Father Acute myocardial infarction Mother , age 67 Acute myocardial infarction Coronary arteriosclerosis Sister COPD (chronic obstructive pulmonary disease) Social History Smoking Status: Never smoker Alcohol Intake Frequency: does not drink Substance Use: marijuana Exam Narrative Narrative: Narrative: General: Alert, appearing older than stated age. He comes very anxious with the bed laid flat stating that she cannot breathe. She is otherwise speaking 4-6 word sentences. HEENT: NCAT, PERRL, Oral pharynx with moist mucus membranes. No pharyngeal erythema. No conjunctival pallor Neck: Supple, No lymphadenopathy Chest: Stable Heart: Regular rate and rhythm without murmur Lungs: Bibasilar inspiratory crackles with decreased breath sounds at the bases. No wheeze Abdomen: Soft, nondistended, nontender : No bladder distention Back: Nontraumatic, No CVA tenderness to palpation. Skin: No rash or lesion Extremity: No cyanosis, there is trace bilateral lower extremity edema, pulses 2+ radial Neurologic: Moves all extremities in appropriate coordinated fashion. Course Vital Signs Vital signs: Vital Signs Temperature 99.0 F 01/27/21 01:11 Pulse Rate 88 01/27/21 01:11 Respiratory Rate 20 01/27/21 01:11 Blood Pressure 200/82 01/27/21 01:11 Pulse Oximetry (%) 93 01/27/21 01:11 Temperature 96.8 F L 01/28/21 00:11 Pulse Rate 61 01/28/21 00:11 Respiratory Rate 12 01/28/21 00:11 Blood Pressure 134/62 01/28/21 00:11 Pulse Oximetry (%) 98 01/28/21 00:11 [facility] MDM Narrative Medical decision making narrative: Narrative: Patient is presenting with evidence of congestive heart failure. She does have mild elevation of white blood cell count, but no fever or other signs of infect ion. She has been given diuresis with some improvement but given the poorly controlled diabetes as well as the elevated potassium and continued shortness of breath with the history of hypoxia I felt that she would be best served with inpatient admission. Hospitalist has kindly agreed to accept care for further treatment. Lab Data Result diagrams: 01/27/21 03:10 01/27/21 03:17 Labs: Lab Results 01/27/21 01/27/21 01/27/21 Range/Units 02:30 03:10 03:10 WBC 16.9 H (4.5-11.0) K/mcL RBC 3.10 L (4.00-5.20) M/mcL Hgb 9.1 L (12.0-15.0) g/dL Hct 28.1 L (36.0-48.0) % MCV 90.6 (80.0-100.0) fL MCH 29.4 (26.0-34.0) pg MCHC 32.4 (31.0-36.0) g/dL RDW 15.0 H (11.5-14.5) % Plt Count 199 (140-440) K/mcL MPV 9.8 (7.4-10.4) fL Neut % (Auto) 88.6 H (38.0-78.0) % Lymph % (Auto) 5.8 L (15.0-49.0) % [place] % (Auto) 4.7 (1.0-12.0) % Eos % (Auto) 0.6 (0.0-7.0) % Baso % (Auto) 0.3 (0.0-2.0) % Lymph # (Auto) 0.99 L (1.50-4.80) K/mcL [place] # (Auto) 0.80 (0.10-0.90) K/mcL Eos # (Auto) 0.10 (0.00-0.70) K/mcL Baso # (Auto) 0.05 (0.00-0.20) K/mcL Absolute Neutrophils 15.00 H (1.80-8.00) K/mcL PT (11.9-14.5) sec INR (0.9-1.1) APTT (20.0-37.0) sec ABG Methemoglobin (0.4-1.5) % VBG pH U VBG pCO2 mmHg VBG pO2 mmHg VBG HCO3 mmol/L VBG Total CO2 mmol/L VBG O2 Saturation % VBG Base Excess (-2-3) VBG Lactic Acid 2.2 H (0.5-2.0) mmol/L Carboxyhemoglobin (0.0-1.5) % THgb Total Hemoglobin (13.5-16.5) gm/Dl Sodium (133-145) mmol/L Potassium (3.3-5.1) mmol/L Chloride (96-108) mmol/L Carbon Dioxide (22-30) mmol/L Anion Gap (8.0-16.0) BUN (8-23) mg/dL Creatinine (0.6-1.1) mg/dL GFR Calculation Glucose (70-105) mg/dL Hemoglobin A1c (4.0-6.0) % Hgb Estim Average Glucose mg/dL Calcium (8.6-10.4) mg/dL Magnesium (1.6-2.5) mg/dL Total Bilirubin (0.1-1.0) mg/dL AST (<32) U/L ALT (<40) U/L Alkaline Phosphatase (39-117) U/L Troponin T (<0.03) ng/mL NT-Pro-B Natriuret Pep (<125.0) pg/mL Total Protein (5.9-8.4) gm/dL Albumin (3.2-5.2) gm/dL Globulin (2.2-3.7) gm/dL Albumin/Globulin Ratio (1.0-2.3) Procalcitonin (<0.10) ng/mL Urine Color Yellow Urine Appearance Clear (Clear) Urine pH 6.5 (5.0-9.0) Ur Specific [place] 1.020 (1.000-1.035) Urine Protein 100 mg/dl A (Negative) mg/dL Urine Glucose (UA) 500 mg/dl A (Negative) mg/dL Urine Ketones Negative (Negative) mg/dL Urine Occult Blood Moderate A (Negative) [place]/mcL Urine Nitrate Negative (Negative) Urine Bilirubin Negative (Negative) mg/dL Urine Urobilinogen Normal mg/dL Ur Leukocyte Esterase Negative (Negative) /ug Urine RBC 19 H (0-3) /hpf Urine WBC 8 H (0-4) /hpf Ur Squamous Epith Cells < 1 (0-4) /hpf Ur Transition Epith Cell < 1 (0-2) /hpf Urine Bacteria None (0) /hpf Ur Culture Indicated? No Mycoplasma pneumon IgM (Negative) 01/27/21 01/27/21 01/27/21 Range/Units 03:10 03:17 03:17 WBC (4.5-11.0) K/mcL RBC (4.00-5.20) M/mcL Hgb (12.0-15.0) g/dL Hct (36.0-48.0) % MCV (80.0-100.0) fL MCH (26.0-34.0) pg MCHC (31.0-36.0) g/dL RDW (11.5-14.5) % Plt Count (140-440) K/mcL MPV (7.4-10.4) fL Neut % (Auto) (38.0-78.0) % Lymph % (Auto) (15.0-49.0) % [place] % (Auto) (1.0-12.0) % Eos % (Auto) (0.0-7.0) % Baso % (Auto) (0.0-2.0) % Lymph # (Auto) (1.50-4.80) K/mcL [place] # (Auto) (0.10-0.90) K/mcL Eos # (Auto) (0.00-0.70) K/mcL Baso # (Auto) (0.00-0.20) K/mcL Absolute Neutrophils (1.80-8.00) K/mcL PT 13.2 (11.9-14.5) sec INR 1.0 (0.9-1.1) APTT 27.5 (20.0-37.0) sec ABG Methemoglobin 0.3 L (0.4-1.5) % VBG pH 7.33 U VBG pCO2 45.7 mmHg VBG pO2 54.4 mmHg VBG HCO3 23.5 mmol/L VBG Total CO2 24.9 mmol/L VBG O2 Saturation 79.8 % VBG Base Excess -3 L (-2-3) VBG Lactic Acid (0.5-2.0) mmol/L Carboxyhemoglobin 9.1 H (0.0-1.5) % THgb Total Hemoglobin 9.8 L (13.5-16.5) gm/Dl Sodium 131 L (133-145) mmol/L Potassium 5.2 H (3.3-5.1) mmol/L Chloride 99 (96-108) mmol/L Carbon Dioxide 24 (22-30) mmol/L Anion Gap 8.0 (8.0-16.0) BUN 46 H (8-23) mg/dL Creatinine 1.4 H (0.6-1.1) mg/dL GFR Calculation 40 Glucose 367 H (70-105) mg/dL Hemoglobin A1c 10.7 H (4.0-6.0) % Hgb Estim Average Glucose 260 mg/dL Calcium 8.8 (8.6-10.4) mg/dL Magnesium 2.2 (1.6-2.5) mg/dL Total Bilirubin 0.2 (0.1-1.0) mg/dL AST 10 (<32) U/L ALT 9 (<40) U/L Alkaline Phosphatase 131 H (39-117) U/L Troponin T (<0.03) ng/mL NT-Pro-B Natriuret Pep 2746.0 H (<125.0) pg/mL Total Protein 6.7 (5.9-8.4) gm/dL Albumin 3.5 (3.2-5.2) gm/dL Globulin 3.2 (2.2-3.7) gm/dL Albumin/Globulin Ratio 1.1 (1.0-2.3) Procalcitonin (<0.10) ng/mL Urine Color Urine Appearance (Clear) Urine pH (5.0-9.0) Ur Specific [place] (1.000-1.035) Urine Protein (Negative) mg/dL Urine Glucose (UA) (Negative) mg/dL Urine Ketones (Negative) mg/dL Urine Occult Blood (Negative) [place]/mcL Urine Nitrate (Negative) Urine Bilirubin (Negative) mg/dL Urine Urobilinogen mg/dL Ur Leukocyte Esterase (Negative) /ug Urine RBC (0-3) /hpf Urine WBC (0-4) /hpf Ur Squamous Epith Cells (0-4) /hpf Ur Transition Epith Cell (0-2) /hpf Urine Bacteria (0) /hpf Ur Culture Indicated? Mycoplasma pneumon IgM (Negative) 01/27/21 01/27/21 01/27/21 Range/Units 03:17 03:17 03:17 WBC (4.5-11.0) K/mcL RBC (4.00-5.20) M/mcL Hgb (12.0-15.0) g/dL Hct (36.0-48.0) % MCV (80.0-100.0) fL MCH (26.0-34.0) pg MCHC (31.0-36.0) g/dL RDW (11.5-14.5) % Plt Count (140-440) K/mcL MPV (7.4-10.4) fL Neut % (Auto) (38.0-78.0) % Lymph % (Auto) (15.0-49.0) % [place] % (Auto) (1.0-12.0) % Eos % (Auto) (0.0-7.0) % Baso % (Auto) (0.0-2.0) % Lymph # (Auto) (1.50-4.80) K/mcL [place] # (Auto) (0.10-0.90) K/mcL Eos # (Auto) (0.00-0.70) K/mcL Baso # (Auto) (0.00-0.20) K/mcL Absolute Neutrophils (1.80-8.00) K/mcL PT (11.9-14.5) sec INR (0.9-1.1) APTT (20.0-37.0) sec ABG Methemoglobin (0.4-1.5) % VBG pH U VBG pCO2 mmHg VBG pO2 mmHg VBG HCO3 mmol/L VBG Total CO2 mmol/L VBG O2 Saturation % VBG Base Excess (-2-3) VBG Lactic Acid (0.5-2.0) mmol/L Carboxyhemoglobin (0.0-1.5) % THgb Total Hemoglobin (13.5-16.5) gm/Dl Sodium (133-145) mmol/L Potassium (3.3-5.1) mmol/L Chloride (96-108) mmol/L Carbon Dioxide (22-30) mmol/L Anion Gap (8.0-16.0) BUN (8-23) mg/dL Creatinine (0.6-1.1) mg/dL GFR Calculation Glucose (70-105) mg/dL Hemoglobin A1c (4.0-6.0) % Hgb Estim Average Glucose mg/dL Calcium (8.6-10.4) mg/dL Magnesium (1.6-2.5) mg/dL Total Bilirubin (0.1-1.0) mg/dL AST (<32) U/L ALT (<40) U/L Alkaline Phosphatase (39-117) U/L Troponin T 0.02 (<0.03) ng/mL NT-Pro-B Natriuret Pep (<125.0) pg/mL Total Protein (5.9-8.4) gm/dL Albumin (3.2-5.2) gm/dL Globulin (2.2-3.7) gm/dL Albumin/Globulin Ratio (1.0-2.3) Procalcitonin 0.06 (<0.10) ng/mL Urine Color Urine Appearance (Clear) Urine pH (5.0-9.0) Ur Specific [place] (1.000-1.035) Urine Protein (Negative) mg/dL Urine Glucose (UA) (Negative) mg/dL Urine Ketones (Negative) mg/dL Urine Occult Blood (Negative) [place]/mcL Urine Nitrate (Negative) Urine Bilirubin (Negative) mg/dL Urine Urobilinogen mg/dL Ur Leukocyte Esterase (Negative) /ug Urine RBC (0-3) /hpf Urine WBC (0-4) /hpf Ur Squamous Epith Cells (0-4) /hpf Ur Transition Epith Cell (0-2) /hpf Urine Bacteria (0) /hpf Ur Culture Indicated? Mycoplasma pneumon IgM Negative (Negative) ED POC Tests ED POC Tests: LEI - SARS Antigen Negative Radiology Data Radiology results reviewed: Yes I reviewed the patient's radiology results. Radiology results narrative: Patient with a chest x-ray which shows mild cardiomegaly with bilateral lower lung zones with pulmonary venous congestion and fluffy filtrates concerning for pulmonary edema. There is noted fluid within the pulmonary fissures. EKG Data EKG #1: EKG attestation: Yes I reviewed and interpreted this EKG. EKG results narrative: ECG time 122 demonstrates sinus rhythm at a rate of 86. QRS axis is normal. QRS duration normal and narrow. There were no ST or T wave changes concerning for acute ischemic process. Discharge Plan Patient/Caregiver Discharge Instructions Pt seen by ONLINE MERCHANDISING SPECIALIST/PA only: No Clinical Impression: Congestive heart failure, Diabetes, Diabetes mellitus, type II Patient Disposition: Xfer As Inpt ([facility]) Condition: Fair Discharge Date/Time: 01/27/21 08:32
[2021-01-27] MEDS ORDERED: INSULIN REGULAR, HUMAN 1 UNIT/0.01 ML UNIT IV ONE (02:06)
[2021-01-27] MEDS ORDERED: FUROSEMIDE 40 MG/4 ML VIAL IV ONE (02:06)
[2021-01-27 03:34] LABS: ABG Methemoglobin 0.3 % (0.4-1.5); Basophils # (Auto) 0.05 K/mcL (0.00-0.20); Basophils % (Auto) 0.3 % (0.0-2.0); Eosinophils % (Auto) 0.6 % (0.0-7.0); Hematocrit 28.1 % (36.0-48.0); Hemoglobin 9.1 g/dL (12.0-15.0); Lymphocytes # (Auto) 0.99 K/mcL (1.50-4.80); Lymphocytes % (Auto) 5.8 % (15.0-49.0); Mean Cell Volume 90.6 fL (80.0-100.0); Mean Corpuscular HGB Conc 32.4 g/dL (31.0-36.0); Mean Platelet Volume 9.8 fL (7.4-10.4); Monocytes % (Auto) 4.7 % (1.0-12.0); Neutrophils % (Auto) 88.6 % (38.0-78.0); Platelet Count 199 K/mcL (140-440); Total Hemoglobin 9.8 gm/Dl (13.5-16.5); VBG Base Excess -3 (-2-3); VBG HCO3 23.5 mmol/L; VBG Oxygen Saturation 79.8 %; VBG PCO2 45.7 mmHg; VBG PH 7.33 U; VBG PO2 54.4 mmHg; VBG Total CO2 24.9 mmol/L; WBC 16.9 K/mcL (4.5-11.0)
--- NOTE | 2021-01-27 03:35 | XRay Report ---
CLINICAL INFORMATION: SOB COMPARISON: 12/07/2020 FINDINGS: Mild cardiomegaly is unchanged. Mediastinum and pulmonary vessels are unremarkable. Large patchy alveolar infiltrates have developed throughout both lower lobes, right middle lobe and lingula. Small bilateral pleural effusions noted. Mild compression fractures throughout the thoracic spine with moderate degenerative disc disease throughout the thoracic spine stable IMPRESSION: Large alveolar infiltrates developing throughout both lower lobes, right middle lobes and lingula. Consider infection or aspiration Mild cardiomegaly Interpreted and Authenticated by: Troy Patten 01/27/21
[2021-01-27] MEDS ORDERED: HYDROcodone/APAP 5/325MG TABLET PO ONE (03:41)
[2021-01-27 04:20] LABS: Appearance,Urine Clear (Clear); Bilirubin,Urine Negative (Negative); Color,Urine Yellow; Culture Indicated,Urine No; Ketones,Urine Negative (Negative); Leukocyte Esterase,Urine Negative /ug (Negative); Nitrate,Urine Negative (Negative); PH,Urine 6.5 (5.0-9.0); Urine Blood Moderate ery/mcL (Negative); Urine RBC 19 /hpf (0-3); Urine Squamous Epithelial Cell < 1 /hpf (0-4); Urine Transitional Epi Cells < 1 /hpf (0-2); Urine WBC 8 /hpf (0-4); Urobilinogen,Urine Normal
[2021-01-27 04:23] LABS: Estimated Average Glucose(eAG) 260 mg/dL; Hemoglobin A1C 10.7 % Hgb (4.0-6.0)
[2021-01-27 04:29] LABS: Prothrombin Time 13.2 sec (11.9-14.5)
[2021-01-27 04:30] LABS: Partial Thromboplastin Time 27.5 sec (20.0-37.0)
[2021-01-27 04:34] LABS: ALT/SGPT 9 U/L (<40); AST/SGOT 10 U/L (<32); Albumin 3.5 gm/dL (3.2-5.2); Albumin/Globulin Ratio 1.1 (1.0-2.3); Alkaline Phosphatase 131 U/L (39-117); Bilirubin,Total 0.2 mg/dL (0.1-1.0); Blood Urea Nitrogen 46 mg/dL (8-23); Calcium 8.8 mg/dL (8.6-10.4); Carbon Dioxide 24 mmol/L (22-30); Chloride 99 mmol/L (96-108); Globulin 3.2 gm/dL (2.2-3.7); Glomerular Filtration Rate 40; Glucose 367 mg/dL (70-105)
[2021-01-27] MEDS ORDERED: morphine 15 MG TAB.SR.12H PO ONE ×2 (05:12→09:51)
[2021-01-27] MEDS ORDERED: fentaNYL 25 MCG PATCH TOPICAL SCH (05:15)
--- NOTE | 2021-01-27 07:37 | Internal Med History&Physical ---
HPI History of Present Illness Patient information: Note initiated : 01/27/21 at 7:37 am Service Date, if different from initiated Date: [] Patient: Abbi Sprague a 60 y/o F admitted on for sob. Chief Complaint: Weakness fever, shortness of breath History of present illness: Ms. Sprague is a 60 year old F with a history of CAD/COPD/prior CVA/positional vertigo/hypertension and DM type II along with chronic pain or extended-release morphine who presents to the ER with 2 weeks onset of worsening shortness of breath/weakness/inability take care of self and associated low-grade fever/cough. Due to increased weakness she fell few days ago. She has been getting increasingly lightheaded and has been laying on the bed for the last 24 hours. She endorses to associated orthopnea and inability to lay down flat at night and has not had a restful night sleep due to increasing shortness of breath. She is normally on Lasix but that has not helped her dyspnea. With increasing concern she presents to the ER for evaluation Initial work-up was consistent with multiple bilateral infiltrates consistent with pneumonia/CHF. Patient was started on diuretics. Blood sugars over 500. Hospitalist service was consulted for admission. At the time of evaluation patient is very lethargic and minimally short of breath. She was able to answer most the question endorse history as above. She denies changes in medications or sick contacts. She lives with her . She did not seek medical help in the last 2 weeks despite progression of her symptoms. She however insists for more pain medication which is exacerbated her chronic pain after recent fall. She appears quite lethargic She denies diarrhea, dysuria, headache or photophobia. Review of systems 10 point review system was performed and is negative except for ones discussed above PFSH PFSH All Active Problems (Updated 01/28/21 @ 03:18 by Todd King MD) Submental adenopathy (Acute) Body mass index (BMI) of 20 to 24 (Chronic) Bladder infection, acute (Chronic) Weakness generalized (Chronic) Nausea and vomiting (Chronic) Shortness of breath (Chronic) Abdominal pain (Chronic) UTI (urinary tract infection) (Chronic) Hyperglycemia due to type 2 diabetes mellitus (Chronic) Anemia (Chronic) Uncontrolled diabetes mellitus (Chronic) Falls frequently (Chronic) Shortness of breath (Chronic) Chronic anticoagulation (Chronic) UTI (urinary tract infection) (Chronic) Anemia in chronic illness (Chronic) Chronic progressive renal failure, stage 3 (moderate) (Chronic) Hypoproteinemia (Chronic) Acute hyperglycemia (Chronic) Chondrodermatitis nodularis chronica helicis (Chronic) Chronic hyponatremia (Chronic) Chronic anticoagulation (Chronic) Abdominal pain (Chronic) Vertigo (Chronic) Diabetic gastroparesis associated with type 2 diabetes mellitus (Chronic) Hyperglycemia (Chronic) Compression fracture of T10 vertebra (Chronic) Polyneuropathy (Chronic) History of hepatitis B (Chronic) Sciatica (Chronic) Sleep terror disorder (Chronic) Colitis (Chronic) CAD (coronary artery disease) (Chronic) Mixed anxiety and depressive disorder (Chronic) Posttraumatic stress disorder (Chronic) Diabetic peripheral neuropathy (Chronic) Congestive heart failure (Chronic) Coronary arteriosclerosis (Chronic) Malignant neoplasm of ovary (Chronic) Cerebrovascular accident (Chronic) Vitamin D deficiency (Chronic) Microalbuminuria (Chronic) Osteopenia (Chronic) Type 1 diabetes mellitus (Chronic) Physical deconditioning (Chronic) Paroxysmal atrial fibrillation (Chronic) Opiate dependence (Chronic) Diabetes mellitus with polyneuropathy (Chronic) Diabetes (Chronic) Abdominal pain (Chronic) Chronic back pain (Chronic) Mixed bipolar I disorder (Chronic) Chronic pain (Chronic) Pyelonephritis, chronic (Chronic) Panic attack (Chronic) Neuropathy (Chronic) Myocardial infarction, old (Chronic) Lichen sclerosus (Chronic) Hypertension, essential (Chronic) Gastroparesis (Chronic) Diabetes mellitus, type II (Chronic) COPD (chronic obstructive pulmonary disease) (Chronic) Atrial fibrillation (Chronic) Asthma (Chronic) Acid reflux (Chronic) Medical History Abdominal pain Acid reflux Acute hyperglycemia Acute hyponatremia Acute kidney failure Acute kidney injury Acute on chronic heart failure with normal ejection fraction Acute pain of right hip Acute pain of right thigh Asthma Childhood Atrial fibrillation 2013 Body mass index (BMI) of 20 to 24 Bronchitis CAD (coronary artery disease) Cerebrovascular accident Cervical pain Chest pain Chronic back pain Chronic pain Closed right hip fracture Colitis Compression fracture of T10 vertebra Concussion without loss of consciousness Congestive heart failure COPD (chronic obstructive pulmonary disease) 04/2014 Coronary arteriosclerosis Diabetes mellitus with polyneuropathy Diabetic gastroparesis associated with type 2 diabetes mellitus Diabetic ketoacidosis Diabetic peripheral neuropathy Diverticulitis Dizziness Fall Gastroparesis 2009 Gingivitis with diabetes mellitus Headache Hemoptysis History of hepatitis B Hyperglycemia Hypertension, essential Intractable hiccups Lichen sclerosus 2010 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, 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 Microalbuminuria Migraine Mixed anxiety and depressive disorder Mixed bipolar I disorder Myocardial infarction, old 2010, Two Nausea & vomiting Neuropathy 1993 Opiate dependence Orthostatic hypotension Osteopenia Panic attack 2010 Paroxysmal atrial fibrillation Physical deconditioning Polyneuropathy Posttraumatic stress disorder Pulmonary embolism 1996 Pyelonephritis, chronic 1996 Sciatica Sleep terror disorder Toxic shock syndrome 2 comas Type 1 diabetes mellitus Urinary tract infection Vertigo Vitamin D deficiency Volume depletion Surgical History History of appendectomy History of intestinal surgery partial excision of small intestine History of laparoscopic cholecystectomy 01/14/2019 History of surgery Multiple Ovarian Cancer Surgeries, Including LSO and AMANDA-RSO from [id number] History of surgery Partial resection of colon History of total abdominal hysterectomy Hx of colonoscopy 2009 Status post panniculectomy (11/17/01) Family History Father Acute myocardial infarction Mother , age 67 Acute myocardial infarction Coronary arteriosclerosis Sister COPD (chronic obstructive pulmonary disease) Social History (Updated 05/24/20 @ 09:12 by Emma Lang) household members: spouse marital status: education level: elementary school occupational status: unemployed and retired smoking status: Never smoker alcohol intake frequency: does not drink substance use type: marijuana seatbelt use: always working smoke detector in home: Yes firearms in home: No MEDS/ALLERGIES Home Medications and Allergies Home Medications Medication Instructions Recorded Confirmed Type alprazolam 0.25 mg tablet 0.25 mg PO TID 05/24/20 01/27/21 History amiodarone 200 mg tablet 200 mg PO QDAY 05/24/20 01/27/21 History carvedilol 12.5 mg tablet 12.5 mg PO BID 05/24/20 01/27/21 History insulin lispro 100 unit/mL See Rx Instructions .ROUTE 05/24/20 01/27/21 History subcutaneous pen .COMPLEX ml morphine 30 mg tablet,extended 30 mg PO BID 05/24/20 01/27/21 History release omeprazole 40 mg capsule,delayed 40 mg PO BID 05/24/20 01/27/21 History release rosuvastatin 20 mg tablet 20 mg PO QAM 05/24/20 01/27/21 History spironolactone 25 mg tablet 25 mg PO QDAY 05/24/20 01/27/21 History albuterol sulfate 2 puff INHALATION Q6H PRN 08/01/20 01/27/21 History apixaban [Eliquis] 5 mg PO BID #30 tab 08/06/20 01/27/21 Rx meclizine 25 mg PO TID PRN #21 tab 08/31/20 01/27/21 Rx ondansetron HCl [Zofran] 4 mg PO Q6H PRN #20 tab 11/30/20 01/27/21 Rx Lantus U-100 Insulin 35 units BID 01/27/21 01/27/21 History benzocaine-menthol [Cepacol Sore 1 ailyn PO BID PRN 01/27/21 01/27/21 History Throat (aviva-men)] cetirizine [Allergy Relief 10 mg PO QDAY 01/27/21 01/27/21 History (cetirizine)] furosemide 20 mg PO QAM 01/27/21 01/27/21 History gabapentin 100 mg PO QHS 01/27/21 01/27/21 History lisinopril 5 mg PO QAM 01/27/21 01/27/21 History promethazine 25 mg MS Q4H PRN 01/27/21 01/27/21 History Allergies Allergy/AdvReac Type Severity Reaction Status Date / Time Beet Allergy Severe Anaphylaxis Verified 01/27/21 01:19 buprenorphine [From Suboxone] Allergy Intermediate Swelling, Verified 01/27/21 01:19 rash duloxetine [From Cymbalta] Allergy Intermediate Swelling, Verified 01/27/21 01:19 rash ketorolac [From Toradol] Allergy Intermediate Difficulty Verified 01/27/21 01:19 Breathing, rash Naloxone [From Suboxone] Allergy Intermediate Swelling Verified 01/27/21 01:19 Sulfa (Sulfonamide Allergy Intermediate Difficulty Verified 01/27/21 01:19 Antibiotics) Breathing tramadol Allergy Intermediate Rash Verified 01/27/21 01:19 Iodinated Contrast Media Allergy Mild Hives Verified 01/27/21 08:37 [Iodinated Contrast Media - IV Dye] lorazepam [From Ativan] AdvReac Intermediate Hives, Verified 01/27/21 01:19 itching pregabalin [From Lyrica] AdvReac Intermediate Palpitations, Verified 01/27/21 08:37 edema sulfamethoxazole AdvReac Intermediate Palpitation Verified 01/27/21 01:19 [From Septra] s trimethoprim [From Septra] AdvReac Intermediate Palpitation Verified 01/27/21 01:19 s acetaminophen AdvReac Mild Itching Verified 01/27/21 01:19 bacitracin AdvReac Mild Itching Verified 01/27/21 01:19 fentanyl AdvReac Mild Dizziness Verified 01/27/21 01:19 and vomiting gabapentin AdvReac Mild Falls Verified 01/27/21 01:19 asleep hydrocodone [From [place]] AdvReac Mild Itching Verified 01/27/21 01:19 propoxyphene AdvReac Mild Edema Verified 01/27/21 08:37 rivaroxaban [From Xarelto] AdvReac Mild Dizziness, Verified 01/27/21 01:19 falls EXAM Constitutional Vitals: Temp Pulse Resp BP Pulse Ox 98.1 F 71 13 134/59 90 01/27/21 06:29 01/27/21 07:00 01/27/21 07:00 01/27/21 07:00 01/27/21 07:23 Lethargic fatigued Head normocephalic Oral cavity moist No ear nose discharge Eye movement symmetrical Neck supple no lymphadenopathy Heart sounds regular Nonlabored breathing Nondistended nontender abdomen Lower extremity no cyanosis clubbing or joint swelling Skin no suspicious lesion Psych anxious, lethargic Neuro responds appropriately, no unilateral weakness DATA Data Completed and Pending Labs: Labs from last 24 hours 01/27/21 01/27/21 01/27/21 03:17 03:17 03:17 WBC RBC Hgb Hct MCV MCH MCHC RDW Plt Count MPV Neut % (Auto) Lymph % (Auto) [place] % (Auto) Eos % (Auto) Baso % (Auto) Lymph # (Auto) [place] # (Auto) Eos # (Auto) Baso # (Auto) Absolute Neutrophils PT INR APTT ABG Methemoglobin VBG pH VBG pCO2 VBG pO2 VBG HCO3 VBG Total CO2 VBG O2 Saturation VBG Base Excess VBG Lactic Acid Carboxyhemoglobin Total Hemoglobin Sodium 131 L Potassium 5.2 H Chloride 99 Carbon Dioxide 24 Anion Gap 8.0 BUN 46 H Creatinine 1.4 H GFR Calculation 40 Glucose 367 H Hemoglobin A1c 10.7 H Estim Average Glucose 260 Calcium 8.8 Magnesium 2.2 Total Bilirubin 0.2 AST 10 ALT 9 Alkaline Phosphatase 131 H Troponin T 0.02 NT-Pro-B Natriuret Pep 2746.0 H Total Protein 6.7 Albumin 3.5 Globulin 3.2 Albumin/Globulin Ratio 1.1 Procalcitonin 0.06 Urine Color Urine Appearance Urine pH Ur Specific [place] Urine Protein Urine Glucose (UA) Urine Ketones Urine Occult Blood Urine Nitrate Urine Bilirubin Urine Urobilinogen Ur Leukocyte Esterase Urine RBC Urine WBC Ur Squamous Epith Cells Ur Transition Epith Cell Urine Bacteria Ur Culture Indicated? 01/27/21 01/27/21 01/27/21 03:17 03:10 03:10 WBC RBC Hgb Hct MCV MCH MCHC RDW Plt Count MPV Neut % (Auto) Lymph % (Auto) [place] % (Auto) Eos % (Auto) Baso % (Auto) Lymph # (Auto) [place] # (Auto) Eos # (Auto) Baso # (Auto) Absolute Neutrophils PT 13.2 INR 1.0 APTT 27.5 ABG Methemoglobin 0.3 L VBG pH 7.33 VBG pCO2 45.7 VBG pO2 54.4 VBG HCO3 23.5 VBG Total CO2 24.9 VBG O2 Saturation 79.8 VBG Base Excess -3 L VBG Lactic Acid 2.2 H Carboxyhemoglobin 9.1 H Total Hemoglobin 9.8 L Sodium Potassium Chloride Carbon Dioxide Anion Gap BUN Creatinine GFR Calculation Glucose Hemoglobin A1c Estim Average Glucose Calcium Magnesium Total Bilirubin AST ALT Alkaline Phosphatase Troponin T NT-Pro-B Natriuret Pep Total Protein Albumin Globulin Albumin/Globulin Ratio Procalcitonin Urine Color Urine Appearance Urine pH Ur Specific [place] Urine Protein Urine Glucose (UA) Urine Ketones Urine Occult Blood Urine Nitrate Urine Bilirubin Urine Urobilinogen Ur Leukocyte Esterase Urine RBC Urine WBC Ur Squamous Epith Cells Ur Transition Epith Cell Urine Bacteria Ur Culture Indicated? 01/27/21 01/27/21 03:10 02:30 WBC 16.9 H RBC 3.10 L Hgb 9.1 L Hct 28.1 L MCV 90.6 MCH 29.4 MCHC 32.4 RDW 15.0 H Plt Count 199 MPV 9.8 Neut % (Auto) 88.6 H Lymph % (Auto) 5.8 L [place] % (Auto) 4.7 Eos % (Auto) 0.6 Baso % (Auto) 0.3 Lymph # (Auto) 0.99 L [place] # (Auto) 0.80 Eos # (Auto) 0.10 Baso # (Auto) 0.05 Absolute Neutrophils 15.00 H PT INR APTT ABG Methemoglobin VBG pH VBG pCO2 VBG pO2 VBG HCO3 VBG Total CO2 VBG O2 Saturation VBG Base Excess VBG Lactic Acid Carboxyhemoglobin Total Hemoglobin Sodium Potassium Chloride Carbon Dioxide Anion Gap BUN Creatinine GFR Calculation Glucose Hemoglobin A1c Estim Average Glucose Calcium Magnesium Total Bilirubin AST ALT Alkaline Phosphatase Troponin T NT-Pro-B Natriuret Pep Total Protein Albumin Globulin Albumin/Globulin Ratio Procalcitonin Urine Color Yellow Urine Appearance Clear Urine pH 6.5 Ur Specific [place] 1.020 Urine Protein 100 mg/dl A Urine Glucose (UA) 500 mg/dl A Urine Ketones Negative Urine Occult Blood Moderate A Urine Nitrate Negative Urine Bilirubin Negative Urine Urobilinogen Normal Ur Leukocyte Esterase Negative Urine RBC 19 H Urine WBC 8 H Ur Squamous Epith Cells < 1 Ur Transition Epith Cell < 1 Urine Bacteria None Ur Culture Indicated? No A/P Narrative A/P Narrative: * Multifocal pneumonia consistent with aspiration pneumonia/superimposed CHF. Initiate diuresis/antibiotic coverage. De-escalate treatment based on further imaging. Echocardiogram. Pancultures/sputum cultures/COVID-19 testing * Sepsis secondary to above with white count 17,000, elevated lactate and evidence of endorgan dysfunction including elevated creatinine 1.4. * Decompensated heart failure continue aggressive diuresis/echocardiogram * Uncomplicated UTI-on antibiotic coverage. Await cultures * Suboptimally controlled diabetes continue basal prandial insulin/CC diet * Acute kidney injury likely sepsis endorgan dysfunction. Baseline creatinine 0.8. Current creatinine 1.4., * History of PAF restart home dose amiodarone/apixaban/Coreg * HTN: Restart home medication except for KATHLEEN inhibitor in light of BETTY * History of chronic anxiety disorder * History of chronic pain on morphine 60 twice daily p.o. * History of positional vertigo-stable, currently stable. * h/o CVA: On apixaban for CVA prophylaxis. Continue PT OT/statin * GERD continue PPI * Full code * Prophylaxis apixaban Plan * Inpatient hospitalization * Antibiotic coverage * Diuresis * Echocardiogram * Pre-existing medical condition management as above * PT OT nutrition support * Discharge planning Time Spent With Patient Time: Total time spent is greater than 50% in coordination of care (as documented) at patient's floor/unit and/or counseling patient: QUALITY Stroke Symptom Onset Unknown: No
[2021-01-27] MEDS ORDERED: ACETAMINOPHEN 650 MG/65 ML BAG IV PRN (08:35)
[2021-01-27] MEDS ORDERED: DEXTROSE 50% 50 ML VIAL IV PRN (08:35)
[2021-01-27] MEDS ORDERED: POTASSIUM CHLORIDE 40 MEQ in DEXTROSE 5% IN WATER 500 ML IV PRN (08:35)
[2021-01-27] MEDS ORDERED: MAGNESIUM SULFATE 2 GM/50 ML BAG IV PRN (08:35)
[2021-01-27] MEDS ORDERED: POLYETHYLENE GLYCOL 3350 17 GM PACKET PO PRN (08:35)
[2021-01-27] MEDS ORDERED: BISACODYL 10 MG SUPP.RECT PR PRN (08:35)
[2021-01-27] MEDS ORDERED: MELATONIN 3 MG TABLET PO PRN (08:35)
[2021-01-27] MEDS ORDERED: METOPROLOL TARTRATE 5 MG/5 ML VIAL IV PRN (08:35)
[2021-01-27] MEDS ORDERED: DEXTROSE 31 GM ORAL.SUSP PO PRN (08:35)
[2021-01-27] MEDS ORDERED: PIPERACILLIN SODIUM/TAZOBACTAM 3.375 GM in DEXTROSE 5% IN WATER 50 ML IV SCH (08:35)
[2021-01-27] MEDS ORDERED: ACETAMINOPHEN 325 MG TABLET PO PRN (08:35)
[2021-01-27] MEDS ORDERED: NEUTRA PHOS 1 PACKET PO PRN (08:35)
[2021-01-27] MEDS ORDERED: AZITHROMYCIN 500 MG in DEXTROSE 5% IN WATER 250 ML IV SCH (08:35)
[2021-01-27] MEDS ORDERED: POTASSIUM CHLORIDE 20 MEQ PACKET PO PRN (08:35)
[2021-01-27] MEDS: ONDANSETRON 4 MG/2 ML VIAL IV PRN (08:58)
[2021-01-27] MEDS: FUROSEMIDE 40 MG/4 ML VIAL IV SCH ×2 (09:53→17:13)
[2021-01-27] MEDS: DOCUSATE SODIUM 100 MG CAPSULE PO SCH ×3 (10:11→20:51)
[2021-01-27] MEDS: MULTIVIT,THER IRON,CA,FA & MIN 1 TABLET PO SCH ×2 (10:11→10:21)
[2021-01-27] MEDS: INSULIN LISPRO 1 UNIT/0.01 ML UNIT SQ SCH ×4 (10:11→20:53)
[2021-01-27] MEDS: HEPARIN 5,000 UNIT/ML VIAL SQ SCH ×2 (10:12→20:52)
[2021-01-27] MEDS: PIPERACILLIN SODIUM/TAZOBACTAM 3.375 GM in DEXTROSE 5% IN WATER 50 ML IV SCH ×3 (10:12→18:16)
[2021-01-27] MEDS ORDERED: ALBUTEROL SULFATE 200 PUFF INHALER INH PRN (10:23)
[2021-01-27] MEDS ORDERED: MECLIZINE 25 MG TABLET PO PRN (10:26)
[2021-01-27] MEDS: AZITHROMYCIN 500 MG in DEXTROSE 5% IN WATER 250 ML IV SCH (10:43)
[2021-01-27] MEDS: sitaGLIPtin 100 MG TABLET PO SCH (10:55)
[2021-01-27] MEDS: OMEPRAZOLE 20 MG CAPSULE PO SCH (17:13)
[2021-01-27] MEDS: ALPRAZolam 0.25 MG TABLET PO SCH ×2 (17:13→20:51)
[2021-01-27] MEDS: 0.9 % SODIUM CHLORIDE 10 ML SYRINGE IV SCH (17:13)
[2021-01-27] MEDS: morphine 30 MG TAB.SR.12H PO SCH (20:51)
[2021-01-27] MEDS: APIXABAN 5 MG TABLET PO SCH (20:51)
[2021-01-27] MEDS: SENNOSIDES/DOCUSATE SODIUM 1 TAB TABLET PO SCH (20:51)
[2021-01-27] MEDS: CARVEDILOL 12.5 MG TABLET PO SCH (20:52)
[2021-01-27] MEDS: ATORVASTATIN 40 MG TABLET PO SCH (20:52)
[2021-01-27] MEDS: GABAPENTIN 100 MG CAPSULE PO SCH (20:52)
[2021-01-27] MEDS: INSULIN GLARGINE, HUMAN 1 UNIT/0.01 ML SQ SCH (20:53)
[2021-01-28] MEDS: 0.9 % SODIUM CHLORIDE 10 ML SYRINGE IV SCH ×4 (00:02→20:09)
[2021-01-28] MEDS: PIPERACILLIN SODIUM/TAZOBACTAM 3.375 GM in DEXTROSE 5% IN WATER 50 ML IV SCH ×4 (00:02→17:43)
[2021-01-28 07:01] LABS: Basophils # (Auto) 0.03 K/mcL (0.00-0.20); Basophils % (Auto) 0.4 % (0.0-2.0); Eosinophils % (Auto) 5.3 % (0.0-7.0); Hematocrit 26.3 % (36.0-48.0); Hemoglobin 8.4 g/dL (12.0-15.0); Lymphocytes # (Auto) 2.25 K/mcL (1.50-4.80); Lymphocytes % (Auto) 29.9 % (15.0-49.0); Mean Cell Volume 91.3 fL (80.0-100.0); Mean Corpuscular HGB Conc 31.9 g/dL (31.0-36.0); Mean Platelet Volume 9.3 fL (7.4-10.4); Monocytes # (Auto) 0.64 K/mcL (0.10-0.90); Monocytes % (Auto) 8.5 % (1.0-12.0); Neutrophils % (Auto) 55.9 % (38.0-78.0); Platelet Count 210 K/mcL (140-440); RBC 2.88 M/mcL (4.00-5.20); Red Cell Distribution Width 15.3 % (11.5-14.5); WBC 7.5 K/mcL (4.5-11.0)
[2021-01-28 07:06] LABS: ALT/SGPT 5 U/L (<40); AST/SGOT 9 U/L (<32); Albumin 3.1 gm/dL (3.2-5.2); Alkaline Phosphatase 71 U/L (39-117); Bilirubin,Direct < 0.2 mg/dL (0-0.3); Bilirubin,Total 0.3 mg/dL (0.1-1.0); Blood Urea Nitrogen 42 mg/dL (8-23); Calcium 8.8 mg/dL (8.6-10.4); Carbon Dioxide 25 mmol/L (22-30); Chloride 101 mmol/L (96-108); Glomerular Filtration Rate 44; Glucose 176 mg/dL (70-105); Lactate Dehydrogenase 172 U/L (135-225); Phosphorous 4.3 mg/dL (2.5-4.5); Triglycerides 112 mg/dL (<150); Uric Acid 4.7 mg/dL (2.5-8.0)
[2021-01-28] MEDS: MULTIVIT,THER IRON,CA,FA & MIN 1 TABLET PO SCH (07:48)
[2021-01-28] MEDS: sitaGLIPtin 100 MG TABLET PO SCH (07:48)
[2021-01-28] MEDS: APIXABAN 5 MG TABLET PO SCH ×2 (07:48→20:07)
[2021-01-28] MEDS: FUROSEMIDE 20 MG TABLET PO SCH (07:49)
[2021-01-28] MEDS: SPIRONOLACTONE 25 MG TABLET PO SCH (07:49)
[2021-01-28] MEDS: CARVEDILOL 12.5 MG TABLET PO SCH ×2 (07:49→20:05)
[2021-01-28] MEDS: AMIODARONE HCL 200 MG TABLET PO SCH (07:49)
[2021-01-28] MEDS: ALPRAZolam 0.25 MG TABLET PO SCH ×3 (07:49→20:07)
[2021-01-28] MEDS: OMEPRAZOLE 20 MG CAPSULE PO SCH ×2 (07:49→17:43)
[2021-01-28] MEDS: INSULIN LISPRO 1 UNIT/0.01 ML UNIT SQ SCH ×4 (08:12→21:22)
[2021-01-28] MEDS: INSULIN GLARGINE, HUMAN 1 UNIT/0.01 ML SQ SCH ×2 (08:12→21:22)
[2021-01-28] MEDS: morphine 30 MG TAB.SR.12H PO SCH ×2 (08:13→20:06)
[2021-01-28] MEDS: DOCUSATE SODIUM 100 MG CAPSULE PO SCH ×2 (08:13→20:08)
[2021-01-28] MEDS: AZITHROMYCIN 500 MG in DEXTROSE 5% IN WATER 250 ML IV SCH (08:47)
[2021-01-28] MEDS: ONDANSETRON 4 MG/2 ML VIAL IV PRN (09:42)
--- NOTE | 2021-01-28 12:23 | Internal Med Progress Note ---
SUBJECTIVE Subjective Patient information: Note initiated : 01/28/21 at 12:18 pm Service Date, if different from initiated Date: [] Patient: Abbi Sprague a 60 y/o F admitted on 01/27/21 for sob. Chief Complaint: [] Interval history: History of present illness: Ms. Sprague is a 60 year old F with a history of CAD/COPD/prior CVA/positional vertigo/hypertension and DM type II along with chronic pain or extended-release morphine who presents to the ER with 2 weeks onset of worsening shortness of breath/weakness/inability take care of self and associated low-grade fever/cough. Due to increased weakness she fell few days ago. She has been getting increasingly lightheaded and has been laying on the bed for the last 24 hours. She endorses to associated orthopnea and inability to lay down flat at night and has not had a restful night sleep due to increasing shortness of breath. She is normally on Lasix but that has not helped her dyspnea. With increasing concern she presents to the ER for evaluation Initial work-up was consistent with multiple bilateral infiltrates consistent with pneumonia/CHF. Patient was started on diuretics. Blood sugars over 500. Hospitalist service was consulted for admission. At the time of evaluation patient is very lethargic and minimally short of breath. She was able to answer most the question endorse history as above. She denies changes in medications or sick contacts. She lives with her . She did not seek medical help in the last 2 weeks despite progression of her symptoms. She however insists for more pain medication which is exacerbated her chronic pain after recent fall. She appears quite lethargi -patient feels better than previous day. Minimally lethargic. Complains of persistent pain and requesting higher dose of morphine. Reiterated that she is under pain contract and cannot modify the existing long-acting opioids without any clear indication exacerbation of pain. However would continue to use breakthrough intervention pain medications as indicated. On antibiotic coverage for multifocal pneumonia. No overnight events. Stable hemodynamics. WBC down to 7.5 from 17,000. Dramatic improvement overnight. Sodium 134, potassium 5.5, creatinine down to 1.3 blood sugars improved to 176. Await echocardiogram. On room air. Constitutional Vitals: Vital Signs Temp Pulse Resp BP Pulse Ox 97 F 72 16 118/59 97 01/28/21 12:01 01/28/21 10:14 01/28/21 12:03 01/28/21 12:01 01/28/21 12:01 Period Temp Pulse Resp BP Sys/Wiggins Pulse Ox Last 24 Hr 96.8 F-98.2 F 58-74 10-17 110-159/54-72 91-99 Intake and Output 01/27/21 01/28/21 01/28/21 20:59 05:59 13:59 Intake Total 50 Output Total 850 Balance -800 Weight Alert oriented No labored breathing On room air Nondistended abdomen Anxious Intake & Output: Intake & Output 01/27/21 01/28/21 01/28/21 20:59 05:59 13:59 Intake Total 50 Output Total 850 Balance -800 Weight Intake: IV 50 Zosyn 3.375 gm In Dextrose 5% 50 in Water 50 ml @ 100 mls/hr IV Q6H [facility] Rx#:[id number] Oral Output: Void Amount 350 Emesis 500 Other: Meal Breakfast Percent of Meal Consumed 100% Feeding Ability Independent Urine Appearance Clear Urine Color Pale Urine Odor OBJ DATA Labs CBC & Chem 7: 01/28/21 05:49 01/28/21 05:49 Labs: Abnormal Lab Results 01/28/21 01/28/21 01/28/21 05:49 05:49 05:49 WBC RBC 2.88 L Hgb 8.4 L Hct 26.3 L RDW 15.3 H Neut % (Auto) Lymph % (Auto) Lymph # (Auto) Absolute Neutrophils ABG Methemoglobin VBG Base Excess VBG Lactic Acid Carboxyhemoglobin Total Hemoglobin Sodium Potassium 5.5 H BUN 42 H Creatinine 1.3 H Glucose 176 H Hemoglobin A1c Alkaline Phosphatase NT-Pro-B Natriuret Pep Albumin 3.1 L Procalcitonin 0.23 H Urine Protein Urine Glucose (UA) Urine Occult Blood Urine RBC Urine WBC 01/27/21 01/27/21 01/27/21 03:17 03:10 03:10 WBC RBC Hgb Hct RDW Neut % (Auto) Lymph % (Auto) Lymph # (Auto) Absolute Neutrophils ABG Methemoglobin 0.3 L VBG Base Excess -3 L VBG Lactic Acid 2.2 H Carboxyhemoglobin 9.1 H Total Hemoglobin 9.8 L Sodium 131 L Potassium 5.2 H BUN 46 H Creatinine 1.4 H Glucose 367 H Hemoglobin A1c 10.7 H Alkaline Phosphatase 131 H NT-Pro-B Natriuret Pep 2746.0 H Albumin Procalcitonin Urine Protein Urine Glucose (UA) Urine Occult Blood Urine RBC Urine WBC 01/27/21 01/27/21 03:10 02:30 WBC 16.9 H RBC 3.10 L Hgb 9.1 L Hct 28.1 L RDW 15.0 H Neut % (Auto) 88.6 H Lymph % (Auto) 5.8 L Lymph # (Auto) 0.99 L Absolute Neutrophils 15.00 H ABG Methemoglobin VBG Base Excess VBG Lactic Acid Carboxyhemoglobin Total Hemoglobin Sodium Potassium BUN Creatinine Glucose Hemoglobin A1c Alkaline Phosphatase NT-Pro-B Natriuret Pep Albumin Procalcitonin Urine Protein 100 mg/dl A Urine Glucose (UA) 500 mg/dl A Urine Occult Blood Moderate A Urine RBC 19 H Urine WBC 8 H Meds: Medications Acetaminophen (Acetaminophen 325 Mg Tablet) 650 mg PO Q4-6HP PRN; Protocol PRN Reason: Per Pain Protocol/Fever > 101 Albuterol Sulfate (Albuterol Sulfate 200 Puff Inhaler) 2 puff INH Q6H PRN PRN Reason: Shortness Of Breath Or Wheezing Alprazolam (Alprazolam 0.25 Mg Tablet) 0.25 mg PO TID [facility] Last Admin: 01/28/21 07:49 Dose: 0.25 mg Documented by: Amiodarone HCl (Amiodarone Hcl 200 Mg Tablet) 200 mg PO QDAY [facility] Last Admin: 01/28/21 07:49 Dose: 200 mg Documented by: Apixaban (Apixaban 5 Mg Tablet) 5 mg PO BID [facility] Last Admin: 01/28/21 07:48 Dose: 5 mg Documented by: Atorvastatin Calcium (Atorvastatin 40 Mg Tablet) 40 mg PO [facility] Last Admin: 01/27/21 20:52 Dose: 40 mg Documented by: Bisacodyl (Bisacodyl 10 Mg Supp.Rect) 10 mg NV Q2-3DAYS PRN PRN Reason: Constipation Carvedilol (Carvedilol 12.5 Mg Tablet) 12.5 mg PO BID [facility] Last Admin: 01/28/21 07:49 Dose: 12.5 mg Documented by: Dextrose (Dextrose 50% 50 Ml Vial) 0 ml IV UD PRN PRN Reason: Hypoglycemia Diagnostic Test (Pha) (Accu-Chek 1 Each Strip) 1 each FS [facility] Last Admin: 01/28/21 11:54 Dose: 1 each Documented by: Docusate Sodium (Docusate Sodium 100 Mg Capsule) 100 mg PO BID [facility] Last Admin: 01/28/21 08:13 Dose: Not Given Documented by: Furosemide (Furosemide 20 Mg Tablet) 20 mg PO QAM [facility] Last Admin: 01/28/21 07:49 Dose: 20 mg Documented by: Gabapentin (Gabapentin 100 Mg Capsule) 100 mg PO QHS [facility] Last Admin: 01/27/21 20:52 Dose: 100 mg Documented by: Glucose (Dextrose 31 Gm Oral.Susp) 15 gm PO PRN PRN PRN Reason: Hypoglycemia Potassium Chloride 40 meq/ (Dextrose) 520 mls @ 130 mls/hr IV UD PRN PRN Reason: K+ = or < 3.5 Acetaminophen (Ofirmev) 650 mg in 65 mls @ 130 mls/hr IV Q6HP PRN; Protocol PRN Reason: Per Pain Protocol/Fever > 101 Magnesium Sulfate (Magnesium Sulfate) 2 gm in 50 mls @ 50 mls/hr IV UD PRN PRN Reason: MG = or < 1.7 Piperacillin Sod/Tazobactam (Sod 3.375 gm/ Dextrose) 50 mls @ 100 mls/hr IV Q6H [facility]; Protocol Last Admin: 01/28/21 12:03 Dose: 100 mls/hr Documented by: Azithromycin 500 mg/ Dextrose 250 mls @ 250 mls/hr IV Q24H [facility]; Protocol Stop: 01/29/21 10:59 Last Admin: 01/28/21 08:47 Dose: 250 mls/hr Documented by: Insulin Glargine (Insulin Glargine, Human 1 Unit/0.01 Ml) 35 unit SQ BID [facility] Last Admin: 01/28/21 08:12 Dose: 35 units Documented by: Insulin Human Lispro (Insulin Lispro 1 Unit/0.01 Ml Unit) 0 unit SQ [facility]; Protocol Last Admin: 01/28/21 12:03 Dose: 4 units Documented by: Iron Carb/Multivit/Winn/Folic Acid (Multivit,Ther Iron,Ca,Fa & Min 1 Tablet) 1 tab PO DAILY [facility] Last Admin: 01/28/21 07:48 Dose: 1 tab Documented by: Meclizine HCl (Meclizine 25 Mg Tablet) 25 mg PO TIDP PRN PRN Reason: Vertigo Melatonin (Melatonin 3 Mg Tablet) 3 mg PO HSP PRN PRN Reason: Insomnia Last Admin: 01/27/21 20:52 Dose: 3 mg Documented by: Metoprolol Tartrate (Metoprolol Tartrate 5 Mg/5 Ml Vial) 5 mg IV Q5M PRN PRN Reason: Heart Rate > 140 bpm Morphine Sulfate (Morphine 30 Mg Tab.Sr.12h) 30 mg PO BID [facility]; Protocol Last Admin: 01/28/21 08:13 Dose: 30 mg Documented by: Omeprazole (Omeprazole 20 Mg Capsule) 40 mg PO BIDAC [facility] Last Admin: 01/28/21 07:49 Dose: 40 mg Documented by: Ondansetron HCl (Ondansetron 4 Mg Odt Tablet) 4 mg SL Q4-6HP PRN; Protocol PRN Reason: Nausea And Vomiting Ondansetron HCl (Ondansetron 4 Mg/2 Ml Vial) 4 mg IV Q4-6HP PRN; Protocol PRN Reason: Nausea And Vomiting Last Admin: 01/28/21 09:42 Dose: 4 mg Documented by: Polyethylene Glycol (Polyethylene Glycol 3350 17 Gm Packet) 17 gm PO DAILYP PRN PRN Reason: Constipation Potassium Chloride (Potassium Chloride 20 Meq Packet) 40 meq PO DAILYP PRN PRN Reason: K+ < 3.5 Potassium/Phosphorus/Sodium (Neutra Phos 1 Packet) 2 packet PO DAILY PRN PRN Reason: PHOS <2.5 Senna/Docusate Sodium (Sennosides/Docusate Sodium 1 Tab Tablet) 1 tab PO HS [facility] Last Admin: 01/27/21 20:51 Dose: Not Given Documented by: Sitagliptin Phosphate (Sitagliptin 100 Mg Tablet) 100 mg PO DAILY [facility] Last Admin: 01/28/21 07:48 Dose: 100 mg Documented by: Sodium Chloride (0.9 % Sodium Chloride 10 Ml Syringe) 10 ml IV Q8 [facility] Last Admin: 01/28/21 05:50 Dose: 10 ml Documented by: Spironolactone (Spironolactone 25 Mg Tablet) 25 mg PO QDAY [facility] Last Admin: 01/28/21 07:49 Dose: 25 mg Documented by: ABG Interpretation ABG results: 01/27/21 03:10 ABG Methemoglobin 0.3 L VBG pH 7.33 VBG pCO2 45.7 VBG pO2 54.4 VBG HCO3 23.5 VBG Total CO2 24.9 VBG O2 Saturation 79.8 VBG Base Excess -3 L A/P Narrative A/P Narrative: * Multifocal pneumonia aspiration versus community-acquired with superimposed CHF. Dramatic little improvement noted with resolution of leukocytosis with antibiotic coverage. De-escalate treatment based on further imaging. Await echocardiogram. Pancultures/sputum cultures/COVID-19 testing * Sepsis secondary to above with white count -but improving. Stable hemodynamics. * Decompensated heart failure continue aggressive diuresis/await echocardiogram * Uncomplicated UTI-improving on antibiotic coverage. Await cultures * Suboptimally controlled diabetes continue basal prandial insulin/CC diet. Blood sugars down from 500-1 70 * Acute kidney injury likely sepsis endorgan dysfunction. Baseline creatinine 0.8. Creatinine downtrending from 1.4-1.3 * History of PAF continue home dose amiodarone/apixaban/Coreg * HTN: Continue home medication except for KATHLEEN inhibitor in light of BETTY * History of chronic anxiety disorder on alprazolam * History of chronic pain on morphine 60 twice daily p.o. use as needed breakthrough opioids * History of positional vertigo-stable, currently stable. * h/o CVA: On apixaban for CVA prophylaxis. Continue PT OT/statin * GERD continue PPI * Full code * Prophylaxis apixaban Plan * Continue antibiotic coverage * Gentle diuresis * Await echocardiogram * Pre-existing medical condition management on home medications as above * PT OT nutrition support * Discharge planning Time Spent With Patient Time: Total time spent is greater than 50% in coordination of care (as documented) at patient's floor/unit and/or counseling patient: QUALITY Stroke Symptom Onset Unknown: No VTE Deep Vein Thrombosis/Pulmonary Embolism Present on Admission: No
[2021-01-28] MEDS ORDERED: SODIUM POLYSTYRENE SULFONATE 15 GM/60 ML SUSPENSION PO ONE (13:29)
[2021-01-28] MEDS: SENNOSIDES/DOCUSATE SODIUM 1 TAB TABLET PO SCH (20:08)
[2021-01-28] MEDS: GABAPENTIN 100 MG CAPSULE PO SCH (20:08)
[2021-01-28] MEDS: ATORVASTATIN 40 MG TABLET PO SCH (20:09)
[2021-01-29] MEDS: PIPERACILLIN SODIUM/TAZOBACTAM 3.375 GM in DEXTROSE 5% IN WATER 50 ML IV SCH ×2 (00:01→07:03)
[2021-01-29] MEDS: 0.9 % SODIUM CHLORIDE 10 ML SYRINGE IV SCH (07:03)
--- NOTE | 2021-01-29 08:02 | XRay Report ---
HISTORY: Shortness of breath, follow-up pulmonary infiltrates FINDINGS: There are mild generalized alveolar infiltrates in both lungs with the greatest involvement in the right lower lobe. There has been significant improvement bilaterally since 01/27/21. The heart remains mildly enlarged. There is no pleural effusion. No adenopathy is detected. IMPRESSION: Resolving pneumonia Interpreted and Authenticated by: Bill Stone 01/29/21
[2021-01-29 08:13] LABS: Basophils # (Auto) 0.03 K/mcL (0.00-0.20); Basophils % (Auto) 0.4 % (0.0-2.0); Eosinophils # (Auto) 0.44 K/mcL (0.00-0.70); Eosinophils % (Auto) 5.5 % (0.0-7.0); Hemoglobin 8.7 g/dL (12.0-15.0); Lymphocytes # (Auto) 2.48 K/mcL (1.50-4.80); Lymphocytes % (Auto) 31.1 % (15.0-49.0); Mean Cell Volume 90.6 fL (80.0-100.0); Mean Corpuscular HGB Conc 32.2 g/dL (31.0-36.0); Mean Platelet Volume 9.3 fL (7.4-10.4); Monocytes % (Auto) 8.8 % (1.0-12.0); Neutrophils % (Auto) 54.2 % (38.0-78.0); Platelet Count 250 K/mcL (140-440); RBC 2.98 M/mcL (4.00-5.20); Red Cell Distribution Width 15.4 % (11.5-14.5)
[2021-01-29] MEDS: OMEPRAZOLE 20 MG CAPSULE PO SCH ×2 (08:17→17:05)
[2021-01-29] MEDS: ONDANSETRON 4 MG ODT TABLET SL PRN ×2 (08:17→15:07)
[2021-01-29] MEDS: INSULIN LISPRO 1 UNIT/0.01 ML UNIT SQ SCH ×4 (08:30→21:15)
[2021-01-29] MEDS: INSULIN GLARGINE, HUMAN 1 UNIT/0.01 ML SQ SCH ×2 (08:33→21:15)
[2021-01-29] MEDS: AMOXICILLIN/POTASSIUM CLAV 875 MG TABLET PO SCH ×2 (08:43→17:05)
[2021-01-29] MEDS: AMIODARONE HCL 200 MG TABLET PO SCH (08:44)
[2021-01-29] MEDS: SPIRONOLACTONE 25 MG TABLET PO SCH (08:44)
[2021-01-29] MEDS: DOCUSATE SODIUM 100 MG CAPSULE PO SCH ×2 (08:44→20:23)
[2021-01-29] MEDS: MULTIVIT,THER IRON,CA,FA & MIN 1 TABLET PO SCH (08:44)
[2021-01-29] MEDS: CARVEDILOL 12.5 MG TABLET PO SCH ×2 (08:44→17:05)
[2021-01-29] MEDS: FUROSEMIDE 20 MG TABLET PO SCH (08:45)
[2021-01-29] MEDS: morphine 30 MG TAB.SR.12H PO SCH ×2 (08:49→20:21)
[2021-01-29] MEDS: sitaGLIPtin 100 MG TABLET PO SCH (08:49)
[2021-01-29] MEDS: ALPRAZolam 0.25 MG TABLET PO SCH ×3 (08:49→20:21)
[2021-01-29] MEDS: APIXABAN 5 MG TABLET PO SCH ×2 (08:49→20:22)
[2021-01-29 09:01] LABS: ALT/SGPT 6 U/L (<40); AST/SGOT 12 U/L (<32); Albumin 3.2 gm/dL (3.2-5.2); Alkaline Phosphatase 66 U/L (39-117); Bilirubin,Direct < 0.2 mg/dL (0-0.3); Bilirubin,Total 0.2 mg/dL (0.1-1.0); Blood Urea Nitrogen 37 mg/dL (8-23); Calcium 8.8 mg/dL (8.6-10.4); Carbon Dioxide 24 mmol/L (22-30); Chloride 100 mmol/L (96-108); Globulin 3.1 gm/dL (2.2-3.7); Glomerular Filtration Rate 48; Glucose 122 mg/dL (70-105); Lactate Dehydrogenase 200 U/L (135-225); Phosphorous 4.7 mg/dL (2.5-4.5); Triglycerides 99 mg/dL (<150); Uric Acid 4.6 mg/dL (2.5-8.0)
[2021-01-29] MEDS ORDERED: SODIUM POLYSTYRENE SULFONATE 15 GM/60 ML SUSPENSION PO ONE (09:04)
[2021-01-29] MEDS: GABAPENTIN 100 MG CAPSULE PO SCH (20:21)
[2021-01-29] MEDS: ATORVASTATIN 40 MG TABLET PO SCH (20:22)
[2021-01-29] MEDS: SENNOSIDES/DOCUSATE SODIUM 1 TAB TABLET PO SCH (20:23)
[2021-01-29 21:30] LABS: Basophils # (Auto) 0.03 K/mcL (0.00-0.20); Basophils % (Auto) 0.4 % (0.0-2.0); Eosinophils # (Auto) 0.35 K/mcL (0.00-0.70); Eosinophils % (Auto) 4.3 % (0.0-7.0); Hematocrit 26.6 % (36.0-48.0); Hemoglobin 8.8 g/dL (12.0-15.0); Lymphocytes # (Auto) 2.14 K/mcL (1.50-4.80); Lymphocytes % (Auto) 26.3 % (15.0-49.0); Mean Cell Volume 89.6 fL (80.0-100.0); Mean Corpuscular HGB Conc 33.1 g/dL (31.0-36.0); Mean Platelet Volume 9.4 fL (7.4-10.4); Monocytes # (Auto) 0.77 K/mcL (0.10-0.90); Monocytes % (Auto) 9.4 % (1.0-12.0); Neutrophils % (Auto) 59.6 % (38.0-78.0); Platelet Count 260 K/mcL (140-440); RBC 2.97 M/mcL (4.00-5.20); Red Cell Distribution Width 15.2 % (11.5-14.5); WBC 8.2 K/mcL (4.5-11.0)
[2021-01-29 21:52] LABS: Creatine Kinase MB 2.3 ng/mL (<3.7)
[2021-01-29 21:55] LABS: Creatine Kinase 48 U/L (24-170)
[2021-01-29 22:13] LABS: ALT/SGPT 10 U/L (<40); AST/SGOT 14 U/L (<32); Albumin 3.4 gm/dL (3.2-5.2); Alkaline Phosphatase 78 U/L (39-117); Bilirubin,Total 0.2 mg/dL (0.1-1.0); Blood Urea Nitrogen 33 mg/dL (8-23); Calcium 8.8 mg/dL (8.6-10.4); Carbon Dioxide 24 mmol/L (22-30); Chloride 96 mmol/L (96-108); Globulin 3.3 gm/dL (2.2-3.7); Glomerular Filtration Rate 48; Glucose 168 mg/dL (70-105)
[2021-01-30 03:48] LABS: Basophils # (Auto) 0.03 K/mcL (0.00-0.20); Basophils % (Auto) 0.4 % (0.0-2.0); Eosinophils # (Auto) 0.36 K/mcL (0.00-0.70); Eosinophils % (Auto) 4.9 % (0.0-7.0); Hematocrit 26.5 % (36.0-48.0); Hemoglobin 8.6 g/dL (12.0-15.0); Lymphocytes # (Auto) 2.29 K/mcL (1.50-4.80); Lymphocytes % (Auto) 30.9 % (15.0-49.0); Mean Cell Volume 91.7 fL (80.0-100.0); Mean Corpuscular HGB Conc 32.5 g/dL (31.0-36.0); Mean Platelet Volume 9.1 fL (7.4-10.4); Monocytes % (Auto) 9.4 % (1.0-12.0); Neutrophils % (Auto) 54.4 % (38.0-78.0); Platelet Count 247 K/mcL (140-440); RBC 2.89 M/mcL (4.00-5.20); Red Cell Distribution Width 15.1 % (11.5-14.5); WBC 7.4 K/mcL (4.5-11.0)
[2021-01-30 04:01] LABS: ALT/SGPT 8 U/L (<40); AST/SGOT 13 U/L (<32); Alkaline Phosphatase 65 U/L (39-117); Bilirubin,Direct < 0.2 mg/dL (0-0.3); Bilirubin,Total 0.2 mg/dL (0.1-1.0); Blood Urea Nitrogen 29 mg/dL (8-23); Calcium 8.8 mg/dL (8.6-10.4); Carbon Dioxide 24 mmol/L (22-30); Chloride 102 mmol/L (96-108); Globulin 3.1 gm/dL (2.2-3.7); Glomerular Filtration Rate 54; Glucose 78 mg/dL (70-105); Lactate Dehydrogenase 174 U/L (135-225); Phosphorous 5.5 mg/dL (2.5-4.5); Triglycerides 51 mg/dL (<150); Uric Acid 4.4 mg/dL (2.5-8.0)
[2021-01-30] MEDS: OMEPRAZOLE 20 MG CAPSULE PO SCH (07:22)
[2021-01-30] MEDS: ONDANSETRON 4 MG ODT TABLET SL PRN (07:22)
[2021-01-30] MEDS: INSULIN LISPRO 1 UNIT/0.01 ML UNIT SQ SCH ×2 (08:32→12:01)
[2021-01-30] MEDS: AMIODARONE HCL 200 MG TABLET PO SCH (08:47)
[2021-01-30] MEDS: FUROSEMIDE 20 MG TABLET PO SCH (08:47)
[2021-01-30] MEDS: AMOXICILLIN/POTASSIUM CLAV 875 MG TABLET PO SCH (08:47)
[2021-01-30] MEDS: CARVEDILOL 12.5 MG TABLET PO SCH (08:47)
[2021-01-30] MEDS: SPIRONOLACTONE 25 MG TABLET PO SCH (08:47)
[2021-01-30] MEDS: MULTIVIT,THER IRON,CA,FA & MIN 1 TABLET PO SCH (08:47)
[2021-01-30] MEDS: INSULIN GLARGINE, HUMAN 1 UNIT/0.01 ML SQ SCH (08:49)
[2021-01-30] MEDS: APIXABAN 5 MG TABLET PO SCH (08:56)
[2021-01-30] MEDS: sitaGLIPtin 100 MG TABLET PO SCH (08:56)
[2021-01-30] MEDS: ALPRAZolam 0.25 MG TABLET PO SCH (08:56)
[2021-01-30] MEDS: morphine 30 MG TAB.SR.12H PO SCH (08:56)
[2021-01-30] MEDS: DOCUSATE SODIUM 100 MG CAPSULE PO SCH (08:58)
--- NOTE | 2021-01-30 11:46 | Discharge Summary ---
Discharge Provider Provider Patient information: Note initiated : 01/30/21 at 11:40 am Service Date, if different from initiated Date: [] Patient: Abbi Sprague a 60 y/o F admitted on 01/27/21 for sob. Discharge diagnosis * Multifocal pneumonia aspiration versus community-acquired with superimposed CHF. Dramatic clinical improvement noted with resolution of leukocytosis with antibiotic coverage. Currently on room air. Discharging on oral antibiotics * Sepsis secondary to above with white count -clinically resolved * Hypokalemia-resolved post Kayexalate. Potassium down from 5.9-4.8 * Decompensated heart failure with preserved EF, grade 3 diastolic dysfunction on echo. Managed on diuretics/continued home antihypertensives. * Uncomplicated UTI-clinically resolved * Suboptimally controlled diabetes continue basal prandial insulin/CC diet. Clinically improving * Acute kidney injury likely sepsis endorgan dysfunction. Creatinine now close to baseline 1.1 * History of PAF continue home dose amiodarone/apixaban/Coreg * HTN: Continue home medication except for KATHLEEN inhibitor in light of BETTY * History of chronic anxiety disorder on alprazolam * History of chronic pain on morphine 60 twice daily * History of positional vertigo-stable, currently stable. * h/o CVA: On apixaban for CVA prophylaxis. Continue PT OT/statin * GERD continue PPI Brief hospital course History of present illness: Ms. Sprague is a 60 year old F with a history of CAD/C OPD/prior CVA/positional vertigo/hypertension and DM type II along with chronic pain or extended-release morphine who presents to the ER with 2 weeks onset of worsening shortness of breath/weakness/inability take care of self and associated low-grade fever/cough. Due to increased weakness she fell few days ago. She has been getting increasingly lightheaded and has been laying on the bed for the last 24 hours. She endorses to associated orthopnea and inability to lay down flat at night and has not had a restful night sleep due to increasing shortness of breath. She is normally on Lasix but that has not helped her dyspnea. With increasing concern she presents to the ER for evaluation Initial work-up was consistent with multiple bilateral infiltrates consistent with pneumonia/CHF. Patient was started on diuretics. Blood sugars over 500. Hospitalist service was consulted for admission. At the time of evaluation patient is very lethargic and minimally short of breath. She was able to answer most the question endorse history as above. She denies changes in medications or sick contacts. She lives with her . She did not seek medical help in the last 2 weeks despite progression of her symptoms. She however insists for more pain medication which is exacerbated her chronic pain after recent fall. She appears quite lethargi 01/28-patient feels better than previous day. Minimally lethargic. Complains of persistent pain and requesting higher dose of morphine. Reiterated that she is under pain contract and cannot modify the existing long-acting opioids without any clear indication exacerbation of pain. However would continue to use breakthrough intervention pain medications as indicated. On antibiotic coverage for multifocal pneumonia. No overnight events. Stable hemodynamics. WBC down to 7.5 from 17,000. Dramatic improvement overnight. Sodium 134, potassium 5.5, creatinine down to 1.3 blood sugars improved to 176. Await echocardiogram. On room air. 01/29-patient doing a lot better. Interval chest imaging shows resolving pneumonia. Continue antibiotic coverage. Potassium 5.9, start Kayexalate 30 mg p.o. Complains of generalized pain but well controlled on home dose morphine. Anxiety well controlled. Creatinine downtrending. No fever chills. Currently on room air. Complains of slight chest pressure, stat EKG no evidence of ST changes. Stat troponin negative. Symptoms resolved shortly and per patient associated with anxiety episodes 01/30-patient doing a lot better. Potassium normalized. Discharging home on p.o. antibiotics. Recommend follow-up with primary care physician. Echocardiogram EF 55 to 60% consistent with grade 3 diastolic dysfunction. CC a copy of echocardiogram to primary care physician's office. Continue CC diet Date of admission: 01/27/21 08:32 Discharge date: 01/30/21 Primary care physician: Fartun Yoder Consults: 01/28/21 07:53 Consult to Physician [CONS] Routine Comment: Consulting Provider: Augustine Barker Reason For Exam: Physician to Consult Discharge Meds Discharge Medications Home Medications alprazolam 0.25 mg tablet 0.25 mg PO TID 05/24/20 [History Confirmed 01/27/21 Last Taken 01/26/21 22:00] amiodarone 200 mg tablet 200 mg PO QDAY 05/24/20 [History Confirmed 01/27/21 Last Taken 01/26/21 22:00] carvedilol 12.5 mg tablet 12.5 mg PO BID 05/24/20 [History Confirmed 01/27/21 Last Taken 01/26/21 22:00] insulin lispro 100 unit/mL subcutaneous pen See Rx Instructions .ROUTE .COMPLEX ml 05/24/20 [History Confirmed 01/27/21 Last Taken 07/31/20] morphine 30 mg tablet,extended release 30 mg PO BID 05/24/20 [History Confirmed 01/27/21 Last Taken 01/26/21 22:00] omeprazole 40 mg capsule,delayed release 40 mg PO BID 05/24/20 [History Confirmed 01/27/21 Last Taken 01/26/21 22:00] rosuvastatin 20 mg tablet 20 mg PO QAM 05/24/20 [History Confirmed 01/27/21 Last Taken 01/26/21 10:00] spironolactone 25 mg tablet 25 mg PO QDAY 05/24/20 [History Confirmed 01/27/21 Last Taken 01/26/21 10:00] albuterol sulfate 2 puff INHALATION Q6H PRN 08/01/20 [History Confirmed 01/27/21 Last Taken 01/26/21 22:00] Eliquis 5 mg PO BID #30 tab 08/06/20 [Rx Confirmed 01/27/21 Last Taken 01/26/21 22:00] meclizine 25 mg PO TID PRN #21 tab 08/31/20 [Rx Confirmed 01/27/21 Last Taken Unknown] ondansetron HCl [Zofran] 4 mg PO Q6H PRN #20 tab 11/30/20 [Rx Confirmed 01/27/21 Last Taken Unknown] Cepacol Sore Throat (aviva-men) 1 ailyn PO BID PRN 01/27/21 [History Confirmed 01/27/21 Last Taken Unknown] Lantus U-100 Insulin 35 units BID 01/27/21 [History Confirmed 01/27/21 Last Taken 01/26/21 22:00] cetirizine [Allergy Relief (cetirizine)] 10 mg PO QDAY 01/27/21 [History Confirmed 01/27/21 Last Taken Unknown] furosemide 20 mg PO QAM 01/27/21 [History Confirmed 01/27/21 Last Taken Unknown] gabapentin 100 mg PO QHS 01/27/21 [History Confirmed 01/27/21 Last Taken 01/26/21 22:00] lisinopril 5 mg PO QAM 01/27/21 [History Confirmed 01/27/21 Last Taken Unknown] promethazine 25 mg MA Q4H PRN 01/27/21 [History Confirmed 01/27/21 Last Taken Unknown] amoxicillin-pot clavulanate 1 tab PO BID #10 tab 01/30/21 [Rx Last Taken Un known] COURSE Hospital Course Hospital course: . Discharge diagnosis: Community-acquired pneumonia Time Spent with Patient Time attestation: Total time spent providing and/or coordinating discharge services: EXAM Constitutional Vitals: Temp Pulse Resp BP Pulse Ox 98.4 F 76 14 156/74 99 01/30/21 08:00 01/30/21 10:38 01/30/21 08:00 01/30/21 10:38 01/30/21 10:38 Discharge Data Data Completed and Pending Labs on day of discharge: Labs from last 24 hours 01/30/21 01/30/21 01/30/21 03:09 03:09 03:09 WBC 7.4 RBC 2.89 L Hgb 8.6 L Hct 26.5 L MCV 91.7 MCH 29.8 MCHC 32.5 RDW 15.1 H Plt Count 247 MPV 9.1 Neut % (Auto) 54.4 Lymph % (Auto) 30.9 Gregg % (Auto) 9.4 Eos % (Auto) 4.9 Baso % (Auto) 0.4 Lymph # (Auto) 2.29 Gregg # (Auto) 0.70 Eos # (Auto) 0.36 Baso # (Auto) 0.03 Absolute Neutrophils 4.03 APTT Sodium 135 Potassium 4.8 Chloride 102 Carbon Dioxide 24 Anion Gap 9.0 BUN 29 H Creatinine 1.1 GFR Calculation 54 Glucose 78 Uric Acid 4.4 Calcium 8.8 Phosphorus 5.5 H Magnesium 2.3 Total Bilirubin 0.2 Direct Bilirubin < 0.2 GGT 21 AST 13 ALT 8 Alkaline Phosphatase 65 Lactate Dehydrogenase 174 Total Creatine Kinase CK-MB (CK-2) Troponin T 0.02 Total Protein 6.1 Albumin 3.0 L Globulin 3.1 Albumin/Globulin Ratio 1.0 Triglycerides 51 Hold Red Top 01/29/21 01/29/21 01/29/21 20:46 20:45 20:45 WBC 8.2 RBC 2.97 L Hgb 8.8 L Hct 26.6 L MCV 89.6 MCH 29.6 MCHC 33.1 RDW 15.2 H Plt Count 260 MPV 9.4 Neut % (Auto) 59.6 Lymph % (Auto) 26.3 Gregg % (Auto) 9.4 Eos % (Auto) 4.3 Baso % (Auto) 0.4 Lymph # (Auto) 2.14 Gregg # (Auto) 0.77 Eos # (Auto) 0.35 Baso # (Auto) 0.03 Absolute Neutrophils 4.86 APTT Sodium 129 L Potassium 5.9 H* Chloride 96 Carbon Dioxide 24 Anion Gap 9.0 BUN 33 H Creatinine 1.2 H GFR Calculation 48 Glucose 168 H Uric Acid Calcium 8.8 Phosphorus Magnesium Total Bilirubin 0.2 Direct Bilirubin GGT AST 14 ALT 10 Alkaline Phosphatase 78 Lactate Dehydrogenase Total Creatine Kinase 48 CK-MB (CK-2) 2.3 Troponin T 0.02 Total Protein 6.7 Albumin 3.4 Globulin 3.3 Albumin/Globulin Ratio 1.0 Triglycerides Hold Red Top Pending 01/29/21 20:45 WBC RBC Hgb Hct MCV MCH MCHC RDW Plt Count MPV Neut % (Auto) Lymph % (Auto) Gregg % (Auto) Eos % (Auto) Baso % (Auto) Lymph # (Auto) Gregg # (Auto) Eos # (Auto) Baso # (Auto) Absolute Neutrophils APTT 29.4 Sodium Potassium Chloride Carbon Dioxide Anion Gap BUN Creatinine GFR Calculation Glucose Uric Acid Calcium Phosphorus Magnesium Total Bilirubin Direct Bilirubin GGT AST ALT Alkaline Phosphatase Lactate Dehydrogenase Total Creatine Kinase CK-MB (CK-2) Troponin T Total Protein Albumin Globulin Albumin/Globulin Ratio Triglycerides Hold Red Top Preliminary micro results at discharge 01/27/21 12:51 Blood Culture - Preliminary Blood 01/27/21 11:54 Blood Culture - Preliminary Blood Discharge Plan Patient/Caregiver Discharge Instructions Activity: increase activity as tolerated Diet: Renal/Consistent Carbs Instructions: Heart Failure (GEN), Heart Healthy Diet (GEN), Passive Range of Motion Exercises (GEN), Hyperkalemia (GEN), Fall Prevention (GEN), Pneumonia (GEN) Activity Restrictions/Additional Instructions: Follow-up PCP in 5 to 7 days Continue antibiotic for additional 5 days oral Augmentin Return to ER if worsening fever chills, shortness of breath This discharge packet is provided to you to help keep you informed about your care. We want to ensure you get everything you need when you go home. You will also be receiving a call from us in a few days to follow up with you and see how you are doing since your discharge. This gives us a chance to listen to any concerns you maybe experiencing since you were discharged or any additional needs you may have, as well as providing us feedback on your care experience. We strive to always provide excellent care and thank you for your feedback and for choosing [facility]. Prescriptions: New amoxicillin-pot clavulanate 875-125 mg Tablet 1 tab PO BID Qty: 10 RF: 0 Continued alprazolam 0.25 mg tablet 0.25 mg PO TID RF: 0 amiodarone 200 mg tablet 200 mg PO QDAY RF: 0 carvedilol 12.5 mg tablet 12.5 mg PO BID RF: 0 insulin lispro [Humalog KwikPen Insulin] 100 unit/mL insulin pen See Rx Instructions .ROUTE .COMPLEX RF: 0 morphine 30 mg tablet extended release 30 mg PO BID RF: 0 omeprazole 40 mg capsule,delayed release(DR/EC) 40 mg PO BID RF: 0 rosuvastatin 20 mg tablet 20 mg PO QAM RF: 0 spironolactone 25 mg tablet 25 mg PO QDAY RF: 0 albuterol sulfate 90 mcg/actuation Hfa Aerosol Inhaler 2 puff INHALATION Q6H PRN (Reason: Shortness Of Breath Or Wheezing) RF: 0 Eliquis 5 mg Tablet 5 mg PO BID Qty: 30 RF: 0 meclizine 25 mg Tablet 25 mg PO TID PRN (Reason: Vertigo) Qty: 21 RF: 0 ondansetron HCl [Zofran] 4 mg tablet 4 mg PO Q6H PRN (Reason: nausea and vomiting) Qty: 20 RF: 0 Lantus U-100 Insulin 35 units BID RF: 0 furosemide 20 mg Tablet 20 mg PO QAM RF: 0 lisinopril 5 mg Tablet 5 mg PO QAM RF: 0 cetirizine [Allergy Relief (cetirizine)] 10 mg Tablet 10 mg PO QDAY RF: 0 Cepacol Sore Throat (aviva-men) 15-2.3 mg lozenge 1 ailyn PO BID PRN (Reason: Sore Throat) RF: 0 promethazine 25 mg Suppository 25 mg MA Q4H PRN (Reason: Nausea) RF: 0 gabapentin 100 mg Capsule 100 mg PO QHS RF: 0 Follow Up Plan Follow up with: Fartun Yoder MD [Primary Care Provider] - Patient Disposition: Home, Self-Care Prognosis: Fair Rehab Potential: Fair I certify that the patient requires SNF services: No Overall status at discharge: patient is progressing back to baseline Discharge Orders: Discharge Order (Routine); Ordered 01/30/21 Ordered By: Augustine HANCOCK VTE Deep Vein Thrombosis/Pulmonary Embolism Present on Admission: No
--- NOTE | 2021-01-30 11:51 | Internal Med Progress Note ---
SUBJECTIVE Subjective Patient information: Note initiated : 01/29/21 at 10:28 am Service Date, if different from initiated Date: [] Patient: Abbi Sprague a 60 y/o F admitted on 01/27/21 for sob. Chief Complaint: [] Interval history: History of present illness: Ms. Sprague is a 60 year old F with a history of CAD/COPD/prior CVA/positional vertigo/hypertension and DM type II along with chronic pain or extended-release morphine who presents to the ER with 2 weeks onset of worsening shortness of breath/weakness/inability take care of self and associated low-grade fever/cough. Due to increased weakness she fell few days ago. She has been getting increasingly lightheaded and has been laying on the bed for the last 24 hours. She endorses to associated orthopnea and inability to lay down flat at night and has not had a restful night sleep due to increasing shortness of breath. She is normally on Lasix but that has not helped her dyspnea. With increasing concern she presents to the ER for evaluation Initial work-up was consistent with multiple bilateral infiltrates consistent with pneumonia/CHF. Patient was started on diuretics. Blood sugars over 500. Hospitalist service was consulted for admission. At the time of evaluation patient is very lethargic and minimally short of breath. She was able to answer most the question endorse history as above. She denies changes in medications or sick contacts. She lives with her . She did not seek medical help in the last 2 weeks despite progression of her symptoms. She however insists for more pain medication which is exacerbated her chronic pain after recent fall. She appears quite lethargi 01/28-patient feels better than previous day. Minimally lethargic. Complains of persistent pain and requesting higher dose of morphine. Reiterated that she is under pain contract and cannot modify the existing long-acting opioids without any clear indication exacerbation of pain. However would continue to use breakthrough intervention pain medications as indicated. On antibiotic coverage for multifocal pneumonia. No overnight events. Stable hemodynamics. WBC down to 7.5 from 17,000. Dramatic improvement overnight. Sodium 134, potassium 5.5, creatinine down to 1.3 blood sugars improved to 176. Await echocardiogram. On room air. 01/29-patient doing a lot better. Interval chest imaging shows resolving pneumonia. Continue antibiotic coverage. Potassium 5.9, start Kayexalate 30 mg p.o. Complains of generalized pain but well controlled on home dose morphine. Anxiety well controlled. Creatinine downtrending. No fever chills. Currently on room air. Complains of slight chest pressure, stat EKG no evidence of ST changes. Stat troponin negative. Symptoms resolved shortly and per patient associated with anxiety episodes Constitutional Vitals: Vital Signs Temp Pulse Resp BP Pulse Ox 98.4 F 76 14 156/74 99 01/30/21 08:00 01/30/21 10:38 01/30/21 08:00 01/30/21 10:38 01/30/21 10:38 Period Temp Pulse Resp BP Sys/Wiggins Pulse Ox Last 24 Hr 97.6 F-98.7 F 65-80 10-16 112-164/65-90 94-100 Intake and Output 01/29/21 01/30/21 01/30/21 21:59 05:59 13:59 Intake Total 725 180 Output Total 1350 Balance -625 180 Weight 82.191 kg Alert oriented Nonlabored breathing Minimal anxiety Intake & Output: Intake & Output 01/29/21 01/30/21 01/30/21 21:59 05:59 13:59 Intake Total 725 180 Output Total 1350 Balance -625 180 Weight 82.191 kg Intake: Oral 725 180 Output: Void Amount 1350 Other: Meal Dinner Breakfast Percent of Meal Consumed 25% 25% Feeding Ability Independent Urine Appearance Clear Clear Clear Urine Color Bright Yellow Bright Yellow Bright Yellow Urine Odor Normal Normal Stool Size Moderate Copious Stool Color Brown Brown Stool Consistency Soft Soft # Voids 1 1 # Bowel Movements 1 OBJ DATA Labs CBC & Chem 7: 01/30/21 03:09 01/30/21 03:09 Labs: Abnormal Lab Results 01/30/21 01/30/21 01/29/21 03:09 03:09 20:46 RBC 2.89 L 2.97 L Hgb 8.6 L 8.8 L Hct 26.5 L 26.6 L RDW 15.1 H 15.2 H Sodium Potassium BUN 29 H Creatinine Glucose Phosphorus 5.5 H Albumin 3.0 L Procalcitonin 01/29/21 01/29/21 01/29/21 20:45 07:09 07:09 RBC 2.98 L Hgb 8.7 L Hct 27.0 L RDW 15.4 H Sodium 129 L Potassium 5.9 H* 5.9 H* BUN 33 H 37 H Creatinine 1.2 H 1.2 H Glucose 168 H 122 H Phosphorus 4.7 H Albumin Procalcitonin 01/28/21 01/28/21 01/28/21 05:49 05:49 05:49 RBC 2.88 L Hgb 8.4 L Hct 26.3 L RDW 15.3 H Sodium Potassium 5.5 H BUN 42 H Creatinine 1.3 H Glucose 176 H Phosphorus Albumin 3.1 L Procalcitonin 0.23 H Meds: Medications Acetaminophen (Acetaminophen 325 Mg Tablet) 650 mg PO Q4-6HP PRN; Protocol PRN Reason: Per Pain Protocol/Fever > 101 Albuterol Sulfate (Albuterol Sulfate 200 Puff Inhaler) 2 puff INH Q6H PRN PRN Reason: Shortness Of Breath Or Wheezing Alprazolam (Alprazolam 0.25 Mg Tablet) 0.25 mg PO TID [facility] Last Admin: 01/30/21 08:56 Dose: 0.25 mg Documented by: Amiodarone HCl (Amiodarone Hcl 200 Mg Tablet) 200 mg PO QDAY [facility] Last Admin: 01/30/21 08:47 Dose: 200 mg Documented by: Amoxicillin/Clavulanate Potassium (Amoxicillin/Potassium Clav 875 Mg Tablet) 875 mg PO BIDCC [facility]; Protocol Last Admin: 01/30/21 08:47 Dose: 875 mg Documented by: Apixaban (Apixaban 5 Mg Tablet) 5 mg PO BID [facility] Last Admin: 01/30/21 08:56 Dose: 5 mg Documented by: Atorvastatin Calcium (Atorvastatin 40 Mg Tablet) 40 mg PO [facility] Last Admin: 01/29/21 20:22 Dose: 40 mg Documented by: Bisacodyl (Bisacodyl 10 Mg Supp.Rect) 10 mg CA Q2-3DAYS PRN PRN Reason: Constipation Carvedilol (Carvedilol 12.5 Mg Tablet) 12.5 mg PO BIDCC [facility] Last Admin: 01/30/21 08:47 Dose: 12.5 mg Documented by: Diagnostic Test (Pha) (Accu-Chek 1 Each Strip) 1 each FS ACHS [facility] Last Admin: 01/30/21 08:32 Dose: 1 each Documented by: Docusate Sodium (Docusate Sodium 100 Mg Capsule) 100 mg PO BID [facility] Last Admin: 01/30/21 08:58 Dose: 100 mg Documented by: Furosemide (Furosemide 20 Mg Tablet) 20 mg PO QAM [facility] Last Admin: 01/30/21 08:47 Dose: 20 mg Documented by: Gabapentin (Gabapentin 100 Mg Capsule) 100 mg PO QHS [facility] Last Admin: 01/29/21 20:21 Dose: 100 mg Documented by: Glucose (Dextrose 31 Gm Oral.Susp) 15 gm PO PRN PRN PRN Reason: Hypoglycemia Insulin Glargine (Insulin Glargine, Human 1 Unit/0.01 Ml) 35 unit SQ BID [facility] Last Admin: 01/30/21 08:49 Dose: 35 units Documented by: Insulin Human Lispro (Insulin Lispro 1 Unit/0.01 Ml Unit) 0 unit SQ ACHS [facility]; Protocol Last Admin: 01/30/21 08:32 Dose: Not Given Documented by: Iron Carb/Multivit/Architecture Manager/Folic Acid (Multivit,Ther Iron,Ca,Fa & Min 1 Tablet) 1 tab PO DAILY [facility] Last Admin: 01/30/21 08:47 Dose: 1 tab Documented by: Meclizine HCl (Meclizine 25 Mg Tablet) 25 mg PO TIDP PRN PRN Reason: Vertigo Melatonin (Melatonin 3 Mg Tablet) 3 mg PO HSP PRN PRN Reason: Insomnia Last Admin: 01/27/21 20:52 Dose: 3 mg Documented by: Morphine Sulfate (Morphine 30 Mg Tab.Sr.12h) 30 mg PO BID [facility]; Protocol Last Admin: 01/30/21 08:56 Dose: 30 mg Documented by: Omeprazole (Omeprazole 20 Mg Capsule) 40 mg PO BIDAC [facility] Last Admin: 01/30/21 07:22 Dose: 40 mg Documented by: Ondansetron HCl (Ondansetron 4 Mg Odt Tablet) 4 mg SL Q4-6HP PRN; Protocol PRN Reason: Nausea And Vomiting Last Admin: 01/30/21 07:22 Dose: 4 mg Documented by: Ondansetron HCl (Ondansetron 4 Mg/2 Ml Vial) 4 mg IV Q4-6HP PRN; Protocol PRN Reason: Nausea And Vomiting Last Admin: 01/28/21 09:42 Dose: 4 mg Documented by: Polyethylene Glycol (Polyethylene Glycol 3350 17 Gm Packet) 17 gm PO DAILYP PRN PRN Reason: Constipation Potassium Chloride (Potassium Chloride 20 Meq Packet) 40 meq PO DAILYP PRN PRN Reason: K+ < 3.5 Potassium/Phosphorus/Sodium (Neutra Phos 1 Packet) 2 packet PO DAILY PRN PRN Reason: PHOS <2.5 Senna/Docusate Sodium (Sennosides/Docusate Sodium 1 Tab Tablet) 1 tab PO [facility] Last Admin: 01/29/21 20:23 Dose: Not Given Documented by: Sitagliptin Phosphate (Sitagliptin 100 Mg Tablet) 100 mg PO DAILY [facility] Last Admin: 01/30/21 08:56 Dose: 100 mg Documented by: Spironolactone (Spironolactone 25 Mg Tablet) 25 mg PO QDAY [facility] Last Admin: 01/30/21 08:47 Dose: 25 mg Documented by: ABG Interpretation ABG results: 01/27/21 03:10 ABG Methemoglobin 0.3 L VBG pH 7.33 VBG pCO2 45.7 VBG pO2 54.4 VBG HCO3 23.5 VBG Total CO2 24.9 VBG O2 Saturation 79.8 VBG Base Excess -3 L A/P Narrative A/P Narrative: * Multifocal pneumonia consistent with aspiration pneumonia/superimposed CHF. Initiate diuresis/antibiotic coverage. De-escalate treatment based on further imaging. Echocardiogram. Pancultures/sputum cultures/COVID-19 testing * Sepsis secondary to above with white count 17,000, elevated lactate and evidence of endorgan dysfunction including elevated creatinine 1.4 * Hyperkalemia 5.9. Start Kayexalate * Decompensated heart failure continue aggressive diuresis/ordered echocardiogram * Uncomplicated UTI-continue antibiotic coverage. Cultures negative so far * Suboptimally controlled diabetes continue basal prandial insulin/CC diet * Acute kidney injury likely sepsis endorgan dysfunction. Baseline creatinine 0.8. Current creatinine 1.4., * History of PAF continue home dose amiodarone/apixaban/Coreg * HTN: Continue home medication except for KATHLEEN inhibitor * History of chronic anxiety disorder * History of chronic pain on morphine 60 twice daily p.o. * History of positional vertigo-stable, currently stable. * h/o CVA: On apixaban for CVA prophylaxis. Continue PT OT/statin * GERD continue PPI * Full code * Prophylaxis apixaban Plan * Continue antibiotic coverage and de-escalate to p.o. * Gentle diuresis * Await echocardiogram * Kayexalate * Pre-existing medical condition management as above * PT OT nutrition support * Discharge planning likely in 24 hours Time Spent With Patient Time: Total time spent is greater than 50% in coordination of care (as documented) at patient's floor/unit and/or counseling patient: QUALITY Stroke Symptom Onset Unknown: No VTE Deep Vein Thrombosis/Pulmonary Embolism Present on Admission: No
== END 2021-01-30 14:15 | disposition home or self-care (01) | DRG 871 ==
LOC: ED 01:09 → ICU 08:32
PROVIDERS: ADMIT Internal Medicine; ATTEND Internal Medicine